=== PATIENT | male | born 1940 | race Caucasian/White ===

== ENCOUNTER 2019-07-17 13:53 | Day surgery (SDC) | payer MEDICARE, OTHER, SELFPAY ==
[2019-07-16 14:39] VITALS: BMI 27.3
[2019-07-17 14:16] VITALS: BP 147/83; O2SAT 95
[2019-07-17 14:21] VITALS: TEMP 36.8
[2019-07-17 14:23] VITALS: PULSE 63
--- NOTE | 2019-07-17 14:47 | ANES.PREANES ---
Pre-Anesthetic Assessment Pre-Anesthetic Assessment: Height/Weight: Height 1.73 m Weight 81.647 kg Temp Pulse BP Pulse Ox 98.2 F 63 147/83 95 07/17/19 14:21 07/17/19 14:23 07/17/19 14:16 07/17/19 14:16 Proposed Procedure: Operation Date: 07/17/19 15:30 Proposed Procedures p Inguinal Hernia Repair w/ Mesh(Left) - Russ Persaud MD Social: Social History: No alcohol and No tobacco Exam: Pre-Anes Outpt Exam: alert, oriented x 3, clear to auscultation bilaterally and regular rate & rhythm Airway: Submandibular: WNL Cervical ROM: Other (limited) MP: 2 Dentition: Other (teeth ok) History/ROS: No significant history except as noted Pulmonary: Pulmonary: None reported CV/HEM: CV/HEM: CAD and HTN Comments: PTCA 2010 : : None reported Hepatic: Hepatic: None reported GI: GI: None reported Metabolic: Metabolic: Hyperlipidemia Musc/skel: Musc/skel: Lower Back Pain and OA/DJD Neuropsych: Neuropsych: None reported Anesthetic Plan: ASA status: III Anesthesia: Anesthesia Evaluation and MAC Risk of > 500 ml blood loss (7ml/kg in children): No PFSH Anesthesia PFSH: Medical History CAD (coronary artery disease) (Acute) Depression (Acute) Gallstones (Acute) Heart attack (Acute) Hypertension (Acute) Prostate enlargement (Acute) Skin cancer (Acute) Sleep apnea (Acute) Surgical History Hx of appendectomy (Acute) Hx of cholecystectomy (Acute) Hx of heart artery stent (Acute) Hx of tonsillectomy (Acute) Family History Other Cholelithiasis Diabetes Hypertension Social History Smoking and tobacco status: never smoked Data Anesthesia Cardiac Studies: No Data to Display
--- NOTE | 2019-07-17 15:00 | PM.HPUD ---
H&P update H&P Update: DATE OF SURGERY/PROCEDURE: 07/17/19 DATE H&P PERFORMED: 06/24/19 H&P UPDATE INFORMATION: H&P completed within last 30 days and No changes to prior documentation PLANNED PROCEDURE: Operation Date: 07/17/19 15:30 Proposed Procedures p Inguinal Hernia Repair w/ Mesh(Left) - Russ Persaud MD Full H&P Perinent History: Medical/Surgical History: Medical History (Updated 07/17/19 @ 14:48 by Osmin Mortensen MD) CAD (coronary artery disease) (Acute) Depression (Acute) Gallstones (Acute) Heart attack (Acute) Hypertension (Acute) Prostate enlargement (Acute) Skin cancer (Acute) Sleep apnea (Acute) Family History: Family History (Updated 07/09/19 @ 13:56 by Marianna Granados) Other Cholelithiasis Diabetes Hypertension Social History: Social History Smoking and tobacco status: never smoked
[2019-07-17] MEDS: sodium chloride 0.9% 1,000 ML 30 ML IV (15:05)
--- NOTE | 2019-07-17 15:55 | P.OP_ITS ---
Operative Report Date of procedure: July 17, 2019 Pre-op Diagnosis: Incarcerated left inguinal hernia. Post-op Findings: Incarcerated left indirect inguinal hernia. Procedure Done: Reduction and repair of incarcerated left inguinal hernia with mesh. Specimens removed/disposition: None sent. Surgeon: Russ Persaud Anesthesia: MAC Estimated blood loss (mL): 5 Complications: None. Condition: stable Disposition: same day Procedure: The patient was brought to the operating room and was placed in a supine position on the operating room table. A monitored anesthetic was induced. The left inguinal region was prepped and draped in a sterile fashion. A combination of 1% lidocaine and 0.5% bupivacaine with 1-200,000 parts epinephrine was used for local anesthesia throughout the procedure. A transverse incision was carried out above the level of the pubic tubercle. Cautery was used to divide the subcutaneous tissue down to the external oblique aponeurosis which was incised in parallel with its fibers over the inguinal canal. The spermatic cord was looped with a [place] drain. An indirect hernia was found at the internal ring. The hernia sac was eventually opened to facilitate dissection and it was discovered that the patient's sigmoid colon was extending all the way down his inguinal canal and back up again. The hernia sac and contents were carefully freed from the cord structures down to the internal ring. The opening in the hernia sac was then closed using a running suture of 3-0 Vicryl and the hernia sac was reduced. The presence of the indirect hernia had obliterated the superior aspect of the inguinal canal floor. A large mesh plug was used to hold the hernia sac in a reduced position and was held in place with sutures of 0 Prolene that were used to connect the conjoined area medially to the reflecting edge of Poupart's ligament laterally. Prolene sutures were continued down the inguinal canal approximating the conjoined area medially to the reflecting edge of Poupart's ligament laterally, essentially re-creating the inguinal canal floor where it had been obliterated by the presence of the hernia. The onlay patch was anchored at the tubercle with a suture of 0 Prolene and was laid along the inguinal canal floor, allowing the cord structures to pass through the precut hole in the mesh. The two wings of mesh were sewn to each other above the level of the internal ring with a suture of 0 Prolene. The external oblique aponeurosis was closed over the top of the cord using a running suture of 3-0 Vicryl. The wound was irrigated with saline. The subcutaneous tissue was brought together with a simple suture of 3-0 Vicryl and the skin was approximated using a running subcuticular suture of 3-0 Vicryl. Benzoin and Steri-Strips were placed over the incision and a sterile bandage followed. The patient was taken to the recovery area in stable condition postoperatively.
[2019-07-17 16:00] VITALS: BP 117/73; PULSE 67; RESP 18; TEMP 36.3; O2SAT 92
[2019-07-17 16:25] VITALS: BP 137/68; PULSE 67; RESP 18; TEMP 36.3; O2SAT 94
== END 2019-07-17 16:45 | disposition home or self-care (01) ==
PROVIDERS: Family Provider Family Medicine; PCP Family Medicine; Visit Provider Surgery
PROC: (CPT 49507; principal; 2019-07-17 15:30)
DX: K40.30 Unilateral inguinal hernia, with obstruction, without gangrene, not specified as recurrent (principal); I25.10 Atherosclerotic heart disease of native coronary artery without angina pectoris; G47.30 Sleep apnea, unspecified; Z82.49 Family history of ischemic heart disease and other diseases of the circulatory system; Z83.3 Family history of diabetes mellitus; I11.0 Hypertensive heart disease with heart failure; I50.9 Heart failure, unspecified; I25.2 Old myocardial infarction; Z79.82 Long term (current) use of aspirin
CPT/HCPCS: 49507; 12345; J0690; J2001; J2704; J3010; J3490; J7030

== ENCOUNTER 2019-11-06 12:56 | Outpatient (CLI) | payer MEDICARE, OTHER, SELFPAY ==
--- NOTE | 2019-11-06 13:02 | MR_ITS ---
WS: [id number] MRI LUMBAR SPINE NONCONTRAST HISTORY: SPINAL stenosis, LUMBAR REGION WITH NEUROGENIC CLAUDICATION COMPARISON: None available. TECHNIQUE: Sagittal and axial multisequence imaging is submitted. Moderate RIGHT convex curvature of the lumbar vertebral bodies. Asymmetric disc space narrowing throu ghout the lumbar spine. Most significant degenerative disc disease is at L2-3 and L3-4. L4 anterolist hesis by 2 mm. Disc desiccation is mild at L4-5 and L5-S1. No marrow edema or acute fractures. Fatty replacement involving the endplates from L2 to L4. Conus terminates normally at L1. L1-L2: Asymmetric disc bulging with osteophytic ridging and disc bulge and facet arthritis. Small dariela unt of fluid in the facet joints. Mild central stenosis. L2-L3: Moderate asymmetric disc bulging and osteophytic ridging. Shallow central annular fissure in t he disc. Moderate central stenosis with mild subarticular recess and bilateral foraminal stenosis. L3-L4: Diffuse asymmetric disc bulging and osteophytic ridging. Large osteophytes extend from the LEF T lateral vertebral body. Marked facet arthritis. Deformity of the thecal sac with encroachment and n arrowing. Moderate to severe central with bilateral subarticular recess stenosis. Additional moderate bilateral foraminal stenosis. L4-L5: Diffuse annular disc bulging with facet and ligamentum flavum arthritis. Osteophytic ridging a round the vertebral bodies. Severe central with bilateral subarticular recess stenosis and mild bilat eral foraminal stenosis. Increase fluid in the facet joints with mild widening. L5-S1: Very mild asymmetric disc bulging. Moderate facet arthritis. No significant central or foramin al narrowing. Patient has a known large LEFT renal cyst measuring 10.4 cm. Additional RIGHT renal cyst extends late rally measuring 2.6 cm. MR/MR lumbar spine wo con* [id number] IMPRESSION: 1. Moderate RIGHT convex curvature the lumbar spine. 2. Severe degenerative disc disease most significant at L2-3 and L3-4. 3. Multilevel areas of central, foraminal subarticular stenosis is multifactor ial. 4. Severe central and bilateral subarticular recess stenosis at L4-5. 5. Increased fluid with mild widening of the facet joints at L4-5. 6. Moderate to severe central stenosis with bilateral subarticular recess sten osis and moderate foraminal stenosis at L3-4. 7. Mild central stenosis at L2-3. 8. Moderate central stenosis with mild subarticular recess and bilateral regina inal stenosis at L2-3.
--- NOTE | 2019-11-06 13:02 | MR_ITS ---
WS: [id number] MRI THORACIC SPINE noncontrast. HISTORY: SPINAL stenosis, LUMBAR REGION WITH NEUROGENIC CLAUDICATION COMPARISON: None available. TECHNIQUE: Multiplanar sequences are performed in sagittal and axial planes. Very slight increase in thoracic kyphosis. Mild disc space narrowing. No signal abnormality within th e cord. There is no atrophy or edema. Conus tapers normally ends at L1. Very slight anterolisthesis o f C7. T1-2: Mild LEFT foraminal narrowing. T2-3: Shallow central disc protrusion and mild bilateral foraminal narrowing. T3-4: Mild RIGHT facet joint arthritis without stenosis. T4-5: RIGHT facet joint arthritis. No significant stenosis. T5-6: Normal. T6-7: Shallow RIGHT paracentral disc protrusion without cord contact. Mild facet arthritis. T7-8: Shallow central disc protrusion and annular fissure. Mild facet joint arthritis. T8-9: Mild osteophytic ridging and bilateral facet arthritis. Mild bilateral foraminal narrowing. T9-10: Moderate bilateral facet joint arthritis with mild bilateral foraminal narrowing. T10-11: Bilateral moderate facet arthritis and mild foraminal narrowing. T11-12: Mild bilateral facet arthritis. There is a large cyst in the LEFT abdomen associated with the kidney which is been previously describ ed. MR/MR thoracic spin wo con* [id number] IMPRESSION: 1. Multilevel mild facet arthritis without significant central or foraminal st enosis. 2. Multilevel small disc protrusions and facet arthritis as above.
--- NOTE | 2019-11-06 13:02 | XR_ITS ---
WS: [id number] LATERAL LUMBAR SPINE: 3 view. Lateral radiographs are performed in upright neutral, flexion and extension to the patient's toleranc e. HISTORY: SPINAL stenosis, LUMBAR REGION WITH NEUROGENIC CLAUDICATION COMPARISON: 01/14/2019 L4 anterolisthesis by 3 mm. Does not significantly change with flexion and extension. There is severe disc space narrowing at L3-4 and L4-5. Diffuse osteopenia with facet joint arthritis. Disc spaces ar e asymmetric due to the scoliosis. Moderate atherosclerosis within the aorta. XR/XR lumbar spine f/e only [id number] IMPRESSION: 1. L4 anterolisthesis by 3 mm without instability. Similar to the prior study of 01/14/2019. 2. Advanced degenerative spondylosis throughout the lumbar spine. Most signifi cant at L3-4.
== END 2019-11-06 12:57 | disposition home or self-care (01) ==
LOC: RADWPI 12:59
PROVIDERS: Family Provider Family Medicine; PCP Family Medicine; Visit Provider Anesthesiology Pain Medicine
DX: M48.062 Spinal stenosis, lumbar region with neurogenic claudication (principal); M51.36 Other intervertebral disc degeneration, lumbar region; M47.896 Other spondylosis, lumbar region; M48.061 Spinal stenosis, lumbar region without neurogenic claudication; M48.04 Spinal stenosis, thoracic region; M47.894 Other spondylosis, thoracic region
CPT/HCPCS: 72120; 72146; 72148

== ENCOUNTER 2019-12-11 15:24 | Observation (INO) | payer MEDICARE, OTHER, SELFPAY ==
[2019-12-10 12:19] VITALS: BMI 27.3
[2019-12-11] VITALS (9 sets, daily range): BP systolic 130–143; BP diastolic 73–85; PULSE 60–78; RESP 16–20; TEMP 35.9–36.4; O2SAT 91–97
--- NOTE | 2019-12-11 | SCC_ITS ---
Procedure Done: Thoracic laminotomy with placement of intraspinal, epidural paddle electrode arrays. 29.1 seconds of fluoroscopic guidance, for a cumulative dose of 8.03 mGy, was provided to Dr. Barajas by the radiology department. C-arm images of the thoracic spine were saved for the patient's permanent record. [facility]
--- NOTE | 2019-12-11 | XR_ITS ---
WS: [id number] C-ARM RADIOGRAPHS CHEST; 2 IMAGES HISTORY: DCS stimulator COMPARISON: None available. Intraoperative imaging during dorsal column stimulator placement. Electrodes project over T7 and T8. XR/XR thoracic spine 1V [id number] IMPRESSION: Intraoperative imaging during dorsal column stimulator placement.
--- NOTE | 2019-12-11 10:26 | ANES.PREANE2 ---
Pre-Anesthetic Assessment Pre-Anesthetic Assessment: Height/Weight: Height 1.7 m Weight 79.379 kg Temp Pulse Resp BP Pulse Ox 97.1 F L 60 18 139/83 97 12/11/19 10:13 12/11/19 10:13 12/11/19 10:13 12/11/19 10:13 12/11/19 10:13 Preop Diagnosis: Lumbar spinal stenosis, with neurogenic claudication Proposed Procedure: Operation Date: 12/11/19 11:30 Proposed Procedures p Dorsal Column Stimulator Insertion [id number] M48.062(Not Applicable) - Liam Barajas MD Last intake: Intake Last Liquid Date 12/11/19 Last Liquid Time 00:00 Last Solid Date 12/11/19 Last Solid Time 00:00 Social: Social History: No alcohol and No tobacco Exam: Pre-Anes Outpt Exam: alert, oriented x 3, clear to auscultation bilaterally and regular rate & rhythm Airway: Submandibular: WNL Cervical ROM: WNL MP: 2 Dentition: Other (teeth ok) History/ROS: No significant history except as noted Pulmonary: Pulmonary: Sleep apnea CV/HEM: CV/HEM: CAD (stents 2009), HTN and IA : : None reported Hepatic: Hepatic: None reported GI: GI: None reported Metabolic: Metabolic: Hyperlipidemia Musc/skel: Musc/skel: Lower Back Pain and OA/DJD Anesthetic Plan: ASA status: 3 Anesthesia: Anesthesia Evaluation, General and MAC Risk of > 500 ml blood loss (7ml/kg in children): No PFSH Anesthesia PFSH: Medical History CAD (coronary artery disease) Depression Dyslipidemia Gallstones Heart attack Hypertension Intervertebral disc disorder with radiculopathy of lumbosacral region Lumbar stenosis with neurogenic claudication Prostate enlargement Skin cancer Sleep apnea Spondylolisthesis of lumbar region Surgical History Hx of appendectomy Hx of cholecystectomy Hx of heart artery stent Hx of tonsillectomy Family History Mother Diabetes Hypertension Father Hypertension Other Cholelithiasis Social History Smoking and tobacco status: never smoked Alcohol intake: never Household members: spouse Marital status: Current occupational status: retired History of recent travel: No Data Anesthesia Cardiac Studies: No Data to Display
[2019-12-11] MEDS: vancomycin 1,000 MG in sodium chloride 0.9% 250 ML 250 MG IV (10:46)
[2019-12-11] MEDS: sodium chloride 0.9% 1,000 ML 30 ML IV (10:46)
--- NOTE | 2019-12-11 11:22 | W.PM.OPSUD ---
Surgery/Procedure H&P Update DATE OF PROCEDURE: December 11, 2019 DATE H&P PERFORMED: 11/24/19 H&P UPDATE INFORMATION: I have reviewed H&P completed within last 30 days and H&P to be scanned into chart PREOP DIAGNOSIS: Lumbar spinal stenosis, with neurogenic claudication PRIMARY INDICATION FOR PROCEDURE: Pain PLANNED PROCEDURE: Operation Date: 12/11/19 11:30 Proposed Procedures Thoracic spinal cord Stimulator paddle lead placement via laminectomy, and sub Q pulse generator placement [id number] M48.062(Not Applicable) - Liam Barajas MD
--- NOTE | 2019-12-11 12:22 | PM.OP2 ---
Brief Operative Note: Date of procedure: 12/11/19 Pre-op diagnosis: Lumbar stenosis, with neurogenic claudication Post-op diagnosis: same Procedure Done: Placement of thoracic spinal cord stimulation electrode arrays via laminotomy; placement of subQ programmable pulse generator Surgeon: Liam Barajas Estimated blood loss (mL): 20 Complications: None Post-op Plan: PACU, then surgical theodore Condition: stable Disposition: PACU Coding Level of Care Code Acute Deputy Juvenile Officer for Ramona Maria
[2019-12-11] MEDS: thrombin 5,000 unit SDV 5000 UNIT XX (15:05)
--- NOTE | 2019-12-11 15:56 | P.OP_ITS ---
Operative Report Date of procedure: December 11, 2019 Pre-op Diagnosis: Lumbar spinal stenosis, with neurogenic claudication Post-op diagnosis: same Procedure Done: Thoracic laminotomy with placement of intraspinal, epidural paddle electrode arrays. Placement of subcutaneous programmable pulse generator. Implants: [place] [employer] CoverEdge 32 lead software test engineer. [employer] WaveWriter pulse generator. Clik lead anchors. Fixate suture devices. Pathology: none sent Surgeon: Liam Barajas Anesthesia: MAC Estimated blood loss (mL): 20 IV fluids (mL): 400 Urine output (mL): 100 Complications: None. Condition: stable Disposition: PACU Brief History: The patient is an 79-year-old male with chronic, intractable low back pain and bilateral hip pain. He also described mid back pain. Symptoms were made worse with prolonged standing/walking. He had undergone physical therapy and pain clinic interventional treatments, with limited/transient benefit obtained. He underwent a percutaneous trial of thoracic spinal cord stimulation in October 2019. Pain clinic notes suggest a midline percutaneous lead was placed spanning T6-T8. The patient reported a 50-70% improvement in pain related parameters during the trial. Imaging studies suggested multilevel degenerative disc/joint disease, with significant spinal stenosis at L4-L5. After review of the diagnostic and treatment options with the risks/potential benefits/rationale for each, he requested to proceed with surgical intervention for permanent spinal cord stimulator placement via laminotomy. Procedure: After routine preoperative evaluation and informed consent were obtained, the patient was taken to the Operating Room and positioned prone on the operating table. Chest and pelvic bolsters were positioned to ensure the abdomen was decompressed. All pressure points were padded. The patient reported the position to be comfortable. He was maintained under varying levels of intravenous sedation by Anesthesia personnel. The planned right flank pulse generator placement incision was marked with a skin marker. A planned midline posterior thoracic incision was likewise marked, after intraoperative localization with fluoroscopy. The patient's lead location during the successful percutaneous trial was utilized to guide placement for the permanent implant. The posterior thorax and flanks were scrubbed with Betadine and prepped with DuraPrep. Sterile towels and drapes were applied, and an [place] surgical barrier was placed. The proposed midline thoracic incision was infiltrated with 1% Xylocaine with epinephrine. A skin incision was made and carried down into the subcutaneous tis sues. The deep fascial plane was identified and divided in the midline. A right- sided subperiosteal dissection was carried down along the lamina at what appeared by intraoperative fluoroscopy to be T8/T9. Deep self-retaining retractors were placed to maximize the operative exposure. A laminotomy was fashioned with [place] rongeurs. Ligamentum flavum was resected at the base of the laminotomy site. The hockey-stick dural separator was advanced into the dorsal epidural space without resistance, and then removed. The [place] [employer] CoverEdge 32, 70 cm, 4 x 8 lead software test engineer was then advanced into the dorsal epidural space. Intraoperative fluoroscopy suggested a near midline position with the cephalad extent of the lead extending to the superior aspect of T7. Anesthesia personnel diminished the patient's sedation until he was awake and conversant. The lead tails were connected to extension cables, and intraoperative spinal cord stimulation was performed. The patient reported good paresthesia coverage of his chronic low back and hip pain sites. Lead impedances were good. The patient's sedation was deepened. The wound was copiously irrigated with sterile saline and antibiotic irrigation. The fascia was closed utilizing 2-0 Vicryl Plus in a simple interrupted fashion. CLIK lead anchors were placed over 2 of the 4 lead tails, and secured at the fascial entry point with Fixate suture devices. The lead - anchor - fascial interfaces were manipulated and found to be secure. Intraoperative fluoroscopy verified a stable lead position. Strain relief loops of the lead tails were fashioned within the subcutaneous space at the thoracic incision site. The right flank incision site was prepared by infiltration with 1% Xylocaine with epinephrine. An incision was then made, and a subcutaneous pocket was created of adequate size to accommodate the pulse generator. The subcutaneous tunneling tool was utilized to create a subcutaneous passage between the thoracic and right flank incisions. Lead tails were advanced through the subcutaneous tunnel utilizing the tunneling tool. The lead tails were advanced into the appropriate ports on the [employer] WaveWriter pulse generator. An impedance check demonstrated no lead faults. The connection sites were secured with set screws and the torque wrench. The connection sites were manipulated and found to be secure. The pulse generator was again interrogated, with acceptable impedance and no evidence of device malfunction. The right flank subcutaneous pocket and the thoracic incision site were copiously irrigated with antibiotic irrigation. Hemostasis was ensured. The pulse generator was placed within the right flank subcutaneous pocket with excess lead coiled deep/adjacent to the device. The pulse generator was anchored to the superficial fascia with a single Silk suture. The site was again irrigated with antibiotic irrigation. Wound closure was performed in multiple layers with 2-0 Vicryl Plus simple interrupted closure of the dermis. Intraoperative fluoroscopy verified a stable lead position. Final skin closure was performed at both incision sites with 3-0 Vicryl Plus in a running subcuticular pattern. Steri-Strips were applied, and sterile dressings were placed. The patient was then rotated onto the Recovery Room cart in the supine position. He tolerated the procedure well. All sponge, needle and instrument counts were correct at the completion of the procedure.
[2019-12-11 17:04] LABS: Glucose Point of Care 145 mg/dL (70-110)
[2019-12-11] MEDS: lactated ringers 1,000 ML 90 ML IV (17:08)
[2019-12-11] MEDS: docusate sodium 100 mg Capsule PO (17:54)
[2019-12-11] MEDS: metoprolol tartrate 50 mg Tablet 100 MG PO (17:54)
[2019-12-11] MEDS: atorvastatin 40 mg Tablet 80 MG PO (17:55)
--- NOTE | 2019-12-11 19:33 | PM.DCS ---
Discharge Providers Date of Admission: 12/11/19 15:24 Date of Discharge: December 11, 2019 Attending Provider at Admission: Liam Barajas MD Attending Provider at Discharge: Liam Barajas MD Primary Care Provider: Ryder Quach Jr, MD Diagnoses at Discharge Discharge Diagnosis (1) Lumbar stenosis with neurogenic claudication: Status: Chronic Reason for Visit Reason for Visit: Lumbar stenosis with neurogenic claudication M48.0 Brief History: The patient is an 79-year-old male with chronic, intractable low back pain and bilateral hip pain. He also described mid back pain. Symptoms were made worse with prolonged standing/walking. He had undergone physical therapy and pain clinic interventional treatments, with limited/transient benefit obtained. He underwent a percutaneous trial of thoracic spinal cord stimulation in October 2019. Pain clinic notes suggest a midline percutaneous lead was placed spanning T6-T8. The patient reported a 50-70% improvement in pain related parameters during the trial. Imaging studies suggested multilevel degenerative disc/joint disease, with significant spinal stenosis at L4-L5. After review of the diagnostic and treatment options with the risks/potential benefits/rationale for each, he requested to proceed with surgical intervention for permanent spinal cord stimulator placement via laminotomy. Hospital Course Hospital Course: The patient underwent thoracic laminotomy with placement of intraspinal, epidural paddle electrode arrays and placement of subcutaneous programmable pulse generator on 12/11/2019. He obtained good paresthesia coverage of his chronic low back and hip pain sites with intraoperative stimulation. He tolerated the procedure well. He completed perioperative intravenous antibiotic doses. He was ambulatory, voiding, and tolerating regular diet prior to discharge home in the evening of the date of surgery. Physical Exam Const: COMMON NORMALS: no acute distress and alert GENERAL APPEARANCE: cooperative and comfortable Neck/C-Spine: COMMON NORMALS: supple and no JVD GENERAL: Yes trachea midline Resp: COMMON NORMALS: normal respiratory effort EFFORT & INSPECTION: Yes able to speak in complete sentences and No stridor Cardio: COMMON NORMALS: no JVD Extremity: COMMON NORMALS: no clubbing, cyanosis or edema Neuro: COMMON NORMALS: moves all extremities SENSORIUM/ORIENTATION: Yes alert SPEECH: speech normal Psych: COMMON NORMALS: speech normal ATTITUDE: Yes calm and Yes engaged ACTIVITY/MOTOR BEHAVIOR: Yes appropriate eye contact SPEECH: Yes normal speech MOOD & AFFECT: Yes euthymic mood ATTENTION/CONCENTRATION: Yes attention grossly intact Skin: WOUNDS: Yes surgical site (Right flank and midline posterior thoracic surgical site dressings C/D/I.) Urinary Catheter Management^: Hassan: Cath Placed During This Visit: yes, but has since been removed by the nurse Urinary Catheter Date of Insertion: 12/11/19 Urinary Catheter Time of Insertion: 13:40 Date Urinary Catheter Removed: 12/11/19 Time Urinary Catheter Discontinued: 15:35 Discharge Data Data Completed and Pending: Completed Studies During Hospitalization Category Date Time Status XR thoracic spine 1V [id number] Routine Exams 12/11/19 Completed Imaging^: Other Xray: Radiologist's impression: Intraoperative imaging during dorsal column stimulator placement. Electrodes project over T7 and T8. Procedures Performed: Thoracic laminotomy with placement of intraspinal, epidural paddle electrode arrays. Placement of subcutaneous programmable pulse generator. Intravenous antibiotics. Vitals: Last Vital Signs Temp 96.7 F L 12/11/19 19:39 Pulse 69 12/11/19 19:39 Resp 20 H 12/11/19 19:39 BP 140/77 12/11/19 19:39 Pulse Ox 92 12/11/19 19:39 Discharge Plan Discharge Patient Disposition: Home, Self-Care Condition: Stable Prescriptions: [place] 7.5-325 mg tablet 1 tab PO Q4H PRN (Reason: pain) Qty: 30 RF: 0 Continued atorvastatin [Lipitor] 80 mg Tablet 80 mg PO QPM RF: 0 metoprolol tartrate 100 mg Tablet 100 mg PO BID RF: 0 amlodipine [Norvasc] 10 mg Tablet 10 mg PO DAILY RF: 0 niacin 500 mg Tablet 500 mg PO BID RF: 0 sertraline 25 mg Tablet 25 mg PO DAILY RF: 0 lisinopril 40 mg Tablet 40 mg PO DAILY RF: 0 alfuzosin 10 mg Tablet Extended Release 24 Hr 10 mg PO DAILY RF: 0 cholecalciferol (vitamin D3) [Vitamin D3] 5,000 unit Tablet 5,000 unit PO DAILY RF: 0 Held Excedrin Extra Strength 250-250-65 mg tablet 1 tab PO Q6H PRN (Reason: Pain) RF: 0 Hold Instructions: Resume on 12/13/19. aspirin 81 mg Tablet,Delayed Release (Dr/Ec) 81 mg PO DAILY RF: 0 Hold Instructions: Resume on 12/13/19. Discharge Orders: Discharge Order (Routine); Ordered 12/11/19 Ordered By: Liam Barajas Referrals: Liam Barajas MD [Physician] - 2 weeks (Faxed face sheet and information to Dr. Soler and they will call you at home with an appointment. Please call his office if you have not heard from them by Sunday.) Discharge Diet: Usual diet Discharge Activity: Limit activity as instructed Patient Instructions: Hydrocodone/Acetaminophen (By mouth), Spinal Cord Stimulator Placement (DC) Activity Restrictions/Additional Instructions: Activity - No driving until office followup visit - No lifting/pushing/pulling over 10 pounds - Avoid twisting or bending - Walking is encouraged - Home exercise per physical therapist - You may engage in sexual intercourse at any time as long as it is comfortable for you - Check with your doctor before returning to work. Notify your doctor if you develop: - temperature of 101.5 degrees F. or higher - redness or swelling of the incision - Foul drainage - increasing pain - increasing numbness or tingling in the arms or legs - New or increasing problems with vision, balance, memory, speaking, nausea or vomiting Hygiene: - Showering is okay - No tub baths or soaking Other: Remove outer bandage 3 days after surgery. If you have paper strips, leave in place until they fall off on their own. If you have stitches, keep your incision dry until the stitches are removed. Your doctor's office is available to answer any questions from 7 AM to 5:00 PM, Sunday through at [phone]. After hours, go to the emergency room at [facility] or call 911 for assistance. Discharge Date/Time: 12/11/19 19:40 Discharge Attestations Time Spent in Discharge Care*: other (postop global) Quality Metrics Clinical Quality Measures During this hospital stay, did patient experience: None Coding Level of Care Code Acute Frog Catcher for Chg Fwd Diagnoses Lumbar stenosis with neurogenic claudication M48.062
--- NOTE | 2019-12-11 19:41 | PC.NURSE ---
Discharge Pt. assisted to dress and taken to private vehicle with family member driving by this nurse at 1935. Pt. was given all discharge information and prescriptions, verbalizes understanding. Pt. and daughter also informed of discharge packet and prescriptions to be filled, verbalizes understanding. Pt. assisted into private vehicle with standby assist. IV was removed prior to leaving the floor by day shift nurse.
== END 2019-12-11 19:40 | disposition home or self-care (01) ==
LOC: MEDSURG 15:24
PROVIDERS: Admitting Provider Specialist; PCP Family Medicine; Visit Provider Specialist
PROC: (CPT 63655; principal; 2019-12-11 11:30)
DX: M48.062 Spinal stenosis, lumbar region with neurogenic claudication (principal); G47.30 Sleep apnea, unspecified; I25.10 Atherosclerotic heart disease of native coronary artery without angina pectoris; Z95.5 Presence of coronary angioplasty implant and graft; I25.2 Old myocardial infarction; E78.5 Hyperlipidemia, unspecified; Z82.49 Family history of ischemic heart disease and other diseases of the circulatory system; Z83.3 Family history of diabetes mellitus
CPT/HCPCS: 63655 ×2; 63685 ×2; 12345; 36416; 51702; 72020; 76000; 82962; 96365; C1778; C1820; C1883; G0378; J0690; J2001; J2704; J3010; J3370; J3490; J7030; J7050

== ENCOUNTER 2020-05-26 09:27 | Outpatient (CLI) | payer MEDICARE, OTHER, SELFPAY ==
--- NOTE | 2020-05-26 09:30 | USCV_ITS ---
[place] Age: 79 Gender: M : 1940 Exam Date: 05/26/2020 09:50 Ordering Phys: Tyler Bennett M.D ([email or web address]) Technologist: Jamey Ballard [place] [facility] [place]: HTN BP: 117 / 56 HR: 69 Rhythm: Sinus Technical Quality: Fair MEASUREMENTS (Male / Female) Normal Values 2D ECHO LV Diastolic Diameter PLAX 3.3 cm 4.2 - 5.9 / 3.9 - 5.3 cm LV Systolic Diameter PLAX 2.1 cm IVS Diastolic Thickness 0.9 cm 0.6 - 1.0 / 0.6 - 0.9 cm IVS Systolic Thickness 1.3 cm LVPW Diastolic Thickness 1.3 cm 0.6 - 1.0 / 0.6 - 0.9 cm LVPW Systolic Thickness 1.4 cm LVOT Diameter 2.1 cm LV Ejection Fraction 2D Teich 55.8 % LV Ejection Fraction MOD 2C 59.3 % LV Ejection Fraction 2C AL 60.8 % LA Diameter 3.5 cm LA Width 3.9 cm LA Height 3.8 cm RA Width 3.3 cm RA Height 4.1 cm Aorta at Sinotubular Diameter 2.7 cm M-MODE LV Diastolic Diameter MM 5.6 cm 4.2 - 5.9 / 3.9 - 5.3 cm LV Systolic Diameter MM 4.0 cm LV Ejection Fraction MM Teich 56.3 % IVS Diastolic Thickness MM 1.0 cm 0.6 - 1.0 / 0.6 - 0.9 cm IVS Systolic Thickness MM 2.0 cm LVPW Diastolic Thickness MM 1.5 cm 0.6 - 1.0 / 0.6 - 0.9 cm LVPW Systolic Thickness MM 1.9 cm RV Diastolic Diameter MM 2.1 cm Aortic Annulus Diameter 3.6 cm LA Ao Ratio MM 1.1 MV E Point Septal Separation 1.1 cm DOPPLER AV Peak Velocity 115.0 cm/s LVOT Peak Velocity 96.0 cm/s AV Area Cont Eq vti 2.9 cm squared AV Area Cont Eq pk 2.8 cm squared MV Area PHT 5.0 cm squared Mitral E to A Ratio 0.5 MV E' Velocity 39.5 cm/s Mitral E to MV E' Ratio 13.5 Mitral E to LV E' Lateral Ratio 12.6 Mitral E to LV E' Septal Ratio 14.6 TR Peak Velocity 124.7 cm/s TR Peak Gradient 6.2 mmHg Right Atrial Pressure 3.0 mmHg Pulmonary Artery Systolic Pressu 9.2 mmHg PV Peak Velocity 79.0 cm/s FINDINGS Left Ventricle Normal left ventricular size, systolic function and wall thickness, with no regional wall motion abnormalities. Left ventricular ejection fraction is estimated at 60 %. Grade I diastolic dysfunction (abnormal relaxation filling pattern), normal to mildly elevated filling pressures. Right Ventricle Normal right ventricular size and systolic function. Right ventricular systolic pressure 9.2 mmHg. Right Atrium Normal right atrial size. Left Atrium Normal left atrial size. Mitral Valve Structurally normal mitral valve. No mitral valve stenosis. Trace mitral valve regurgitation. Aortic Valve Aortic valve not well visualized. Possibly trileaflet thickened aortic valve. No aortic valve stenosis. No aortic valve regurgitation. Tricuspid Valve Structurally normal tricuspid valve. No tricuspid valve stenosis. Trace tricuspid valve regurgitation. Pulmonic Valve Pulmonic valve not well visualized. Pericardium No pericardial effusion. Aorta Normal size aortic root and proximal ascending aorta. CONCLUSIONS 1. Normal left ventricular size, systolic function and wall thickness, with no regional wall motion abnormalities. Left ventricular ejection fraction is estimated at 60 %. Grade I diastolic dysfunction (abnormal relaxation filling pattern), normal to mildly elevated filling pressures. 2. Normal pulmonary artery pressure. 3. No significant valvular abnormality. 4. No prior similar studies to compare. Jazmine Ledezma MD (Electronically Signed) Final Date: 30 May 2020 14:59 S
== END 2020-05-26 09:28 | disposition home or self-care (01) ==
LOC: US 09:27
PROVIDERS: PCP Family Medicine; Visit Provider Internal Medicine
DX: R06.02 Shortness of breath (principal)
CPT/HCPCS: 93306

== ENCOUNTER → 2020-09-01 09:11 | Outpatient (BNVA) | payer MEDICARE, OTHER, SELFPAY | PROVIDERS: PCP Family Medicine; Visit Provider Urology | DX: R39.9 Unspecified symptoms and signs involving the genitourinary system (principal); N40.1 Benign prostatic hyperplasia with lower urinary tract symptoms | CPT/HCPCS: 81003 ==

== ENCOUNTER 2020-10-07 08:43 | Outpatient (CLI) | payer MEDICARE, OTHER, SELFPAY ==
--- NOTE | 2020-10-07 08:57 | CT_ITS ---
WS: [id number] CT HEAD WITH AND WITHOUT CONTRAST HISTORY: ALTERED MENTAL STATUS TECHNIQUE: Noncontrast 2.5 mm axial images obtained from the vertex to the skull base. Additional isabel ging performed at 2.5 mm axial images status post IV contrast. Bone and soft tissue windows are revie wed. All CT scans at [facility] use at least one of these dose optimization techniques: a utomated exposure control; mA and/or kV adjustment per patient size (includes targeted exams where do se is matched to clinical indication); or iterative reconstruction. CONTRAST: Visipaque 320; 95 mL IV. DLP: 1851.82 mGycm COMPARISON: None available. No acute intracranial hemorrhage, edema or midline shift. Mild atrophy and mild chronic microvascular ischemic disease. 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 No large area infarcts. No enhancing mass or vascular malformations identified. Dural venous sinuses are normally enhancing. Mildly ectatic distal vertebral and intracranial carotid arteries. There is atherosclerotic plaque wi thin the cavernous and supraclinoid carotid arteries. There is a moderate stenosis secondary to calci fied plaque involving the RIGHT supraclinoid carotid artery. No occlusions. Paranasal sinuses as visualized: Clear. Mastoid air cells: Clear. Calvarium and scalp: Intact. CT/CT head wo/w con [id number] IMPRESSION: 1. No enhancing masses or vascular malformations. 2. 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 3. Mild atrophy and mild chronic ischemic disease.
[2020-10-07 09:21] LABS: Blood Urea Nitrogen 25 mg/dL (8-23)
[2020-10-07] MEDS: iodixanol 320 mg/mL 100mL Btl IV (09:35)
== END 2020-10-07 08:44 | disposition home or self-care (01) ==
PROVIDERS: PCP Family Medicine; Visit Provider Family Medicine
DX: R41.82 Altered mental status, unspecified (principal); I65.21 Occlusion and stenosis of right carotid artery; I67.82 Cerebral ischemia; G31.9 Degenerative disease of nervous system, unspecified
CPT/HCPCS: 70470; 82565; 84520; Q9967

== ENCOUNTER 2021-02-21 00:22 | Emergency (ER) | payer MEDICARE, OTHER, SELFPAY ==
[2021-02-21 00:24] VITALS: PULSE 57; RESP 16; TEMP 36.7; O2SAT 94; BMI 26.3
--- NOTE | 2021-02-21 00:37 | XRR_ITS ---
PROCEDURE INFORMATION: Exam: XR Chest Exam date and time: 02/21/2021 12:37 AM Age: 80 years old Clinical indication: Other: Weakness TECHNIQUE: Imaging protocol: XR of the chest. Views: 1 view. COMPARISON: OT XR thoracic spine 1V [id number] 12/11/2019 2:00 PM FINDINGS: Lungs: Unremarkable. No consolidation. Pleural spaces: Unremarkable. No pleural effusion. No pneumothorax. Heart/Mediastinum: Unremarkable. No cardiomegaly. Bones/joints: Unremarkable. XR/XR chest 1V portable [id number] IMPRESSION: No acute findings.
--- NOTE | 2021-02-21 00:39 | ED_ITS ---
Documented by User: LDUY Rodriguez 02/21/21 01:02 HPI - General Adult General: Chief complaint: General Medical Stated complaint: WEAKNESS Time Seen by Provider: 02/21/21 00:33 History of Present Illness: HPI narrative: Patient arrived via ambulance with complaint of sudden onset of weakness earlier tonight after having sore throat for the last couple days. Patient said it is hard to swallow and eat and drink anything the last 2 days and he was going to bed tonight and he just become weak. Said he had to crawl over to the bed. called the ambulance. Said he feels a bit better now. complaint: Sore throat weakness Onset (ago): day(s) Severity: mild Associated symptoms: Reports no associated symptoms; Deny chest pain, dyspnea, headache(s), nausea, rash or vomiting Review of Systems Const: Reports: other (Anderson weak tonight); Denies: fever(s), chills or body aches Eyes: Denies: change in vision or blurry vision ENMT: Reports: throat pain; Denies: nasal congestion Card: Denies: chest pain or dyspnea on exertion Resp: Denies: dyspnea, productive cough or non-productive cough GI: Denies: abdominal pain, nausea or vomiting : Denies: difficulty urinating Musc: Denies: extremity pain Skin/Breast: Denies: rash Neuro: Denies: headache(s) Psych: Denies: anxiety or depression James/Lymph: Denies: easy bruising PFSH ED PFSH: Medical History BPH loc w urin obs/LUTS CAD (coronary artery disease) Depression Dyslipidemia Gallstones Heart attack Hypertension Intervertebral disc disorder with radiculopathy of lumbosacral region Lower urinary tract symptoms (LUTS) Lumbar stenosis with neurogenic claudication Prostate enlargement Skin cancer Sleep apnea Spondylolisthesis of lumbar region Surgical History Hx of appendectomy Hx of cholecystectomy Hx of heart artery stent Hx of tonsillectomy Family History Mother Diabetes Hypertension CAD (coronary artery disease) Father Hypertension CAD (coronary artery disease) Other Cholelithiasis Denies family history of Clotting disorder Dementia Chronic kidney disease (CKD) Suicide Anesthesia complication Bleeding disorder Lung disease Cancer Stroke Social History Smoking and tobacco status: never smoked Alcohol intake: never Household members: spouse Marital status: Current occupational status: retired History of recent travel: No Physical Exam Const: COMMON NORMALS: no acute distress, average body habitus and patient oriented x3 HENMT: COMMON NORMALS: normocephalic HEAD & SCALP: normal to inspection and normocephalic FACE & SINUS: normal facial exam MOUTH: Normal oral and palatal mucosa present THROAT: posterior oropharynx normal Eye: COMMON NORMALS: conjunctivae normal GENERAL EYE: appearance normal, both eyes and all related structures CONJUNCTIVA: Yes conjunctivae normal Neck/C-Spine: COMMON NORMALS: no JVD Chest: COMMONS NORMALS: normal inspection of the chest Resp: COMMON NORMALS: normal respiratory effort and clear to auscultation bilaterally AUSCULTATION: clear to auscultation bilaterally Cardio: COMMON NORMALS: no JVD, regular rate and regular rhythm RATE: regular rate RHYTHM: regular rhythm GI: COMMON NORMALS: Normal to inspection, nondistended, normoactive bowel sounds present Extremity: COMMON NORMALS: normal to inspection and full ROM Neuro: COMMON NORMALS: patient oriented x3 Course Vital Signs: Vital signs: Vital Signs Temperature 98.1 F 02/21/21 00:24 Pulse Rate 78 02/21/21 05:59 Respiratory Rate 18 02/21/21 05:59 Blood Pressure 112/78 02/21/21 05:59 Pulse Oximetry 92 02/21/21 05:59 [facility] - General Adult Lab Data: Labs: Lab Results 02/21/21 02/21/21 02/21/21 Range/Units 00:37 00:37 00:37 WBC 6.4 (4.0-10.0) 10^3/ uL RBC 4.78 (4.1-5.3) 10^6/u L Hgb 15.1 (11.7-16.6) g/dL Hct 45.1 (42.0-52.0) % MCV 94.4 H (80-94) fl MCH 31.6 (28.0-34.0) pg MCHC 33.5 (30.0-36.0) g/dL RDW 12.9 (12.1-15.1) % Plt Count 132 (130-400) 10^3/c mm MPV 10.3 (7.4-10.4) fL Neut % (Auto) 71.3 % Lymph % (Auto) 17.0 % Bradley % (Auto) 10.9 % Eos % (Auto) 0.3 % Baso % (Auto) 0.3 % Neut # (Auto) 4.53 (1.8-7.7) 10^3/u L Lymph # (Auto) 1.1 (0.8-4.8) 10^3/u L Bradley # (Auto) 0.7 (0.2-0.9) 10^3/u L Eos # (Auto) 0.0 (0.0-0.8) 10^3/u L Baso # (Auto) 0.0 (0.0-0.1) 10^3/u L Nucleated RBC % (a uto) 0 % Nucleated RBCs # 0.0 /100WBC Sodium 141 (136-145) mmol/L Potassium 3.9 (3.5-5.1) mmol/L Chloride 104 (98-107) mmol/L Carbon Dioxide 24 (22-29) mmol/L Anion Gap 16.9 (5-19) BUN 27 H (8-23) mg/dL Creatinine 1.4 H (0.7-1.2) mg/dL GFR Calculation Not Reportable Glucose 97 (65-115) mg/dL Calculated Osmolal ity 297 H (285-295) mOsm/k g Calcium 9.1 (8.5-10.5) mg/dL Total Bilirubin 0.4 (0.15-1.2) mg/dL AST 27 (0-40) U/L ALT 21 (0-41) U/L Alkaline Phosphata se 67 (40-130) IU/L Troponin T Baselin e 40 H (0-15) ng/L Troponin T 120 Min [place] (0-15) ng/L Delta Troponin T (0-10) ABS# Total Protein 6.0 L (6.6-8.7) g/dL Albumin 4.1 (3.5-5.2) g/dL Globulin 1.9 (1.3-4.6) g/dL SARS-CoV-2 Ag (Rap id) Group A Strep Rapi d (Negative) 02/21/21 02/21/21 02/21/21 Range/Units 00:49 00:49 02:55 WBC (4.0-10.0) 10^3/ uL RBC (4.1-5.3) 10^6/u L Hgb (11.7-16.6) g/dL Hct (42.0-52.0) % MCV (80-94) fl MCH (28.0-34.0) pg MCHC (30.0-36.0) g/dL RDW (12.1-15.1) % Plt Count (130-400) 10^3/c mm MPV (7.4-10.4) fL Neut % (Auto) % Lymph % (Auto) % Bradley % (Auto) % Eos % (Auto) % Baso % (Auto) % Neut # (Auto) (1.8-7.7) 10^3/u L Lymph # (Auto) (0.8-4.8) 10^3/u L Bradley # (Auto) (0.2-0.9) 10^3/u L Eos # (Auto) (0.0-0.8) 10^3/u L Baso # (Auto) (0.0-0.1) 10^3/u L Nucleated RBC % (a uto) % Nucleated RBCs # /100WBC Sodium (136-145) mmol/L Potassium (3.5-5.1) mmol/L Chloride (98-107) mmol/L Carbon Dioxide (22-29) mmol/L Anion Gap (5-19) BUN (8-23) mg/dL Creatinine (0.7-1.2) mg/dL GFR Calculation Glucose (65-115) mg/dL Calculated Osmolal ity (285-295) mOsm/k g Calcium (8.5-10.5) mg/dL Total Bilirubin (0.15-1.2) mg/dL AST (0-40) U/L ALT (0-41) U/L Alkaline Phosphata se (40-130) IU/L Troponin T Baselin e (0-15) ng/L Troponin T 120 Min [place] 37.43 H (0-15) ng/L Delta Troponin T -2.57 L (0-10) ABS# Total Protein (6.6-8.7) g/dL Albumin (3.5-5.2) g/dL Globulin (1.3-4.6) g/dL SARS-CoV-2 Ag (Rap id) Cancelled Group A Strep Rapi d Negative (Negative) EKG Data^: EKG 1: EKG interpretation date: 02/21/21 EKG interpretation time: 00:49 Computer generated interpretation: Chest X-Ray 02/21/21 00:37 IMPRESSION: No acute findings. Ventricular rate 70 bpm DC interval 256 ms QRS duration is 76 ms QT is 398 ms sinus rhythm with first-degree AV block. Discharge Plan Discharge Patient Disposition: Home Clinical Impression: Near syncope Condition: Stable Prescriptions: No Action carbidopa-levodopa 25-100 mg tablet 0.5 tab PO BID RF: 0 lisinopril 10 mg tablet 10 mg PO DAILY RF: 0 Excedrin Extra Strength 250-250-65 mg tablet 1 tab PO Q6H PRN (Reason: Pain) RF: 0 Hold Instructions: Resume on 12/13/19. metoprolol tartrate 50 mg tablet 50 mg PO BID RF: 0 alfuzosin 10 mg tablet extended release 24 hr 10 mg PO DAILY Qty: 90 RF: 3 atorvastatin [Lipitor] 80 mg Tablet 80 mg PO QPM RF: 0 aspirin 81 mg Tablet,Delayed Release (Dr/Ec) 81 mg PO DAILY RF: 0 Hold Instructions: Resume on 12/13/19. niacin 500 mg Tablet 500 mg PO BID RF: 0 sertraline 25 mg Tablet 25 mg PO DAILY RF: 0 cholecalciferol (vitamin D3) [Vitamin D3] 125 mcg (5,000 unit) tablet 50,000 mcg PO DAILY RF: 0 Discharge Orders: Discharge ED (Routine); Ordered 02/21/21 Ordered By: Osmani Khan Discharge Diet: Usual diet Discharge Activity: Increase activity as tolerated Patient Instructions: Near Syncope (ED) Activity Restrictions/Additional Instructions: Patient orders have been placed for a Holter monitor for you. You should get a call on Sunday regarding setting this up. If you have not heard from our [facility] by Sunday, call [phone] and ask for the ER family independence case manager. In the meantime, return for chest discomfort, shortness of breath, continued episodes of near syncope or passing out, or any other concerns. Coding Level of Care Code ED Santa'S Helper for Chg Fwd Exam Comprehensive Documented by User: Osmani Khan DO 02/21/21 08:09 HPI - General Adult General: Chief complaint: General Medical Stated complaint: WEAKNESS Time Seen by Provider: 02/21/21 00:33 PFSH ED PFSH: Medical History BPH loc w urin obs/LUTS CAD (coronary artery disease) Depression Dyslipidemia Gallstones Heart attack Hypertension Intervertebral disc disorder with radiculopathy of lumbosacral region Lower urinary tract symptoms (LUTS) Lumbar stenosis with neurogenic claudication Prostate enlargement Skin cancer Sleep apnea Spondylolisthesis of lumbar region Surgical History Hx of appendectomy Hx of cholecystectomy Hx of heart artery stent Hx of tonsillectomy Family History Mother Diabetes Hypertension CAD (coronary artery disease) Father Hypertension CAD (coronary artery disease) Other Cholelithiasis Denies family history of Clotting disorder Dementia Chronic kidney disease (CKD) Suicide Anesthesia complication Bleeding disorder Lung disease Cancer Stroke Social History Smoking and tobacco status: never smoked Alcohol intake: never Household members: spouse Marital status: Current occupational status: retired History of recent travel: No Course Vital Signs: Vital signs: Vital Signs Temperature 98.1 F 02/21/21 00:24 Pulse Rate 78 02/21/21 05:59 Respiratory Rate 18 02/21/21 05:59 Blood Pressure 112/78 02/21/21 05:59 Pulse Oximetry 92 02/21/21 05:59 MDM - General Adult MDM Narrative: Medical decision making narrative: 80-year-old gentleman originally seen by LUDY Irizarry. I agree with his history, evaluation, and treatment. This gentleman had a near syncopal episode at home. On further interview of his son-in-law and him, he has had several of these episodes in the last few weeks. He denies any chest discomfort. His initial troponin was mildly elevated, likely due to renal insufficiency. His 2-hour did not change significantly. His other laboratory is benign. His chest x-ray is read as no acute findings. There is a concern of orthostatic hypotension given his history versus possibly an arrhythmia causing his symptoms. He will be set up for Holter monitor as an outpatient, and follow-up with cardiology. They know to return for any continued episodes or other concerning symptoms. He has an appointment with Dr. Macedo Sunday or Sunday of this week. Lab Data: Labs: Lab Results 02/21/21 02/21/21 02/21/21 Range/Units 00:37 00:37 00:37 WBC 6.4 (4.0-10.0) 10^3/ uL RBC 4.78 (4.1-5.3) 10^6/u L Hgb 15.1 (11.7-16.6) g/dL Hct 45.1 (42.0-52.0) % MCV 94.4 H (80-94) fl MCH 31.6 (28.0-34.0) pg MCHC 33.5 (30.0-36.0) g/dL RDW 12.9 (12.1-15.1) % Plt Count 132 (130-400) 10^3/c mm MPV 10.3 (7.4-10.4) fL Neut % (Auto) 71.3 % Lymph % (Auto) 17.0 % Bradley % (Auto) 10.9 % Eos % (Auto) 0.3 % Baso % (Auto) 0.3 % Neut # (Auto) 4.53 (1.8-7.7) 10^3/u L Lymph # (Auto) 1.1 (0.8-4.8) 10^3/u L Bradley # (Auto) 0.7 (0.2-0.9) 10^3/u L Eos # (Auto) 0.0 (0.0-0.8) 10^3/u L Baso # (Auto) 0.0 (0.0-0.1) 10^3/u L Nucleated RBC % (a uto) 0 % Nucleated RBCs # 0.0 /100WBC Sodium 141 (136-145) mmol/L Potassium 3.9 (3.5-5.1) mmol/L Chloride 104 (98-107) mmol/L Carbon Dioxide 24 (22-29) mmol/L Anion Gap 16.9 (5-19) BUN 27 H (8-23) mg/dL Creatinine 1.4 H (0.7-1.2) mg/dL GFR Calculation Not Reportable Glucose 97 (65-115) mg/dL Calculated Osmolal ity 297 H (285-295) mOsm/k g Calcium 9.1 (8.5-10.5) mg/dL Total Bilirubin 0.4 (0.15-1.2) mg/dL AST 27 (0-40) U/L ALT 21 (0-41) U/L Alkaline Phosphata se 67 (40-130) IU/L Troponin T Baselin e 40 H (0-15) ng/L Troponin T 120 Min [place] (0-15) ng/L Delta Troponin T (0-10) ABS# Total Protein 6.0 L (6.6-8.7) g/dL Albumin 4.1 (3.5-5.2) g/dL Globulin 1.9 (1.3-4.6) g/dL SARS-CoV-2 Ag (Rap id) Group A Strep Rapi d (Negative) 02/21/21 02/21/21 02/21/21 Range/Units 00:49 00:49 02:55 WBC (4.0-10.0) 10^3/ uL RBC (4.1-5.3) 10^6/u L Hgb (11.7-16.6) g/dL Hct (42.0-52.0) % MCV (80-94) fl MCH (28.0-34.0) pg MCHC (30.0-36.0) g/dL RDW (12.1-15.1) % Plt Count (130-400) 10^3/c mm MPV (7.4-10.4) fL Neut % (Auto) % Lymph % (Auto) % Bradley % (Auto) % Eos % (Auto) % Baso % (Auto) % Neut # (Auto) (1.8-7.7) 10^3/u L Lymph # (Auto) (0.8-4.8) 10^3/u L Bradley # (Auto) (0.2-0.9) 10^3/u L Eos # (Auto) (0.0-0.8) 10^3/u L Baso # (Auto) (0.0-0.1) 10^3/u L Nucleated RBC % (a uto) % Nucleated RBCs # /100WBC Sodium (136-145) mmol/L Potassium (3.5-5.1) mmol/L Chloride (98-107) mmol/L Carbon Dioxide (22-29) mmol/L Anion Gap (5-19) BUN (8-23) mg/dL Creatinine (0.7-1.2) mg/dL GFR Calculation Glucose (65-115) mg/dL Calculated Osmolal ity (285-295) mOsm/k g Calcium (8.5-10.5) mg/dL Total Bilirubin (0.15-1.2) mg/dL AST (0-40) U/L ALT (0-41) U/L Alkaline Phosphata se (40-130) IU/L Troponin T Baselin e (0-15) ng/L Troponin T 120 Min [place] 37.43 H (0-15) ng/L Delta Troponin T -2.57 L (0-10) ABS# Total Protein (6.6-8.7) g/dL Albumin (3.5-5.2) g/dL Globulin (1.3-4.6) g/dL SARS-CoV-2 Ag (Rap id) Cancelled Group A Strep Rapi d Negative (Negative) EKG Data^: EKG 1: Computer generated interpretation: Chest X-Ray 02/21/21 00:37 IMPRESSION: No acute findings. Discharge Plan Discharge Patient Disposition: Home Clinical Impression: Near syncope Condition: Stable Prescriptions: No Action carbidopa-levodopa 25-100 mg tablet 0.5 tab PO BID RF: 0 lisinopril 10 mg tablet 10 mg PO DAILY RF: 0 Excedrin Extra Strength 250-250-65 mg tablet 1 tab PO Q6H PRN (Reason: Pain) RF: 0 Hold Instructions: Resume on 12/13/19. metoprolol tartrate 50 mg tablet 50 mg PO BID RF: 0 alfuzosin 10 mg tablet extended release 24 hr 10 mg PO DAILY Qty: 90 RF: 3 atorvastatin [Lipitor] 80 mg Tablet 80 mg PO QPM RF: 0 aspirin 81 mg Tablet,Delayed Release (Dr/Ec) 81 mg PO DAILY RF: 0 Hold Instructions: Resume on 12/13/19. niacin 500 mg Tablet 500 mg PO BID RF: 0 sertraline 25 mg Tablet 25 mg PO DAILY RF: 0 cholecalciferol (vitamin D3) [Vitamin D3] 125 mcg (5,000 unit) tablet 50,000 mcg PO DAILY RF: 0 Discharge Orders: Discharge ED (Routine); Ordered 02/21/21 Ordered By: Osmani Khan Discharge Diet: Usual diet Discharge Activity: Increase activity as tolerated Patient Instructions: Near Syncope (ED) Activity Restrictions/Additional Instructions: Patient orders have been placed for a Holter monitor for you. You should get a call on Sunday regarding setting this up. If you have not heard from our [facility] by Sunday, call [phone] and ask for the ER family independence case manager. In the meantime, return for chest discomfort, shortness of breath, continued episodes of near syncope or passing out, or any other concerns. Coding Level of Care Code ED Santa'S Helper for Ramona Maria Exam Comprehensive
[2021-02-21 00:56] LABS: Basophils % 0.3 %; Eosinophils % 0.3 %; Hematocrit 45.1 % (42.0-52.0); Hemoglobin 15.1 g/dL (11.7-16.6); Lymphocytes # 1.1 10^3/uL (0.8-4.8); Mean Corpuscular HGB Conc 33.5 g/dL (30.0-36.0); Mean Corpuscular Hemoglobin 31.6 pg (28.0-34.0); Mean Corpuscular Volume 94.4 fl (80-94); Mean Platelet Volume 10.3 fL (7.4-10.4); Monocytes # 0.7 10^3/uL (0.2-0.9); Monocytes % 10.9 %; Neutrophils # 4.53 10^3/uL (1.8-7.7); Neutrophils % 71.3 %; Nucleated Red Blood Cells % 0 %; Platelet Count 132 10^3/cmm (130-400); Red Blood Count 4.78 10^6/uL (4.1-5.3); Red Cell Distribution Width 12.9 % (12.1-15.1); White Blood Count 6.4 10^3/uL (4.0-10.0)
[2021-02-21 00:57] VITALS: BP 127/58; PULSE 70; RESP 14; O2SAT 95
[2021-02-21] MEDS: sodium chloride 0.9% 500 ML IV (01:01)
[2021-02-21 01:12] LABS: Troponin(5th) Baseline 40 ng/L (0-15)
[2021-02-21 01:15] LABS: Alanine Aminotransferase 21 U/L (0-41); Albumin Level 4.1 g/dL (3.5-5.2); Alkaline Phosphatase 67 IU/L (40-130); Anion Gap 16.9 (5-19); Aspartate Amino Transferase 27 U/L (0-40); Blood Urea Nitrogen 27 mg/dL (8-23); Calcium 9.1 mg/dL (8.5-10.5); Carbon Dioxide 24 mmol/L (22-29); Chloride 104 mmol/L (98-107); Globulin 1.9 g/dL (1.3-4.6); Glucose 97 mg/dL (65-115); Osmolality Calculated 297 mOsm/kg (285-295); Potassium 3.9 mmol/L (3.5-5.1); Sodium 141 mmol/L (136-145); Total Bilirubin 0.4 mg/dL (0.15-1.2)
[2021-02-21 01:16] LABS: Rapid Strep A Test Negative (Negative)
[2021-02-21 02:34] VITALS: BP 160/79; PULSE 66; RESP 16; O2SAT 94
--- NOTE | 2021-02-21 02:38 | ECG_ITS ---
[facility] Test Date: 2021-02-21 Pat Name: Peter Reno Department: Room: Gender: Male Information Assurance Specialist: : 1940 Requested By: Toni Rentreia Order Number: [id number] Reading MD: EDWAR KABA Measurements Intervals [place] Rate: 66 P: 43 IN: 265 QRS: 12 QRSD: 81 T: 62 QT: 420 QTc: 441 Interpretive Statements SINUS RHYTHM WITH FIRST DEGREE AV BLOCK NONSPECIFIC T-WAVE ABNORMALITY No previous ECG available for comparison Electronically Signed On 02-21-2021 18:36:51 CDT by EDWAR KABA [email or web address]
[2021-02-21 04:31] VITALS: BP 158/69; PULSE 65; RESP 14
[2021-02-21 04:57] LABS: Troponin 5 2HR 37.43 ng/L (0-15)
[2021-02-21 04:58] LABS: Troponin 5 2HR Delta -2.57 ABS# (0-10)
[2021-02-21 05:59] VITALS: BP 112/78; PULSE 78; RESP 18; O2SAT 92
--- NOTE | 2021-02-24 09:20 | DCPLANNER ---
manager financial had message to schedule a follow up appointment with heart care for a 72 hour halter monitor. manager financial faxed signed order to centralized scheduling, who will call patient with appointment information.
== END 2021-02-21 06:04 | disposition home or self-care (01) ==
PROVIDERS: Emergency Provider Nurse Practitioner Family
DX: R55 Syncope and collapse (principal); Z79.82 Long term (current) use of aspirin; I25.10 Atherosclerotic heart disease of native coronary artery without angina pectoris; E78.5 Hyperlipidemia, unspecified; I10 Essential (primary) hypertension
CPT/HCPCS: 36415; 71045; 80053; 84484; 85025; 87081; 87880; 93005; 96360; 99284; J7040

== ENCOUNTER → 2021-02-22 10:39 | Outpatient (BNVA) | payer MEDICARE, OTHER, SELFPAY | PROVIDERS: PCP Family Medicine; Referring Provider Family Medicine; Visit Provider Specialist | DX: G91.2 (Idiopathic) normal pressure hydrocephalus (principal); G20 Parkinson's disease | CPT/HCPCS: 62270; 99205 ==

== ENCOUNTER 2021-02-27 13:34 | Inpatient (IN) | payer MEDICARE, OTHER, SELFPAY ==
[2021-02-27] VITALS (10 sets, daily range): BP systolic 111–165; BP diastolic 67–92; PULSE 60–88; RESP 18–32; TEMP 36.4–37.2; O2SAT 93–97; BMI 26.3
--- NOTE | 2021-02-27 13:44 | XRR_ITS ---
PROCEDURE INFORMATION: Exam: XR Chest Exam date and time: 02/27/2021 1:44 PM Age: 80 years old Clinical indication: Dyspnea TECHNIQUE: Imaging protocol: XR of the chest. Views: 1 view. Other technique: Frontal portable upright view of the chest. COMPARISON: CR (CHEST, ) 02/21/2021 1:20 AM FINDINGS: Tubes, catheters and devices: Lower thoracic intraspinal neural stimulator leads. EKG leads are present overlying the chest. Lungs: Mild left lateral basilar subsegmental atelectasis. The pulmonary vasculature is normal. Pleural spaces: Small left pleural effusion, slightly increased. Heart/Mediastinum: The heart is normal in size and contour. Mediastinum: Stable. Vasculature: Mild aortic arch atherosclerotic calcification without ectasia. Bones/joints: Stable. XR/XR chest 1V portable [id number] IMPRESSION: 1. Mild left lateral basilar subsegmental atelectasis. 2. Small left pleural effusion, slightly increased.
--- NOTE | 2021-02-27 13:46 | ECG_ITS ---
[facility] Test Date: 2021-02-27 Pat Name: Peter Reno Department: Room: 269 Gender: Male Mineral Technologist: : 1940 Requested By: Eliseo Parker Order Number: [id number] Reading MD: Jazmine Ledezma M.D. Measurements Intervals [place] Rate: 71 P: 9 NH: 224 QRS: -8 QRSD: 76 T: 36 QT: 440 QTc: 479 Interpretive Statements SINUS RHYTHM WITH FIRST DEGREE AV BLOCK INFERIOR MYOCARDIAL INFARCTION , OF INDETERMINATE AGE [40+ ms Q WAVE AND/OR ST/T ABNORMALITY IN II/aVF] Compared to ECG 02/27/2021 14:32:13 Myocardial infarct finding now present Electronically Signed On 02-28-2021 19:12:13 CDT by Jazmine Ledezma M.D. [id number]
[2021-02-27] MEDS: ipratropium-albuterol 3 mL Neb INHALATION (14:05)
--- NOTE | 2021-02-27 14:23 | W.ED.GENADLT ---
HPI - General Adult General: Chief complaint: Weakness Stated complaint: weakness, hypoxia Time Seen by Provider: 02/27/21 13:36 History of Present Illness: HPI narrative: 80-year-old male with history CAD, hyperlipidemia, advanced Parkinson's disease who is followed by Dr. Wood presenting to the emergency room for worsening diffuse weakness. Patient was found in bed today unable to get up by family and shortness of breath. EMS was alerted, patient was found to be satting 87% on room air. Patient was brought to the emergency room for evaluation. On arrival, patient is AOx3 GCS 15 answering my questions. Patient reports cough mild shortness of breath and reports diffuse weakness throughout the body. Per chart review, patient was seen evaluate out Dr. Wood yesterday who attempted to do a lumbar scan for evaluation generalized weakness which has been ongoing. However, given severe scoliosis, it was unable to be performed. Patient has a fluoroscopic lumbar puncture scheduled for tomorrow morning. Onset:chronic Duration:ongoing Location:home Severity:moderate/severe Review of Systems Narrative: Constitutional: No fever, no chills. +generalized weakness HEENT: No vision changes CV: No chest pain, no palpitations PULM: +cough, +dyspnea. GI: No abdominal pain, no N/V/D. : No dysuria MSKEL: No muscle pain SKIN: No new rashes, no lesions. NEURO: No headache, no focal weakness. HEME: No visible bruises PSYCH: Normal mood PFS ED PFSH: Medical History BPH loc w urin obs/LUTS CAD (coronary artery disease) Depression Dyslipidemia Gallstones Heart attack Hypertension Intervertebral disc disorder with radiculopathy of lumbosacral region Lower urinary tract symptoms (LUTS) Lumbar stenosis with neurogenic claudication Prostate enlargement Skin cancer Sleep apnea Spondylolisthesis of lumbar region Surgical History Hx of appendectomy Hx of cholecystectomy Hx of heart artery stent Hx of tonsillectomy Family History Mother Diabetes Hypertension CAD (coronary artery disease) Father Hypertension CAD (coronary artery disease) Other Cholelithiasis Denies family history of Clotting disorder Dementia Chronic kidney disease (CKD) Suicide Anesthesia complication Bleeding disorder Lung disease Cancer Stroke Social History Smoking and tobacco status: never smoked Alcohol intake: never Household members: spouse Marital status: Current occupational status: retired History of recent travel: No Physical Exam Narrative: EXAM NARRATIVE: Head: Atraumatic Eyes: PERRL, conjunctiva without injection ENT: Dry membrane moist NECK: Supple, ROM intact LUNGS: LCTAB CV: RRR ABDOMEN: Soft, nontender in all quadrants EXTREMITY: Normal ROM SKIN: No rash or erythema NEURO: Awake and alert, no focal motor deficits PSYCH: Normal mood and affect Course Vital Signs: Vital signs: Vital Signs Temperature 100.8 F H 03/01/21 10:40 Pulse Rate 101 H 03/01/21 10:26 Respiratory Rate 19 H 03/01/21 10:26 Blood Pressure 114/78 03/01/21 08:00 Pulse Oximetry 93 03/01/21 10:26 MDM - General Adult MDM Narrative: Medical decision making narrative: 80-year-old male presenting to the emergency room with complaints generalized weakness and cough. Per rescue, patient was satting 87% on room air earlier today. On arrival, patient was on 4 L without any signs of respiratory distress. Pulse ox was unable to obtain due to multiple jittery movement in the arms. We have attempted pulse ox on the ears and forehead without any success. EKG showing regular sinus rhythm at HT of [79]. Normal axis. No ST elevations/depressions to suggest coronary occlusion. Normal SD, QRS, QT intervals. Lab work-up showed new SHEILA on CKD with creatinine 1.7 baseline 1.3, mild troponin and proBNP elevation. Covid pending at this time. Chest x-ray clear. Disposition: Admission. Patient will be admitted to the hospital for further work-up generalized weakness. Patient has an LP that is scheduled for tomorrow. Lab Data: Labs: Lab Results 02/27/21 02/27/21 02/27/21 Range/Units 13:55 13:55 13:55 WBC 4.3 (4.0-10.0) 10^3/ uL RBC 5.05 (4.1-5.3) 10^6/u L Hgb 15.4 (11.7-16.6) g/dL Hct 45.7 (42.0-52.0) % MCV 90.5 (80-94) fl MCH 30.5 (28.0-34.0) pg MCHC 33.7 (30.0-36.0) g/dL RDW 12.4 (12.1-15.1) % Plt Count 110 L (130-400) 10^3/c mm MPV 11.4 H (7.4-10.4) fL Neut % (Auto) 82.8 % Lymph % (Auto) 12.0 % [place] % (Auto) 4.8 % Eos % (Auto) 0.0 % Baso % (Auto) 0.2 % Neut # (Auto) 3.58 (1.8-7.7) 10^3/u L Lymph # (Auto) 0.5 L (0.8-4.8) 10^3/u L [place] # (Auto) 0.2 (0.2-0.9) 10^3/u L Eos # (Auto) 0.0 (0.0-0.8) 10^3/u L Baso # (Auto) 0.0 (0.0-0.1) 10^3/u L Nucleated RBC % (a uto) 0 % Nucleated RBCs # 0.0 /100WBC ESR (0-10) mm/hr Specimen Type Sample Site ABG pH (7.35-7.45) ABG pCO2 (35-45) mmHg ABG pO2 (80.0-100.0) mmH g ABG HCO3 (22-26) mmol/L ABG Base Excess (-2.0-2.0) mmol/ L Sheldon Test Hematocrit (42-52) % O2 Delivery Device O2 Liters/Min % Blend Technician ID Sodium 138 (136-145) mmol/L Potassium 4.1 (3.5-5.1) mmol/L Chloride 101 (98-107) mmol/L Carbon Dioxide 24 (22-29) mmol/L Anion Gap 17.1 (5-19) BUN 43 H (8-23) mg/dL Creatinine 1.7 H (0.7-1.2) mg/dL GFR Calculation Not Reportable Glucose 99 (65-115) mg/dL Calculated Osmolal ity 297 H (285-295) mOsm/k g Calcium 8.3 L (8.5-10.5) mg/dL Total Bilirubin 0.6 (0.15-1.2) mg/dL AST 43 H (0-40) U/L ALT 29 (0-41) U/L Alkaline Phosphata se 58 (40-130) IU/L Troponin T Baselin e 58 H (0-15) ng/L C-Reactive Protein (0.0-4.9) mg/L NT-Pro-B Natriuret Pep 774 H (0-450) pg/mL Total Protein 5.8 L (6.6-8.7) g/dL Albumin 3.6 (3.5-5.2) g/dL Globulin 2.2 (1.3-4.6) g/dL Lipase 67 H (13-60) U/L Vitamin B12 (232-1245) pg/mL Procalcitonin (0-0.5) ng/mL TSH (0.27-4.20) uIU/ mL RPR (Nonreactive) Nasal/Oral COVID-1 9 PCR SARS-CoV-2 Ag (Rap id) (Negative) 02/27/21 02/27/21 02/27/21 Range/Units 13:55 13:55 14:16 WBC (4.0-10.0) 10^3/ uL RBC (4.1-5.3) 10^6/u L Hgb (11.7-16.6) g/dL Hct (42.0-52.0) % MCV (80-94) fl MCH (28.0-34.0) pg MCHC (30.0-36.0) g/dL RDW (12.1-15.1) % Plt Count (130-400) 10^3/c mm MPV (7.4-10.4) fL Neut % (Auto) % Lymph % (Auto) % [place] % (Auto) % Eos % (Auto) % Baso % (Auto) % Neut # (Auto) (1.8-7.7) 10^3/u L Lymph # (Auto) (0.8-4.8) 10^3/u L [place] # (Auto) (0.2-0.9) 10^3/u L Eos # (Auto) (0.0-0.8) 10^3/u L Baso # (Auto) (0.0-0.1) 10^3/u L Nucleated RBC % (a uto) % Nucleated RBCs # /100WBC ESR 34 H (0-10) mm/hr Specimen Type Arterial Sample Site Brachial, left ABG pH 7.49 H (7.35-7.45) ABG pCO2 29.7 L (35-45) mmHg ABG pO2 83.8 (80.0-100.0) mmH g ABG HCO3 22.4 (22-26) mmol/L ABG Base Excess 0.1 (-2.0-2.0) mmol/ L Sheldon Test N/a Hematocrit 48.4 (42-52) % O2 Delivery Device Nrb O2 Liters/Min 10.0 % Blend Technician ID Ed Sodium (136-145) mmol/L Potassium (3.5-5.1) mmol/L Chloride (98-107) mmol/L Carbon Dioxide (22-29) mmol/L Anion Gap (5-19) BUN (8-23) mg/dL Creatinine (0.7-1.2) mg/dL GFR Calculation Glucose (65-115) mg/dL Calculated Osmolal ity (285-295) mOsm/k g Calcium (8.5-10.5) mg/dL Total Bilirubin (0.15-1.2) mg/dL AST (0-40) U/L ALT (0-41) U/L Alkaline Phosphata se (40-130) IU/L Troponin T Baselin e (0-15) ng/L C-Reactive Protein 130.6 H (0.0-4.9) mg/L NT-Pro-B Natriuret Pep (0-450) pg/mL Total Protein (6.6-8.7) g/dL Albumin (3.5-5.2) g/dL Globulin (1.3-4.6) g/dL Lipase (13-60) U/L Vitamin B12 > 2000 H (232-1245) pg/mL Procalcitonin 0.19 (0-0.5) ng/mL TSH 4.92 H (0.27-4.20) uIU/ mL RPR Nonreactive (Nonreactive) Nasal/Oral COVID-1 9 PCR SARS-CoV-2 Ag (Rap id) (Negative) 02/27/21 02/27/21 Range/Units 14:32 14:32 WBC (4.0-10.0) 10^3/ uL RBC (4.1-5.3) 10^6/u L Hgb (11.7-16.6) g/dL Hct (42.0-52.0) % MCV (80-94) fl MCH (28.0-34.0) pg MCHC (30.0-36.0) g/dL RDW (12.1-15.1) % Plt Count (130-400) 10^3/c mm MPV (7.4-10.4) fL Neut % (Auto) % Lymph % (Auto) % [place] % (Auto) % Eos % (Auto) % Baso % (Auto) % Neut # (Auto) (1.8-7.7) 10^3/u L Lymph # (Auto) (0.8-4.8) 10^3/u L [place] # (Auto) (0.2-0.9) 10^3/u L Eos # (Auto) (0.0-0.8) 10^3/u L Baso # (Auto) (0.0-0.1) 10^3/u L Nucleated RBC % (a uto) % Nucleated RBCs # /100WBC ESR (0-10) mm/hr Specimen Type Sample Site ABG pH (7.35-7.45) ABG pCO2 (35-45) mmHg ABG pO2 (80.0-100.0) mmH g ABG HCO3 (22-26) mmol/L ABG Base Excess (-2.0-2.0) mmol/ L Sheldon Test Hematocrit (42-52) % O2 Delivery Device O2 Liters/Min % Blend Technician ID Sodium (136-145) mmol/L Potassium (3.5-5.1) mmol/L Chloride (98-107) mmol/L Carbon Dioxide (22-29) mmol/L Anion Gap (5-19) BUN (8-23) mg/dL Creatinine (0.7-1.2) mg/dL GFR Calculation Glucose (65-115) mg/dL Calculated Osmolal ity (285-295) mOsm/k g Calcium (8.5-10.5) mg/dL Total Bilirubin (0.15-1.2) mg/dL AST (0-40) U/L ALT (0-41) U/L Alkaline Phosphata se (40-130) IU/L Troponin T Baselin e (0-15) ng/L C-Reactive Protein (0.0-4.9) mg/L NT-Pro-B Natriuret Pep (0-450) pg/mL Total Protein (6.6-8.7) g/dL Albumin (3.5-5.2) g/dL Globulin (1.3-4.6) g/dL Lipase (13-60) U/L Vitamin B12 (232-1245) pg/mL Procalcitonin (0-0.5) ng/mL TSH (0.27-4.20) uIU/ mL RPR (Nonreactive) Nasal/Oral COVID-1 9 PCR Detected H SARS-CoV-2 Ag (Rap id) Negative (Negative) Imaging Data^: Other Imaging: Radiologist's impression: [address] [id number] ReportSigned Patient: Peter Reno #: [id number]: 1940cct#:[id number]/Sex: 80 / MADM Date: 02/27/21Loc: ERRoom/Bed:Attending Dr: Ordering Provider/Ordering MD: Eliseo Parker MD Date of Service: 02/27/21 Procedure(s): XR chest 1V portable [id number] Accession Number(s): [id number] Report Number: [id number] PROCEDURE INFORMATION: Exam: XR Chest Exam date and time: 02/27/2021 1:44 PM Age: 80 years old Clinical indication: Dyspnea TECHNIQUE: Imaging protocol: XR of the chest. Views: 1 view. Other technique: Frontal portable upright view of the chest. COMPARISON: CR (CHEST, ) 02/21/2021 1:20 AM FINDINGS: Tubes, catheters and devices: Lower thoracic intraspinal neural stimulator leads. EKG leads are present overlying the chest. Lungs: Mild left lateral basilar subsegmental atelectasis. The pulmonary vasculature is normal. Pleural spaces: Small left pleural effusion, slightly increased. Heart/Mediastinum: The heart is normal in size and contour. Mediastinum: Stable. Vasculature: Mild aortic arch atherosclerotic calcification without ectasia. Bones/joints: Stable. XR/XR chest 1V portable [id number] IMPRESSION: 1. Mild left lateral basilar subsegmental atelectasis. 2. Small left pleural effusion, slightly increased. 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
[2021-02-27 14:24] LABS: ABG PCO2 29.7 mmHg (35-45); ABG PH Result 7.49 (7.35-7.45); Arterial Blood Gas Hematocrit 48.4 % (42-52); Base Excess ABG 0.1 mmol/L (-2.0-2.0); Blood Gas Sample Type Arterial; HCO3 ABG 22.4 mmol/L (22-26); PO2 ABG 83.8 mmHg (80.0-100.0)
[2021-02-27 14:27] LABS: Blood Gas Operator Identificat ED; Blood Gas Sample Site Brachial, left; Oxygen Device NRB
[2021-02-27 14:29] LABS: Basophils % 0.2 %; Hematocrit 45.7 % (42.0-52.0); Hemoglobin 15.4 g/dL (11.7-16.6); Lymphocytes # 0.5 10^3/uL (0.8-4.8); Mean Corpuscular HGB Conc 33.7 g/dL (30.0-36.0); Mean Corpuscular Hemoglobin 30.5 pg (28.0-34.0); Mean Corpuscular Volume 90.5 fl (80-94); Mean Platelet Volume 11.4 fL (7.4-10.4); Monocytes # 0.2 10^3/uL (0.2-0.9); Monocytes % 4.8 %; Neutrophils # 3.58 10^3/uL (1.8-7.7); Neutrophils % 82.8 %; Nucleated Red Blood Cells % 0 %; Platelet Count 110 10^3/cmm (130-400); Red Blood Count 5.05 10^6/uL (4.1-5.3); Red Cell Distribution Width 12.4 % (12.1-15.1); White Blood Count 4.3 10^3/uL (4.0-10.0)
[2021-02-27 14:52] LABS: Troponin(5th) Baseline 58 ng/L (0-15)
[2021-02-27 14:58] LABS: Alanine Aminotransferase 29 U/L (0-41); Albumin Level 3.6 g/dL (3.5-5.2); Alkaline Phosphatase 58 IU/L (40-130); Aspartate Amino Transferase 43 U/L (0-40); Blood Urea Nitrogen 43 mg/dL (8-23); Calcium 8.3 mg/dL (8.5-10.5); Carbon Dioxide 24 mmol/L (22-29); Chloride 101 mmol/L (98-107); Globulin 2.2 g/dL (1.3-4.6); Glucose 99 mg/dL (65-115); Lipase 67 U/L (13-60); NT Pro B Type Natriuretic Pept 774 pg/mL (0-450); Osmolality Calculated 297 mOsm/kg (285-295); Sodium 138 mmol/L (136-145); Total Bilirubin 0.6 mg/dL (0.15-1.2); Total Protein 5.8 g/dL (6.6-8.7)
[2021-02-27 15:00] LABS: Anion Gap 17.1 (5-19); Potassium 4.1 mmol/L (3.5-5.1)
[2021-02-27 15:40] LABS: SARS Covid-2 Antigen Negative (Negative)
[2021-02-27] MEDS: LORazepam 2 mg/mL INJ 1 mL 1 MG IM (15:55)
--- NOTE | 2021-02-27 16:19 | P.HP_ITS ---
Providers/Chief Complaint Admitting Physician: Joe Crocker MD Primary Care Provider: Rajni Knapp MD Chief Complaint: WEAKNESS/ HYPOXIC History of Present Illness [place] Carlotta Reno is a 80 year old male with a past medical history of CAD status post RCA stenting, depression, dyslipidemia, hypertension, history of degenerative disc disease, status post final cord stimulator placement, lumbar stenosis, BPH, who presents to [facility] due to weakness, fatigue, confusion. Currently patient is alert, but I cannot get any history from him, he is confused, does not follow commands, is quite agitated, keeps telling me he has to get out of here. Most of the history was provided by patient's , who I contacted over the phone, Shelly, she tells me that [place] was doing fine a year ago, he did have this significant back pain, he did have injections to his back, he did have back surgery, he had a spinal cord stimulator place. Besides his stent placement, no other significant health concerns, but over the last year he has had a slow decline in terms of his cognitive level of functioning, he was becoming more forgetful, less able to carry out conversations, he is appetite was decreasing, has been eating less, he is a slow decline in terms of his functionality, he has increased falls, he walks with a shuffling gait according to , he has tremors of upper extremities, no changes in his personality, but he is less vocal, no hallucinations, no agitation no wandering. Patient and were told that he has some sort of Parkinson's disease, however they have waited over [address] Wood, and just saw Dr. Wood a few days ago, the Dr. Wood seems to think he might have Lewy body dementia versus normal pressure hydrocephalus, she try to perform a lumbar puncture in the office, but he had significant dextroscoliosis that it was difficult to perform, he was scheduled for outpatient lumbar puncture on Sunday. However over the weekend he continued to become more forgetful, his appetite dramatically declined, he only had a few bites to eat, he is urinating less, and he was becoming more short of breath, so thus family brought him in for further evaluation. Here in the emergency room, patient is quite agitated, ripped out his IVs, takes out his nasal cannula, when I examined him in the room, he was on room air, he will keep the oxygen probe on him, his blood gas showed a PO2 of 83.8 on 10 L, chest x-ray shows some pulmonary vascular congestion, UA has not been come back yet, troponin is as high as 58, creatinine is 1.7, he looks clinically dehydrated. Hospitalist team was called for admission for concerns for dehydration and generalized decline, Review of Systems General: Reports: ROS unobtainable due to medical condition Medications/Allergies Home Medications Medication Instructions Recorded Confirmed Last Taken Type aspirin 81 mg PO DAILY 07/09/19 02/27/21 02/27/21 History atorvastatin [Lipitor] 80 mg PO QPM 07/09/19 02/27/21 02/26/21 History niacin 500 mg PO BID 07/09/19 02/27/21 02/27/21 History sertraline 25 mg PO DAILY 07/09/19 02/27/21 02/27/21 History hcgbzcz-mczkaonvnmzyn-rzchrecx 250 1 tab PO Q6H PRN 11/17/19 02/27/21 12/10/19 History mg-250 mg-65 mg tablet alfuzosin 10 mg tablet,extended 10 mg PO DAILY #90 tab 09/01/20 02/27/21 02/26/21 Rx release 24 hr cholecalciferol (vitamin D3) 125 50,000 mcg PO DAILY tab 09/01/20 02/27/21 Unknown History mcg (5,000 unit) tablet metoprolol tartrate 50 mg tablet 50 mg PO BID 09/01/20 02/27/21 02/27/21 History lisinopril 5 mg PO BID 02/27/21 02/27/21 02/27/21 History Allergies Allergy/AdvReac Type Severity Reaction Status Date / Time Sulfa (Sulfonamide Allergy CHECOSabinaBrite Verified 02/22/21 10:41 Antibiotics) r PFSH Acute PFSH: Medical History BPH loc w urin obs/LUTS CAD (coronary artery disease) Depression Dyslipidemia Gallstones Heart attack Hypertension Intervertebral disc disorder with radiculopathy of lumbosacral region Lower urinary tract symptoms (LUTS) Lumbar stenosis with neurogenic claudication Prostate enlargement Skin cancer Sleep apnea Spondylolisthesis of lumbar region Surgical History Hx of appendectomy Hx of cholecystectomy Hx of heart artery stent Hx of tonsillectomy Family History Mother Diabetes Hypertension CAD (coronary artery disease) Father Hypertension CAD (coronary artery disease) Other Cholelithiasis Denies family history of Clotting disorder Dementia Chronic kidney disease (CKD) Suicide Anesthesia complication Bleeding disorder Lung disease Cancer Stroke Social History Smoking and tobacco status: never smoked Alcohol intake: never Household members: spouse Marital status: Current occupational status: retired History of recent travel: No Vitals/I&O/Wt Last Vital Signs Temp 99.0 F 02/27/21 13:41 Pulse 88 02/27/21 14:21 Resp 18 02/27/21 14:05 BP 111/67 02/27/21 13:41 Pulse Ox 94 02/27/21 14:05 Weight last 48 hrs Weight 76.204 kg Physical Exam Const: COMMON NORMALS: no acute distress GENERAL APPEARANCE: anxious NUTRITIONAL APPEARANCE: thin ORIENTATION/CONSCIOUSNESS: Yes awake and Yes confused; not oriented to person, not oriented to place and not oriented to time Chest: COMMONS NORMALS: normal inspection of the chest Resp: COMMON NORMALS: normal respiratory effort, No retractions, No use of accessory muscles and clear to auscultation bilaterally Cardio: COMMON NORMALS: regular rate, regular rhythm, S1 normal heart sound present and S2 normal heart sound present GI: COMMON NORMALS: Normal to inspection, nondistended, normoactive bowel sounds present, Soft to palpation and non-tender Extremity: COMMON NORMALS: no pedal edema Neuro: SENSORIUM/ORIENTATION: Yes alert, No oriented to person, No oriented to place and No oriented to time OTHER: Does not follow neurologic testing, has diffuse tremors of upper extremities, Data : 02/27/21 13:55 02/27/21 13:55 A&P Assessment and plan (1) AMS (altered mental status): -From history what I gather he has had a slow decline over the last year, does say that he was a bit forgetful before, but he was fairly functional -Seems like after the back surgery he has had a slow decline -We will order B12, folate, RPR, TSH -Certainly he has had a acute decline, with hypoxia currently, concerning for possible aspiration pneumonia, start on Zosyn -I am still waiting on a UA, possibility of UTI -CT of the head pending -Certainly an MRI of the brain would be warranted, however it will be difficult to perform given his spinal stimulator -Hold aspirin, Lovenox, will discuss with radiology Dr. Walter about performing lumbar puncture tomorrow to evaluate for possible chronic meningitis/fungal meningitis versus NPH versus Lewy body dementia -Will order EEG -DVT prophylaxis SCDs -DNR/DNI Aspiration pneumonia with hypoxia, antibiotics as above SHEILA, creatinine 1.7 likely secondary dehydration, poor oral intake start gentle IV hydration Poor oral intake, likely recurrent aspiration events, keep n.p.o., will consult speech therapy Generalized weakness, PT OT likely's muscular deconditioning, protein calorie malnutrition BPH, will have Hassan placed Elevated troponins, likely secondary to hypoxia, trend troponins, serial EKGs serial troponins, aspirin, statin Rapid Covid negative, Covid PCR pending, continue Covid isolation Status: Acute (2) SHEILA (acute kidney injury): Status: Acute (3) Generalized weakness: Status: Acute (4) Hypoxemia: Status: Acute (5) Elevated troponin I level: Status: Acute (6) BPH loc w urin obs/LUTS: Status: Acute (7) Dyslipidemia: Status: Acute (8) CAD (coronary artery disease): Status: Acute (9) Spondylolisthesis of lumbar region: Status: Chronic (10) Lumbar stenosis with neurogenic claudication: Status: Chronic (11) 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 (12) Aspiration pneumonia: Status: Acute Attestations Medical Necessity Statement*: Patient requires hospitalization for altered mental status secondary to aspiration ammonia numbers and or UTI, SHEILA, requiring a lumbar puncture, inpatient, greater than 2 midnights Coding Level of Care Code Acute Radiological Health Specialist for [facility] Fwd Diagnoses AMS (altered mental status) R41.82 SHEILA (acute kidney injury) N17.9 Generalized weakness R53.1 Hypoxemia R09.02 Elevated troponin I level R77.8 BPH loc w urin obs/LUTS N40.1 Dyslipidemia E78.5 CAD (coronary artery disease) I25.10 Spondylolisthesis of lumbar region M43.16 Lumbar stenosis with neurogenic claudication M48.062 Intervertebral disc disorder with radiculopathy of lumbosacral region M51.17 Aspiration pneumonia J69.0
[2021-02-27] MEDS: ampicillin-sulbactam 3 GM in sodium chloride 0.9% (plus) 50 ML IV (16:44)
[2021-02-27 17:23] LABS: Troponin 5 2HR 56.83 ng/L (0-15)
[2021-02-27 17:29] LABS: Troponin 5 2HR Delta -1.17 ABS# (0-10)
[2021-02-27] MEDS: dextrose 5%-sod chloride 0.45% 1,000 ML 75 ML IV (18:11)
[2021-02-27] MEDS: pantoprazole 40 mg SDV IVP (18:11)
--- NOTE | 2021-02-27 18:23 | PC.NURSE ---
attempted to give patient oral scheduled medication, patient unable to wake up, unable to swallow water through a straw, unsafe for oral administration.
[2021-02-27 18:42] LABS: Procalcitonin 0.19 ng/mL (0-0.5); Thyroid Stimulating Hormone 4.92 uIU/mL (0.27-4.20)
[2021-02-27 18:53] LABS: C Reactive Protein 130.6 mg/L (0.0-4.9)
[2021-02-27 19:17] LABS: Add Urine Microscopic? YES; Bilirubin Urine 1+ (Negative); Blood Urine 3+ (Negative); Glucose Urine UA Norm (Normal); Ketones Urine 1+ (Negative); Leukocyte Esterase Urine Negative (Negative); Nitrate Urine Negative (Negative); Protein Urine 2+ (Negative); Urine Appearance SL Hazy (CLEAR); Urine Color Yellow (Yellow); Urobilinogen Urine Norm (Negative); pH Urine 5 (5-7)
[2021-02-27 19:18] LABS: RBC Urine 15-25 /hpf (0-2); WBC Urine 0-4 /hpf (0-5)
[2021-02-27 19:19] LABS: Add Urine Culture? No; Bacteria Urine 2+ /hpf; Fine Granular Casts Urine 15-25 /lpf; Mucus Urine 1+ /hpf; Squamous Epithelial Cell Urine RARE /hpf (0-5)
[2021-02-27 19:32] LABS: Rapid Plasma Reagin Syphilis Nonreactive (Nonreactive)
[2021-02-27 19:35] LABS: Erythrocyte Sedimentation Rate 34 mm/hr (0-10)
--- NOTE | 2021-02-27 19:46 | ECG_ITS ---
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 Measurements Intervals [place] Rate: 79 P: 34 ND: 222 QRS: -1 QRSD: 76 T: 51 QT: 402 QTc: 462 Interpretive Statements SINUS RHYTHM WITH FIRST DEGREE AV BLOCK Compared to ECG 02/21/2021 02:58:33 T-wave abnormality no longer present Electronically Signed On 02-28-2021 19:22:44 CDT by Jazmine Ledezma M.D. [id number]
[2021-02-27 22:08] LABS: Folate Level 19.8 ng/mL (4.5-32.2)
--- NOTE | 2021-02-27 23:19 | PHA.FALL ---
A Pharmacy Consult Was Conducted For [place] Carlotta Reno Due To: Hoffman Fall Scale Risk Level: High Fall Risk On 02/27/21 20:00 And A Medication Fall Risk Score Greater Than 10. The Recommendations Are As Follows: Sertraline 25 mg daily FABIO: 1,3,4,7,8,10 Metoprolol FABIO: 1,2,3,4,5,9,10 Lisinopril FABIO 1,3,4,5,8,9 Medications which cause/contribute to: 1 = sedation/fatigue/lethargy 2 = decreased alertness 3 = postural/orthostatic hypotension 4 = dizziness 5 = decreased neuromuscular function/ataxia 6 = decreased memory/cognitive impairment 7 = blurred vision 8 = confusion 9 = arrhythmias 10 = syncope 11 = anemia
[2021-02-27 23:31] LABS: Vitamin B12 > 2000 pg/mL (232-1245)
[2021-02-27] MEDS: piperacillin-tazobactam 3.375 GM in sodium chloride 0.9% (plus) 50 ML IV (23:46)
[2021-02-28] VITALS (10 sets, daily range): BP systolic 138–191; BP diastolic 80–95; PULSE 49–64; RESP 14–24; TEMP 36.3–36.4; O2SAT 88–95
[2021-02-28] MEDS: piperacillin-tazobactam 3.375 GM in sodium chloride 0.9% (plus) 50 ML IV ×3 (06:43→22:38)
[2021-02-28 06:44] LABS: Hematocrit 44.8 % (42.0-52.0); Hemoglobin 15.4 g/dL (11.7-16.6); Lymphocytes # 0.5 10^3/uL (0.8-4.8); Lymphocytes % 13.7 %; Mean Corpuscular HGB Conc 34.4 g/dL (30.0-36.0); Mean Corpuscular Hemoglobin 30.8 pg (28.0-34.0); Mean Corpuscular Volume 89.6 fl (80-94); Mean Platelet Volume 11.1 fL (7.4-10.4); Monocytes # 0.2 10^3/uL (0.2-0.9); Monocytes % 4.6 %; Neutrophils # 3.03 10^3/uL (1.8-7.7); Neutrophils % 81.4 %; Nucleated Red Blood Cells % 0 %; Platelet Count 106 10^3/cmm (130-400); Red Cell Distribution Width 12.4 % (12.1-15.1); White Blood Count 3.7 10^3/uL (4.0-10.0)
[2021-02-28 07:00] LABS: INR 1.02 (0.8-1.2)
[2021-02-28 07:12] LABS: Alanine Aminotransferase 27 U/L (0-41); Albumin Level 3.3 g/dL (3.5-5.2); Alkaline Phosphatase 57 IU/L (40-130); Anion Gap 15.9 (5-19); Aspartate Amino Transferase 40 U/L (0-40); Blood Urea Nitrogen 40 mg/dL (8-23); Calcium 8.6 mg/dL (8.5-10.5); Carbon Dioxide 24 mmol/L (22-29); Chloride 102 mmol/L (98-107); Globulin 2.7 g/dL (1.3-4.6); Glucose 164 mg/dL (65-115); Osmolality Calculated 299 mOsm/kg (285-295); Phosphorus 3.6 mg/dL (2.5-4.5); Potassium 3.9 mmol/L (3.5-5.1); Sodium 138 mmol/L (136-145); Total Bilirubin 0.5 mg/dL (0.15-1.2)
[2021-02-28] MEDS: metoprolol tartrate 50 mg Tablet PO ×2 (08:51→17:35)
[2021-02-28] MEDS: cholecalciferol (vitamin D3) 5,000 unit Tablet 5000 UNIT PO (08:51)
[2021-02-28] MEDS: sertraline 50 mg Tablet 25 MG PO (08:52)
[2021-02-28] MEDS: acetaminophen 325 mg Tablet 650 MG PO (13:20)
[2021-02-28 13:53] LABS: Coronavirus Test Green County Detected
--- NOTE | 2021-02-28 15:13 | P.PN_ITS ---
Subjective Subjective: Interval history: Patient was seen and examined this morning.More awake and alert today,Still poor oral intake. Medications: Reviewed: Yes Vitals/I&O/Wt Last Vital Signs Temp 97.3 F L 02/28/21 12:00 Pulse 59 L 02/28/21 12:00 Resp 18 02/28/21 12:00 BP 164/91 02/28/21 12:00 Pulse Ox 88 L 02/28/21 12:00 02/28/21 02/28/21 02/28/21 06:59 14:59 22:59 Intake Total 525 / 575 50 / 50 Output Total 425 / 425 0 / 0 Balance 100 / 150 50 / 50 Weight last 48 hrs Weight 76.204 kg Physical Exam HENMT: COMMON NORMALS: normocephalic and atraumatic HEAD & SCALP: normocephalic and atraumatic Resp: COMMON NORMALS: clear to auscultation bilaterally EFFORT & INSPECTION: Yes symmetric chest movement AUSCULTATION: clear to auscultation bilaterally Cardio: COMMON NORMALS: regular rate, regular rhythm, S1 normal heart sound present, S2 normal heart sound present, No gallops present (Cardio), No murmurs present (Cardio), No rub (Cardio) and Peripheral pulses 2+ throughout RATE: regular rate RHYTHM: regular rhythm HEART SOUNDS: S1 normal heart sound present and S2 normal heart sound present PERIPHERAL PULSES: Peripheral pulses 2+ throughout GI: COMMON NORMALS: Normal to inspection, nondistended, normoactive bowel sounds present, Soft to palpation, non-tender, No hepatosplenomegaly present and no masses AUSCULTATION: Yes normoactive bowel sounds PALPATION: Yes Soft to palpation and Yes No hepatosplenomegaly present RECTAL EXAM: Yes deferred Extremity: COMMON NORMALS: no clubbing, cyanosis or edema and no pedal edema Urinary Catheter Management^: Hassan: Cath Placed During This Visit: yes Reason for Continuing Indwelling Catheter: Acute Urinary Retention or Obstruction Urinary Catheter Date of Insertion: 02/27/21 Urinary Catheter Time of Insertion: 17:46 Data : 02/28/21 06:00 02/28/21 06:00 Micro: Microbiology 02/27/21 19:47 Blood Culture - Preliminary Blood SPECIMEN COLLECTED 02/27/21 19:43 Blood Culture - Preliminary Blood SPECIMEN COLLECTED A&P Assessment and plan (1) AMS (altered mental status): -From history what I gather he has had a slow decline over the last year, does say that he was a bit forgetful before, but he was fairly functional -Seems like after the back surgery he has had a slow decline -We will order B12, folate, RPR, TSH -Certainly he has had a acute decline, with hypoxia currently, concerning for possible aspiration pneumonia, start on Zosyn -I am still waiting on a UA, possibility of UTI -CT of the head pending -Certainly an MRI of the brain would be warranted, however it will be difficult to perform given his spinal stimulator -Hold aspirin, Lovenox, will discuss with radiology Dr. Walter about performing lumbar puncture tomorrow to evaluate for possible chronic meningitis/fungal meningitis versus NPH versus Lewy body dementia -Will order EEG -DVT prophylaxis SCDs -DNR/DNI Aspiration pneumonia with hypoxia, antibiotics as above SHEILA, creatinine 1.7 likely secondary dehydration, poor oral intake start gentle IV hydration Poor oral intake, likely recurrent aspiration events, keep n.p.o., will consult speech therapy Generalized weakness, PT OT likely's muscular deconditioning, protein calorie malnutrition BPH, will have Hassan placed Elevated troponins, likely secondary to hypoxia, trend troponins, serial EKGs serial troponins, aspirin, statin Rapid Covid negative, Covid PCR pending, continue Covid isolation Status: Acute (2) SHEILA (acute kidney injury): Status: Acute (3) Generalized weakness: Status: Acute (4) Hypoxemia: Status: Acute (5) Elevated troponin I level: Status: Acute (6) BPH loc w urin obs/LUTS: Status: Acute (7) Dyslipidemia: Status: Acute (8) CAD (coronary artery disease): Status: Acute (9) Spondylolisthesis of lumbar region: Status: Chronic (10) Lumbar stenosis with neurogenic claudication: Status: Chronic (11) 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 Coding Level of Care Code Acute Credit Controller for [facility] Fwd Diagnoses AMS (altered mental status) R41.82 SHEILA (acute kidney injury) N17.9 Generalized weakness R53.1 Hypoxemia R09.02 Elevated troponin I level R77.8 BPH loc w urin obs/LUTS N40.1 Dyslipidemia E78.5 CAD (coronary artery disease) I25.10 Spondylolisthesis of lumbar region M43.16 Lumbar stenosis with neurogenic claudication M48.062 Intervertebral disc disorder with radiculopathy of lumbosacral region M51.17 Aspiration pneumonia J69.0
[2021-02-28] MEDS: morphine 4 mg/mL SDV 1 mL 2 MG IVP (16:53)
[2021-02-28] MEDS: dextrose 5%-sod chloride 0.45% 1,000 ML 75 ML IV (16:54)
[2021-02-28] MEDS: pantoprazole 40 mg SDV IVP (17:34)
[2021-02-28] MEDS: atorvastatin 40 mg Tablet 80 MG PO (17:35)
--- NOTE | 2021-02-28 17:44 | PC.RESP ---
RT Shift Note Frequent safety and respiratory rounds continue. Orders completed as indicated. Patient monitored pre and post treatments throughout shift. Patient did tolerate treatments appropriately. Condition did not change. Patient and/or bilingual call center representative educated on respiratory treatment and medications. Patient and/or bilingual call center representative verbalized understand. Will continue to monitor patient progress.
[2021-03-01] VITALS (14 sets, daily range): BP systolic 114–189; BP diastolic 65–94; PULSE 66–105; RESP 16–22; TEMP 36.3–38.9; O2SAT 89–96
[2021-03-01] MEDS: piperacillin-tazobactam 3.375 GM in sodium chloride 0.9% (plus) 50 ML IV ×3 (06:15→23:47)
[2021-03-01] MEDS: dextrose 5%-sod chloride 0.45% 1,000 ML 75 ML IV (06:16)
[2021-03-01] MEDS: cholecalciferol (vitamin D3) 5,000 unit Tablet 5000 UNIT PO (08:19)
[2021-03-01] MEDS: sertraline 50 mg Tablet 25 MG PO (08:20)
[2021-03-01] MEDS: metoprolol tartrate 50 mg Tablet PO ×2 (08:20→17:35)
[2021-03-01] MEDS: acetaminophen 325 mg Tablet 650 MG PO ×2 (09:26→19:50)
[2021-03-01] MEDS: remdesivir 200 MG in sodium chloride 0.9% (100 ml) 60 ML 100 MG IV (09:26)
[2021-03-01] MEDS: dexamethasone 10 mg/mL INJ 6 MG IVP (09:26)
[2021-03-01 11:20] LABS: Basophils % 0.1 %; Hematocrit 41.2 % (42.0-52.0); Hemoglobin 14.3 g/dL (11.7-16.6); Lymphocytes # 0.3 10^3/uL (0.8-4.8); Mean Corpuscular HGB Conc 34.7 g/dL (30.0-36.0); Mean Corpuscular Hemoglobin 31.6 pg (28.0-34.0); Mean Corpuscular Volume 90.9 fl (80-94); Mean Platelet Volume 10.7 fL (7.4-10.4); Monocytes # 0.4 10^3/uL (0.2-0.9); Monocytes % 3.8 %; Neutrophils # 10.04 10^3/uL (1.8-7.7); Neutrophils % 92.4 %; Nucleated Red Blood Cells % 0 %; Platelet Count 138 10^3/cmm (130-400); Red Blood Count 4.53 10^6/uL (4.1-5.3); Red Cell Distribution Width 12.5 % (12.1-15.1); White Blood Count 10.9 10^3/uL (4.0-10.0)
[2021-03-01 11:43] LABS: INR 1.07 (0.8-1.2)
[2021-03-01 11:49] LABS: Magnesium 1.9 mg/dL (1.7-2.3); Phosphorus 2.1 mg/dL (2.5-4.5)
[2021-03-01 11:52] LABS: Alanine Aminotransferase 29 U/L (0-41); Albumin Level 2.9 g/dL (3.5-5.2); Alkaline Phosphatase 49 IU/L (40-130); Anion Gap 15.7 (5-19); Aspartate Amino Transferase 42 U/L (0-40); Blood Urea Nitrogen 45 mg/dL (8-23); C Reactive Protein 60.1 mg/L (0.0-4.9); Calcium 8.1 mg/dL (8.5-10.5); Carbon Dioxide 23 mmol/L (22-29); Chloride 106 mmol/L (98-107); Globulin 2.7 g/dL (1.3-4.6); Glucose 144 mg/dL (65-115); Lactate Dehydrogenase 298 U/L (135-225); Osmolality Calculated 306 mOsm/kg (285-295); Potassium 3.7 mmol/L (3.5-5.1); Sodium 141 mmol/L (136-145); Total Bilirubin 0.4 mg/dL (0.15-1.2); Total Protein 5.6 g/dL (6.6-8.7)
[2021-03-01 12:04] LABS: Ferritin 1048 ng/mL (30-400)
[2021-03-01 12:20] LABS: Erythrocyte Sedimentation Rate 36 mm/hr (0-10)
[2021-03-01 12:22] LABS: D Dimer 2.27 ug/mIFEU (0-0.59)
--- NOTE | 2021-03-01 15:54 | P.PN_ITS ---
Subjective Subjective: Interval history: Patient was seen and examined this morning.More awake and alert today,was having lunch, supplemental oxygen requirement has gone up. Medications: Reviewed: Yes Vitals/I&O/Wt Last Vital Signs Temp 98.1 F 03/01/21 11:49 Pulse 105 H 03/01/21 14:45 Resp 18 03/01/21 14:45 BP 138/80 03/01/21 11:49 Pulse Ox 91 03/01/21 14:45 03/01/21 03/01/21 03/01/21 06:59 14:59 22:59 Intake Total 1050 / 1675 770 / 770 Output Total 400 / 850 Balance 650 / 825 770 / 770 Physical Exam HENMT: COMMON NORMALS: normocephalic and atraumatic HEAD & SCALP: normocephalic and atraumatic Resp: EFFORT & INSPECTION: Yes tachypneic OTHER: Diminished air entry B/L Cardio: COMMON NORMALS: regular rate, regular rhythm, S1 normal heart sound present, S2 normal heart sound present, No gallops present (Cardio), No murmurs present (Cardio), No rub (Cardio) and Peripheral pulses 2+ throughout RATE: regular rate RHYTHM: regular rhythm HEART SOUNDS: S1 normal heart sound present and S2 normal heart sound present PERIPHERAL PULSES: Peripheral pulses 2+ throughout GI: COMMON NORMALS: Normal to inspection, nondistended, normoactive bowel sounds present, Soft to palpation, non-tender, No hepatosplenomegaly present and no masses AUSCULTATION: Yes normoactive bowel sounds PALPATION: Yes Soft to palpation and Yes No hepatosplenomegaly present RECTAL EXAM: Yes deferred Extremity: COMMON NORMALS: no clubbing, cyanosis or edema and no pedal edema Urinary Catheter Management^: Hassan: Cath Placed During This Visit: yes Reason for Continuing Indwelling Catheter: Acute Urinary Retention or Obstr uction Urinary Catheter Date of Insertion: 02/27/21 Urinary Catheter Time of Insertion: 17:46 Data : 03/02/21 04:26 03/02/21 04:26 Micro: Microbiology 03/01/21 11:06 Blood Culture - Preliminary Blood SPECIMEN COLLECTED 03/01/21 11:00 Blood Culture - Preliminary Blood SPECIMEN COLLECTED 02/27/21 17:47 Urine Culture - Preliminary Urine Catheterized 02/27/21 19:47 Blood Culture - Preliminary Blood NEGATIVE TO DATE 02/27/21 19:43 Blood Culture - Preliminary Blood NEGATIVE TO DATE A&P Assessment and plan (1) Pneumonia due to COVID-19 virus: On COVID Protocol. Status: Acute (2) AMS (altered mental status): -From history what I gather he has had a slow decline over the last year, does say that he was a bit forgetful before, but he was fairly functional -Seems like after the back surgery he has had a slow decline -We will order B12, folate, RPR, TSH -Certainly he has had a acute decline, with hypoxia currently, concerning for possible aspiration pneumonia, start on Zosyn -I am still waiting on a UA, possibility of UTI -CT of the head pending -Certainly an MRI of the brain would be warranted, however it will be difficult to perform given his spinal stimulator -Hold aspirin, Lovenox, will discuss with radiology Dr. Walter about performing lumbar puncture tomorrow to evaluate for possible chronic meningitis/fungal meningitis versus NPH versus Lewy body dementia -Will order EEG -DVT prophylaxis SCDs -DNR/DNI Aspiration pneumonia with hypoxia, antibiotics as above SHEILA, creatinine 1.7 likely secondary dehydration, poor oral intake start gentle IV hydration Poor oral intake, likely recurrent aspiration events, keep n.p.o., will consult speech therapy Generalized weakness, PT OT likely's muscular deconditioning, protein calorie malnutrition BPH, will have Hassan placed Elevated troponins, likely secondary to hypoxia, trend troponins, serial EKGs serial troponins, aspirin, statin Rapid Covid negative, Covid PCR pending, continue Covid isolation Status: Acute (3) SHEILA (acute kidney injury): Status: Acute (4) Generalized weakness: Status: Acute (5) Hypoxemia: Status: Acute (6) Elevated troponin I level: Status: Acute (7) BPH loc w urin obs/LUTS: Status: Acute (8) Dyslipidemia: Status: Acute (9) CAD (coronary artery disease): Status: Acute (10) Spondylolisthesis of lumbar region: Status: Chronic (11) Lumbar stenosis with neurogenic claudication: Status: Chronic (12) 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 (13) Aspiration pneumonia: Status: Acute Attestations Medical Necessity Statement*: Patient needs to be in hospital for the management of COVID PNA Coding Level of Care Code Acute Director Operations Broadcast for [facility] Fwd Diagnoses Pneumonia due to COVID-19 virus U07.1; J12.82 AMS (altered mental status) R41.82 SHEILA (acute kidney injury) N17.9 Generalized weakness R53.1 Hypoxemia R09.02 Elevated troponin I level R77.8 BPH loc w urin obs/LUTS N40.1 Dyslipidemia E78.5 CAD (coronary artery disease) I25.10 Spondylolisthesis of lumbar region M43.16 Lumbar stenosis with neurogenic claudication M48.062 Intervertebral disc disorder with radiculopathy of lumbosacral region M51.17 Aspiration pneumonia J69.0
[2021-03-01] MEDS: pantoprazole 40 mg SDV IVP (17:35)
[2021-03-01] MEDS: atorvastatin 40 mg Tablet 80 MG PO (17:35)
--- NOTE | 2021-03-01 17:38 | PC.NUTR ---
Nutrition note: Ensure Plus with meals added per nurse request.
[2021-03-01] MEDS: cloNIDine 0.1 mg Tablet PO (23:48)
[2021-03-02] VITALS (17 sets, daily range): BP systolic 149–209; BP diastolic 79–99; PULSE 45–101; RESP 17–20; TEMP 36.3–36.9; O2SAT 86–92
[2021-03-02 04:54] LABS: Basophils % 0.1 %; Hematocrit 41.7 % (42.0-52.0); Hemoglobin 14.6 g/dL (11.7-16.6); Lymphocytes # 0.7 10^3/uL (0.8-4.8); Lymphocytes % 7.3 %; Mean Corpuscular Hemoglobin 31.4 pg (28.0-34.0); Mean Corpuscular Volume 89.7 fl (80-94); Mean Platelet Volume 10.8 fL (7.4-10.4); Monocytes # 0.5 10^3/uL (0.2-0.9); Monocytes % 5.3 %; Neutrophils % 86.4 %; Nucleated Red Blood Cells % 0 %; Platelet Count 141 10^3/cmm (130-400); Red Blood Count 4.65 10^6/uL (4.1-5.3); Red Cell Distribution Width 12.5 % (12.1-15.1); White Blood Count 9.1 10^3/uL (4.0-10.0)
[2021-03-02 05:08] LABS: INR 1.14 (0.8-1.2)
[2021-03-02] MEDS: remdesivir 100 MG in sodium chloride 0.9% (100 ml) 80 ML IV (05:09)
[2021-03-02 05:11] LABS: D Dimer 2.28 ug/mIFEU (0-0.59)
[2021-03-02 05:19] LABS: Alanine Aminotransferase 37 U/L (0-41); Albumin Level 2.8 g/dL (3.5-5.2); Alkaline Phosphatase 50 IU/L (40-130); Anion Gap 14.7 (5-19); Aspartate Amino Transferase 47 U/L (0-40); Blood Urea Nitrogen 41 mg/dL (8-23); Calcium 8.4 mg/dL (8.5-10.5); Carbon Dioxide 23 mmol/L (22-29); Chloride 108 mmol/L (98-107); Globulin 2.8 g/dL (1.3-4.6); Glucose 119 mg/dL (65-115); Magnesium 2.1 mg/dL (1.7-2.3); Osmolality Calculated 305 mOsm/kg (285-295); Phosphorus 2.6 mg/dL (2.5-4.5); Potassium 3.7 mmol/L (3.5-5.1); Sodium 142 mmol/L (136-145); Total Bilirubin 0.6 mg/dL (0.15-1.2); Total Protein 5.6 g/dL (6.6-8.7)
[2021-03-02 05:45] LABS: Erythrocyte Sedimentation Rate 45 mm/hr (0-10)
[2021-03-02 05:46] LABS: Ferritin 1039 ng/mL (30-400)
--- NOTE | 2021-03-02 08:17 | XR_ITS ---
WS: [id number] XR chest 1V portable [id number] REASON FOR EXAM: SOB FINDINGS: On the examination of 02/27/2021 there are subtle reticular interstitial infiltrative changes in the p eriphery of the right midlung left midlung and left lower lung. These infiltrates have progressed sin ce the previous examination, more extensive and denser. The pattern is consistent with a Covid pneumo nitis, however other pneumonitis could demonstrate the same findings. XR/XR chest 1V portable [id number] IMPRESSION: Progression of pulmonary infiltrates as above.
[2021-03-02] MEDS: heparin 5,000 unit/mL INJ 1 mL 5000 UNIT SUBCUT ×2 (08:28→19:30)
[2021-03-02] MEDS: cholecalciferol (vitamin D3) 5,000 unit Tablet 5000 UNIT PO (08:29)
[2021-03-02] MEDS: piperacillin-tazobactam 3.375 GM in sodium chloride 0.9% (plus) 50 ML IV ×3 (08:29→23:53)
[2021-03-02] MEDS: sertraline 50 mg Tablet 25 MG PO (08:30)
[2021-03-02] MEDS: metoprolol tartrate 50 mg Tablet PO ×2 (08:30→17:24)
[2021-03-02] MEDS: dexamethasone 10 mg/mL INJ 6 MG IVP (08:33)
--- NOTE | 2021-03-02 12:12 | PC.SOCIAL ---
IMM Update Patient remains on isolation and still slightly confused. pg 2 of [facility] updated w/ patients via telephone and copy placed in patients chart.
[2021-03-02] MEDS: cloNIDine 0.1 mg Tablet PO ×2 (12:33→19:27)
--- NOTE | 2021-03-02 13:16 | P.PN_ITS ---
Subjective Subjective: Interval history: Patient was seen and examined this morning.More awake and alert today,was having lunch, supplemental oxygen requirement has gone up. on heated high flow oxygen through nasal cannula 55 L/min, 90% FiO2. Kidney function has improved slightly, good urine output. Medications: Reviewed: Yes Vitals/I&O/Wt Last Vital Signs Temp 98.3 F 03/02/21 11:50 Pulse 58 L 03/02/21 11:50 Resp 18 03/02/21 11:50 BP 178/92 03/02/21 12:33 Pulse Ox 92 03/02/21 11:50 03/01/21 03/02/21 03/02/21 22:59 06:59 14:59 Intake Total 530 / 1660 130 / 1790 50 / 50 Output Total 500 / 500 700 / 1200 Balance 30 / 1160 -570 / 590 50 / 50 Physical Exam HENMT: COMMON NORMALS: normocephalic and atraumatic HEAD & SCALP: normocephalic and atraumatic Resp: EFFORT & INSPECTION: Yes tachypneic OTHER: Diminished air entry B/L Cardio: COMMON NORMALS: regular rate, regular rhythm, S1 normal heart sound present, S2 normal heart sound present, No gallops present (Cardio), No murmurs present (Cardio), No rub (Cardio) and Peripheral pulses 2+ throughout RATE: regular rate RHYTHM: regular rhythm HEART SOUNDS: S1 normal heart sound present and S2 normal heart sound present PERIPHERAL PULSES: Peripheral pulses 2+ throughout GI: COMMON NORMALS: Normal to inspection, nondistended, normoactive bowel sounds present, Soft to palpation, non-tender, No hepatosplenomegaly present and no masses AUSCULTATION: Yes normoactive bowel sounds PALPATION: Yes Soft to palpation and Yes No hepatosplenomegaly present RECTAL EXAM: Yes deferred Extremity: COMMON NORMALS: no clubbing, cyanosis or edema and no pedal edema Urinary Catheter Management^: Hassan: Cath Placed During This Visit: yes Reason for Continuing Indwelling Catheter: Acute Urinary Retention or Obstruction Urinary Catheter Date of Insertion: 02/27/21 Urinary Catheter Time of Insertion: 17:46 Data : 03/02/21 04:26 03/02/21 04:26 Micro: Microbiology 03/01/21 11:00 Blood Culture - Preliminary Blood NEGATIVE TO DATE 03/01/21 11:06 Blood Culture - Preliminary Blood NEGATIVE TO DATE 02/27/21 17:47 Urine Culture - Final Urine Catheterized A&P Assessment and plan (1) Pneumonia due to COVID-19 virus: On COVID Protocol. ESR: 36--->45 CRP: 130-->60-->89 Ferritin: 1048--> 1039 D-dimer: 2.27-->2.28 LDH :298 Rapid COVID :Negative, PCR Positive :Repeat PCR Sent : Supplemental oxygen Advair inhaler Albuterol Inhaler Incentive spirometry Flutter valve Remdesivir for 5 days Dexamethasone 6 mg IV daily for 10 Days Status: Acute (2) AMS (altered mental status): -From history what I gather he has had a slow decline over the last year, does say that he was a bit forgetful before, but he was fairly functional -Seems like after the back surgery he has had a slow decline -We will order B12, folate, RPR, TSH -Certainly he has had a acute decline, with hypoxia currently, concerning for possible aspiration pneumonia, start on Zosyn -I am still waiting on a UA, possibility of UTI -CT of the head pending -Certainly an MRI of the brain would be warranted, however it will be difficult to perform given his spinal stimulator -Hold aspirin, Lovenox, will discuss with radiology Dr. Walter about performing lumbar puncture tomorrow to evaluate for possible chronic meningitis/fungal meningitis versus NPH versus Lewy body dementia -Will order EEG -DVT prophylaxis SCDs -DNR/DNI Aspiration pneumonia with hypoxia, antibiotics as above SHEILA, creatinine 1.7 likely secondary dehydration, poor oral intake start gentle IV hydration Poor oral intake, likely recurrent aspiration events, keep n.p.o., will consult speech therapy Generalized weakness, PT OT likely's muscular deconditioning, protein calorie malnutrition BPH, will have Hassan placed Elevated troponins, likely secondary to hypoxia, trend troponins, serial EKGs serial troponins, aspirin, statin Status: Acute (3) SHEILA (acute kidney injury): Status: Acute (4) Generalized weakness: Status: Acute (5) Hypoxemia: Status: Acute (6) Elevated troponin I level: Status: Acute (7) BPH loc w urin obs/LUTS: Status: Acute (8) Dyslipidemia: Status: Acute (9) CAD (coronary artery disease): Status: Acute (10) Spondylolisthesis of lumbar region: Status: Chronic (11) Lumbar stenosis with neurogenic claudication: Status: Chronic (12) 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 (13) Aspiration pneumonia: Status: Acute Attestations Medical Necessity Statement*: Patient needs to be in hospital for the management of COVID PNA Coding Level of Care Code Acute Shipping Receiving Manager for g Fwd Exam Detailed Diagnoses Pneumonia due to COVID-19 virus U07.1; J12.82 AMS (altered mental status) R41.82 SHEILA (acute kidney injury) N17.9 Generalized weakness R53.1 Hypoxemia R09.02 Elevated troponin I level R77.8 BPH loc w urin obs/LUTS N40.1 Dyslipidemia E78.5 CAD (coronary artery disease) I25.10 Spondylolisthesis of lumbar region M43.16 Lumbar stenosis with neurogenic claudication M48.062 Intervertebral disc disorder with radiculopathy of lumbosacral region M51.17 Aspiration pneumonia J69.0
[2021-03-02] MEDS: albuterol 8 gm MDI 1 PUFF INHALATION ×2 (16:21→19:48)
--- NOTE | 2021-03-02 16:27 | PC.RESP ---
RT Shift Note Frequent safety and respiratory rounds continue. Orders completed as indicated. Patient monitored pre and post treatments throughout shift. Patient [Did.] tolerate treatments appropriately. Condition [.DidNotChange]. Patient and/or treasury representative educated on respiratory treatment and medications. Patient and/or treasury representative [reinforcement needed]. Will continue to monitor patient progress.
[2021-03-02] MEDS: atorvastatin 40 mg Tablet 80 MG PO (17:24)
[2021-03-02] MEDS: pantoprazole 40 mg SDV IVP (17:41)
[2021-03-02] MEDS: hyDRALAzine 50 mg Tablet PO (17:42)
--- NOTE | 2021-03-02 23:07 | PC.NURSE ---
i reported low pulse 46 to nurse
[2021-03-02] MEDS: haloperidol inj 5 mg/mL INJ 1 mL 1 MG IM (23:53)
[2021-03-03] VITALS (31 sets, daily range): BP systolic 110–171; BP diastolic 70–102; PULSE 50–84; RESP 16–31; TEMP 36.4–37.2; O2SAT 86–100
--- NOTE | 2021-03-03 03:06 | PC.NURSE ---
i reported low pulse 54 and low o2 86 to nurse
--- NOTE | 2021-03-03 03:07 | PC.NURSE ---
Attempted to give patient scheduled clonidine and patient kept saying Toño is coming and attempted to spit.
[2021-03-03] MEDS: remdesivir 100 MG in sodium chloride 0.9% (100 ml) 80 ML IV (05:17)
[2021-03-03 05:45] LABS: Basophils % 0.1 %; Hematocrit 43.8 % (42.0-52.0); Hemoglobin 15.4 g/dL (11.7-16.6); Lymphocytes # 0.7 10^3/uL (0.8-4.8); Mean Corpuscular HGB Conc 35.2 g/dL (30.0-36.0); Mean Corpuscular Volume 88.3 fl (80-94); Monocytes # 0.6 10^3/uL (0.2-0.9); Monocytes % 6.3 %; Neutrophils # 8.41 10^3/uL (1.8-7.7); Neutrophils % 86.1 %; Nucleated Red Blood Cells % 0 %; Platelet Count 161 10^3/cmm (130-400); Red Blood Count 4.96 10^6/uL (4.1-5.3); Red Cell Distribution Width 12.7 % (12.1-15.1); White Blood Count 9.8 10^3/uL (4.0-10.0)
[2021-03-03 06:00] LABS: D Dimer 2.07 ug/mIFEU (0-0.59)
--- NOTE | 2021-03-03 06:00 | USCV_ITS ---
Rowdy Cleveland Age: 80 Gender: M : 1940 Exam Date: 03/03/2021 06:05 Ordering Phys: Vitaliy Zhang MD Technologist: Lexy Sanabria Exam [facility] [facility] [place] Indication: EVAL FOR DVT HISTORY: Lower extremity swelling. PROCEDURES: Venous duplex imaging was performed in bilateral lower extremities. The following venous structures were evaluated: common femoral vein, profunda vein, proximal portion of the greater saphenous vein, superficial femoral vein, and the popliteal vein. In addition, the posterior tibial and peroneal trunk were evaluated. Serial compression, augmentation maneuvers, and spectral Doppler flow evaluation were performed. FINDINGS: Normal 2-D Doppler and augmentation and compressibility throughout the lower extremity venous structures. Additional imaging through the proximal calf veins also reveals no thrombus. Limited evaluation of the greater saphenous vein is patent with no thrombus. CONCLUSIONS No evidence of bilateral lower extremity DVT. Dr. Sadaf Walter DO (Electronically Signed) Final Date: 03 March 2021 09:03 S
[2021-03-03 06:05] LABS: Alanine Aminotransferase 35 U/L (0-41); Albumin Level 2.8 g/dL (3.5-5.2); Alkaline Phosphatase 50 IU/L (40-130); Anion Gap 16.4 (5-19); Aspartate Amino Transferase 42 U/L (0-40); Blood Urea Nitrogen 37 mg/dL (8-23); C Reactive Protein 48.4 mg/L (0.0-4.9); Calcium 8.5 mg/dL (8.5-10.5); Carbon Dioxide 22 mmol/L (22-29); Chloride 109 mmol/L (98-107); Globulin 2.8 g/dL (1.3-4.6); Glucose 115 mg/dL (65-115); Osmolality Calculated 308 mOsm/kg (285-295); Potassium 3.4 mmol/L (3.5-5.1); Sodium 144 mmol/L (136-145); Total Bilirubin 0.8 mg/dL (0.15-1.2); Total Protein 5.6 g/dL (6.6-8.7)
[2021-03-03 06:25] LABS: Ferritin 1209 ng/mL (30-400)
[2021-03-03 06:32] LABS: Erythrocyte Sedimentation Rate 36 mm/hr (0-10)
[2021-03-03] MEDS: albuterol 8 gm MDI 1 PUFF INHALATION ×3 (08:43→16:02)
[2021-03-03] MEDS: dexamethasone 10 mg/mL INJ 6 MG IVP (09:02)
[2021-03-03] MEDS: heparin 5,000 unit/mL INJ 1 mL 5000 UNIT SUBCUT ×2 (09:02→20:10)
[2021-03-03] MEDS: piperacillin-tazobactam 3.375 GM in sodium chloride 0.9% (plus) 50 ML IV ×2 (09:03→19:26)
--- NOTE | 2021-03-03 09:35 | PC.NURSE ---
report called to Monisha MITTAL in ICU.
--- NOTE | 2021-03-03 09:54 | PC.NURSE ---
Patient's spouse requested to [employer], so I called her on [employer] for patient. For future use, please use the cell phone number .
[2021-03-03] MEDS: sertraline 50 mg Tablet 25 MG PO (11:28)
[2021-03-03] MEDS: amlodipine 10 mg Tablet PO (11:29)
[2021-03-03] MEDS: cloNIDine 0.1 mg Tablet PO ×2 (11:29→19:27)
[2021-03-03 13:34] LABS: Coronavirus Test Green County Not Detected
--- NOTE | 2021-03-03 14:38 | CTR_ITS ---
PROCEDURE INFORMATION: Exam: CT Head Without Contrast Exam date and time: 03/03/2021 2:38 PM Age: 80 years old Clinical indication: Altered mental status/memory loss; Additional info: Encephalopathy TECHNIQUE: Imaging protocol: Computed tomography of the head without contrast. Total images: 467 Radiation optimization: All CT scans at this facility use at least one of these dose optimization techniques: automated exposure control; mA and/or kV adjustment per patient size (includes targeted exams where dose is matched to clinical indication); or iterative reconstruction. COMPARISON: CT head wo/w con [id number] 10/07/2020 9:27 AM RADIATION DOSE METRICS: Total DLP (mGy-cm): 970.36 FINDINGS: Brain: No evidence of active or acute intracranial pathologic process, hemorrhage, or trauma. Mild small vessel ischemic disease with senile periventricular leukomalacia. No hyperdense MCA or insular ribbon sign. No mass effect. No midline shift. Atrophic changes not inconsistent with the patient's chronological age. Cerebral arteriosclerosis. Cerebral ventricles: No ventriculomegaly. Paranasal sinuses: Visualized sinuses are unremarkable. No fluid levels. 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 Bones/joints: Unremarkable. No acute fracture. Soft tissues: Unremarkable. CT/CT head wo con* [id number] IMPRESSION: No evidence of active or acute intracranial pathologic process, hemorrhage, or trauma. Radiation Dose CTDIVOL = (mGy): DLP = 970.36 (mGy-cm)
--- NOTE | 2021-03-03 14:59 | CTR_ITS ---
PROCEDURE INFORMATION: Exam: CTA Chest With Contrast Exam date and time: 03/03/2021 2:59 PM Age: 80 years old Clinical indication: Shortness of breath; Prior surgery; Surgery type: Gb, stents, spinal stimulator; Additional info: R/O p/e TECHNIQUE: Imaging protocol: Computed tomographic angiography of the chest with contrast. 3D rendering (Not supervised by radiologist): MIP and/or 3D reconstructed images were created by the technologist. Radiation optimization: All CT scans at this facility use at least one of these dose optimization techniques: automated exposure control; mA and/or kV adjustment per patient size (includes targeted exams where dose is matched to clinical indication); or iterative reconstruction. Contrast material: VISI 320; Contrast volume: 95 ml; Contrast route: INTRAVENOUS (IV); COMPARISON: CR XR chest 1V portable [id number] 03/02/2021 8:23 AM RADIATION DOSE METRICS: Total DLP (mGy-cm): 591.71 FINDINGS: Tubes, catheters and devices: Partial visualization of a thoracic posterior epidural stimulator device. Pulmonary arteries: Normal. No pulmonary emboli. Aorta: Unremarkable. No aortic aneurysm. No aortic dissection. Lungs: Scattered ground-glass lesions throughout both lungs. Negative for endobronchial obstruction. No bronchiectasis. Smoothly marginated ovoid right middle lobe 10 mm pulmonary nodule on axial series 2, image 267. Pleural spaces: Unremarkable. No pneumothorax. No pleural effusion. Heart: Unremarkable. No cardiomegaly. No pericardial effusion. Lymph nodes: Unremarkable. No enlarged lymph nodes. Gallbladder and bile ducts: Cholecystectomy. Kidneys and ureters: Simple bilateral renal cysts. Bones/joints: No thoracic fractures. Unremarkable thoracic spine alignment.The thoracic spine demonstrates mild degenerative changes at multiple levels. Soft tissues: Unremarkable. CT/CT angio chest PE protcl [id number] IMPRESSION: 1. Negative for pulmonary embolism. 2. Widespread nonspecific ground-glass changes throughout the airspaces. 3. Incidental finding of a right middle lobe pulmonary nodule. 4. Imaging features can be seen with COVID-19 pneumonia, though are nonspecific and can occur with a variety of infectious and noninfectious processes. (Reference: Mauricio) 5. Regarding the incidental pulmonary nodule, for both low risk and high risk patients, consider CT Chest at 3 months, PET/CT, or biopsy. (Reference: Lakeshia) COMMENTS: Consistent with the [employer]'s Incidental Findings Committee white paper (J Am Heather Radiol 2018): Any incidental renal lesion less than 1 cm or classified as too small to characterize, or any incidental cystic renal lesion characterized as simple-appearing, is likely benign. No follow-up imaging is recommended for these lesions per consensus recommendations based on imaging criteria. REFERENCES: 1. Lakeshia H, et al. Guidelines for Management of Incidental Pulmonary Nodules Detected on CT Images: From the Fleischner Society 2017. Radiology. 2017;284(1):228-243. 2. Mauricio Stevens, et al., Radiological Society of [place] Expert Consensus Statement on Reporting Chest CT Findings Related to COVID-19. Endorsed by the Society of Thoracic Radiology, the [employer], and RSNA. Published September 10, 2019. Radiation Dose CTDIVOL = (mGy): DLP = 591.71 (mGy-cm)
--- NOTE | 2021-03-03 15:26 | P.PN_ITS ---
Subjective Subjective: Interval history: Patient was seen and examined this morning. Supplemental oxygen requirement continues to remain high currently requiring 85% FiO2 on heated high flow at 60 L/min. Medications: Reviewed: Yes Vitals/I&O/Wt Last Vital Signs Temp 98.8 F 03/03/21 11:47 Pulse 68 03/03/21 14:30 Resp 26 H 03/03/21 14:30 BP 110/71 03/03/21 14:30 Pulse Ox 96 03/03/21 14:30 03/03/21 03/03/21 03/03/21 06:59 14:59 22:59 Intake Total 410 / 1250 50 / 50 Output Total 860 / 1940 Balance -450 / -690 50 / 50 Physical Exam HENMT: COMMON NORMALS: normocephalic and atraumatic HEAD & SCALP: normocephalic and atraumatic Resp: COMMON NORMALS: clear to auscultation bilaterally EFFORT & INSPECTION: Yes tachypneic AUSCULTATION: clear to auscultation bilaterally OTHER: Diminished air entry B/L Cardio: COMMON NORMALS: regular rate, regular rhythm, S1 normal heart sound present, S2 normal heart sound present, No gallops present (Cardio), No murmurs present (Cardio), No rub (Cardio) and Peripheral pulses 2+ throughout RATE: regular rate RHYTHM: regular rhythm HEART SOUNDS: S1 normal heart sound present and S2 normal heart sound present PERIPHERAL PULSES: Peripheral pulses 2+ throughout GI: COMMON NORMALS: Normal to inspection, nondistended, normoactive bowel sounds present, Soft to palpation, non-tender, No hepatosplenomegaly present and no masses AUSCULTATION: Yes normoactive bowel sounds PALPATION: Yes Soft to palpation and Yes No hepatosplenomegaly present RECTAL EXAM: Yes deferred Extremity: COMMON NORMALS: no clubbing, cyanosis or edema and no pedal edema Urinary Catheter Management^: Hassan: Cath Placed During This Visit: yes Reason for Continuing Indwelling Catheter: Acute Urinary Retention or Obstruction Urinary Catheter Date of Insertion: 02/27/21 Urinary Catheter Time of Insertion: 17:46 Data : 03/03/21 05:06 03/03/21 05:06 Micro: Microbiology 03/01/21 11:00 Blood Culture - Preliminary Blood NEGATIVE TO DATE 03/01/21 11:06 Blood Culture - Preliminary Blood NEGATIVE TO DATE A&P Assessment and plan (1) Pneumonia due to COVID-19 virus: On COVID Protocol. ESR: 36--->45 CRP: 130-->60-->89 Ferritin: 1048--> 1039 D-dimer: 2.27-->2.28 LDH :298 Rapid COVID :Negative, PCR Positive :Repeat PCR Sent :Negatve CTA Chest : Negative for PE, Widespread nonspecific ground-glass changes through out the airspaces. Supplemental oxygen Advair inhaler Albuterol Inhaler Incentive spirometry Flutter valve Remdesivir for 5 days Dexamethasone 6 mg IV daily for 10 Days Empirically on vancomycin and Zosyn Status: Acute (2) AMS (altered mental status): -From history what I gather he has had a slow decline over the last year, does say that he was a bit forgetful before, but he was fairly functional. Seems like after the back surgery he has had a slow decline. -CT head without contrast: Negative for any acute intracranial pathology - B12 -folate -RPR -TSH Status: Acute (3) SHEILA (acute kidney injury): SHEILA, creatinine 1.7 likely secondary dehydration, poor oral intake start gentle IV hydration Status: Acute (4) Generalized weakness: Status: Acute (5) Hypoxemia: Status: Acute (6) Elevated troponin I level: Status: Acute (7) BPH loc w urin obs/LUTS: Status: Acute (8) Dyslipidemia: Status: Acute (9) CAD (coronary artery disease): Status: Acute (10) Spondylolisthesis of lumbar region: Status: Chronic (11) Lumbar stenosis with neurogenic claudication: Status: Chronic (12) 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
--- NOTE | 2021-03-03 16:05 | PC.OT ---
OT TREATMENT HELD TODAY THE PATIENT HAS BEEN TRANSFERRED TO ICU. WILL ATTEMPT AGAIN TOMORROW.
[2021-03-03] MEDS: vancomycin 1,000 MG in sodium chloride 0.9% 250 ML 250 MG IV (16:37)
[2021-03-03] MEDS: iodixanol 320 mg/mL 100mL Btl IV (18:13)
[2021-03-03] MEDS: atorvastatin 40 mg Tablet 80 MG PO (19:27)
[2021-03-03] MEDS: pantoprazole 40 mg SDV IVP (19:27)
[2021-03-03] MEDS: lidocaine 1% 5 ML in potassium chloride premix 100 ML 50 ML IV (20:08)
[2021-03-04] VITALS (28 sets, daily range): BP systolic 105–175; BP diastolic 67–102; PULSE 52–100; RESP 16–33; TEMP 36.1–37.2; O2SAT 87–97
[2021-03-04] MEDS: piperacillin-tazobactam 3.375 GM in sodium chloride 0.9% (plus) 50 ML IV ×3 (00:06→17:31)
[2021-03-04] MEDS: haloperidol inj 5 mg/mL INJ 1 mL 1 MG IM ×2 (00:38→09:05)
[2021-03-04] MEDS: remdesivir 100 MG in sodium chloride 0.9% (100 ml) 80 ML IV (05:44)
[2021-03-04 05:46] LABS: Basophils % 0.1 %; Eosinophils % 0.1 %; Hemoglobin 15.5 g/dL (11.7-16.6); Lymphocytes # 0.9 10^3/uL (0.8-4.8); Lymphocytes % 8.6 %; Mean Corpuscular HGB Conc 34.4 g/dL (30.0-36.0); Mean Corpuscular Hemoglobin 31.3 pg (28.0-34.0); Mean Corpuscular Volume 90.9 fl (80-94); Mean Platelet Volume 11.2 fL (7.4-10.4); Monocytes # 0.7 10^3/uL (0.2-0.9); Monocytes % 6.6 %; Neutrophils # 8.53 10^3/uL (1.8-7.7); Neutrophils % 83.8 %; Nucleated Red Blood Cells % 0 %; Platelet Count 169 10^3/cmm (130-400); Red Blood Count 4.95 10^6/uL (4.1-5.3); Red Cell Distribution Width 12.9 % (12.1-15.1); White Blood Count 10.2 10^3/uL (4.0-10.0)
[2021-03-04 06:03] LABS: D Dimer 1.69 ug/mIFEU (0-0.59)
[2021-03-04 06:13] LABS: Alanine Aminotransferase 44 U/L (0-41); Albumin Level 2.8 g/dL (3.5-5.2); Alkaline Phosphatase 58 IU/L (40-130); Anion Gap 16.4 (5-19); Aspartate Amino Transferase 49 U/L (0-40); Blood Urea Nitrogen 34 mg/dL (8-23); C Reactive Protein 34.4 mg/L (0.0-4.9); Calcium 8.5 mg/dL (8.5-10.5); Carbon Dioxide 22 mmol/L (22-29); Chloride 109 mmol/L (98-107); Globulin 2.8 g/dL (1.3-4.6); Glucose 100 mg/dL (65-115); Osmolality Calculated 306 mOsm/kg (285-295); Potassium 3.4 mmol/L (3.5-5.1); Sodium 144 mmol/L (136-145); Total Bilirubin 0.7 mg/dL (0.15-1.2); Total Protein 5.6 g/dL (6.6-8.7)
[2021-03-04 06:32] LABS: Ferritin 994 ng/mL (30-400)
[2021-03-04 06:36] LABS: Erythrocyte Sedimentation Rate 29 mm/hr (0-10)
[2021-03-04] MEDS: heparin 5,000 unit/mL INJ 1 mL 5000 UNIT SUBCUT ×2 (08:01→20:02)
[2021-03-04] MEDS: sertraline 50 mg Tablet 25 MG PO (08:46)
[2021-03-04] MEDS: amlodipine 10 mg Tablet 5 MG PO (08:46)
[2021-03-04] MEDS: dexamethasone 10 mg/mL INJ 6 MG IVP (08:46)
--- NOTE | 2021-03-04 11:24 | PC.OT ---
PER NURSING; PATIENT IS AGITATED AND RECEIVED HALDOL. HOLD THERAPY AT THIS TIME.
--- NOTE | 2021-03-04 13:23 | P.PN_ITS ---
Subjective Subjective: Interval history: Patient was seen and examined this morning. Supplemental oxygen requirement continues to remain high currently requiring 70% FiO2 on heated high flow at 60 L/min.Serum creatinine is improving.patient has been agitated and hence has required intermittent haldol.his other vitals and labs have been reviewed. Medications: Reviewed: Yes Vitals/I&O/Wt Last Vital Signs Temp 98.7 F 03/04/21 04:00 Pulse 67 03/04/21 11:25 Resp 22 H 03/04/21 11:25 BP 157/102 03/04/21 04:00 Pulse Ox 92 03/04/21 11:25 03/03/21 03/04/21 03/04/21 22:59 06:59 14:59 Intake Total 256 / 306 180 / 486 240 / 240 Output Total 500 / 500 Balance 256 / 306 -320 / -14 240 / 240 Physical Exam HENMT: COMMON NORMALS: normocephalic and atraumatic HEAD & SCALP: normocephalic and atraumatic Resp: COMMON NORMALS: clear to auscultation bilaterally EFFORT & INSPECTION: Yes tachypneic AUSCULTATION: clear to auscultation bilaterally OTHER: Diminished air entry B/L Cardio: COMMON NORMALS: regular rate, regular rhythm, S1 normal heart sound present, S2 normal heart sound present, No gallops present (Cardio), No murmurs present (Cardio), No rub (Cardio) and Peripheral pulses 2+ throughout RATE: regular rate RHYTHM: regular rhythm HEART SOUNDS: S1 normal heart sound present and S2 normal heart sound present PERIPHERAL PULSES: Peripheral pulses 2+ throughout GI: COMMON NORMALS: Normal to inspection, nondistended, normoactive bowel sounds present, Soft to palpation, non-tender, No hepatosplenomegaly present and no masses AUSCULTATION: Yes normoactive bowel sounds PALPATION: Yes Soft to palpation and Yes No hepatosplenomegaly present RECTAL EXAM: Yes deferred Extremity: COMMON NORMALS: no clubbing, cyanosis or edema and no pedal edema Urinary Catheter Management^: Hassan: Cath Placed During This Visit: yes Reason for Continuing Indwelling Catheter: Acute Urinary Retention or Obstruction Urinary Catheter Date of Insertion: 02/27/21 Urinary Catheter Time of Insertion: 17:46 Data : 03/04/21 05:30 03/04/21 05:30 Micro: Microbiology 03/03/21 16:40 MRSA Culture - Final Nose A&P Assessment and plan (1) Pneumonia due to COVID-19 virus: On COVID Protocol. ESR: 36--->45 CRP: 130-->60-->89 Ferritin: 1048--> 1039 D-dimer: 2.27-->2.28 LDH :298 Rapid COVID :Negative, PCR Positive :Repeat PCR Sent :Negatve CTA Chest : Negative for PE, Widespread nonspecific ground-glass changes throughout the airspaces. Supplemental oxygen Advair inhaler Albuterol Inhaler Incentive spirometry Flutter valve Remdesivir for 5 days Dexamethasone 6 mg IV daily for 10 Days Empirically on vancomycin and Zosyn Status: Acute (2) AMS (altered mental status): -From history what I gather he has had a slow decline over the last year, does say that he was a bit forgetful before, but he was fairly functional. Seems like after the back surgery he has had a slow decline. 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 (13) Aspiration pneumonia: Status: Acute Additional A&P Information Generalized weakness, PT OT likely's muscular deconditioning, protein calorie malnutrition BPH : Hassan placed Elevated troponins, likely secondary to hypoxia, trend troponins, serial EKGs serial troponins, aspirin, statin Attestations Medical Necessity Statement*: Patient needs to be in hospital for the management of PNA Coding Level of Care Code 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
--- NOTE | 2021-03-04 13:24 | PC.NUTR ---
Nutrition assessment completed for 5D LOS. Po intakes poor, averaging 13%. Ensure Plus was added on 03/01/21. Recommend to encourage po intakes of meals/supplements to optimize nutrition and provide preferences as appropriate. Also recommend clarification of diet order as current order differs from YARD CALLER recommendation per chart. See full RD assessment for further details.
--- NOTE | 2021-03-04 15:50 | PC.NURSE ---
0830- 1:1 on work list stopped d/t sitter having paper documentation.
[2021-03-04] MEDS: cloNIDine 0.1 mg Tablet PO ×2 (17:30→20:03)
[2021-03-04] MEDS: vancomycin 1,000 MG in sodium chloride 0.9% 250 ML 150 MG IV (17:30)
[2021-03-04] MEDS: atorvastatin 40 mg Tablet 80 MG PO (17:30)
[2021-03-04] MEDS: cholecalciferol (vitamin D3) 5,000 unit Tablet 5000 UNIT PO (17:33)
--- NOTE | 2021-03-04 18:48 | PC.NURSE ---
1800- iv infiltrated. arm elevated. jelco removed intact.
--- NOTE | 2021-03-04 18:49 | PC.NURSE ---
1830- x1 attempt to start 20 ga. jelco in right forearm with vein rupture. pt. becoming somewhat beligerant. will allow to rest for awhile.
[2021-03-04] MEDS: ipratropium-albuterol 3 mL Neb INHALATION (20:02)
[2021-03-05] VITALS (26 sets, daily range): BP systolic 100–180; BP diastolic 49–102; PULSE 60–84; RESP 6–26; TEMP 35.8–37.1; O2SAT 90–96
[2021-03-05] MEDS: piperacillin-tazobactam 3.375 GM in sodium chloride 0.9% (plus) 50 ML IV ×4 (01:15→23:58)
[2021-03-05] MEDS: ipratropium-albuterol 3 mL Neb INHALATION ×4 (03:22→20:44)
[2021-03-05] MEDS: remdesivir 100 MG in sodium chloride 0.9% (100 ml) 80 ML IV (05:28)
[2021-03-05] MEDS: haloperidol inj 5 mg/mL INJ 1 mL 1 MG IM ×3 (06:41→22:18)
[2021-03-05] MEDS: dexamethasone 10 mg/mL INJ 6 MG IVP (08:36)
[2021-03-05] MEDS: amlodipine 10 mg Tablet 5 MG PO (08:37)
[2021-03-05] MEDS: heparin 5,000 unit/mL INJ 1 mL 5000 UNIT SUBCUT ×2 (08:37→20:27)
[2021-03-05] MEDS: sertraline 50 mg Tablet 25 MG PO (08:37)
[2021-03-05] MEDS: cholecalciferol (vitamin D3) 5,000 unit Tablet 5000 UNIT PO (08:48)
[2021-03-05 10:46] LABS: Basophils % 0.1 %; Eosinophils % 0.1 %; Hematocrit 41.7 % (42.0-52.0); Hemoglobin 14.6 g/dL (11.7-16.6); Lymphocytes # 0.7 10^3/uL (0.8-4.8); Lymphocytes % 6.7 %; Mean Corpuscular Volume 91.4 fl (80-94); Mean Platelet Volume 11.8 fL (7.4-10.4); Monocytes # 0.5 10^3/uL (0.2-0.9); Monocytes % 4.7 %; Neutrophils % 87.2 %; Nucleated Red Blood Cells % 0 %; Platelet Count 186 10^3/cmm (130-400); Red Blood Count 4.56 10^6/uL (4.1-5.3); White Blood Count 10.4 10^3/uL (4.0-10.0)
[2021-03-05 10:58] LABS: Alanine Aminotransferase 50 U/L (0-41); Albumin Level 2.8 g/dL (3.5-5.2); Alkaline Phosphatase 61 IU/L (40-130); Anion Gap 14.6 (5-19); Aspartate Amino Transferase 57 U/L (0-40); Blood Urea Nitrogen 37 mg/dL (8-23); Calcium 8.7 mg/dL (8.5-10.5); Carbon Dioxide 24 mmol/L (22-29); Chloride 110 mmol/L (98-107); Globulin 2.6 g/dL (1.3-4.6); Glucose 167 mg/dL (65-115); Osmolality Calculated 312 mOsm/kg (285-295); Potassium 3.6 mmol/L (3.5-5.1); Sodium 145 mmol/L (136-145); Total Bilirubin 0.6 mg/dL (0.15-1.2); Total Protein 5.4 g/dL (6.6-8.7)
[2021-03-05] MEDS: cloNIDine 0.1 mg Tablet PO ×2 (11:15→18:08)
--- NOTE | 2021-03-05 11:42 | PM.PN ---
Subjective Subjective: Interval history: Patient was seen and examined this morning. Supplemental oxygen requirement is slowly going doing.Patient still require intermittent haldol for agitation. Medications: Reviewed: Yes Vitals/I&O/Wt Last Vital Signs Temp 98.2 F 03/05/21 09:00 Pulse 82 03/05/21 10:09 Resp 26 H 03/05/21 10:09 BP 170/89 03/05/21 11:15 Pulse Ox 95 03/05/21 10:09 03/04/21 03/05/21 03/05/21 22:59 06:59 14:59 Intake Total 780 / 1310 330 / 1640 360 / 360 Output Total 1900 / 1900 700 / 2600 Balance -1120 / -590 -370 / -960 360 / 360 Physical Exam HENMT: COMMON NORMALS: normocephalic and atraumatic HEAD & SCALP: normocephalic and atraumatic Resp: COMMON NORMALS: clear to auscultation bilaterally EFFORT & INSPECTION: Yes tachypneic AUSCULTATION: clear to auscultation bilaterally OTHER: Diminished air entry B/L Cardio: COMMON NORMALS: regular rate, regular rhythm, S1 normal heart sound present, S2 normal heart sound present, No gallops present (Cardio), No murmurs present (Cardio), No rub (Cardio) and Peripheral pulses 2+ throughout RATE: regular rate RHYTHM: regular rhythm HEART SOUNDS: S1 normal heart sound present and S2 normal heart sound present PERIPHERAL PULSES: Peripheral pulses 2+ throughout GI: COMMON NORMALS: Normal to inspection, nondistended, normoactive bowel sounds present, Soft to palpation, non-tender, No hepatosplenomegaly present and no masses AUSCULTATION: Yes normoactive bowel sounds PALPATION: Yes Soft to palpation and Yes No hepatosplenomegaly present RECTAL EXAM: Yes deferred Extremity: COMMON NORMALS: no clubbing, cyanosis or edema and no pedal edema Urinary Catheter Management^: Hassan: Cath Placed During This Visit: yes Reason for Continuing Indwelling Catheter: Accurate Measurement of Urinary Output in Critically Ill Patients Urinary Catheter Date of Insertion: 02/27/21 Urinary Catheter Time of Insertion: 17:46 Data : 03/06/21 03:35 03/06/21 06:56 Micro: Microbiology 02/27/21 19:47 Blood Culture - Final Blood NO GROWTH AFTER 5 DAYS 02/27/21 19:43 Blood Culture - Final Blood NO GROWTH AFTER 5 DAYS 03/03/21 16:40 MRSA Culture - Final Nose A&P Assessment and plan (1) Pneumonia due to COVID-19 virus: On COVID Protocol. ESR: 36--->45 CRP: 130-->60-->89 Ferritin: 1048--> 1039 D-dimer: 2.27-->2.28 LDH :298 MRSA PCR :Negative Rapid COVID :Negative, PCR Positive :Repeat PCR Sent :Negatve CTA Chest : Negative for PE, Widespread nonspecific ground-glass changes throughout the airspaces. Supplemental oxygen Advair inhaler Albuterol Inhaler Incentive spirometry Flutter valve HHFONC Completed Remdesivir for 5 days Dexamethasone 6 mg IV daily for 10 Days Not a candidate for Actemra Vancomycin Discontinued Continue Zosyn Status: Acute (2) AMS (altered mental status): -From history what I gather he has had a slow decline over the last year, does say that he was a bit forgetful before, but he was fairly functional. Seems like after the back surgery he has had a slow decline. 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 (13) Aspiration pneumonia: Status: Acute Additional A&P Information Generalized weakness, PT OT likely's muscular deconditioning, protein calorie malnutrition BPH : Hassan placed Elevated troponins, likely secondary to hypoxia, trend troponins, serial EKGs serial troponins, aspirin, statin Attestations Medical Necessity Statement*: Patient needs to be in hospital for the management of COVID PNA Coding Level of Care Code Acute 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
[2021-03-05] MEDS: pantoprazole 40 mg SDV IVP (18:07)
[2021-03-05] MEDS: atorvastatin 40 mg Tablet 80 MG PO (18:07)
[2021-03-05] MEDS: morphine 4 mg/mL SDV 1 mL 2 MG IVP (20:10)
[2021-03-06] VITALS (53 sets, daily range): BP systolic 131–184; BP diastolic 74–121; PULSE 52–75; RESP 0–26; TEMP 36.1–37.3; O2SAT 86–97
[2021-03-06] MEDS: haloperidol inj 5 mg/mL INJ 1 mL 1 MG IM (02:40)
[2021-03-06] MEDS: ipratropium-albuterol 3 mL Neb INHALATION ×4 (02:42→19:59)
[2021-03-06 04:09] LABS: Basophils % 0.2 %; Hematocrit 44.5 % (42.0-52.0); Hemoglobin 14.5 g/dL (11.7-16.6); Lymphocytes # 0.7 10^3/uL (0.8-4.8); Lymphocytes % 7.3 %; Mean Corpuscular HGB Conc 32.6 g/dL (30.0-36.0); Mean Corpuscular Hemoglobin 31.1 pg (28.0-34.0); Mean Corpuscular Volume 95.5 fl (80-94); Mean Platelet Volume 11.8 fL (7.4-10.4); Monocytes # 0.6 10^3/uL (0.2-0.9); Monocytes % 5.8 %; Neutrophils # 8.42 10^3/uL (1.8-7.7); Neutrophils % 85.1 %; Nucleated Red Blood Cells % 0 %; Platelet Count 151 10^3/cmm (130-400); Red Blood Count 4.66 10^6/uL (4.1-5.3); Red Cell Distribution Width 13.1 % (12.1-15.1); White Blood Count 9.9 10^3/uL (4.0-10.0)
--- NOTE | 2021-03-06 06:52 | PC.NURSE ---
Patient was intermittently agitated throughout shift PRN medications given per orders; Patient was disoriented x4. Repositioning and food/drink offered, however patient declined. Patient refused to take any oral medications. Attempts to pull out HFNC and IV. Sitter at bedside, vital signs remain stable, with the exception of HTN. Will continue to monitor.
[2021-03-06 07:41] LABS: Anion Gap 12.9 (5-19); Blood Urea Nitrogen 31 mg/dL (8-23); Carbon Dioxide 25 mmol/L (22-29); Chloride 110 mmol/L (98-107); Glucose 118 mg/dL (65-115); Osmolality Calculated 306 mOsm/kg (285-295); Potassium 3.9 mmol/L (3.5-5.1); Sodium 144 mmol/L (136-145)
[2021-03-06 07:53] LABS: Glucose Point of Care 103 mg/dL (70-110)
[2021-03-06] MEDS: heparin 5,000 unit/mL INJ 1 mL 5000 UNIT SUBCUT ×2 (07:55→20:00)
[2021-03-06] MEDS: piperacillin-tazobactam 3.375 GM in sodium chloride 0.9% (plus) 50 ML IV ×2 (07:55→16:54)
[2021-03-06] MEDS: sertraline 50 mg Tablet 25 MG PO (09:04)
[2021-03-06] MEDS: amlodipine 10 mg Tablet 5 MG PO (09:04)
[2021-03-06] MEDS: cholecalciferol (vitamin D3) 5,000 unit Tablet 5000 UNIT PO (09:04)
[2021-03-06] MEDS: dexamethasone 10 mg/mL INJ 6 MG IVP (09:05)
--- NOTE | 2021-03-06 09:56 | P.PN_ITS ---
Subjective Subjective: Interval history: Patient was seen and examined this morning,no acute events overnight,got upto chair,appetite is improving as he ate well yesterday,supplemental oxygen requirement is slowly trending down.Intermittent episodes of agitation requiring haldol. Kidney function stable.No fever. Medications: Reviewed: Yes Vitals/I&O/Wt Last Vital Signs Temp 98.9 F 03/07/21 02:00 Pulse 90 03/07/21 09:00 Resp 16 03/07/21 08:58 BP 174/105 03/07/21 08:00 Pulse Ox 92 03/07/21 08:58 03/06/21 03/07/21 03/07/21 22:59 06:59 14:59 Intake Total 320 / 710 151 / 861 480 / 480 Output Total 400 / 401 Balance 320 / 709 -249 / 460 480 / 480 Physical Exam HENMT: COMMON NORMALS: normocephalic and atraumatic HEAD & SCALP: normocephalic and atraumatic Resp: COMMON NORMALS: clear to auscultation bilaterally EFFORT & INSPECTION: Yes tachypneic AUSCULTATION: clear to auscultation bilaterally OTHER: Diminished air entry B/L Cardio: COMMON NORMALS: regular rate, regular rhythm, S1 normal heart sound present, S2 normal heart sound present, No gallops present (Cardio), No murmurs present (Cardio), No rub (Cardio) and Peripheral pulses 2+ throughout RATE: regular rate RHYTHM: regular rhythm HEART SOUNDS: S1 normal heart sound present and S2 normal heart sound present PERIPHERAL PULSES: Peripheral pulses 2+ throughout GI: COMMON NORMALS: Normal to inspection, nondistended, normoactive bowel sounds present, Soft to palpation, non-tender, No hepatosplenomegaly present and no masses AUSCULTATION: Yes normoactive bowel sounds PALPATION: Yes Soft to palpation and Yes No hepatosplenomegaly present RECTAL EXAM: Yes deferred Extremity: COMMON NORMALS: no clubbing, cyanosis or edema and no pedal edema Urinary Catheter Management^: Hassan: Cath Placed During This Visit: yes Reason for Continuing Indwelling Catheter: Accurate Measurement of Urinary Output in Critically Ill Patients Urinary Catheter Date of Insertion: 02/27/21 Urinary Catheter Time of Insertion: 17:46 Data : 03/07/21 04:40 03/07/21 04:40 Micro: Microbiology 03/01/21 11:06 Blood Culture - Final Blood NO GROWTH AFTER 5 DAYS 03/01/21 11:00 Blood Culture - Final Blood NO GROWTH AFTER 5 DAYS A&P Assessment and plan (1) Pneumonia due to COVID-19 virus: Acute hypoxic respiratory failure secondary COVID-19, with evidence of acute respiratory distress syndrome MRSA PCR :Negative Rapid COVID :Negative, PCR Positive :Repeat PCR Sent :Negatve CTA Chest : Negative for PE, Widespread nonspecific ground-glass changes throughout the airspaces. Continue heated high flow, 55 L and 60% FiO2 Advair inhaler Albuterol Inhaler Incentive spirometry Flutter valve Completed Remdesivir for 5 days Dexamethasone 6 mg IV daily for 10 Days Not a candidate for Actemra Vancomycin Discontinued Continue Zosyn Cultures so far negative, remains afebrile Status: Acute (2) AMS (altered mental status): -From history what I gather he has had a slow decline over the last year, does say that he was a bit forgetful before, but he was fairly functional. Seems like after the back surgery he has had a slow decline. 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
--- NOTE | 2021-03-06 10:39 | PC.SOCIAL ---
IMM not Updated IMM was not updated. Pt is not expected to discharge within the next 24-48hrs.
[2021-03-06] MEDS: ondansetron 2 mg/ML SDV 2 mL 4 MG IVP (11:38)
[2021-03-06] MEDS: cloNIDine 0.1 mg Tablet PO ×2 (11:39→18:13)
--- NOTE | 2021-03-06 13:16 | PC.NURSE ---
Pt was up to chair for approx 2 hours. requesting to get back in bed. Max assist x1/2. 02 is 68%, pulse ox 92%. Message to Dr. Zhang to see if pt could be transfered to floor. waiting to hear back.
--- NOTE | 2021-03-06 13:52 | PC.NURSE ---
Spoke with daughter, Rocío, regarding his condition and answered all questions.
[2021-03-06 15:36] LABS: Vancomycin Trough 5.8 ug/mL (10-15)
[2021-03-06] MEDS: pantoprazole 40 mg SDV IVP (18:13)
[2021-03-06] MEDS: atorvastatin 40 mg Tablet 80 MG PO (18:13)
[2021-03-07] VITALS (62 sets, daily range): BP systolic 88–178; BP diastolic 60–105; PULSE 56–90; RESP 0–28; TEMP 36.8–37.2; O2SAT 87–98
[2021-03-07] MEDS: piperacillin-tazobactam 3.375 GM in sodium chloride 0.9% (plus) 50 ML IV ×3 (00:03→15:39)
[2021-03-07] MEDS: ipratropium-albuterol 3 mL Neb INHALATION ×4 (03:16→20:41)
[2021-03-07 04:59] LABS: Basophils % 0.1 %; Hematocrit 44.1 % (42.0-52.0); Hemoglobin 15.3 g/dL (11.7-16.6); Lymphocytes # 0.9 10^3/uL (0.8-4.8); Lymphocytes % 7.2 %; Mean Corpuscular HGB Conc 34.7 g/dL (30.0-36.0); Mean Corpuscular Hemoglobin 30.8 pg (28.0-34.0); Mean Corpuscular Volume 88.7 fl (80-94); Mean Platelet Volume 11.5 fL (7.4-10.4); Monocytes # 0.6 10^3/uL (0.2-0.9); Monocytes % 4.5 %; Neutrophils # 10.85 10^3/uL (1.8-7.7); Neutrophils % 86.7 %; Nucleated Red Blood Cells % 0 %; Platelet Count 219 10^3/cmm (130-400); Red Blood Count 4.97 10^6/uL (4.1-5.3); Red Cell Distribution Width 12.5 % (12.1-15.1); White Blood Count 12.5 10^3/uL (4.0-10.0)
[2021-03-07 05:36] LABS: NT Pro B Type Natriuretic Pept 1489 pg/mL (0-450); Procalcitonin 0.06 ng/mL (0-0.5)
--- NOTE | 2021-03-07 06:29 | PC.NURSE ---
Patient rested well throughout shift, no PRNs needed. Patient had large BM this AM. Patient disoriented throughout most of shift, however on last neuro check patient oriented to person, place, and situation, able to hold conversation in a calm manner. Vitals remain stable. Will continue to monitor.
[2021-03-07 07:00] LABS: Alanine Aminotransferase 42 U/L (0-41); Albumin Level 2.6 g/dL (3.5-5.2); Alkaline Phosphatase 67 IU/L (40-130); Anion Gap 13.7 (5-19); Aspartate Amino Transferase 32 U/L (0-40); Blood Urea Nitrogen 30 mg/dL (8-23); C Reactive Protein 36.8 mg/L (0.0-4.9); Carbon Dioxide 22 mmol/L (22-29); Chloride 106 mmol/L (98-107); Globulin 2.9 g/dL (1.3-4.6); Glucose 118 mg/dL (65-115); Osmolality Calculated 293 mOsm/kg (285-295); Phosphorus 3.7 mg/dL (2.5-4.5); Potassium 3.7 mmol/L (3.5-5.1); Sodium 138 mmol/L (136-145); Total Bilirubin 0.8 mg/dL (0.15-1.2); Total Protein 5.5 g/dL (6.6-8.7)
--- NOTE | 2021-03-07 07:00 | XRR_ITS ---
PROCEDURE INFORMATION: Exam: XR Chest Exam date and time: 03/07/2021 7:00 AM Age: 80 years old Clinical indication: Shortness of breath; Patient HX: Follow up covid pneumonia, on high flow 02; Additional info: SOB TECHNIQUE: Imaging protocol: XR of the chest. Views: 1 view. Total images: 1 COMPARISON: CR XR chest 1V portable [id number] 03/02/2021 8:23 AM FINDINGS: Tubes, catheters and devices: Intraspinal nerve stimulator electrodes noted. Lungs: Bilateral pulmonary opacities are again noted and appear unchanged. Pleural spaces: Unremarkable. No pleural effusion. No pneumothorax. Heart/Mediastinum: Heart size is stable when compared to the prior exam. Bones/joints: Osseous structures are unchanged from the prior exam. XR/XR chest 1V portable [id number] IMPRESSION: Bilateral pulmonary opacities are again noted and appear unchanged.
[2021-03-07] MEDS: morphine 4 mg/mL SDV 1 mL 2 MG IVP (07:37)
[2021-03-07] MEDS: heparin 5,000 unit/mL INJ 1 mL 5000 UNIT SUBCUT ×2 (07:39→20:33)
[2021-03-07] MEDS: aspirin 81 mg EC Tablet PO (08:15)
[2021-03-07] MEDS: cholecalciferol (vitamin D3) 5,000 unit Tablet 5000 UNIT PO (08:15)
[2021-03-07] MEDS: amlodipine 10 mg Tablet 5 MG PO (08:15)
[2021-03-07] MEDS: dexamethasone 10 mg/mL INJ 6 MG IVP (08:15)
[2021-03-07] MEDS: metoprolol tartrate 25 mg Tablet PO ×2 (08:16→20:33)
[2021-03-07] MEDS: sertraline 50 mg Tablet 25 MG PO (08:16)
--- NOTE | 2021-03-07 08:33 | P.PN_ITS ---
Subjective Subjective: Interval history: Patient was seen this morning, he is alert to person, to place, not to time, he does follow commands, his only complaint is some groin pain, remains on heated high flow, Medications: Reviewed: Yes Vitals/I&O/Wt Last Vital Signs Temp 98.9 F 03/07/21 02:00 Pulse 76 03/07/21 08:00 Resp 21 H 03/07/21 08:00 BP 174/105 03/07/21 08:00 Pulse Ox 89 L 03/07/21 08:00 03/06/21 03/07/21 03/07/21 22:59 06:59 14:59 Intake Total 320 / 710 151 / 861 480 / 480 Output Total 400 / 401 Balance 320 / 709 -249 / 460 480 / 480 Physical Exam Const: COMMON NORMALS: no acute distress and patient oriented x3 Resp: COMMON NORMALS: normal respiratory effort, No retractions, No use of accessory muscles and clear to auscultation bilaterally AUSCULTATION: clear to auscultation bilaterally Cardio: COMMON NORMALS: regular rate, regular rhythm, S1 normal heart sound present and S2 normal heart sound present RATE: regular rate RHYTHM: regular rhythm HEART SOUNDS: S1 normal heart sound present and S2 normal heart sound present GI: COMMON NORMALS: Normal to inspection, nondistended, normoactive bowel sounds present, Soft to palpation and non-tender PALPATION: Yes Soft to palpation Extremity: NARRATIVE EXTREMITY EXAM: 1+ pitting edema bilaterally Neuro: COMMON NORMALS: patient oriented x3 Psych: COMMON NORMALS: mental status grossly normal Urinary Catheter Management^: Hassan: Cath Placed During This Visit: yes Reason for Continuing Indwelling Catheter: Accurate Measurement of Urinary Output in Critically Ill Patients Urinary Catheter Date of Insertion: 02/27/21 Urinary Catheter Time of Insertion: 17:46 Data : 03/07/21 04:40 03/07/21 04:40 Micro: Microbiology 03/01/21 11:06 Blood Culture - Final Blood NO GROWTH AFTER 5 DAYS 03/01/21 11:00 Blood Culture - Final Blood NO GROWTH AFTER 5 DAYS A&P Assessment and plan (1) Pneumonia due to COVID-19 virus: Acute hypoxic respiratory failure secondary COVID-19, with evidence of acute respiratory distress syndrome MRSA PCR :Negative Rapid COVID :Negative, PCR Positive :Repeat PCR Sent :Negatve CTA Chest : Negative for PE, Widespread nonspecific ground-glass changes throughout the airspaces. Continue heated high flow, 55 L and 60% FiO2 Advair inhaler Albuterol Inhaler Incentive spirometry Flutter valve Completed Remdesivir for 5 days Dexamethasone 6 mg IV daily for 10 Days Not a candidate for Actemra Vancomycin Discontinued Continue Zosyn Cultures so far negative, remains afebrile Has 1+ pitting edema, will give 1 dose of Lasix Status: Acute (2) AMS (altered mental status): -From history what I gather he has had a slow decline over the last year, does say that he was a bit forgetful before, but he was fairly functional. Seems like after the back surgery he has had a slow decline. 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 (13) Aspiration pneumonia: Status: Acute Additional A&P Information Generalized weakness, PT OT likely's muscular deconditioning, protein calorie malnutrition BPH : Hassan placed Hypertension, had been trouble 25 twice daily, increase Norvasc to 10 Attestations Medical Necessity Statement*: Patient requires hospitalization for acute respiratory failure secondary COVID-19 Coding Level of Care Code Acute [employer] for [facility] Fwd Diagnoses Pneumonia due to COVID-19 virus U07.1; J12.82 AMS (altered mental status) R41.82 SHEILA (acute kidney injury) N17.9 Generalized weakness R53.1 Hypoxemia R09.02 Elevated troponin I level R77.8 BPH loc w urin obs/LUTS N40.1 Dyslipidemia E78.5 CAD (coronary artery disease) I25.10 Spondylolisthesis of lumbar region M43.16 Lumbar stenosis with neurogenic claudication M48.062 Intervertebral disc disorder with radiculopathy of lumbosacral region M51.17 Aspiration pneumonia J69.0
--- NOTE | 2021-03-07 09:25 | PC.CHAP ---
Pastoral Care Encounter/Spiritual Assessment Type of Contact [] Declined bulker visit [] Patient/Family/Request visit [] Outpatient visit [] Follow-up visit [] Physician referral [] Code/Alert [x] Routine visit [] Staff referral [] Actively dying [] Patient sleeping [] Family support [] [] Out of room [] Palliative care [] [] Receiving care in room [] Pre-surgical visit [] Trauma [] Long length of stay [x] ICU visit [] Other: Relational/Emotional Strength [] Patient feels connected with others/family/visitors/staff [] Distress [] Loneliness/isolation [] Abandonment Spirituality of Patient [] Person of Janet [] Attends Rastafarian of their Janet [] Believes in Prayer [] Reads Bible or Shinto materials [] There are Spiritual issues to be addressed Music Instructor Interventions [x] Prayer [] Active listening [] Non-anxious presence [] Spiritual/emotional support [] Crisis/trauma care [] Spiritual counseling [] Bereavement support [] Provided bereavement packet [] Provided Bible/devotional materials [] Provided toy/stuffed animal, coloring book to patient or family member [] Provided Communion [] Anointing/[place] [] Salvation [x] Completed spiritual assessment [] Other: Impact on Illness or Injury [] Angry [] Fearful [] Anxious [] Often cries [] Exhaustion [] Unable to work [] Unable to attend jew [] Unable to walk/stand [] Unable to read [] Unable to drive [] Unable to eat/drink [] Unable to sleep [] Unable to be with family [] Patient intubated [] Other: Summary Time spent with patient
[2021-03-07] MEDS: FUROsemide 10 mg/mL SDV 4mL 40 MG IVP (09:28)
[2021-03-07] MEDS: amlodipine 5 mg Tablet PO (09:29)
[2021-03-07] MEDS: cloNIDine 0.1 mg Tablet PO ×2 (10:14→18:24)
[2021-03-07] MEDS: acetaminophen 325 mg Tablet 650 MG PO (10:15)
--- NOTE | 2021-03-07 12:13 | PC.NURSE ---
Patient's called in and was wanting to know if she and her daughter could be visitor's today. THey have face timed before, but they want in person visits. Charge nurse advised that they are not able to visit due to their exposure to the patient as he is covid positive and they live together. says that she has been allowed to visit in person before and she saw the patient through the glass. Charge Nurse told her that it shouldn't have been allowed with her being exposed and likely requirement to be on quarantine and i cannot allow her to now because of the exposure risks . Patient's said that she received a call from the health department advising her to quarantine, but then started accusing us of misdiagnosing him because we are greedy and want to make make money off of covid.
[2021-03-07] MEDS: pantoprazole 40 mg SDV IVP (18:21)
[2021-03-07] MEDS: atorvastatin 40 mg Tablet 80 MG PO (18:24)
[2021-03-08] VITALS (58 sets, daily range): BP systolic 97–190; BP diastolic 57–107; PULSE 54–87; RESP 14–32; TEMP 36.4–37.2; O2SAT 87–94
[2021-03-08] MEDS: piperacillin-tazobactam 3.375 GM in sodium chloride 0.9% (plus) 50 ML IV ×3 (00:23→16:58)
[2021-03-08] MEDS: cloNIDine 0.1 mg Tablet PO (02:34)
[2021-03-08] MEDS: ipratropium-albuterol 3 mL Neb INHALATION ×4 (03:03→20:30)
[2021-03-08] MEDS: morphine 4 mg/mL SDV 1 mL 2 MG IVP (03:24)
[2021-03-08 04:49] LABS: Basophils % 0.1 %; Lymphocytes # 1.1 10^3/uL (0.8-4.8); Lymphocytes % 6.8 %; Mean Corpuscular HGB Conc 33.3 g/dL (30.0-36.0); Mean Corpuscular Hemoglobin 31.1 pg (28.0-34.0); Mean Corpuscular Volume 93.2 fl (80-94); Mean Platelet Volume 11.7 fL (7.4-10.4); Monocytes # 0.9 10^3/uL (0.2-0.9); Monocytes % 5.6 %; Neutrophils % 85.5 %; Nucleated Red Blood Cells % 0 %; Platelet Count 207 10^3/cmm (130-400); Red Blood Count 4.83 10^6/uL (4.1-5.3); Red Cell Distribution Width 12.9 % (12.1-15.1); White Blood Count 15.9 10^3/uL (4.0-10.0)
[2021-03-08 05:15] LABS: NT Pro B Type Natriuretic Pept 2311 pg/mL (0-450); Procalcitonin 0.07 ng/mL (0-0.5)
[2021-03-08 05:27] LABS: Alanine Aminotransferase 39 U/L (0-41); Albumin Level 2.7 g/dL (3.5-5.2); Alkaline Phosphatase 64 IU/L (40-130); Aspartate Amino Transferase 33 U/L (0-40); Blood Urea Nitrogen 43 mg/dL (8-23); C Reactive Protein 26.2 mg/L (0.0-4.9); Calcium 9.3 mg/dL (8.5-10.5); Carbon Dioxide 24 mmol/L (22-29); Chloride 106 mmol/L (98-107); Globulin 2.9 g/dL (1.3-4.6); Glucose 120 mg/dL (65-115); Magnesium 2.4 mg/dL (1.7-2.3); Osmolality Calculated 306 mOsm/kg (285-295); Sodium 142 mmol/L (136-145); Total Bilirubin 0.5 mg/dL (0.15-1.2); Total Protein 5.6 g/dL (6.6-8.7)
[2021-03-08 05:32] LABS: Anion Gap 16.3 (5-19); Potassium 4.3 mmol/L (3.5-5.1)
[2021-03-08] MEDS: heparin 5,000 unit/mL INJ 1 mL 5000 UNIT SUBCUT ×2 (09:58→20:50)
[2021-03-08] MEDS: dexamethasone 10 mg/mL INJ 6 MG IVP (10:00)
[2021-03-08] MEDS: metoprolol tartrate 25 mg Tablet PO ×2 (10:00→20:49)
[2021-03-08] MEDS: sertraline 50 mg Tablet 25 MG PO (10:00)
[2021-03-08] MEDS: amlodipine 10 mg Tablet PO (10:00)
[2021-03-08] MEDS: aspirin 81 mg EC Tablet PO (10:00)
[2021-03-08] MEDS: cholecalciferol (vitamin D3) 5,000 unit Tablet 5000 UNIT PO (10:01)
--- NOTE | 2021-03-08 15:11 | PC.OT ---
OT TREATMENT ATTEMPTED THIS P.M. PATIENT IS SLEEPING SOUNDLY. WILL ATTEMPT AGAIN AT A LATER TIME.
--- NOTE | 2021-03-08 15:40 | PC.SOCIAL ---
IMM Update Pg. 2 of IMM updated and reviewed with patient's over the phone who verbalized understanding. Initialed, dated, and timed copy in chart.
--- NOTE | 2021-03-08 17:00 | PM.PN ---
Subjective Subjective: Interval history: Patient was seen this morning, is alert to person, to place, to time, he follows commands, is much more alert, he tells me that he continues to feel fatigued, tired, shortness of breath, afebrile overnight, he is down to 40 L, 45%, according to nursing staff, whenever he ambulates, his blood pressures do drop, yesterday with the nursing staff, both side of bed, blood pressure dropped to 70s over 40s, he was pale, but blood pressures quickly rebounded, Vitals/I&O/Wt Last Vital Signs Temp 99.0 F 03/08/21 12:00 Pulse 65 03/08/21 15:37 Resp 16 03/08/21 15:37 BP 141/82 03/08/21 13:00 Pulse Ox 92 03/08/21 15:37 03/08/21 03/08/21 03/08/21 06:59 14:59 22:59 Intake Total 550 / 1370 50 / 50 Balance 550 / 870 50 / 50 Physical Exam Const: COMMON NORMALS: no acute distress GENERAL APPEARANCE: frail appearing NUTRITIONAL APPEARANCE: thin ORIENTATION/CONSCIOUSNESS: Yes awake, Yes oriented to person, Yes oriented to place and Yes oriented to time Resp: COMMON NORMALS: normal respiratory effort, No retractions, No use of accessory muscles and clear to auscultation bilaterally AUSCULTATION: clear to auscultation bilaterally Extremity: COMMON NORMALS: no pedal edema Neuro: SENSORIUM/ORIENTATION: Yes oriented to person, Yes oriented to place and Yes oriented to time Urinary Catheter Management^: Hassan: Cath Placed During This Visit: yes Reason for Continuing Indwelling Catheter: Accurate Measurement of Urinary Output in Critically Ill Patients Urinary Catheter Date of Insertion: 02/27/21 Urinary Catheter Time of Insertion: 17:46 Data : 03/08/21 04:19 03/08/21 04:19 A&P Assessment and plan (1) Pneumonia due to COVID-19 virus: Acute hypoxic respiratory failure secondary COVID-19, with evidence of acute respiratory distress syndrome MRSA PCR :Negative Rapid COVID :Negative, PCR Positive :Repeat PCR Sent :Negatve CTA Chest : Negative for PE, Widespread nonspecific ground-glass changes throughout the airspaces. Continue heated high flow, down to 40 L, 45% Advair inhaler Albuterol Inhaler Incentive spirometry Flutter valve Completed Remdesivir for 5 days Dexamethasone 6 mg IV daily for 10 Days Not a candidate for Actemra Vancomycin Discontinued Continue Zosyn Cultures so far negative, remains afebrile Creatinine up to 1.7, did get Lasix yesterday, hold diuresis for today Plan for today discontinue clonidine, discontinue hydralazine, continue metoprolol, PT OT, will return medical floors Status: Acute (2) AMS (altered mental status): -From history what I gather he has had a slow decline over the last year, does say that he was a bit forgetful before, but he was fairly functional. Seems like after the back surgery he has had a slow decline. 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82 SHEILA (acute kidney injury) N17.9 Generalized weakness R53.1 Hypoxemia R09.02 Elevated troponin I level R77.8 BPH loc w urin obs/LUTS N40.1 Dyslipidemia E78.5 CAD (coronary artery disease) I25.10 Spondylolisthesis of lumbar region M43.16 Lumbar stenosis with neurogenic claudication M48.062 Intervertebral disc disorder with radiculopathy of lumbosacral region M51.17 Aspiration pneumonia J69.0
[2021-03-08] MEDS: pantoprazole 40 mg SDV IVP (17:01)
[2021-03-08] MEDS: atorvastatin 40 mg Tablet 80 MG PO (17:01)
--- NOTE | 2021-03-08 22:17 | PC.NURSE ---
IV catheter out Patient's IV catheter found underneath patient's hand, completely out of IV site. IV site observed to have small bead of blood at insertion site. Site cleaned and no longer bleeding. IV catheter tip in tact. IV insertion needed.
--- NOTE | 2021-03-08 22:21 | PHA.FALL ---
A Pharmacy Consult Was Conducted For Clovis Carlotta Reno Due To: Hoffman Fall Scale Risk Level: High Fall Risk On 03/08/21 20:00 And A Medication Fall Risk Score Greater Than 10. The Recommendations Are As Follows: Amlodipine 10mg : FABIO: 1,3,4,5,7,9,10 Metoprolol 25g : FABIO: 1,2,3,4,5,9,10 Sertraline 50 mg: FABIO: 1,3,4,7,8,10 Lisinopril 5 mg bid: FABIO: 1,3,4,5,8,9 Medications which cause/contribute to: 1 = sedation/fatigue/lethargy 2 = decreased alertness 3 = postural/orthostatic hypotension 4 = dizziness 5 = decreased neuromuscular function/ataxia 6 = decreased memory/cognitive impairment 7 = blurred vision 8 = confusion 9 = arrhythmias 10 = syncope 11 = anemia
--- NOTE | 2021-03-08 22:35 | PC.NURSE ---
Agitation Patient is constantly repeating statements and pulling at telemetry wires in an agitated manner. Attempts made to conceal wires and redirect patient made with no success. Medication for agitation administered per MAR. Close nursing observation continues.
[2021-03-08] MEDS: haloperidol inj 5 mg/mL INJ 1 mL 1 MG IM (22:43)
--- NOTE | 2021-03-08 22:58 | PC.NURSE ---
IV insertion 2 attempts to insert IV unsuccessful per KYRIE Bernal and SN Ranjana. IV successfully inserted in 1 attempt by KYRIE Morse. Patient repeating words in an agitated manner but tolerated insertion well.
[2021-03-09] VITALS (54 sets, daily range): BP systolic 114–183; BP diastolic 66–126; PULSE 58–86; RESP 16–32; TEMP 36.5–36.8; O2SAT 85–96; BMI 25.7
[2021-03-09] MEDS: piperacillin-tazobactam 3.375 GM in sodium chloride 0.9% (plus) 50 ML IV ×3 (00:18→16:45)
[2021-03-09] MEDS: ipratropium-albuterol 3 mL Neb INHALATION ×4 (03:01→20:47)
[2021-03-09 04:16] LABS: Basophils % 0.1 %; Hematocrit 43.9 % (42.0-52.0); Hemoglobin 15.1 g/dL (11.7-16.6); Lymphocytes % 6.7 %; Mean Corpuscular HGB Conc 34.4 g/dL (30.0-36.0); Mean Corpuscular Hemoglobin 31.1 pg (28.0-34.0); Mean Corpuscular Volume 90.5 fl (80-94); Mean Platelet Volume 11.7 fL (7.4-10.4); Monocytes # 0.6 10^3/uL (0.2-0.9); Monocytes % 4.4 %; Neutrophils # 12.38 10^3/uL (1.8-7.7); Neutrophils % 86.9 %; Nucleated Red Blood Cells % 0 %; Platelet Count 199 10^3/cmm (130-400); Red Blood Count 4.85 10^6/uL (4.1-5.3); Red Cell Distribution Width 12.9 % (12.1-15.1); White Blood Count 14.3 10^3/uL (4.0-10.0)
[2021-03-09 04:40] LABS: Alanine Aminotransferase 33 U/L (0-41); Albumin Level 2.7 g/dL (3.5-5.2); Alkaline Phosphatase 68 IU/L (40-130); Anion Gap 13.6 (5-19); Aspartate Amino Transferase 24 U/L (0-40); Blood Urea Nitrogen 52 mg/dL (8-23); C Reactive Protein 22.2 mg/L (0.0-4.9); Carbon Dioxide 25 mmol/L (22-29); Chloride 106 mmol/L (98-107); Globulin 2.8 g/dL (1.3-4.6); Glucose 124 mg/dL (65-115); Magnesium 2.6 mg/dL (1.7-2.3); Osmolality Calculated 307 mOsm/kg (285-295); Phosphorus 3.7 mg/dL (2.5-4.5); Potassium 3.6 mmol/L (3.5-5.1); Sodium 141 mmol/L (136-145); Total Bilirubin 0.7 mg/dL (0.15-1.2); Total Protein 5.5 g/dL (6.6-8.7)
[2021-03-09 04:52] LABS: Creatinine Clr Calc Pharmacy 31.3905
[2021-03-09 05:07] LABS: NT Pro B Type Natriuretic Pept 2594 pg/mL (0-450); Procalcitonin 0.08 ng/mL (0-0.5)
[2021-03-09] MEDS: acetaminophen 325 mg Tablet 650 MG PO (06:46)
--- NOTE | 2021-03-09 06:49 | PC.NURSE ---
Pain Patient starting repeating the statement, it hurts, it hurts, it hurts.. . After asking patient to rate his pain on a scale of 1-10, patient started repeating the statement 5, 5, 5,... . Interventions done include providing pain medication, repositioning him, and providing education regarding not pulling on any wires/tubes attached to his body. Pain will be reassessed.
--- NOTE | 2021-03-09 07:01 | PC.NURSE ---
Shift Note Frequent safety and comfort rounds continue. Orders and/or nursing care completed as indicated. Throughout shift, patient was oriented to self/place/situation only one time early this morning; otherwise patient remained confused with repetitive speech and some agitation. Patient monitored for response to intervention and treatment(s). Education provided includes what telemetry is used for/how important it is to leave the wires on, high fall risk precautions, and the importance of not pulling on an IV catheter. Patient needs reinforcement on all education. Patient will remain on close nursing observation.
[2021-03-09] MEDS: dexamethasone 10 mg/mL INJ 6 MG IVP (07:49)
[2021-03-09] MEDS: sertraline 50 mg Tablet 25 MG PO (07:49)
[2021-03-09] MEDS: metoprolol tartrate 25 mg Tablet PO ×2 (07:49→19:34)
[2021-03-09] MEDS: amlodipine 10 mg Tablet PO (07:50)
[2021-03-09] MEDS: aspirin 81 mg EC Tablet PO (07:50)
[2021-03-09] MEDS: heparin 5,000 unit/mL INJ 1 mL 5000 UNIT SUBCUT ×2 (07:50→19:35)
[2021-03-09] MEDS: sodium chloride 0.9% 500 ML 75 ML IV (07:58)
[2021-03-09] MEDS: cholecalciferol (vitamin D3) 5,000 unit Tablet 5000 UNIT PO (09:04)
--- NOTE | 2021-03-09 10:03 | PC.CHAP ---
Pastoral Care Encounter/Spiritual Assessment Type of Contact [] Declined rod machine operator visit [] Patient/Family/Request visit [] Outpatient visit [] Follow-up visit [] Physician referral [] Code/Alert [x] Routine visit [] Staff referral [] Actively dying [] Patient sleeping [] Family support [] [] Out of room [] Palliative care [] [] Receiving care in room [] Pre-surgical visit [] Trauma [] Long length of stay [x] ICU visit [] Other: Relational/Emotional Strength [] Patient feels connected with others/family/visitors/staff [] Distress [] Loneliness/isolation [] Abandonment Spirituality of Patient [] Person of Janet [] Attends Tenriism of their Janet [] Believes in Prayer [] Reads Bible or Druze materials [] There are Spiritual issues to be addressed Forest Patrolman Interventions [x] Prayer [x] Active listening [x] Non-anxious presence [x] Spiritual/emotional support [] Crisis/trauma care [] Spiritual counseling [] Bereavement support [] Provided bereavement packet [] Provided Bible/devotional materials [] Provided toy/stuffed animal, coloring book to patient or family member [] Provided Communion [] Anointing/[place] [] Salvation [x] Completed spiritual assessment [] Other: Impact on Illness or Injury [] Angry [] Fearful [] Anxious [] Often cries [] Exhaustion [] Unable to work [] Unable to attend restorationist [] Unable to walk/stand [] Unable to read [] Unable to drive [] Unable to eat/drink [] Unable to sleep [] Unable to be with family [] Patient intubated [] Other: Summary patient setting up in bed... feeling stronger... Time spent with patient 5 min
--- NOTE | 2021-03-09 16:38 | PM.PN ---
Subjective Subjective: Interval history: Patient was seen this morning, he sitting up in bed, enjoying breakfast, afebrile overnight, he does have some degree of lightheadedness when changing positions in bed, alert to person, to place, not to time, has good urine output, afebrile overnight, on 40 L 40% Vitals/I&O/Wt Last Vital Signs Temp 97.9 F 03/09/21 12:30 Pulse 78 03/09/21 15:25 Resp 16 03/09/21 15:25 BP 149/80 03/09/21 12:30 Pulse Ox 92 03/09/21 15:25 03/09/21 03/09/21 03/09/21 06:59 14:59 22:59 Intake Total 287 / 387 50 / 50 500 / 550 Output Total 835 / 1335 Balance -548 / -948 50 / 50 500 / 550 Weight last 48 hrs Weight 74.389 kg Physical Exam Const: COMMON NORMALS: no acute distress GENERAL APPEARANCE: frail appearing NUTRITIONAL APPEARANCE: thin ORIENTATION/CONSCIOUSNESS: Yes awake, Yes oriented to person and Yes oriented to place; not oriented to time HENMT: COMMON NORMALS: normocephalic HEAD & SCALP: normocephalic Resp: COMMON NORMALS: normal respiratory effort, No retractions, No use of accessory muscles and clear to auscultation bilaterally AUSCULTATION: clear to auscultation bilaterally Cardio: COMMON NORMALS: regular rate, regular rhythm, S1 normal heart sound present and S2 normal heart sound present RATE: regular rate RHYTHM: regular rhythm HEART SOUNDS: S1 normal heart sound present and S2 normal heart sound present GI: COMMON NORMALS: Normal to inspection, nondistended, normoactive bowel sounds present, Soft to palpation, non-tender, No hepatosplenomegaly present, no masses and no bruits PALPATION: Yes Soft to palpation and Yes No hepatosplenomegaly present Extremity: COMMON NORMALS: no pedal edema Neuro: SENSORIUM/ORIENTATION: Yes oriented to person, Yes oriented to place and No oriented to time Psych: COMMON NORMALS: mental status grossly normal Urinary Catheter Management^: Hassan: Cath Placed During This Visit: yes Reason for Continuing Indwelling Catheter: Accurate Measurement of Urinary Output in Critically Ill Patients Urinary Catheter Date of Insertion: 02/27/21 Urinary Catheter Time of Insertion: 17:46 Data : 03/09/21 03:30 03/09/21 03:30 A&P Assessment and plan (1) Pneumonia due to COVID-19 virus: Acute hypoxic respiratory failure secondary COVID-19, with evidence of acute respiratory distress syndrome MRSA PCR :Negative Rapid COVID :Negative, PCR Positive :Repeat PCR Sent :Negatve CTA Chest : Negative for PE, Widespread nonspecific ground-glass changes throughout the airspaces. Continue heated high flow, down to 40 L, 45% Advair inhaler Albuterol Inhaler Incentive spirometry Flutter valve Completed Remdesivir for 5 days Dexamethasone 6 mg IV daily for 10 Days Not a candidate for Actemra Vancomycin Discontinued Continue Zosyn Cultures so far negative, remains afebrile Creatinine up to 1.8, will start gentle IV hydration Plan for today PT OT, gentle hydration, continue to clinically monitor Status: Acute (2) AMS (altered mental status): -From history what I gather he has had a slow decline over the last year, does say that he was a bit forgetful before, but he was fairly functional. Seems like after the back surgery he has had a slow decline. 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 (13) Aspiration pneumonia: Status: Acute Additional A&P Information Orthostatic hypotension, component of related to clonidine hydralazine, Lasix, hold off on further diuresis, hold off on blood pressure medications, monitor blood pressures carefully Dvt ppx:Heparin 5000 sc q12 h daily Code status :AND Attestations Medical Necessity Statement*: Patient requires hospitalization due to pneumonia secondary COVID-19 Coding Level of Care Code Acute Supervisor Continuous [employer] for [facility] Fwd Diagnoses Pneumonia due to COVID-19 virus U07.1; J12.82 AMS (altered mental status) R41.82 SHEILA (acute kidney injury) N17.9 Generalized weakness R53.1 Hypoxemia R09.02 Elevated troponin I level R77.8 BPH loc w urin obs/LUTS N40.1 Dyslipidemia E78.5 CAD (coronary artery disease) I25.10 Spondylolisthesis of lumbar region M43.16 Lumbar stenosis with neurogenic claudication M48.062 Intervertebral disc disorder with radiculopathy of lumbosacral region M51.17 Aspiration pneumonia J69.0
[2021-03-09] MEDS: atorvastatin 40 mg Tablet 80 MG PO (18:16)
[2021-03-09] MEDS: haloperidol inj 5 mg/mL INJ 1 mL 1 MG IM (19:34)
[2021-03-09] MEDS: morphine 4 mg/mL SDV 1 mL 2 MG IVP (22:40)
[2021-03-10] VITALS (26 sets, daily range): BP systolic 104–163; BP diastolic 54–109; PULSE 59–83; RESP 14–26; TEMP 36.8–37.1; O2SAT 87–96
[2021-03-10] MEDS: piperacillin-tazobactam 3.375 GM in sodium chloride 0.9% (plus) 50 ML IV ×3 (00:19→16:43)
[2021-03-10] MEDS: haloperidol inj 5 mg/mL INJ 1 mL 1 MG IM (01:46)
--- NOTE | 2021-03-10 02:03 | PC.NURSE ---
NURSING NOTE BEHAVORIAL EPISODE AT 1900 TODAY, DURING SHIFT CHANGE, THIS NURSE, ALONG WITH 2 OTHER RN'S, WALKED INTO PATIENT'S ROOM TO FIND PATIENT WITH HEATED HIGH FLOW TUBING IN MOUTH/BITING IT IN HALF, AND IV ACCESS AND TUBING IN FLOOR. PT AGITATED AND REPEATING GOD KILL ME, GOD KILL ME, TAKE MY PAIN, TAKE MY PAIN. DR MARTE NOTIFIED AND ORDERS RECEIVED. MEDICATIONS GIVEN ORDERED. SEE CHART FOR DETAILS.
[2021-03-10] MEDS: ipratropium-albuterol 3 mL Neb INHALATION ×4 (03:20→20:53)
[2021-03-10 05:03] LABS: Basophils % 0.2 %; Hematocrit 44.4 % (42.0-52.0); Hemoglobin 15.1 g/dL (11.7-16.6); Lymphocytes # 1.1 10^3/uL (0.8-4.8); Mean Corpuscular Hemoglobin 31.1 pg (28.0-34.0); Mean Corpuscular Volume 91.5 fl (80-94); Mean Platelet Volume 12.1 fL (7.4-10.4); Monocytes # 1.2 10^3/uL (0.2-0.9); Monocytes % 5.1 %; Neutrophils # 19.93 10^3/uL (1.8-7.7); Neutrophils % 88.7 %; Nucleated Red Blood Cells % 0 %; Platelet Count 207 10^3/cmm (130-400); Red Blood Count 4.85 10^6/uL (4.1-5.3); Red Cell Distribution Width 13.1 % (12.1-15.1); White Blood Count 22.5 10^3/uL (4.0-10.0)
[2021-03-10 05:21] LABS: Alanine Aminotransferase 31 U/L (0-41); Albumin Level 2.9 g/dL (3.5-5.2); Alkaline Phosphatase 70 IU/L (40-130); Anion Gap 14.6 (5-19); Aspartate Amino Transferase 29 U/L (0-40); Blood Urea Nitrogen 58 mg/dL (8-23); Calcium 9.2 mg/dL (8.5-10.5); Carbon Dioxide 26 mmol/L (22-29); Chloride 109 mmol/L (98-107); Glucose 113 mg/dL (65-115); Magnesium 2.6 mg/dL (1.7-2.3); Osmolality Calculated 319 mOsm/kg (285-295); Phosphorus 4.2 mg/dL (2.5-4.5); Potassium 3.6 mmol/L (3.5-5.1); Sodium 146 mmol/L (136-145); Total Bilirubin 0.7 mg/dL (0.15-1.2); Total Protein 5.9 g/dL (6.6-8.7)
[2021-03-10] MEDS: morphine 4 mg/mL SDV 1 mL 2 MG IVP (05:29)
--- NOTE | 2021-03-10 08:06 | XR_ITS ---
WS: [id number] Portable AP upright chest, 03/10/2021 Clinical Data: sob Comparison: Portable chest, 03/07/2021. Findings: The patchy bilateral pulmonary opacities have cleared slightly. The heart size remains same . The aortic arch is tortuous. The epidural stimulator leads in monitor leads remain in position. XR/XR chest 1V portable [id number] Impression: Slight improvement in patchy bilateral pulmonary opacities.
[2021-03-10] MEDS: heparin 5,000 unit/mL INJ 1 mL 5000 UNIT SUBCUT ×2 (08:38→21:00)
[2021-03-10] MEDS: aspirin 81 mg EC Tablet PO (08:38)
[2021-03-10] MEDS: lactulose oral liq 20 gm/30 mL UDC PO (08:38)
[2021-03-10] MEDS: dexamethasone 10 mg/mL INJ 6 MG IVP (08:38)
[2021-03-10] MEDS: pantoprazole DR 40 mg Tablet PO (08:38)
[2021-03-10] MEDS: amlodipine 10 mg Tablet PO (08:40)
[2021-03-10] MEDS: sertraline 50 mg Tablet 25 MG PO (08:40)
[2021-03-10 08:43] LABS: Procalcitonin 0.09 ng/mL (0-0.5)
[2021-03-10] MEDS: cholecalciferol (vitamin D3) 5,000 unit Tablet 5000 UNIT PO (08:50)
[2021-03-10] MEDS: vancomycin 1,000 MG in sodium chloride 0.9% 250 ML 250 MG IV (08:50)
[2021-03-10 08:54] LABS: C Reactive Protein 14.2 mg/L (0.0-4.9)
[2021-03-10] MEDS: sodium chloride 0.9% 1,000 ML 50 ML IV (09:49)
[2021-03-10 10:47] LABS: Glucose Point of Care 96 mg/dL (70-110)
--- NOTE | 2021-03-10 11:44 | PC.NURSE ---
Urine specimen delivered to lab and given to
[2021-03-10 12:07] LABS: Add Urine Microscopic? YES; Bilirubin Urine Neg (Negative); Blood Urine 3+ (Negative); Glucose Urine UA Norm (Normal); Ketones Urine Negative (Negative); Leukocyte Esterase Urine 2+ (Negative); Nitrate Urine Negative (Negative); Protein Urine 1+ (Negative); Specific Gravity, Urine 1.015 (1.005-1.030); Urine Appearance SL Hazy (CLEAR); Urine Color Yellow (Yellow); Urobilinogen Urine Norm (Negative); pH Urine 5 (5-7)
[2021-03-10 12:14] LABS: Add Urine Culture? Yes; Bacteria Urine TRACE /hpf; Mucus Urine 1+ /hpf; RBC Urine 80-100 /hpf (0-2); Squamous Epithelial Cell Urine 0-4 /hpf (0-5)
[2021-03-10 12:56] LABS: Glucose Point of Care 197 mg/dL (70-110)
--- NOTE | 2021-03-10 13:03 | PC.NURSE ---
Sputum taken to lab and delivered to Morelia Harris.
--- NOTE | 2021-03-10 13:53 | PC.SOCIAL ---
IMM Update Pg. 2of IMM updated and reviewed with patient over the phone, verbalized understanding.
--- NOTE | 2021-03-10 17:50 | PM.PN ---
Subjective Subjective: Interval history: Patient was seen this morning, he is alert to person, to place, not to time, he keeps telling me that he wants to go home, he wants to go home, he is quite frustrated about being here in the hospital, overnight he was afebrile, normotensive, currently on 15 L, I spoke to patient's , she adamantly declined select placement, as he has been in the hospital for over 2 weeks, and she has not been able to see him, and if he goes up to [place] she will be able to see him, as she has a bad hip, she can go up to [place], she wants to bring him home, I advised that he has high risk of morbidity mortality if he goes home, given his increased ox requirements, his increased needs for nursing care, monitoring of his respiratory status by respiratory therapy, and that if they want to continue full medical interventions select would yield the best outcome for him however again she declines. She is going to talk to the family about bringing him home possibly on hospice, but she wants to talk to her family first. She recognizes that he has had a slow decline for the last year, he seen neurology, and there has been concerns of normal pressure hydrocephalus versus Lewy body dementia, and now with his Covid, he is declined even further, she just wants him home with her Vitals/I&O/Wt Last Vital Signs Temp 98.7 F 03/10/21 09:00 Pulse 66 03/10/21 16:00 Resp 18 03/10/21 16:00 BP 104/54 03/10/21 16:00 Pulse Ox 92 03/10/21 16:00 03/10/21 03/10/21 03/10/21 06:59 14:59 22:59 Intake Total 50 / 650 330 / 330 Output Total 350 / 1100 Balance -300 / -450 330 / 330 Weight last 48 hrs Weight 72.348 kg Weight 74.389 kg Physical Exam Const: COMMON NORMALS: no acute distress and alert GENERAL APPEARANCE: frail appearing NUTRITIONAL APPEARANCE: thin ORIENTATION/CONSCIOUSNESS: Yes awake, Yes oriented to person and Yes oriented to place; not oriented to time Resp: COMMON NORMALS: normal respiratory effort, No retractions and No use of accessory muscles AUSCULTATION: diminished lung sounds Cardio: COMMON NORMALS: regular rate, regular rhythm, S1 normal heart sound present and S2 normal heart sound present RATE: regular rate RHYTHM: regular rhythm HEART SOUNDS: S1 normal heart sound present and S2 normal heart sound present GI: COMMON NORMALS: Normal to inspection, nondistended, normoactive bowel sounds present, Soft to palpation and non-tender PALPATION: Yes Soft to palpation Neuro: SENSORIUM/ORIENTATION: Yes alert, Yes oriented to person, Yes oriented to place and No oriented to time Urinary Catheter Management^: Hassan: Cath Placed During This Visit: yes Reason for Continuing Indwelling Catheter: Accurate Measurement of Urinary Output in Critically Ill Patients Urinary Catheter Date of Insertion: 02/27/21 Urinary Catheter Time of Insertion: 17:46 Data : 03/10/21 04:30 03/10/21 04:30 Micro: Microbiology 03/10/21 13:00 Gram Stain - Final Sputum - Expectorated Sputum 03/10/21 14:16 Blood Culture - Preliminary Blood SPECIMEN COLLECTED 03/10/21 14:10 Blood Culture - Preliminary Blood SPECIMEN COLLECTED A&P Assessment and plan (1) Pneumonia due to COVID-19 virus: Acute hypoxic respiratory failure secondary COVID-19, with evidence of acute respiratory distress syndrome MRSA PCR :Negative Rapid COVID :Negative, PCR Positive :Repeat PCR Sent :Negatve CTA Chest : Negative for PE, Widespread nonspecific ground-glass changes throughout the airspaces. Continue heated high flow, down to 40 L, 45% Advair inhaler Albuterol Inhaler Incentive spirometry Flutter valve Completed Remdesivir for 5 days Dexamethasone 6 mg IV daily for 10 Days Not a candidate for Actemra White blood cell count increase to 22.5, repeat blood cultures, sputum cultures urine cultures, pro-Jt 0.09, CRP 40.2, resume vancomycin, Zosyn Creatinine 2.0, likely secondary to hypotensive episodes when getting him up and ambulating, hold off on IV hydration due to concerns for fluid overload Plan for today will moved to general medical floors is discussing with patient's family about possible hospice as she absolutely declines select placement Status: Acute (2) AMS (altered mental status): -From history what I gather he has had a slow decline over the last year, does say that he was a bit forgetful before, but he was fairly functional. Seems like after the back surgery he has had a slow decline. 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 (13) Aspiration pneumonia: Status: Acute Additional A&P Information Orthostatic hypotension, component of related to clonidine hydralazine, Lasix, hold off on further diuresis, hold off on blood pressure medications, monitor blood pressures carefully Dvt ppx:Heparin 5000 sc q12 h daily Code status :AND Attestations Medical Necessity Statement*: Requires hospitalization due to pneumonia secondary COVID-19 Coding Level of Care Code Acute Clinical Operations Leader for [facility] Fwd Diagnoses Pneumonia due to COVID-19 virus U07.1; J12.82 AMS (altered mental status) R41.82 SHEILA (acute kidney injury) N17.9 Generalized weakness R53.1 Hypoxemia R09.02 Elevated troponin I level R77.8 BPH loc w urin obs/LUTS N40.1 Dyslipidemia E78.5 CAD (coronary artery disease) I25.10 Spondylolisthesis of lumbar region M43.16 Lumbar stenosis with neurogenic claudication M48.062 Intervertebral disc disorder with radiculopathy of lumbosacral region M51.17 Aspiration pneumonia J69.0
[2021-03-10] MEDS: atorvastatin 40 mg Tablet 80 MG PO (18:18)
--- NOTE | 2021-03-10 19:59 | PC.NURSE ---
Transfer Note Patient transferred to [ROOM 260] from [ICU] via [[facility]]. Handoff received from [KYRIE VASQUEZ]. Patient oriented to environment and equipment. Covering service notified. Orders reviewed and will continue to monitor. Family and/or product representative notified.
[2021-03-10] MEDS: quetiapine 25 mg Tablet PO (21:00)
[2021-03-11] VITALS (14 sets, daily range): BP systolic 143–164; BP diastolic 70–91; PULSE 67–90; RESP 16–18; TEMP 36.4–37.2; O2SAT 90–96
[2021-03-11] MEDS: haloperidol inj 5 mg/mL INJ 1 mL 1 MG IM (00:14)
[2021-03-11] MEDS: piperacillin-tazobactam 3.375 GM in sodium chloride 0.9% (plus) 50 ML IV ×4 (01:51→23:42)
[2021-03-11] MEDS: ipratropium-albuterol 3 mL Neb INHALATION ×4 (03:36→21:31)
[2021-03-11 05:30] LABS: Basophils % 0.1 %; Hematocrit 39.8 % (42.0-52.0); Hemoglobin 13.3 g/dL (11.7-16.6); Lymphocytes # 0.8 10^3/uL (0.8-4.8); Lymphocytes % 4.5 %; Mean Corpuscular HGB Conc 33.4 g/dL (30.0-36.0); Mean Corpuscular Hemoglobin 30.5 pg (28.0-34.0); Mean Corpuscular Volume 91.3 fl (80-94); Mean Platelet Volume 11.5 fL (7.4-10.4); Monocytes % 5.6 %; Neutrophils # 15.44 10^3/uL (1.8-7.7); Nucleated Red Blood Cells % 0 %; Platelet Count 161 10^3/cmm (130-400); Red Blood Count 4.36 10^6/uL (4.1-5.3); White Blood Count 17.3 10^3/uL (4.0-10.0)
[2021-03-11 05:54] LABS: Procalcitonin 0.11 ng/mL (0-0.5)
[2021-03-11 06:07] LABS: Alanine Aminotransferase 29 U/L (0-41); Albumin Level 2.7 g/dL (3.5-5.2); Alkaline Phosphatase 63 IU/L (40-130); Anion Gap 18.1 (5-19); Aspartate Amino Transferase 30 U/L (0-40); Blood Urea Nitrogen 69 mg/dL (8-23); C Reactive Protein 9.7 mg/L (0.0-4.9); Calcium 9.1 mg/dL (8.5-10.5); Carbon Dioxide 23 mmol/L (22-29); Chloride 109 mmol/L (98-107); Globulin 2.8 g/dL (1.3-4.6); Glucose 118 mg/dL (65-115); Magnesium 2.6 mg/dL (1.7-2.3); Osmolality Calculated 323 mOsm/kg (285-295); Phosphorus 5.5 mg/dL (2.5-4.5); Potassium 4.1 mmol/L (3.5-5.1); Sodium 146 mmol/L (136-145); Total Bilirubin 0.6 mg/dL (0.15-1.2); Total Protein 5.5 g/dL (6.6-8.7)
[2021-03-11 06:40] LABS: Ferritin 1085 ng/mL (30-400)
[2021-03-11] MEDS: sertraline 50 mg Tablet 25 MG PO (09:05)
[2021-03-11] MEDS: cholecalciferol (vitamin D3) 5,000 unit Tablet 5000 UNIT PO (09:05)
[2021-03-11] MEDS: quetiapine 25 mg Tablet PO (09:05)
[2021-03-11] MEDS: heparin 5,000 unit/mL INJ 1 mL 5000 UNIT SUBCUT ×2 (09:06→22:09)
[2021-03-11] MEDS: amlodipine 10 mg Tablet PO (09:06)
[2021-03-11] MEDS: aspirin 81 mg EC Tablet PO (09:06)
[2021-03-11] MEDS: pantoprazole DR 40 mg Tablet PO (09:06)
[2021-03-11] MEDS: dexamethasone 4 mg Tablet PO (09:09)
--- NOTE | 2021-03-11 10:25 | P.PN_ITS ---
Subjective Subjective: Interval history: Patient was seen this morning he is alert to person, to place, not to time, he tells me he wants to go home, to his , currently on 8 L, afebrile overnight, urine output has decreased Vitals/I&O/Wt Last Vital Signs Temp 97.5 F L 03/11/21 08:00 Pulse 67 03/11/21 08:59 Resp 17 03/11/21 08:59 BP 152/91 03/11/21 08:00 Pulse Ox 92 03/11/21 08:59 03/10/21 03/11/21 03/11/21 22:59 06:59 14:59 Intake Total 290 / 620 120 / 740 50 / 50 Output Total 400 / 400 Balance -110 / 220 120 / 340 50 / 50 Weight last 48 hrs Weight 71.94 kg Weight 72.348 kg Physical Exam Const: COMMON NORMALS: no acute distress GENERAL APPEARANCE: frail appearing NUTRITIONAL APPEARANCE: thin ORIENTATION/CONSCIOUSNESS: Yes awake, Yes oriented to person and Yes oriented to place; not oriented to time Resp: COMMON NORMALS: normal respiratory effort, No retractions and No use of accessory muscles AUSCULTATION: wheezes Cardio: COMMON NORMALS: regular rate, regular rhythm, S1 normal heart sound present and S2 normal heart sound present RATE: regular rate RHYTHM: regular rhythm HEART SOUNDS: S1 normal heart sound present and S2 normal heart sound present GI: COMMON NORMALS: Normal to inspection, nondistended, normoactive bowel sounds present, Soft to palpation and non-tender PALPATION: Yes Soft to palpation Extremity: COMMON NORMALS: no pedal edema Neuro: SENSORIUM/ORIENTATION: Yes oriented to person, Yes oriented to place and No oriented to time Urinary Catheter Management^: Hassan: Cath Placed During This Visit: yes Reason for Continuing Indwelling Catheter: Assist Healing of Perineal & Sacral Wounds- Incontinent Patients Urinary Catheter Date of Insertion: 02/27/21 Urinary Catheter Time of Insertion: 17:46 Data : 03/11/21 05:20 03/11/21 05:20 Micro: Microbiology 03/10/21 13:00 Gram Stain - Final Sputum - Expectorated Sputum Sputum Culture - Preliminary Gram Negative Rods 03/10/21 11:30 Urine Culture - Preliminary Urine Catheterized 03/11/21 00:40 C.difficile Toxin B Gene (PCR) - Final Stool - Stool Aspirate 03/10/21 14:16 Blood Culture - Preliminary Blood SPECIMEN COLLECTED 03/10/21 14:10 Blood Culture - Preliminary Blood SPECIMEN COLLECTED A&P Assessment and plan (1) Pneumonia due to COVID-19 virus: Acute hypoxic respiratory failure secondary COVID-19, with evidence of acute respiratory distress syndrome MRSA PCR :Negative Rapid COVID :Negative, PCR Positive :Repeat PCR Sent :Negatve CTA Chest : Negative for PE, Widespread nonspecific ground-glass changes throughout the airspaces. Continue heated high flow, down to 40 L, 45% Advair inhaler Albuterol Inhaler Incentive spirometry Flutter valve Completed Remdesivir for 5 days Dexamethasone 6 mg IV daily for 10 Days, now decreased to 4 mg p.o. daily Not a candidate for Actemra White blood cell count increase to 17.3, repeat blood cultures, sputum cultures urine cultures, currently on vancomycin, Zosyn Creatinine 2.4, likely secondary to hypotensive episodes when getting him up and ambulating, start gentle IV hydration, consult nephrology service is discussing with patient's family about possible hospice as she a bsolutely declines select placement Plan for today, will discuss with family about future directives, monitor kidney function, monitor urine output, nephrology service consulted Status: Acute (2) AMS (altered mental status): -From history what I gather he has had a slow decline over the last year, does say that he was a bit forgetful before, but he was fairly functional. Seems like after the back surgery he has had a slow decline. 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 (13) Aspiration pneumonia: Status: Acute Additional A&P Information Orthostatic hypotension, component of related to clonidine hydralazine, Lasix, hold off on further diuresis, hold off on blood pressure medications, monitor blood pressures carefully Dvt ppx:Heparin 5000 sc q12 h daily Code status :AND Attestations Medical Necessity Statement*: Patient requires hospitalization due to pneumonia secondary COVID-19, now with SHEILA, with elevated white count Coding Level of Care Code Acute Sales Management Trainee for [facility] Fwd Diagnoses Pneumonia due to COVID-19 virus U07.1; J12.82 AMS (altered mental status) R41.82 SHEILA (acute kidney injury) N17.9 Generalized weakness R53.1 Hypoxemia R09.02 Elevated troponin I level R77.8 BPH loc w urin obs/LUTS N40.1 Dyslipidemia E78.5 CAD (coronary artery disease) I25.10 Spondylolisthesis of lumbar region M43.16 Lumbar stenosis with neurogenic claudication M48.062 Intervertebral disc disorder with radiculopathy of lumbosacral region M51.17 Aspiration pneumonia J69.0
--- NOTE | 2021-03-11 13:42 | PC.CHAP ---
Pastoral Care Encounter/Spiritual Assessment Type of Contact [] Declined pot fisher visit [] Patient/Family/Request visit [] Outpatient visit [xx] Follow-up visit [] Physician referral [] Code/Alert [] Routine visit [] Staff referral [] Actively dying [] Patient sleeping [] Family support [] [] Out of room [] Palliative care [] [] Receiving care in room [] Pre-surgical visit [] Trauma [xx] Long length of stay [] ICU visit [xx] Other: ISOLATION Relational/Emotional Strength [] Patient feels connected with others/family/visitors/staff [] Distress [] Loneliness/isolation [] Abandonment Spirituality of Patient [] Person of Janet [] Attends Lutheran of their Janet [] Believes in Prayer [] Reads Bible or Worship materials [] There are Spiritual issues to be addressed [facility] Interventions [] Prayer [] Active listening [] Non-anxious presence [] Spiritual/emotional support [] Crisis/trauma care [] Spiritual counseling [] Bereavement support [] Provided bereavement packet [] Provided Bible/devotional materials [] Provided toy/stuffed animal, coloring book to patient or family member [] Provided Communion [] Anointing/[place] [] Salvation [] Completed spiritual assessment [] Other: Impact on Illness or Injury [] Angry [] Fearful [] Anxious [] Often cries [] Exhaustion [] Unable to work [] Unable to attend adventist [] Unable to walk/stand [] Unable to read [] Unable to drive [] Unable to eat/drink [] Unable to sleep [] Unable to be with family [] Patient intubated [] Other: Summary Patient remains in isolation. Could not visit. Time spent with patient
[2021-03-11] MEDS: atorvastatin 40 mg Tablet 80 MG PO (18:08)
[2021-03-11] MEDS: quetiapine 25 mg Tablet 50 MG PO (18:08)
[2021-03-11] MEDS: vancomycin 1,000 MG in sodium chloride 0.9% 250 ML 250 MG IV (22:08)
[2021-03-11] MEDS: sodium chloride 0.9% 1,000 ML 75 ML IV (22:09)
[2021-03-12] VITALS (14 sets, daily range): BP systolic 100–180; BP diastolic 60–90; PULSE 61–79; RESP 16–20; TEMP 36.3–36.8; O2SAT 91–97
[2021-03-12] MEDS: ipratropium-albuterol 3 mL Neb INHALATION ×4 (03:38→20:18)
[2021-03-12 06:11] LABS: Basophils % 0.1 %; Eosinophils % 0.1 %; Hemoglobin 12.4 g/dL (11.7-16.6); Lymphocytes # 0.6 10^3/uL (0.8-4.8); Lymphocytes % 4.2 %; Mean Corpuscular HGB Conc 33.5 g/dL (30.0-36.0); Mean Corpuscular Hemoglobin 30.8 pg (28.0-34.0); Mean Platelet Volume 12.1 fL (7.4-10.4); Monocytes # 0.8 10^3/uL (0.2-0.9); Monocytes % 5.3 %; Neutrophils % 89.9 %; Nucleated Red Blood Cells % 0 %; Platelet Count 139 10^3/cmm (130-400); Red Blood Count 4.02 10^6/uL (4.1-5.3); Red Cell Distribution Width 13.4 % (12.1-15.1); White Blood Count 14.5 10^3/uL (4.0-10.0)
[2021-03-12 06:39] LABS: Alanine Aminotransferase 26 U/L (0-41); Albumin Level 2.3 g/dL (3.5-5.2); Alkaline Phosphatase 53 IU/L (40-130); Aspartate Amino Transferase 27 U/L (0-40); Blood Urea Nitrogen 71 mg/dL (8-23); C Reactive Protein 16.7 mg/L (0.0-4.9); Calcium 8.7 mg/dL (8.5-10.5); Carbon Dioxide 21 mmol/L (22-29); Chloride 111 mmol/L (98-107); Globulin 2.7 g/dL (1.3-4.6); Glucose 126 mg/dL (65-115); Magnesium 2.5 mg/dL (1.7-2.3); Osmolality Calculated 318 mOsm/kg (285-295); Phosphorus 5.1 mg/dL (2.5-4.5); Sodium 143 mmol/L (136-145); Total Bilirubin 0.6 mg/dL (0.15-1.2)
[2021-03-12 06:43] LABS: Procalcitonin 0.11 ng/mL (0-0.5)
[2021-03-12 07:50] LABS: Ferritin 1110 ng/mL (30-400)
[2021-03-12] MEDS: piperacillin-tazobactam 3.375 GM in sodium chloride 0.9% (plus) 50 ML IV ×3 (09:40→23:33)
[2021-03-12] MEDS: quetiapine 25 mg Tablet 50 MG PO ×2 (09:41→17:20)
[2021-03-12] MEDS: amlodipine 10 mg Tablet PO (09:41)
[2021-03-12] MEDS: pantoprazole DR 40 mg Tablet PO (09:41)
[2021-03-12] MEDS: cholecalciferol (vitamin D3) 5,000 unit Tablet 5000 UNIT PO (09:41)
[2021-03-12] MEDS: sertraline 50 mg Tablet 25 MG PO (09:41)
[2021-03-12] MEDS: heparin 5,000 unit/mL INJ 1 mL 5000 UNIT SUBCUT ×2 (09:41→21:04)
[2021-03-12] MEDS: dexamethasone 4 mg Tablet PO (09:41)
[2021-03-12] MEDS: aspirin 81 mg EC Tablet PO (09:41)
--- NOTE | 2021-03-12 12:12 | PC.SOCIAL ---
IMM Update pg 2 of IMM updated and reviewed w/ patient.
--- NOTE | 2021-03-12 13:29 | P.PN_ITS ---
Subjective Subjective: Interval history: I spoke to patient's yesterday evening, she tells me that she cannot take care of home her, she has a history of hip osteoarthritis, patient not able to take care of him at home, she would like him to go to the best possible [place] [facility] [place] [facility], with the best physical therapy staff, one of her friends is a physical therapist, and she is helping family decide which [place] to pick, she tells me that the family still wants us to the Lewy body dementia is a cause of his weakness, she tells me that he chronically has outpatient for the last 6 months has had fluctuations of his blood pressure has been difficult to manage, This morning patient was examined, is afebrile, he is on 8 L, he is alert to person, to place, not to time, he follows commands, he is a bit withdrawn, tells me he wants to go home, Vitals/I&O/Wt Last Vital Signs Temp 97.5 F L 03/12/21 07:45 Pulse 64 03/12/21 12:00 Resp 17 03/12/21 12:00 BP 100/60 03/12/21 12:00 Pulse Ox 95 03/12/21 12:00 03/11/21 03/12/21 03/12/21 22:59 06:59 14:59 Intake Total 410 / 1060 900 / 1960 1840.00 / 1840.00 Output Total 450 / 450 1400 / 1850 1850 / 1850 Balance -40 / 610 -500 / 110 -10.00 / -10.00 Weight last 48 hrs Weight 71.94 kg Physical Exam Const: COMMON NORMALS: no acute distress GENERAL APPEARANCE: frail appearing NUTRITIONAL APPEARANCE: thin ORIENTATION/CONSCIOUSNESS: Yes awake, Yes oriented to person and Yes oriented to place; not oriented to time Resp: COMMON NORMALS: normal respiratory effort, No retractions, No use of accessory muscles and clear to auscultation bilaterally AUSCULTATION: clear to auscultation bilaterally Cardio: COMMON NORMALS: regular rate, regular rhythm, S1 normal heart sound present and S2 normal heart sound present RATE: regular rate RHYTHM: regular rhythm HEART SOUNDS: S1 normal heart sound present and S2 normal heart sound present GI: COMMON NORMALS: Normal to inspection, nondistended, normoactive bowel sounds present, Soft to palpation and non-tender PALPATION: Yes Soft to palpation Extremity: COMMON NORMALS: no pedal edema Neuro: SENSORIUM/ORIENTATION: Yes oriented to person, Yes oriented to place and No oriented to time Psych: COMMON NORMALS: mental status grossly normal Urinary Catheter Management^: Hassan: Cath Placed During This Visit: yes Reason for Continuing Indwelling Catheter: Assist Healing of Perineal & Sacral Wounds- Incontinent Patients Urinary Catheter Date of Insertion: 02/27/21 Urinary Catheter Time of Insertion: 17:46 Data : 03/12/21 05:48 03/12/21 05:48 Micro: Microbiology 03/10/21 11:30 Urine Culture - Final Urine Catheterized 03/10/21 13:00 Gram Stain - Final Sputum - Expectorated Sputum Sputum Culture - Final Serratia marcescens 03/10/21 14:16 Blood Culture - Preliminary Blood NEGATIVE TO DATE 03/10/21 14:10 Blood Culture - Preliminary Blood NEGATIVE TO DATE A&P Assessment and plan (1) Pneumonia due to COVID-19 virus: Acute hypoxic respiratory failure secondary COVID-19, with evidence of acute respiratory distress syndrome MRSA PCR :Negative Rapid COVID :Negative, PCR Positive :Repeat PCR Sent :Negatve CTA Chest : Negative for PE, Widespread nonspecific ground-glass changes throughout the airspaces. Continue heated high flow, down to 40 L, 45% Advair inhaler Albuterol Inhaler Incentive spirometry Flutter valve Completed Remdesivir for 5 days Dexamethasone 6 mg IV daily for 10 Days, now decreased to 4 mg p.o. daily Not a candidate for Actemra White blood cell count now 14.5, repeat blood cultures, sputum cultures urine cultures, currently on vancomycin, Zosyn Creatinine 2.5, likely secondary to hypotensive episodes when getting him up and ambulating, has good urine output, continue to monitor Orthostatic hypotension, patient is 10 L positive, all his blood pressure medications have been held, patient does have rapidly fluctuating blood pressures, will do an echocardiogram, possibly secondarily by dementia Generalized decline, over the last year, family wants us to consider lumbar puncture for normal pressure hydrocephalus as an etiology behind his generalized decline, patient has seen Dr. Wood as outpatient, she attempted a lumbar puncture in her office however it was difficult to perform, and he was scheduled to have an outpatient lumbar puncture however he developed COVID-19 infection and it has been delayed. For now I have recommended to the family that we should avoid a lumbar puncture, given his generalized deconditioning, his hypoxemia, his high risk of orthostasis, I would hold off for now due to concerns for complications. Can discuss with Dr. Wood in the near future. However a significant portion of his current deconditioning, sarcopenia, and confusion is currently secondary to his COVID-19 infection, hypoxia and prolonged hospitalization. and [place] Plan for today, will discuss with family about future directives, monitor kidney function, monitor urine output, nephrology service consulted Status: Acute (2) AMS (altered mental status): -From history what I gather he has had a slow decline over the last year, does say that he was a bit forgetful before, but he was fairly functional. Seems like after the back surgery he has had a slow decline. 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 (13) Aspiration pneumonia: Status: Acute Additional A&P Information Orthostatic hypotension, component of related to clonidine hydralazine, Lasix, hold off on further diuresis, hold off on blood pressure medications, monitor blood pressures carefully Dvt ppx:Heparin 5000 sc q12 h daily Code status :AND Attestations Medical Necessity Statement*: Patient requires hospitalization due to pne umonia secondary COVID-19 Coding Level of Care Code Acute Dietitian Teacher for [facility] Fwd Diagnoses Pneumonia due to COVID-19 virus U07.1; J12.82 AMS (altered mental status) R41.82 SHEILA (acute kidney injury) N17.9 Generalized weakness R53.1 Hypoxemia R09.02 Elevated troponin I level R77.8 BPH loc w urin obs/LUTS N40.1 Dyslipidemia E78.5 CAD (coronary artery disease) I25.10 Spondylolisthesis of lumbar region M43.16 Lumbar stenosis with neurogenic claudication M48.062 Intervertebral disc disorder with radiculopathy of lumbosacral region M51.17 Aspiration pneumonia J69.0
[2021-03-12] MEDS: atorvastatin 40 mg Tablet 80 MG PO (17:19)
[2021-03-13] VITALS (14 sets, daily range): BP systolic 120–167; BP diastolic 67–80; PULSE 63–93; RESP 16–22; TEMP 36.4–37; O2SAT 90–94
[2021-03-13] MEDS: ipratropium-albuterol 3 mL Neb INHALATION ×4 (02:24→20:21)
[2021-03-13 06:35] LABS: Basophils % 0.1 %; Hematocrit 39.4 % (42.0-52.0); Hemoglobin 13.6 g/dL (11.7-16.6); Lymphocytes # 0.6 10^3/uL (0.8-4.8); Mean Corpuscular HGB Conc 34.5 g/dL (30.0-36.0); Mean Corpuscular Hemoglobin 31.4 pg (28.0-34.0); Mean Platelet Volume 12.4 fL (7.4-10.4); Monocytes # 0.8 10^3/uL (0.2-0.9); Monocytes % 7.2 %; Neutrophils # 9.26 10^3/uL (1.8-7.7); Neutrophils % 86.1 %; Nucleated Red Blood Cells % 0 %; Platelet Count 123 10^3/cmm (130-400); Red Blood Count 4.33 10^6/uL (4.1-5.3); Red Cell Distribution Width 13.2 % (12.1-15.1); White Blood Count 10.7 10^3/uL (4.0-10.0)
[2021-03-13 06:53] LABS: C Reactive Protein 12.2 mg/L (0.0-4.9)
[2021-03-13 07:03] LABS: NT Pro B Type Natriuretic Pept 1971 pg/mL (0-450); Procalcitonin 0.07 ng/mL (0-0.5)
[2021-03-13 07:14] LABS: Alanine Aminotransferase 27 U/L (0-41); Albumin Level 2.4 g/dL (3.5-5.2); Alkaline Phosphatase 60 IU/L (40-130); Aspartate Amino Transferase 34 U/L (0-40); Blood Urea Nitrogen 53 mg/dL (8-23); Calcium 8.8 mg/dL (8.5-10.5); Carbon Dioxide 23 mmol/L (22-29); Chloride 109 mmol/L (98-107); Globulin 2.7 g/dL (1.3-4.6); Glucose 175 mg/dL (65-115); Osmolality Calculated 315 mOsm/kg (285-295); Sodium 143 mmol/L (136-145); Total Bilirubin 0.5 mg/dL (0.15-1.2); Total Protein 5.1 g/dL (6.6-8.7)
[2021-03-13 07:26] LABS: Ferritin 1117 ng/mL (30-400)
[2021-03-13] MEDS: quetiapine 25 mg Tablet 50 MG PO ×2 (08:21→17:15)
[2021-03-13] MEDS: cholecalciferol (vitamin D3) 5,000 unit Tablet 5000 UNIT PO (08:22)
[2021-03-13] MEDS: sertraline 50 mg Tablet 25 MG PO (08:22)
[2021-03-13] MEDS: pantoprazole DR 40 mg Tablet PO (08:22)
[2021-03-13] MEDS: amlodipine 10 mg Tablet PO (08:23)
[2021-03-13] MEDS: aspirin 81 mg EC Tablet PO (08:23)
[2021-03-13] MEDS: dexamethasone 4 mg Tablet PO (08:23)
[2021-03-13] MEDS: piperacillin-tazobactam 3.375 GM in sodium chloride 0.9% (plus) 50 ML IV ×2 (08:28→16:32)
[2021-03-13] MEDS: heparin 5,000 unit/mL INJ 1 mL 5000 UNIT SUBCUT ×2 (08:28→20:34)
[2021-03-13 08:55] LABS: Vancomycin Trough 11.7 ug/mL (10-15)
[2021-03-13] MEDS: vancomycin 1,000 MG in sodium chloride 0.9% 250 ML 250 MG IV (09:31)
--- NOTE | 2021-03-13 11:57 | PM.PN ---
Subjective Subjective: Interval history: Patient was seen this morning, he is down to 4 L, afebrile overnight, normotensive, he is much more alert, awake, he sitting up in bed, he tells me is doing all right, tells me he wants to go home, no fevers, no chest pain, no shortness of breath, tells me that he had a bowel movement yesterday, none today, Vitals/I&O/Wt Last Vital Signs Temp 97.9 F 03/13/21 04:00 Pulse 67 03/13/21 09:05 Resp 17 03/13/21 09:05 BP 167/80 03/13/21 07:53 Pulse Ox 93 03/13/21 09:05 03/12/21 03/13/21 03/13/21 22:59 06:59 14:59 Intake Total 100 / 1940.00 170 / 2110.00 362.083 / 362.083 Output Total 1200 / 3050 1450 / 4500 Balance -1100 / -1110.00 -1280 / -2390.00 362.083 / 362.083 Weight last 48 hrs Weight 71.923 kg Physical Exam Const: COMMON NORMALS: no acute distress GENERAL APPEARANCE: frail appearing NUTRITIONAL APPEARANCE: thin ORIENTATION/CONSCIOUSNESS: Yes awake, Yes oriented to person and Yes oriented to place; not oriented to time Resp: COMMON NORMALS: normal respiratory effort, No retractions, No use of accessory muscles and clear to auscultation bilaterally AUSCULTATION: clear to auscultation bilaterally Cardio: COMMON NORMALS: regular rate, regular rhythm, S1 normal heart sound present and S2 normal heart sound present RATE: regular rate RHYTHM: regular rhythm HEART SOUNDS: S1 normal heart sound present and S2 normal heart sound present GI: COMMON NORMALS: Normal to inspection, nondistended, normoactive bowel sounds present, Soft to palpation and non-tender PALPATION: Yes Soft to palpation Extremity: COMMON NORMALS: no pedal edema Neuro: SENSORIUM/ORIENTATION: Yes oriented to person, Yes oriented to place and No oriented to time Psych: COMMON NORMALS: mental status grossly normal Urinary Catheter Management^: Hassan: Cath Placed During This Visit: yes Reason for Continuing Indwelling Catheter: Other Urinary Catheter Date of Insertion: 02/27/21 Urinary Catheter Time of Insertion: 17:46 Data : 03/13/21 05:48 03/13/21 05:48 Micro: Microbiology 03/10/21 11:30 Urine Culture - Final Urine Catheterized 03/10/21 13:00 Gram Stain - Final Sputum - Expectorated Sputum Sputum Culture - Final Serratia marcescens A&P Assessment and plan (1) Pneumonia due to COVID-19 virus: Acute hypoxic respiratory failure secondary COVID-19, with evidence of acute respiratory distress syndrome MRSA PCR :Negative Rapid COVID :Negative, PCR Positive :Repeat PCR Sent :Negatve CTA Chest : Negative for PE, Widespread nonspecific ground-glass changes throughout the airspaces. Down to 4 L Advair inhaler Albuterol Inhaler Incentive spirometry Flutter valve Completed Remdesivir for 5 days Dexamethasone 6 mg IV daily for 10 Days, now decreased to 4 mg p.o. daily Not a candidate for Actemra White blood cell count now 10.7, repeat blood cultures and urine culture so far negative, sputum cultures positive for Serratia, currently on vancomycin, Zosyn Clinically looking significantly better today, respiratory status is better, much more alert and awake, however continues to have deconditioning, recommend care home placement Creatinine 1.9, likely secondary to hypotensive episodes when getting him up and ambulating, has good urine output, continue to monitor Orthostatic hypotension, patient is 10 L positive, all his blood pressure medications have been held, patient does have rapidly fluctuating blood pressures, will do an echocardiogram, possibly secondarily by dementia Generalized decline, over the last year, family wants us to consider lumbar puncture for normal pressure hydrocephalus as an etiology behind his generalized decline, patient has seen Dr. Wood as outpatient, she attempted a lumbar puncture in her office however it was difficult to perform, and he was scheduled to have an outpatient lumbar puncture however he developed COVID-19 infection and it has been delayed. For now I have recommended to the family that we should avoid a lumbar puncture, given his generalized deconditioning, his hypoxemia, his high risk of orthostasis, I would hold off for now due to concerns for complications. Can discuss with Dr. Wood in the near future. However a significant portion of his current deconditioning, sarcopenia, and confusion is currently secondary to his COVID-19 infection, hypoxia and prolonged hospitalization. and family pursuing care home placement Plan for today, continue PT OT, continue antibiotics, de-escalate oxygen therapy, working on care home placement, will consider de-escalating antibiotic therapy in the next 24 4 8 hours Status: Acute (2) AMS (altered mental status): -From history what I gather he has had a slow decline over the last year, does say that he was a bit forgetful before, but he was fairly functional. Seems like after the back surgery he has had a slow decline. 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 (13) Aspiration pneumonia: Status: Acute Additional A&P Information Dvt ppx:Heparin 5000 sc q12 h daily Code status :AND Attestations Medical Necessity Statement*: Patient requires hospitalization due to pneumonia secondary COVID-19 Coding Level of Care Code Acute Science Teacher for [facility] Fwd Diagnoses Pneumonia due to COVID-19 virus U07.1; J12.82 AMS (altered mental status) R41.82 SHEILA (acute kidney injury) N17.9 Generalized weakness R53.1 Hypoxemia R09.02 Elevated troponin I level R77.8 BPH loc w urin obs/LUTS N40.1 Dyslipidemia E78.5 CAD (coronary artery disease) I25.10 Spondylolisthesis of lumbar region M43.16 Lumbar stenosis with neurogenic claudication M48.062 Intervertebral disc disorder with radiculopathy of lumbosacral region M51.17 Aspiration pneumonia J69.0
[2021-03-13] MEDS: atorvastatin 40 mg Tablet 80 MG PO (17:15)
--- NOTE | 2021-03-13 17:17 | PC.NURSE ---
Shift Note Frequent safety and comfort rounds continue. Orders and/or nursing care completed as indicated. Patient monitored for response to intervention and treatment(s). Patient's son and daughter both came to hospital to get clarification on when their father would be allowed to have visitors, as they state they were told father would come off precautions today. This nurse and charge nurse were unable to find documentation that states that. Hospitalist was notified to call patient's with some clarifications. Patient has sat up to bedside chair today and did well. Patient has denied any complaints of pain. Patient is currently sitting up in bed and is resting comfortably. Will continue to monitor.
[2021-03-14] VITALS (13 sets, daily range): BP systolic 90–167; BP diastolic 52–96; PULSE 64–93; RESP 16–20; TEMP 36.8–37; O2SAT 87–95
[2021-03-14] MEDS: piperacillin-tazobactam 3.375 GM in sodium chloride 0.9% (plus) 50 ML IV ×3 (00:34→17:36)
--- NOTE | 2021-03-14 03:43 | PC.NURSE ---
i reported low o2 87 to nurse
[2021-03-14] MEDS: ipratropium-albuterol 3 mL Neb INHALATION ×4 (03:55→20:18)
[2021-03-14 06:06] LABS: Basophils % 0.1 %; Eosinophils % 0.1 %; Hematocrit 36.3 % (42.0-52.0); Hemoglobin 12.4 g/dL (11.7-16.6); Lymphocytes # 0.8 10^3/uL (0.8-4.8); Lymphocytes % 7.1 %; Mean Corpuscular HGB Conc 34.2 g/dL (30.0-36.0); Mean Corpuscular Volume 90.8 fl (80-94); Mean Platelet Volume 12.5 fL (7.4-10.4); Monocytes # 0.8 10^3/uL (0.2-0.9); Monocytes % 7.4 %; Neutrophils % 84.7 %; Nucleated Red Blood Cells % 0 %; Platelet Count 115 10^3/cmm (130-400); Red Cell Distribution Width 13.4 % (12.1-15.1); White Blood Count 10.6 10^3/uL (4.0-10.0)
[2021-03-14 06:33] LABS: Alanine Aminotransferase 31 U/L (0-41); Albumin Level 2.5 g/dL (3.5-5.2); Alkaline Phosphatase 54 IU/L (40-130); Anion Gap 14.6 (5-19); Aspartate Amino Transferase 28 U/L (0-40); Blood Urea Nitrogen 46 mg/dL (8-23); Calcium 8.7 mg/dL (8.5-10.5); Carbon Dioxide 24 mmol/L (22-29); Chloride 107 mmol/L (98-107); Globulin 2.5 g/dL (1.3-4.6); Glucose 100 mg/dL (65-115); Magnesium 1.9 mg/dL (1.7-2.3); Osmolality Calculated 306 mOsm/kg (285-295); Phosphorus 3.1 mg/dL (2.5-4.5); Potassium 3.6 mmol/L (3.5-5.1); Sodium 142 mmol/L (136-145); Total Bilirubin 0.7 mg/dL (0.15-1.2)
[2021-03-14] MEDS: heparin 5,000 unit/mL INJ 1 mL 5000 UNIT SUBCUT ×2 (10:13→20:41)
[2021-03-14] MEDS: quetiapine 25 mg Tablet 50 MG PO ×2 (10:13→17:36)
[2021-03-14] MEDS: sertraline 50 mg Tablet 25 MG PO (10:13)
[2021-03-14] MEDS: cholecalciferol (vitamin D3) 5,000 unit Tablet 5000 UNIT PO (10:13)
[2021-03-14] MEDS: amlodipine 10 mg Tablet PO (10:14)
[2021-03-14] MEDS: aspirin 81 mg EC Tablet PO (10:14)
[2021-03-14] MEDS: pantoprazole DR 40 mg Tablet PO (10:14)
[2021-03-14] MEDS: dexamethasone 4 mg Tablet PO (10:14)
--- NOTE | 2021-03-14 12:16 | PM.PN ---
Subjective Subjective: Interval history: Patient was seen and examined this morning,no acute events overnight. Medications: Reviewed: Yes Vitals/I&O/Wt Last Vital Signs Temp 98.5 F 03/14/21 08:00 Pulse 93 03/14/21 11:41 Resp 20 H 03/14/21 11:41 BP 90/52 03/14/21 11:41 Pulse Ox 91 03/14/21 11:41 03/13/21 03/14/21 03/14/21 22:59 06:59 14:59 Intake Total 390 / 902.712 2596 / 1840.000 Output Total 875 / 875 800 / 1675 Balance -485 / -85.000 250 / 165.000 Weight last 48 hrs Weight 71.923 kg Physical Exam HENMT: COMMON NORMALS: normocephalic and atraumatic HEAD & SCALP: normocephalic and atraumatic Resp: COMMON NORMALS: clear to auscultation bilaterally EFFORT & INSPECTION: Yes tachypneic AUSCULTATION: clear to auscultation bilaterally OTHER: Diminished air entry B/L Cardio: COMMON NORMALS: regular rate, regular rhythm, S1 normal heart sound present, S2 normal heart sound present, No gallops present (Cardio), No murmurs present (Cardio), No rub (Cardio) and Peripheral pulses 2+ throughout RATE: regular rate RHYTHM: regular rhythm HEART SOUNDS: S1 normal heart sound present and S2 normal heart sound present PERIPHERAL PULSES: Peripheral pulses 2+ throughout GI: COMMON NORMALS: Normal to inspection, nondistended, normoactive bowel sounds present, Soft to palpation, non-tender, No hepatosplenomegaly present and no masses AUSCULTATION: Yes normoactive bowel sounds PALPATION: Yes Soft to palpation and Yes No hepatosplenomegaly present RECTAL EXAM: Yes deferred Extremity: COMMON NORMALS: no clubbing, cyanosis or edema and no pedal edema Urinary Catheter Management^: Hassan: Cath Placed During This Visit: yes Reason for Continuing Indwelling Catheter: Other Urinary Catheter Date of Insertion: 02/27/21 Urinary Catheter Time of Insertion: 17:46 Data : 03/14/21 04:54 03/14/21 04:54 A&P Assessment and plan (1) Pneumonia due to COVID-19 virus: Acute hypoxic respiratory failure secondary COVID-19, with evidence of acute respiratory distress syndrome MRSA PCR :Negative Rapid COVID :Negative, PCR Positive :Repeat PCR Sent :Negatve CTA Chest : Negative for PE, Widespread nonspecific ground-glass changes throughout the airspaces. Down to 4 L Advair inhaler Albuterol Inhaler Incentive spirometry Flutter valve Completed Remdesivir for 5 days Dexamethasone 6 mg IV daily for 10 Days, now decreased to 4 mg p.o. daily Not a candidate for Actemra White blood cell count now 10.7, repeat blood cultures and urine culture so far negative, sputum cultures positive for Serratia, currently on vancomycin, Zosyn Clinically looking significantly better today, respiratory status is better, much more alert and awake, however continues to have deconditioning, recommend shelter placement Creatinine 1.9, likely secondary to hypotensive episodes when getting him up and ambulating, has good urine output, continue to monitor Orthostatic hypotension, patient is 10 L positive, all his blood pressure medications have been held, patient does have rapidly fluctuating blood pressures, will do an echocardiogram, possibly secondarily by dementia Generalized decline, over the last year, family wants us to consider lumbar puncture for normal pressure hydrocephalus as an etiology behind his generalized decline, patient has seen Dr. Wood as outpatient, she attempted a lumbar puncture in her office however it was difficult to perform, and he was scheduled to have an outpatient lumbar puncture however he developed COVID-19 infection and it has been delayed. For now I have recommended to the family that we should avoid a lumbar puncture, given his generalized deconditioning, his hypoxemia, his high risk of orthostasis, I would hold off for now due to concerns for complications. Can discuss with Dr. Wood in the near future. However a significant portion of his current deconditioning, sarcopenia, and confusion is currently secondary to his COVID-19 infection, hypoxia and prolonged hospitalization. and family pursuing shelter placement Plan for today, continue PT OT, continue antibiotics, de-escalate oxygen therapy, working on shelter placement, will consider de-escalating antibiotic therapy in the next 24 4 8 hours Status: Acute (2) AMS (altered mental status): -From history what I gather he has had a slow decline over the last year, does say that he was a bit forgetful before, but he was fairly functional. Seems like after the back surgery he has had a slow decline. 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 (13) Aspiration pneumonia: Status: Acute Additional A&P Information Dvt ppx:Heparin 5000 sc q12 h daily Code status :AND Attestations Medical Necessity Statement*: Patient needs to be in hospital for the management of pna Coding Level of Care Code Acute [employer] Machine for [facility] Fwd Diagnoses Pneumonia due to COVID-19 virus U07.1; J12.82 AMS (altered mental status) R41.82 SHEILA (acute kidney injury) N17.9 Generalized weakness R53.1 Hypoxemia R09.02 Elevated troponin I level R77.8 BPH loc w urin obs/LUTS N40.1 Dyslipidemia E78.5 CAD (coronary artery disease) I25.10 Spondylolisthesis of lumbar region M43.16 Lumbar stenosis with neurogenic claudication M48.062 Intervertebral disc disorder with radiculopathy of lumbosacral region M51.17 Aspiration pneumonia J69.0
--- NOTE | 2021-03-14 16:51 | PC.SOCIAL ---
IMM Update pg 2 of IMM updated and reviewed w/ patients via phone. Copy provided to patient.
[2021-03-14] MEDS: atorvastatin 40 mg Tablet 80 MG PO (17:35)
[2021-03-14] MEDS: vancomycin 1,000 MG in sodium chloride 0.9% 250 ML 250 MG IV (20:29)
[2021-03-15] VITALS (11 sets, daily range): BP systolic 115–162; BP diastolic 72–78; PULSE 73–90; RESP 16–20; TEMP 36.4–36.8; O2SAT 88–95
[2021-03-15] MEDS: piperacillin-tazobactam 3.375 GM in sodium chloride 0.9% (plus) 50 ML IV (02:33)
[2021-03-15] MEDS: ipratropium-albuterol 3 mL Neb INHALATION ×3 (03:07→15:09)
[2021-03-15 05:51] LABS: Basophils % 0.1 %; Eosinophils % 0.1 %; Hematocrit 35.5 % (42.0-52.0); Hemoglobin 11.8 g/dL (11.7-16.6); Lymphocytes # 0.5 10^3/uL (0.8-4.8); Lymphocytes % 6.3 %; Mean Corpuscular HGB Conc 33.2 g/dL (30.0-36.0); Mean Corpuscular Hemoglobin 30.3 pg (28.0-34.0); Mean Corpuscular Volume 91.3 fl (80-94); Mean Platelet Volume 12.3 fL (7.4-10.4); Monocytes # 0.6 10^3/uL (0.2-0.9); Monocytes % 6.7 %; Neutrophils # 7.16 10^3/uL (1.8-7.7); Neutrophils % 86.3 %; Nucleated Red Blood Cells % 0 %; Platelet Count 93 10^3/cmm (130-400); Red Blood Count 3.89 10^6/uL (4.1-5.3); Red Cell Distribution Width 13.3 % (12.1-15.1); White Blood Count 8.3 10^3/uL (4.0-10.0)
[2021-03-15 06:14] LABS: Alanine Aminotransferase 36 U/L (0-41); Albumin Level 2.5 g/dL (3.5-5.2); Alkaline Phosphatase 56 IU/L (40-130); Anion Gap 11.8 (5-19); Aspartate Amino Transferase 31 U/L (0-40); Blood Urea Nitrogen 39 mg/dL (8-23); Calcium 8.4 mg/dL (8.5-10.5); Carbon Dioxide 25 mmol/L (22-29); Chloride 110 mmol/L (98-107); Globulin 2.5 g/dL (1.3-4.6); Glucose 124 mg/dL (65-115); Magnesium 1.8 mg/dL (1.7-2.3); Osmolality Calculated 307 mOsm/kg (285-295); Phosphorus 3.3 mg/dL (2.5-4.5); Potassium 3.8 mmol/L (3.5-5.1); Sodium 143 mmol/L (136-145); Total Bilirubin 0.5 mg/dL (0.15-1.2)
[2021-03-15] MEDS: amlodipine 10 mg Tablet PO (09:06)
[2021-03-15] MEDS: pantoprazole DR 40 mg Tablet PO (09:06)
[2021-03-15] MEDS: cholecalciferol (vitamin D3) 5,000 unit Tablet 5000 UNIT PO (09:07)
[2021-03-15] MEDS: quetiapine 25 mg Tablet 50 MG PO (09:07)
[2021-03-15] MEDS: dexamethasone 4 mg Tablet PO (09:07)
[2021-03-15] MEDS: aspirin 81 mg EC Tablet PO (09:07)
[2021-03-15] MEDS: sertraline 50 mg Tablet 25 MG PO (09:08)
[2021-03-15] MEDS: heparin 5,000 unit/mL INJ 1 mL 5000 UNIT SUBCUT (09:16)
--- NOTE | 2021-03-15 12:31 | PM.DCS ---
Discharge Providers Date of Admission: 02/27/21 15:30 Date of Discharge: March 15, 2021 Attending Provider at Admission: Joe Crocker MD Attending Provider at Discharge: Vitaliy Zhang MD Primary Care Provider: Rajni Knapp MD Diagnoses at Discharge Discharge Diagnosis (1) Pneumonia due to COVID-19 virus: Status: Resolved (2) AMS (altered mental status): Status: Resolved (3) SHEILA (acute kidney injury): Status: Acute (4) Generalized weakness: Status: Acute (5) Hypoxemia: Status: Acute (6) Elevated troponin I level: Status: Acute (7) BPH loc w urin obs/LUTS: Status: Acute (8) Dyslipidemia: Status: Acute (9) CAD (coronary artery disease): Status: Acute (10) Spondylolisthesis of lumbar region: Status: Chronic (11) Lumbar stenosis with neurogenic claudication: Status: Chronic (12) 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 During the hospital stay he was managed for acute hypoxic respiratory failure secondary to Covid pneumonia, he was kept on Covid protocol(completed remdesivir course, dexamethasone course, was on broad-spectrum antibiotic, and other conservative respiratory support) CTA Chest showed: Negative for PE, Widespread nonspecific ground-glass changes throughout the airspaces. blood cultures and urine culture negative, sputum cultures positive for Serratia, he was appropriately covered with Zosyn, is being discharged on p.o. levofloxacin for additional 7 days. Patient was also managed for acute metabolic encephalopathy: Likely secondary to Covid pneumonia: CT head without contrast: Negative for any acute intracranial pathology, B12: >2000, Folate: 19 TSH: 4.9. Prerenal SHEILA: Responded to gentle IV hydration. Generalized decline, over the last year, family wants us to consider lumbar puncture for normal pressure hydrocephalus as an etiology behind his generalized decline, patient has seen Dr. Wood as outpatient, she attempted a lumbar puncture in her office however it was difficult to perform, and he was scheduled to have an outpatient lumbar puncture however he developed COVID-19 infection and it has been delayed. Patient can continue to follow Dr. Wood as an outpatient for NPH work-up. At the time of discharge was still requiring 4 Ls oxygen through nasal cannula. Due to generalized weakness and deconditioning Patient is being discharged to care home for further recovery. Physical Exam Narrative: EXAM NARRATIVE: Alert awake and oriented HENMT: COMMON NORMALS: normocephalic and atraumatic HEAD & SCALP: normocephalic and atraumatic Resp: EFFORT & INSPECTION: Yes symmetric chest movement OTHER: Bilateral coarse breath sounds Cardio: COMMON NORMALS: regular rate, regular rhythm, S1 normal heart sound present, S2 normal heart sound present, No gallops present (Cardio), No murmurs present (Cardio), No rub (Cardio) and Peripheral pulses 2+ throughout RATE: regular rate RHYTHM: regular rhythm HEART SOUNDS: S1 normal heart sound present and S2 normal heart sound present PERIPHERAL PULSES: Peripheral pulses 2+ throughout GI: COMMON NORMALS: Normal to inspection, nondistended, normoactive bowel sounds present, Soft to palpation, non-tender, No hepatosplenomegaly present and no masses AUSCULTATION: Yes normoactive bowel sounds PALPATION: Yes Soft to palpation and Yes No hepatosplenomegaly present RECTAL EXAM: Yes deferred Extremity: COMMON NORMALS: no clubbing, cyanosis or edema and no pedal edema Urinary Catheter Management^: Hassan: Cath Placed During This Visit: yes Reason for Continuing Indwelling Catheter: Other Urinary Catheter Date of Insertion: 02/27/21 Urinary Catheter Time of Insertion: 17:46 Discharge Data Data Completed and Pending: Completed Studies During Hospitalization Category Date Time Status CT angio chest PE protcl [id number] Rout ine Cat Scan 03/03/21 14:[address] head wo con* [id number] Routine Cat Scan 03/03/21 14:38 Completed XR chest 1V rosette ble [id number] Routine Exams 03/02/21 08:17 Completed XR chest 1V rosette ble [id number] Routine Exams 03/07/21 07:00 Completed XR chest 1V rosette ble [id number] Routine Exams 03/10/21 08:06 Completed XR chest 1V rosette ble [id number] Urgent Exams 02/27/21 13:44 [place] [id number] Routin e Ultrasound 03/03/21 06:00 Completed Pending at discharge Category Date Time Status Blood Culture Sta t Lab 03/10/21 14:16 Results Complete Blood Co unt w/Auto AM LABS Lab 03/16/21 04:00 Ordered Comprehensive Met abolic Panel AM LA BS Lab 03/16/21 04:00 Ordered Magnesium AM LABS Lab 03/16/21 04:00 Ordered Phosphorus AM LAB S Lab 03/16/21 04:00 Ordered Labs from last 24 hours 03/15/21 03/15/21 05:18 05:18 WBC 8.3 RBC 3.89 L Hgb 11.8 Hct 35.5 L MCV 91.3 MCH 30.3 MCHC 33.2 RDW 13.3 Plt Count 93 L MPV 12.3 H Neut % (Auto) 86.3 Lymph % (Auto) 6.3 [place] % (Auto) 6.7 Eos % (Auto) 0.1 Baso % (Auto) 0.1 Neut # (Auto) 7.16 Lymph # (Auto) 0.5 L [place] # (Auto) 0.6 Eos # (Auto) 0.0 Baso # (Auto) 0.0 Nucleated RBC % (a uto) 0 Nucleated RBCs # 0.0 Sodium 143 Potassium 3.8 Chloride 110 H Carbon Dioxide 25 Anion Gap 11.8 BUN 39 H Creatinine 1.4 H GFR Calculation Not Reportable Glucose 124 H Calculated Osmolal ity 307 H Calcium 8.4 L Phosphorus 3.3 Magnesium 1.8 Total Bilirubin 0.5 AST 31 ALT 36 Alkaline Phosphata se 56 Total Protein 5.0 L Albumin 2.5 L Globulin 2.5 Vitals: Last Vital Signs Temp 97.5 F L 03/15/21 11:32 Pulse 90 03/15/21 11:32 Resp 20 H 03/15/21 11:32 BP 115/72 03/15/21 11:32 Pulse Ox 95 03/15/21 11:32 Discharge Plan Discharge Patient Disposition: Home Condition: Stable Prescriptions: New albuterol sulfate [Proventil HFA] 90 mcg/actuation HFA aerosol inhaler 1 inh inhalation Q6H PRN (Reason: shortness of breath or wheezing) Qty: 6.7 RF: 0 fluticasone propion-salmeterol [Advair Diskus] 250-50 mcg/dose blister with device 1 inh inhalation BID Qty: 60 RF: 1 levofloxacin 500 mg tablet 500 mg PO Q48H 7 Days Qty: 4 RF: 0 Continued Excedrin Extra Strength 250-250-65 mg tablet 1 tab PO Q6H PRN (Reason: Pain) RF: 0 Hold Instructions: Resume on 12/13/19. alfuzosin 10 mg tablet extended release 24 hr 10 mg PO DAILY Qty: 90 RF: 3 atorvastatin [Lipitor] 80 mg Tablet 80 mg PO QPM RF: 0 aspirin 81 mg Tablet,Delayed Release (Dr/Ec) 81 mg PO DAILY RF: 0 Hold Instructions: Resume on 12/13/19. niacin 500 mg Tablet 500 mg PO BID RF: 0 sertraline 25 mg Tablet 25 mg PO DAILY RF: 0 cholecalciferol (vitamin D3) [Vitamin D3] 125 mcg (5,000 unit) tablet 50,000 mcg PO DAILY RF: 0 lisinopril 5 mg tablet 5 mg PO BID RF: 0 Changed metoprolol tartrate 50 mg tablet 25 mg PO BID Qty: 0 RF: 0 Discharge Orders: Discharge Order (Routine); Ordered 03/15/21 Ordered By: Vitaliy Zhang Referrals: [facility] [Outside] Rajni Knapp MD [Primary Care Provider] - 03/22/21 9:15 am Datar,Isrrael Acosta MD [Physician] - 2 weeks Discharge Diet: Soft Mechanical Discharge Activity: Increase activity as tolerated Patient Instructions: Opioid Safety Discharge Attestations Time Spent in Discharge Care*: less than 30 min Specific Discharge Activities: educating patient, educating and/or supporting family/caregiver, discussing with pcp/other providers, discussing with telephonic nurse case manager/social workers/dc planners, documenting/other paperwork and evaluating patient/reviewing data Status at Discharge: Cognitive status at discharge: cognitively intact, Behavioral status at discharge: cooperative, Functional status at discharge: other assisted ambulation Overall status at discharge: patient is progressing back to baseline Quality Metrics Clinical Quality Measures During this hospital stay, did patient experience: None Coding Level of Care Code Acute Chg FW DC note Diagnoses Pneumonia due to COVID-19 virus U07.1; J12.82 AMS (altered mental status) R41.82 SHEILA (acute kidney injury) N17.9 Generalized weakness R53.1 Hypoxemia R09.02 Elevated troponin I level R77.8 BPH loc w urin obs/LUTS N40.1 Dyslipidemia E78.5 CAD (coronary artery disease) I25.10 Spondylolisthesis of lumbar region M43.16 Lumbar stenosis with neurogenic claudication M48.062 Intervertebral disc disorder with radiculopathy of lumbosacral region M51.17 Aspiration pneumonia J69.0
--- NOTE | 2021-03-15 15:15 | PC.OT ---
OT TREATMENT HELD TODAY DUE TO SCHEDULED DISCHARGE
--- NOTE | 2021-03-15 16:56 | PC.NURSE ---
Discharge Note Patient discharged to [facility] via transport service. Discharge instructions reviewed with nurse Jacqueline at [facility]. Mobile pharmacy medications and/or prescriptions provided. Belongings/home medications returned. Patient's family was at bedside [facility].
--- NOTE | 2021-03-16 14:20 | PC.SOCIAL ---
discharge follow up call made, spoke with Lacey at [facility]. She reports pt is weak but doing better. all medications at discharge available and pt is taking as directed. Message left with case management about follow up appointment with Dr. Munoz on 03-31.
== END 2021-03-15 16:55 | disposition skilled nursing facility (03) | DRG 177 ==
LOC: ER 15:35 → MEDSURG 16:06 → ICU 03-03 10:23 → MEDSURG 03-10 20:09
PROVIDERS: Admitting Provider Family Medicine; Emergency Provider Emergency Medicine; PCP Family Medicine; Visit Provider Internal Medicine
DX: U07.1 COVID-19 (principal); J12.82 Pneumonia due to coronavirus disease 2019; J80 Acute respiratory distress syndrome; G93.41 Metabolic encephalopathy; N17.9 Acute kidney failure, unspecified; I25.10 Atherosclerotic heart disease of native coronary artery without angina pectoris; Z95.5 Presence of coronary angioplasty implant and graft; E78.5 Hyperlipidemia, unspecified; G20 Parkinson's disease; M41.9 Scoliosis, unspecified; N40.1 Benign prostatic hyperplasia with lower urinary tract symptoms; F32.9 Major depressive disorder, single episode, unspecified; I25.2 Old myocardial infarction; I11.0 Hypertensive heart disease with heart failure; N18.9 Chronic kidney disease, unspecified; M54.17 Radiculopathy, lumbosacral region; M48.062 Spinal stenosis, lumbar region with neurogenic claudication; Z85.828 Personal history of other malignant neoplasm of skin; Z96.82 Presence of neurostimulator; Z91.81 History of falling; E86.0 Dehydration; I95.1 Orthostatic hypotension; B96.89 Other specified bacterial agents as the cause of diseases classified elsewhere; Z79.82 Long term (current) use of aspirin
CPT/HCPCS: 36415; 36416; 36600; 51702; 51798; 70450; 71045; 71275; 80048; 80053; 80202; 81001; 82607; 82728; 82746; 82803; 82962; 83615; 83690; 83735; 83880; 84100; 84145; 84443; 84484; 85025; 85378; 85610; 85651; 86140; 86592; 87040; 87070; 87077; 87086; 87186; 87205; 87426; 87493; 87635; 87641; 92610; 93005; 93306; 93970; 94640; 94664; 94762; 96365; 96366; 96372; 96375; 97110; 97116; 97162; 97167; 97530; 97535; 99285; C9113; J0295; J1100; J1630; J1644; J1940; J2060; J2270; J2405; J2543; J2930; J3370; J3480; J3535; J7030; J7040; J7050; J7799; J8540; Q9967

== ENCOUNTER 2021-03-18 03:35 | Emergency (ER) | payer MEDICARE, OTHER, SELFPAY ==
[2021-03-18 03:36] VITALS: BP 127/73; PULSE 75; RESP 18; TEMP 37; O2SAT 96; BMI 25.8
--- NOTE | 2021-03-18 03:39 | CTR_ITS ---
PROCEDURE INFORMATION: Exam: CT Head Without Contrast Exam date and time: 03/18/2021 3:39 AM Age: 80 years old Clinical indication: Injury or trauma; Fall; Blunt trauma (contusions or hematomas); Injury date: Today TECHNIQUE: Imaging protocol: Computed tomography of the head without contrast. Radiation optimization: All CT scans at this facility use at least one of these dose optimization techniques: automated exposure control; mA and/or kV adjustment per patient size (includes targeted exams where dose is matched to clinical indication); or iterative reconstruction. COMPARISON: CT head wo con* [id number] 03/03/2021 6:04 PM RADIATION DOSE METRICS: Total DLP (mGy-cm): 1046.17 FINDINGS: Brain: Dubose-white matter differentiation is preserved. No edema, mass effect or midline shift. No acute intracranial hemorrhage.Periventricular and deep white matter hypodensities compatible with chronic microvascular ischemic changes. Cerebral ventricles: No ventriculomegaly. Paranasal sinuses: Visualized sinuses are unremarkable. No fluid levels. Mastoid air cells: Right mastoid effusion. Bones/joints: No acute fracture. Soft tissues: Unremarkable. CT/CT head wo con* [id number] IMPRESSION: 1. No acute intracranial abnormality. 2. Right mastoid effusion. Radiation Dose CTDIVOL = (mGy): DLP = 1046.17 (mGy-cm)
--- NOTE | 2021-03-18 03:39 | CTR_ITS ---
PROCEDURE INFORMATION: Exam: CT Cervical Spine Without Contrast Exam date and time: 03/18/2021 3:39 AM Age: 80 years old Clinical indication: Injury or trauma; Fall; Blunt trauma; Injury date: Today TECHNIQUE: Imaging protocol: Computed tomography images of the cervical spine without contrast. Radiation optimization: All CT scans at this facility use at least one of these dose optimization techniques: automated exposure control; mA and/or kV adjustment per patient size (includes targeted exams where dose is matched to clinical indication); or iterative reconstruction. COMPARISON: CT head wo con* [id number] 03/18/2021 3:53 AM RADIATION DOSE METRICS: Total DLP (mGy-cm): 549.95 FINDINGS: Bones/joints: No acute fracture. No malalignment. Discs/Spinal canal/Neural foramina: Multilevel degenerative changes including disc space narrowing, endplate spurring and facet hypertrophy. No critical central canal stenosis. Lungs: Biapical pulmonary opacities which may be seen with pneumonia in the appropriate clinical context. Soft tissues: Unremarkable. CT/CT cervical spin wo con* [id number] IMPRESSION: 1. No acute cervical fracture. 2. Biapical pulmonary opacities which may be seen with pneumonia in the appropriate clinical context. Radiation Dose CTDIVOL = (mGy): DLP = 549.95 (mGy-cm)
--- NOTE | 2021-03-18 04:00 | W.ED.GENADLT ---
HPI - General Adult General: Chief complaint: Wound/Laceration Stated complaint: HEAD LAC Time Seen by Provider: 03/18/21 03:39 History of Present Illness: HPI narrative: Patient is a 80-year-old male history of CAD, hypertension, hyperlipidemia who presents the emergency room after a slip and fell while getting placed in bed at a residential. Patient reports hitting his head has small amount of bleeding and scalp hematoma on the back. Patient denies LOC. Denies any other focal areas of pain. On arrival, patient GCS 15, AAOx3 without any focal complaints. Onset: 30 minutes ago Duration:30 minutes Location:residential Severity:moderate Review of Systems Narrative: Constitutional: No fever, no chills. HEENT: No vision changes, +occiptal head pain CV: No chest pain, no palpitations PULM: no cough, no dyspnea. GI: No abdominal pain, no N/V/D. : No dysuria MSKEL: +R knee pain, +L hip pain SKIN: +scalp laceration NEURO: No headache, no focal weakness. HEME: No visible bruises PSYCH: Normal mood BACK: +cevical/thoracic/lumbar back pain PFSH ED PFSH: Medical History BPH loc w urin obs/LUTS CAD (coronary artery disease) Depression Dyslipidemia Gallstones Heart attack Hypertension Intervertebral disc disorder with radiculopathy of lumbosacral region Lower urinary tract symptoms (LUTS) Lumbar stenosis with neurogenic claudication Prostate enlargement Skin cancer Sleep apnea Spondylolisthesis of lumbar region Surgical History Hx of appendectomy Hx of cholecystectomy Hx of heart artery stent Hx of tonsillectomy Family History Mother Diabetes Hypertension CAD (coronary artery disease) Father Hypertension CAD (coronary artery disease) Other Cholelithiasis Denies family history of Clotting disorder Dementia Chronic kidney disease (CKD) Suicide Anesthesia complication Bleeding disorder Lung disease Cancer Stroke Social History Smoking and tobacco status: never smoked Alcohol intake: never Household members: spouse Marital status: Current occupational status: retired History of recent travel: No Physical Exam Narrative: EXAM NARRATIVE: Head: +scalp laceration Eyes: PERRL, conjunctiva without injection ENT: Mucous membrane moist NECK: Supple, ROM intact LUNGS: LCTAB, no crackles/rhonchi CV: RRR ABDOMEN: Soft, nontender in all quadrants EXTREMITY: Normal ROM SKIN: +4cm occiptal scalp laceration NEURO: Awake and alert, no focal motor deficits PSYCH: Normal mood and affect Procedures Laceration Laceration 1: Site: scalp Side (If applicable): left Size (cm): 5 Description: linear Depth: simple, single layer Local Anesthetic: lidocaine 1% Amount of anesthesia used (mL): 5 Pre-repair: wound explored and irrigated extensively Skin layer closed with: other (staple gun, 7 gisela placed) Course Vital Signs: Vital signs: Vital Signs Temperature 98.6 F 03/18/21 03:36 Pulse Rate 78 03/18/21 05:20 Respiratory Rate 15 03/18/21 07:37 Blood Pressure 135/83 03/18/21 07:37 Pulse Oximetry 96 03/18/21 05:20 MDM - General Adult MDM Narrative: Medical decision making narrative: 80-year-old male presents the emergency room with scalp laceration after residential staff attempted to move patient to the bed. On exam, patient has occipital scalp laceration. Patient is unclear of Tdap status. Work-up: CT brain Intervention: staple gun, TDAP On reassessment, patient does not have any signs of brain bleed or acute trauma.. Laceration was closed with staple gun. Please refer to the procedure note for any question. Patient received Tylenol in the emergency room reports improvement in headache. Disposition: Discharge. Patient counseled regarding diagnostic impression, treatment plan. Patient given ED strict return precautions to return for continuation, worsening, or development of new symptoms. Instructed to f/u w/ PCP regarding symptoms today. Patient verbalized understanding. [place] need removal in 10 days. I have given patient follow up with our case management coordinator to be seen by our PCP for staple removal in 10 days. Patient aware of a call from our case management coordinator to schedule for appointment(s) and verbalizes understanding of the importance of following up. Imaging Data^: Other Imaging: Radiologist's impression: [facility] [id number] Scan ReportSigned Patient: Walker,Sheldon CUnit #: [id number]: [id number]#:[id number]/Sex: 80 / MADM Date: 03/18/21Loc: ERRoom/Bed:Attending Dr: Ordering Provider/Ordering MD: Eliseo Parker MD Date of Service: 03/18/21 Procedure(s): CT head wo con* [id number] Accession Number(s): [id number] Report Number: [id number] PROCEDURE INFORMATION: Exam: CT Head Without Contrast Exam date and time: 03/18/2021 3:39 AM Age: 80 years old Clinical indication: Injury or trauma; Fall; Blunt trauma (contusions or hematomas); Injury date: Today TECHNIQUE: Imaging protocol: Computed tomography of the head without contrast. Radiation optimization: All CT scans at this facility use at least one of these dose optimization techniques: automated exposure control; mA and/or kV adjustment per patient size (includes targeted exams where dose is matched to clinical indication); or iterative reconstruction. COMPARISON: CT head wo con* [id number] 03/03/2021 6:04 PM RADIATION DOSE METRICS: Total DLP (mGy-cm): 1046.17 FINDINGS: Brain: Dubose-white matter differentiation is preserved. No edema, mass effect or midline shift. No acute intracranial hemorrhage.Periventricular and deep white matter hypodensities compatible with chronic microvascular ischemic changes. Cerebral ventricles: No ventriculomegaly. Paranasal sinuses: Visualized sinuses are unremarkable. No fluid levels. Mastoid air cells: Right mastoid effusion. Bones/joints: No acute fracture. Soft tissues: Unremarkable. CT/CT head wo con* [id number] IMPRESSION: 1. No acute intracranial abnormality. 2. Right mastoid effusion. Radiation Dose CTDIVOL = (mGy): DLP = 1046.17 (mGy-cm) Dictated By:Betsey Vega MDSigned By:Betsey Vega MDSigned Date/Time:03/18/21618DD/ [address] [address]FR Scan ReportSigned Patient: Peter Reno #: [id number]: [id number]#:[id number]/Sex: 80 / MADM Date: 03/18/21Loc: ERRoom/Bed:Attending Dr: Ordering Provider/Ordering MD: Eliseo Parker MD Date of Service: 03/18/21 Procedure(s): CT cervical spin wo con* [id number] Accession Number(s): [id number] Report Number: [id number] PROCEDURE INFORMATION: Exam: CT Cervical Spine Without Contrast Exam date and time: 03/18/2021 3:39 AM Age: 80 years old Clinical indication: Injury or trauma; Fall; Blunt trauma; Injury date: Today TECHNIQUE: Imaging protocol: Computed tomography images of the cervical spine without contrast. Radiation optimization: All CT scans at this facility use at least one of these dose optimization techniques: automated exposure control; mA and/or kV adjustment per patient size (includes targeted exams where dose is matched to clinical indication); or iterative reconstruction. COMPARISON: CT head wo con* [id number] 03/18/2021 3:53 AM RADIATION DOSE METRICS: Total DLP (mGy-cm): 549.95 FINDINGS: Bones/joints: No acute fracture. No malalignment. Discs/Spinal canal/Neural foramina: Multilevel degenerative changes including disc space narrowing, endplate spurring and facet hypertrophy. No critical central canal stenosis. Lungs: Biapical pulmonary opacities which may be seen with pneumonia in the appropriate clinical context. Soft tissues: Unremarkable. CT/CT cervical spin wo con* [id number] IMPRESSION: 1. No acute cervical fracture. 2. Biapical pulmonary opacities which may be seen with pneumonia in the appropriate clinical context. Radiation Dose CTDIVOL = (mGy): DLP = 549.95 (mGy-cm) Dictated By:Betsey Vega MDSigned By:Betsey Vega MDSigned Date/Time:03/18/21621DD/ 0 Discharge Plan Discharge Patient Disposition: Home Clinical Impression: Concussion, Fall, Laceration of scalp Condition: Stable Prescriptions: No Action Excedrin Extra Strength 250-250-65 mg tablet 1 tab PO Q6H PRN (Reason: Pain) RF: 0 Hold Instructions: Resume on 12/13/19. alfuzosin 10 mg tablet extended release 24 hr 10 mg PO DAILY Qty: 90 RF: 3 atorvastatin [Lipitor] 80 mg Tablet 80 mg PO QPM RF: 0 aspirin 81 mg Tablet,Delayed Release (Dr/Ec) 81 mg PO DAILY RF: 0 Hold Instructions: Resume on 12/13/19. niacin 500 mg Tablet 500 mg PO BID RF: 0 sertraline 25 mg Tablet 25 mg PO DAILY RF: 0 cholecalciferol (vitamin D3) [Vitamin D3] 125 mcg (5,000 unit) tablet 50,000 mcg PO DAILY RF: 0 lisinopril 5 mg tablet 5 mg PO BID RF: 0 Advair Diskus 250-50 mcg/dose blister with device 1 inh inhalation BID Qty: 60 RF: 1 Proventil HFA 90 mcg/actuation HFA aerosol inhaler 1 inh inhalation Q6H PRN (Reason: shortness of breath or wheezing) Qty: 6.7 RF: 0 metoprolol tartrate 50 mg tablet 25 mg PO BID Qty: 0 RF: 0 Discharge Orders: Discharge ED (Routine); Ordered 03/18/21 Ordered By: Eliseo Parker Referrals: Rajni Knapp MD [Primary Care Provider] - Discharge Diet: Advance as tolerated Discharge Activity: Resume usual activity Patient Instructions: Laceration (ED), Fall Prevention (ED), Opioid Safety Activity Restrictions/Additional Instructions: Need to follow-up with your primary care provider in the next 11 days to get your gisela removed. Come back to the emergency room for any new or concerning complaints. Coding Level of Care Code ED Distribution System Operator for Ramona Maria
[2021-03-18] MEDS: tetanus-dipt-pertussis 0.5 mL SDV IM (04:24)
[2021-03-18] MEDS: acetaminophen 500 mg Tablet PO (04:24)
[2021-03-18 05:20] VITALS: BP 119/78; PULSE 78; RESP 18; O2SAT 96
[2021-03-18 07:37] VITALS: BP 135/83; RESP 15
== END 2021-03-18 07:30 | disposition home or self-care (01) ==
PROVIDERS: Emergency Provider Emergency Medicine; PCP Family Medicine
DX: S06.0X9A Concussion with loss of consciousness of unspecified duration, initial encounter (principal); S01.01XA Laceration without foreign body of scalp, initial encounter; Z79.82 Long term (current) use of aspirin; I25.10 Atherosclerotic heart disease of native coronary artery without angina pectoris; E78.5 Hyperlipidemia, unspecified; I10 Essential (primary) hypertension; W01.0XXA Fall on same level from slipping, tripping and stumbling without subsequent striking against object, initial encounter; Y92.122 Bedroom in nursing home as the place of occurrence of the external cause; Z23 Encounter for immunization
CPT/HCPCS: 12002; 70450; 72125; 90471; 90715; 99283

== ENCOUNTER 2021-03-23 08:26 | Inpatient (IN) | payer MEDICARE, OTHER, SELFPAY ==
[2021-03-23] VITALS (10 sets, daily range): BP systolic 119–158; BP diastolic 66–96; PULSE 75–86; RESP 15–19; TEMP 36.3–37.5; O2SAT 87–96; BMI 25.0
--- NOTE | 2021-03-23 08:33 | ED_ITS ---
HPI - General Adult General: Chief complaint: General Medical Stated complaint: ABNORMAL LABS Time Seen by Provider: 03/23/21 08:27 History of Present Illness: HPI narrative: This patient is a 80-year-old male who presents to the emergency department with complaint of abnormal lab values. Patient had labs drawn yesterday while at the half-way lab results showed patient has a creatinine elevated to 6.83 it appears to be in acute renal failure. Patient's last laboratory values were taken on 15 March 1 week ago and at that time his creatinine was 1.4. Patient does not have any specific complaints other than the rawness of the skin in the area of the groin. Patient has no other complaints. Will do medical evaluation treat as needed. Patient does wear chronic oxygen at home due to hypoxemia. Patient also has a history of mental status changes that are chronic. Patient appears to be awake and alert x3 at this time. Associated symptoms: Deny chest pain, dyspnea, headache(s), nausea, rash, palpitations or vomiting Review of Systems General: Reports: 10 or more systems reviewed and unremarkable except in HPI and below Const: Denies: fever(s), chills, body aches or fatigue Eyes: Denies: change in vision or blurry vision ENMT: Denies: throat pain, hoarseness or mouth pain Card: Denies: chest pain, palpitations, irregular heart rhythm, edema, swelling of feet/ankles or lightheadedness Resp: Denies: dyspnea, productive cough, non-productive cough, wheezing or pain on inspiration GI: Denies: abdominal pain, nausea or vomiting : Denies: flank pain, dysuria, urinary frequency, urinary urgency or urinary hesitancy Musc: Denies: neck pain, back pain, extremity pain, extremity swelling, joint pain, joint swelling, joint redness, joint warmth or limited range of motion Skin/Breast: Denies: rash, pruritus, erythema or skin tenderness Neuro: Denies: headache(s), numbness in extremities or weakness in extremities Psych: Denies: anxiety or depression PFSH ED PFSH: Medical History BPH loc w urin obs/LUTS CAD (coronary artery disease) Depression Dyslipidemia Gallstones Heart attack Hypertension Intervertebral disc disorder with radiculopathy of lumbosacral region Lower urinary tract symptoms (LUTS) Lumbar stenosis with neurogenic claudication Prostate enlargement Skin cancer Sleep apnea Spondylolisthesis of lumbar region Surgical History Hx of appendectomy Hx of cholecystectomy Hx of heart artery stent Hx of tonsillectomy Family History Mother Diabetes Hypertension CAD (coronary artery disease) Father Hypertension CAD (coronary artery disease) Other Cholelithiasis Denies family history of Clotting disorder Dementia Chronic kidney disease (CKD) Suicide Anesthesia complication Bleeding disorder Lung disease Cancer Stroke Social History Smoking and tobacco status: never smoked Alcohol intake: never Household members: spouse Marital status: Current occupational status: retired History of recent travel: No Physical Exam Const: COMMON NORMALS: no acute distress, average body habitus, patient jaden ented x3, no limitations, healthy appearing, alert and well nourished HENMT: COMMON NORMALS: normocephalic, atraumatic, hearing grossly normal karma aterally, external ears normal, EAC's normal, TM's normal bilaterally, Normal external nose present, Normal nasal mucous membranes and turbinates present, moist oral mucous membranes, oropharynx normal, dentition normal and gingiva normal HEAD & SCALP: normocephalic and atraumatic NOSE: Normal external nose present and Normal nasal mucous membranes and turbinates present EXTERNAL EAR: Yes external ears normal EXTERNAL AUDITORY CANAL: EAC's normal TYMPANIC MEMBRANE: TM's normal bilaterally Neck/C-Spine: COMMON NORMALS: full ROM, no lymphadenopathy, supple, no meningeal signs, no JVD, Thyroid normal and No carotid bruits THYROID: Thyroid normal Chest: COMMONS NORMALS: normal inspection of the chest, normal palpation of entire chest wall, normal inspection of the breasts and normal palpation of the breasts Breast/axilla inspection: Yes normal inspection of the breasts BREAST/AXILLA PALPATION: Yes normal palpation of the breasts Resp: COMMON NORMALS: normal respiratory effort, No retractions, No use of accessory muscles, clear to auscultation bilaterally and percussion normal AUSCULTATION: clear to auscultation bilaterally PERCUSSION: percussion normal Cardio: COMMON NORMALS: no JVD, regular rate, regular rhythm, S1 normal heart sound present, S2 normal heart sound present, No gallops present (Cardio), No clicks present (Cardio), No murmurs present (Cardio), No rub (Cardio) and Peripheral pulses 2+ throughout RATE: regular rate RHYTHM: regular rhythm HEART SOUNDS: S1 normal heart sound present and S2 normal heart sound present PERIPHERAL PULSES: Peripheral pulses 2+ throughout GI: COMMON NORMALS: Soft to palpation, non-tender, No hepatosplenomegaly present, no masses and no bruits INSPECTION: Yes abdominal wall ecchymosis PALPATION: Yes Soft to palpation and Yes No hepatosplenomegaly present : COMMON NORMALS: Yes no CVA tenderness BLADDER/KIDNEY EXAM: Yes no CVA tenderness Back/Pelvis: COMMON NORMALS: no CVA tenderness, thoracic and lumbar spine normal to inspection, no thoracic nor lumbar tenderness, thoraco-lumbar ROM normal and straight leg raise negative bilaterally Extremity: COMMON NORMALS: normal to inspection, full ROM, capillary refill normal, no joint enlargement, no clubbing, cyanosis or edema, no calf tenderness and no pedal edema Neuro: COMMON NORMALS: patient oriented x3 SENSORIUM/ORIENTATION: Yes alert MENINGEAL SIGNS: Yes no meningeal signs Skin: RASHES: rashes noted (Consistent with tinea/jock itch.) Course Reevaluation(s): Reevaluation #1: Straight cath performed and got 1200 cc of urine out of the straight cath. Will place Hassan catheter. Concerning for possible obstructive uropathy related to urinary retention. Time: 09:33 Reevaluation #2: I did discuss at length with patient and family they state understanding patient be admitted to hospital Time: 10:30 Consultations: Consultation #1: I did discuss at length with Dr. Kanpp. He will admit the patient he will see patient write additional Time: 10:30 Vital Signs: Vital signs: Vital Signs Temperature 98.1 F 03/23/21 08:34 Pulse Rate 80 03/23/21 09:28 Respiratory Rate 18 03/23/21 09:28 Blood Pressure 119/96 03/23/21 09:28 Pulse Oximetry 96 03/23/21 09:28 MDM - General Adult MDM Narrative: Medical decision making narrative: This patient is a 80-year-old male who presents to the emergency department with complaint of abnormal lab values. Patient had labs drawn yesterday while at the half-way lab results showed patient has a creatinine elevated to 6.83 it appears to be in acute renal failure. Patient's last laboratory values were taken on 15 March 1 week ago and at that time his creatinine was 1.4. Patient does not have any specific complaints other than the rawness of the skin in the area of the groin. Patient has no other complaints. Will do medical evaluation treat as needed. Patient does wear chronic oxygen at home due to hypoxemia. Patient also has a history of mental status changes that are chronic. Patient appears to be awake and alert x3 at this time. Straight cath performed and got 1200 cc of urine out of the straight cath. Will place Hassan catheter. Concerning for possible obstructive uropathy related to urinary retention. I did discuss at length with patient and family they state understanding patient be admitted to hospital I did discuss at length with Dr. Knapp. He will admit the patient he will see patient write additional Lab Data: Labs: Lab Results 03/23/21 03/23/21 03/23/21 09:11 09:11 09:11 WBC 5.9 10^3/uL 10^3/ uL (4.0-10.0) RBC 3.39 10^6/uL L 10 ^6/uL (4.1-5.3) Hgb 10.6 g/dL L g/dL (11.7-16.6) Hct 31.6 % L % (42.0-52.0) MCV 93.2 fl fl (80-94) MCH 31.3 pg pg (28.0-34.0) MCHC 33.5 g/dL g/dL (30.0-36.0) RDW 14.2 % % (12.1-15.1) Plt Count 114 10^3/cmm L 10 ^3/cmm (130-400) MPV 10.3 fL fL (7.4-10.4) Neut % (Auto) 77.5 % % Lymph % (Auto) 8.8 % % [place] % (Auto) 9.1 % % Eos % (Auto) 3.9 % % Baso % (Auto) 0.5 % % Neut # (Auto) 4.58 10^3/uL 10^3 /uL (1.8-7.7) Lymph # (Auto) 0.5 10^3/uL L 10^ 3/uL (0.8-4.8) [place] # (Auto) 0.5 10^3/uL 10^3/ uL (0.2-0.9) Eos # (Auto) 0.2 10^3/uL 10^3/ uL (0.0-0.8) Baso # (Auto) 0.0 10^3/uL 10^3/ uL (0.0-0.1) Nucleated RBC % (a uto) 0 % % Nucleated RBCs # 0.0 /100WBC /100W BC Sodium 138 mmol/L mmol/L (136-145) Potassium 4.8 mmol/L mmol/L (3.5-5.1) Chloride 106 mmol/L mmol/L (98-107) Carbon Dioxide 19 mmol/L L mmol/ L (22-29) Anion Gap 17.8 (5-19) BUN 74 mg/dL H mg/dL (8-23) Creatinine 7.3 mg/dL H* mg/d L (0.7-1.2) GFR Calculation Not Reportable Glucose 79 mg/dL mg/dL (65-115) Calculated Osmolal ity 307 mOsm/kg H mOs m/kg (285-295) Calcium 8.2 mg/dL L mg/dL (8.5-10.5) Total Bilirubin 0.3 mg/dL mg/dL (0.15-1.2) AST 18 U/L U/L (0-40) ALT 18 U/L U/L (0-41) Alkaline Phosphata se 55 IU/L IU/L (40-130) Total Protein 5.6 g/dL L g/dL (6.6-8.7) Albumin 2.6 g/dL L g/dL (3.5-5.2) Globulin 3.0 g/dL g/dL (1.3-4.6) Urine Color Straw (Yellow) Urine Appearance Hazy A (CLEAR) Urine pH 8 H (5-7) Ur Specific Gravit y 1.005 (1.005-1.030) Urine Protein Neg (Negative) Urine Glucose (UA) Norm (Normal) Urine Ketones Negative (Negative) Urine Blood 3+ H (Negative) Urine Nitrate Negative (Negative) Urine Bilirubin Neg (Negative) Urine Urobilinogen Norm mg/dL mg/dL (Negative) Ur Leukocyte Wendi ase 2+ H (Negative) Amorphous Sediment Not Reportable Imaging Data^: CT Abd/Pel: Attestation: I personally reviewed and interpreted this imaging study as follows: Radiologist's impression: IMPRESSION: 1. Prior cholecystectomy. 2. Bilateral lower lobe consolidations with atelectasis and small effusions. Pneumonia likely. 3. Bilateral renal cysts. Renal pelves are very mildly prominent but no hydronephrosis at this time. The ureters insert into the urinary bladder very closely associated with the enlarged prostate gland which may eventually cause ureteral obstruction. 4. Marked enlargement of prostate. 5. Degenerative rotoscoliosis lumbar spine. 6. Mild soft tissue anasarca. EKG Data^: EKG 1: Attestation: I personally reviewed and interpreted this EKG as follows: EKG interpretation date: 03/23/21 EKG interpretation time: 09:00 Prior EKG tracings: available for review Interpretation: Sinus rhythm with a first-degree AV block heart rate 80 Computer generated interpretation: Abdomen/Pelvis CT 03/23/21 09:18 IMPRESSION: 1. Prior cholecystectomy. 2. Bilateral lower lobe consolidations with atelectasis and small effusions. Pneumonia likely. 3. Bilateral renal cysts. Renal pelves are very mildly prominent but no hydronephrosis at this time. The ureters insert into the urinary bladder very closely associated with the enlarged prostate gland which may eventually cause ureteral obstruction. 4. Marked enlargement of prostate. 5. Degenerative rotoscoliosis lumbar spine. 6. Mild soft tissue anasarca. Discharge Plan Discharge Patient Disposition: Admitted As Inpatient Clinical Impression: Lower obstructive uropathy, Generalized weakness, Acute renal failure, Acute UTI, Enlarged prostate Condition: Stable Prescriptions: No Action Excedrin Extra Strength 250-250-65 mg tablet 1 tab PO Q6H PRN (Reason: Pain) RF: 0 Hold Instructions: Resume on 12/13/19. alfuzosin 10 mg tablet extended release 24 hr 10 mg PO DAILY Qty: 90 RF: 3 atorvastatin [Lipitor] 80 mg Tablet 80 mg PO QPM RF: 0 aspirin 81 mg Tablet,Delayed Release (Dr/Ec) 81 mg PO DAILY RF: 0 Hold Instructions: Resume on 12/13/19. niacin 500 mg Tablet 500 mg PO BID RF: 0 sertraline 25 mg Tablet 25 mg PO DAILY RF: 0 cholecalciferol (vitamin D3) [Vitamin D3] 125 mcg (5,000 unit) tablet 50,000 mcg PO DAILY RF: 0 lisinopril 5 mg tablet 5 mg PO BID RF: 0 Advair Diskus 250-50 mcg/dose blister with device 1 inh inhalation BID Qty: 60 RF: 1 Proventil HFA 90 mcg/actuation HFA aerosol inhaler 1 inh inhalation Q6H PRN (Reason: shortness of breath or wheezing) Qty: 6.7 RF: 0 metoprolol tartrate 50 mg tablet 25 mg PO BID Qty: 0 RF: 0 Referrals: Rajni Knapp MD [Primary Care Provider] - Coding Level of Care Code ED Line Assembler Aircraft for Chg Fwd Exam Comprehensive
[2021-03-23 09:16] LABS: Basophils % 0.5 %; Eosinophils # 0.2 10^3/uL (0.0-0.8); Eosinophils % 3.9 %; Hematocrit 31.6 % (42.0-52.0); Hemoglobin 10.6 g/dL (11.7-16.6); Lymphocytes # 0.5 10^3/uL (0.8-4.8); Lymphocytes % 8.8 %; Mean Corpuscular HGB Conc 33.5 g/dL (30.0-36.0); Mean Corpuscular Hemoglobin 31.3 pg (28.0-34.0); Mean Corpuscular Volume 93.2 fl (80-94); Mean Platelet Volume 10.3 fL (7.4-10.4); Monocytes # 0.5 10^3/uL (0.2-0.9); Monocytes % 9.1 %; Neutrophils # 4.58 10^3/uL (1.8-7.7); Neutrophils % 77.5 %; Nucleated Red Blood Cells % 0 %; Platelet Count 114 10^3/cmm (130-400); Red Blood Count 3.39 10^6/uL (4.1-5.3); Red Cell Distribution Width 14.2 % (12.1-15.1); White Blood Count 5.9 10^3/uL (4.0-10.0)
--- NOTE | 2021-03-23 09:18 | CT_ITS ---
WS: [id number] CT ABDOMEN AND PELVIS NONCONTRAST HISTORY: Flank Pain TECHNIQUE: Imaging performed through the abdomen and pelvis. Coronal and sagittal reformats are submi tted. All CT scans at [facility] use at least one of these dose optimization techniques: auto mated exposure control; mA and/or kV adjustment per patient size (includes targeted exams where dose is matched to clinical indication); or iterative reconstruction. DLP: 1001.82 mGy.cm COMPARISON: None available. Lower thorax: Bilateral lower lobe opacifications and bronchial wall thickening with traction bronchi ectasis. Small bilateral pleural effusions. Mild enlargement of the heart. No pericardial effusion. Liver: Motion artifact through the liver. No mass identified. Gallbladder: Prior cholecystectomy. Pancreas: Normal size and attenuation. Normal pancreatic duct. No pancreatitis or mass. Spleen: Normal size spleen with granulomata. Adrenal glands: Normal. No mass. Right kidney: Mild atrophy of the RIGHT kidney. Mildly prominent renal pelvis. No obstruction. Simple cyst measuring 3.2 cm in the mid kidney. Left kidney: Large simple cyst from the upper pole the LEFT kidney measures 9.5 x 10.1 cm. Very mild dilatation of the renal pelvis. LEFT ureter is very minimally prominent but not dilated. Aorta: Moderate to severe atherosclerosis abdominal aorta. No aneurysm. Atherosclerosis continues int o the common iliac arteries. No free fluid, intraperitoneal air or significant lymphadenopathy. GI tract: The appendix is not definitely identified but there is no evidence for appendicitis. Mild d iffuse constipation. No obstruction. Abdominal wall: No hernia. There is mild diffuse anasarca, greatest within the pelvis. Pelvis: Mildly dilated urinary bladder with diffuse wall thickening. Prostate gland is significantly enlarged and contains scattered calcifications. Prostate extends over length of 6.1 cm x 6.3 x 6.3 cm and encroaches into the urinary bladder. The ureteral orifices are very closely associated with the enlarged prostate gland are in danger of being obstructed. There is a small amount of fluid or soft t issue along the LEFT inguinal canal. Osseous structures: Moderate thoracolumbar scoliosis. Advanced degenerative changes within the lumbar spine. CT/CT kidney stone [id number] IMPRESSION: 1. Prior cholecystectomy. 2. Bilateral lower lobe consolidations with atelectasis and small effusions. P neumonia likely. 3. Bilateral renal cysts. Renal pelves are very mildly prominent but no hydron ephrosis at this time. The ureters insert into the urinary bladder very closely associated with the enlarged prostate gland which may eventually cause uretera l obstruction. 4. Marked enlargement of prostate. 5. Degenerative rotoscoliosis lumbar spine. 6. Mild soft tissue anasarca.
[2021-03-23] MEDS: sodium chloride 0.9% 500 ML IV (09:31)
--- NOTE | 2021-03-23 09:37 | PC.NURSE ---
Straight cath , output 1200, clear, no odor
[2021-03-23 09:44] LABS: Alanine Aminotransferase 18 U/L (0-41); Albumin Level 2.6 g/dL (3.5-5.2); Alkaline Phosphatase 55 IU/L (40-130); Anion Gap 17.8 (5-19); Aspartate Amino Transferase 18 U/L (0-40); Blood Urea Nitrogen 74 mg/dL (8-23); Calcium 8.2 mg/dL (8.5-10.5); Carbon Dioxide 19 mmol/L (22-29); Chloride 106 mmol/L (98-107); Glucose 79 mg/dL (65-115); Osmolality Calculated 307 mOsm/kg (285-295); Potassium 4.8 mmol/L (3.5-5.1); Sodium 138 mmol/L (136-145); Total Bilirubin 0.3 mg/dL (0.15-1.2); Total Protein 5.6 g/dL (6.6-8.7)
[2021-03-23] MEDS: ketoconazole Cream 15 gm 1 APPLIC TOPICAL (09:50)
[2021-03-23 10:03] LABS: Urine Appearance Hazy (CLEAR); Urine Color Straw (Yellow); pH Urine 8 (5-7)
[2021-03-23 10:04] LABS: Add Urine Microscopic? YES; Bilirubin Urine Neg (Negative); Blood Urine 3+ (Negative); Glucose Urine UA Norm (Normal); Ketones Urine Negative (Negative); Leukocyte Esterase Urine 2+ (Negative); Nitrate Urine Negative (Negative); Protein Urine Neg (Negative); Specific Gravity, Urine 1.005 (1.005-1.030); Urobilinogen Urine Norm (Negative)
[2021-03-23 10:47] LABS: Bacteria Urine TRACE /hpf; RBC Urine 80-100 /hpf (0-2); Squamous Epithelial Cell Urine 0-4 /hpf (0-5); Sulfosalicylic Acid Urine Negative (Negative); WBC Urine 40-55 /hpf (0-5)
[2021-03-23 10:48] LABS: Add Urine Culture? Yes
--- NOTE | 2021-03-23 10:57 | P.HP_ITS ---
Providers/Chief Complaint Primary Care Provider: Rajni Knapp MD Chief Complaint: ABNORMAL LABS History of Present Illness [place] Carlotta Reno is a 80 year old male referred to the emergency department secondary to elevated creatinine. Family reports he was doing okay until yesterday when he seemed a little bit more lethargic. No fever has been noted. He has been eating poorly lately. He was recently hospitalized for Covid, and eventually discharged from the hospital March 15. At that time creatinine was 1.4. At nursing facility lethargy noted last several days. At nursing facility did have cath yesterday and 1200cc removed. Catheter was not left in. Patient was somewhat resistant to coming to the hospital. Has been having bowel movements, but small. Rash in groin has been treated with cream as well as 2 courses of fluconazole. It has not improved. Review of Systems General: Reports: ROS unobtainable due to mental status (Patient lethargic) Medications/Allergies Home Medications Medication Instructions Recorded Confirmed Last Taken Type aspirin 81 mg PO DAILY 07/09/19 02/27/21 02/27/21 History atorvastatin [Lipitor] 80 mg PO QPM 07/09/19 02/27/21 02/26/21 History niacin 500 mg PO BID 07/09/19 02/27/21 02/27/21 History sertraline 25 mg PO DAILY 07/09/19 02/27/21 02/27/21 History fariqcj-crsulxbqoyukj-yulrzrya 250 1 tab PO Q6H PRN 11/17/19 02/27/21 12/10/19 History mg-250 mg-65 mg tablet alfuzosin 10 mg tablet,extended 10 mg PO DAILY #90 tab 09/01/20 02/27/21 02/26/21 Rx release 24 hr cholecalciferol (vitamin D3) 125 50,000 mcg PO DAILY tab 09/01/20 02/27/21 Unknown History mcg (5,000 unit) tablet lisinopril 5 mg PO BID 02/27/21 02/27/21 02/27/21 History albuterol sulfate [Proventil HFA] 1 inh INHALATION Q6H PRN #6.7 g 03/15/21 Unknown Rx fluticasone propion-salmeterol 1 inh INHALATION BID #60 ea 03/15/21 Unknown Rx [Advair Diskus] metoprolol tartrate 25 mg PO BID #0 tab 03/15/21 02/27/21 02/27/21 Rx Allergies Allergy/AdvReac Type Severity Reaction Status Date / Time Sulfa (Sulfonamide Allergy Aris Verified 03/23/21 08:40 Antibiotics) r PFSH Acute PFSH: Medical History (Updated 03/23/21 @ 11:13 by Raciel Knapp MD) BPH loc w urin obs/LUTS CAD (coronary artery disease) Depression Dyslipidemia Fall History of frequent falls, NPH suspect Gallstones Heart attack Hypertension Intervertebral disc disorder with radiculopathy of lumbosacral region Lower urinary tract symptoms (LUTS) Lumbar stenosis with neurogenic claudication Prostate enlargement Skin cancer Sleep apnea Spondylolisthesis of lumbar region Surgical History Hx of appendectomy Hx of cholecystectomy Hx of heart artery stent Hx of tonsillectomy Family History Mother Diabetes Hypertension CAD (coronary artery disease) Father Hypertension CAD (coronary artery disease) Other Cholelithiasis Denies family history of Clotting disorder Dementia Chronic kidney disease (CKD) Suicide Anesthesia complication Bleeding disorder Lung disease Cancer Stroke Social History Smoking and tobacco status: never smoked Alcohol intake: never Household members: spouse Marital status: Current occupational status: retired History of recent travel: No Vitals/I&O/Wt Last Vital Signs Temp 98.1 F 03/23/21 08:34 Pulse 80 03/23/21 09:28 Resp 18 03/23/21 09:28 BP 119/96 03/23/21 09:28 Pulse Ox 96 03/23/21 09:28 Weight last 48 hrs Weight 72.575 kg Physical Exam Narrative: EXAM NARRATIVE: General exam is a sleepy white male, no distress. Vital signs currently are stable. HEENT: Atraumatic normocephalic. Pupils equally round. Oropharynx clear. Neck is supple no lymphadenopathy or thyromegaly Cardiovascular regular rate and rhythm, 2/6 systolic murmur Lungs clear Abdomen is soft, positive bowel sounds. No obvious organomegaly. demonstrates rash, erythematous with some areas of contact bleeding Extremities no cyanosis clubbing or edema Skin some erythematous faint macular rash noted on the abdomen as well Neurologic: No obvious focal deficits. Data : 03/23/21 09:11 03/23/21 09:11 Other data: LFTs are normal. Calcium is 8.2. Albumin 2.6. Urinalysis with positive leukocytes, 80-100 red blood cells, 40-55 white blood cells, negative nitrates Abdomen pelvis CT demonstrates some lower lobes consolidation, bilateral renal cysts, prostate enlargement EKG demonstrates sinus rhythm, normal axis, no acute changes. First-degree AV block. A&P Assessment and plan (1) Acute renal failure: Etiology likely postobstructive When catheter put in, 1100 cc returned Avoid renal toxic medication Check CK Consider nephrology consultation if renal function does not improve Discontinue lisinopril and Lipitor currently Flomax twice daily Hydration Status: Acute (2) Urinary retention: Urology consult as an outpatient, and to leave Hassan in at discharge if patient improves as expected. Also appears to have some element of constipation. Initiate Colace. Status: Acute (3) Lower obstructive uropathy: Likely secondary to prostate. With Hassan placement 1100 cc was drained. Status: Acute (4) Acute UTI: Rocephin IV Urine culture Blood culture Status: Acute (5) Fall: Fall precautions NPH suspect. Neurology was considering lumbar puncture prior to patient diagnos is of Covid. Status: Acute Additional A&P Information Hypertension. Hold lisinopril. Continue metoprolol. Coronary artery disease History of Covid. Currently still on 2 to 4 L of oxygen. Wean as tolerated. Inguinal rash. Nystatin cream, keep moisture off area. DNR Heparin for DVT prophylaxis Pepcid for GI prophylaxis Attestations Medical Necessity Statement*: Will need greater than 2 midnights secondary to severe acute renal failure. Time Spent in Patient Care: Greater than 35 minutes Coding Level of Care Code Acute Pewter Fabricator for [facility] Fwd Diagnoses Acute renal failure N17.9 Urinary retention R33.9 Lower obstructive uropathy N13.9 Acute UTI N39.0 Fall W19.XXXA
--- NOTE | 2021-03-23 10:59 | ECG_ITS ---
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 Measurements Intervals Rose Rate: 80 P: 46 SD: 248 QRS: 5 QRSD: 70 T: 12 QT: 389 QTc: 449 Interpretive Statements SINUS RHYTHM WITH FIRST DEGREE AV BLOCK Compared to ECG 02/27/2021 17:04:26 Myocardial infarct finding no longer present Electronically Signed On 03-23-2021 23:06:46 CDT by Marialuisa Lopez M.D. [email or web address] bil[facility]iSeratislima [email or web address] [id number]
[2021-03-23] MEDS: cefTRIAXone 1,000 MG in sodium chloride 0.9% (plus) 50 ML 100 MG IV (11:00)
[2021-03-23 12:28] LABS: Creatine Phosphokinase 53 U/L (39-308)
--- NOTE | 2021-03-23 12:34 | PC.PHAR ---
pt is from [facility]-norm from [facility] states the pt didnt have any am meds today-states the pt finished the levaquin and diflucan
[2021-03-23] MEDS: lactated ringers 1,000 ML 125 ML IV ×2 (13:30→21:03)
[2021-03-23] MEDS: heparin 5,000 unit/mL INJ 1 mL 5000 UNIT SUBCUT (13:37)
[2021-03-23] MEDS: acetaminophen 325 mg Tablet 650 MG PO (13:38)
[2021-03-23] MEDS: docusate sodium 100 mg Capsule PO (17:06)
[2021-03-23] MEDS: famotidine 20 mg Tablet PO (17:06)
[2021-03-23] MEDS: tamsulosin 0.4 mg Capsule PO (17:06)
[2021-03-23] MEDS: nystatin cream 30 gm 1 APPLIC TOPICAL (17:07)
[2021-03-23] MEDS: metoprolol tartrate 25 mg Tablet PO (21:00)
[2021-03-24] VITALS (10 sets, daily range): BP systolic 129–160; BP diastolic 70–84; PULSE 68–90; RESP 14–19; TEMP 36.4–37.1; O2SAT 89–94
[2021-03-24] MEDS: heparin 5,000 unit/mL INJ 1 mL 5000 UNIT SUBCUT ×2 (00:24→13:01)
[2021-03-24] MEDS: lactated ringers 1,000 ML 125 ML IV ×3 (05:58→20:30)
[2021-03-24 06:09] LABS: Basophils % 0.7 %; Eosinophils # 0.2 10^3/uL (0.0-0.8); Eosinophils % 4.1 %; Hemoglobin 10.9 g/dL (11.7-16.6); Lymphocytes # 0.5 10^3/uL (0.8-4.8); Lymphocytes % 9.4 %; Mean Corpuscular HGB Conc 31.1 g/dL (30.0-36.0); Mean Corpuscular Hemoglobin 30.4 pg (28.0-34.0); Mean Corpuscular Volume 97.8 fl (80-94); Mean Platelet Volume 10.6 fL (7.4-10.4); Monocytes # 0.6 10^3/uL (0.2-0.9); Monocytes % 9.9 %; Neutrophils # 4.19 10^3/uL (1.8-7.7); Neutrophils % 75.5 %; Nucleated Red Blood Cells % 0 %; Platelet Count 113 10^3/cmm (130-400); Red Blood Count 3.58 10^6/uL (4.1-5.3); Red Cell Distribution Width 14.4 % (12.1-15.1); White Blood Count 5.6 10^3/uL (4.0-10.0)
[2021-03-24 06:56] LABS: Alanine Aminotransferase 18 U/L (0-41); Albumin Level 2.4 g/dL (3.5-5.2); Alkaline Phosphatase 59 IU/L (40-130); Anion Gap 16.5 (5-19); Aspartate Amino Transferase 20 U/L (0-40); Blood Urea Nitrogen 52 mg/dL (8-23); Calcium 8.2 mg/dL (8.5-10.5); Carbon Dioxide 19 mmol/L (22-29); Chloride 111 mmol/L (98-107); Glucose 76 mg/dL (65-115); Magnesium 1.7 mg/dL (1.7-2.3); Osmolality Calculated 307 mOsm/kg (285-295); Potassium 4.5 mmol/L (3.5-5.1); Sodium 142 mmol/L (136-145); Total Bilirubin 0.4 mg/dL (0.15-1.2); Total Protein 5.4 g/dL (6.6-8.7)
[2021-03-24] MEDS: tamsulosin 0.4 mg Capsule PO ×2 (08:16→17:52)
[2021-03-24] MEDS: docusate sodium 100 mg Capsule PO ×2 (08:16→17:52)
[2021-03-24] MEDS: famotidine 20 mg Tablet PO ×2 (08:16→17:52)
[2021-03-24] MEDS: sertraline 50 mg Tablet 25 MG PO (08:16)
[2021-03-24] MEDS: aspirin 81 mg EC Tablet PO (08:17)
[2021-03-24] MEDS: metoprolol tartrate 25 mg Tablet PO ×2 (08:19→21:07)
[2021-03-24] MEDS: nystatin cream 30 gm 1 APPLIC TOPICAL ×2 (08:19→17:52)
[2021-03-24] MEDS: cefTRIAXone 1,000 MG in sodium chloride 0.9% (plus) 50 ML 100 MG IV (10:31)
--- NOTE | 2021-03-24 10:33 | PC.CHAP ---
Pastoral Care Encounter/Spiritual Assessment Type of Contact [] Declined privacy officer visit [] Patient/Family/Request visit [] Outpatient visit [] Follow-up visit [] Physician referral [] Code/Alert [] Routine visit [] Staff referral [] Actively dying [] Patient sleeping [] Family support [] [] Out of room [] Palliative care [] [] Receiving care in room [] Pre-surgical visit [] Trauma [x] Long length of stay [] ICU visit [x] Other: under doctors staff care Relational/Emotional Strength [] Patient feels connected with others/family/visitors/staff [] Distress [] Loneliness/isolation [] Abandonment Spirituality of Patient [] Person of Janet [] Attends Scientology of their Janet [] Believes in Prayer [] Reads Bible or Presybeterian materials [] There are Spiritual issues to be addressed Door Captain Interventions [] Prayer [] Active listening [] Non-anxious presence [] Spiritual/emotional support [] Crisis/trauma care [] Spiritual counseling [] Bereavement support [] Provided bereavement packet [] Provided Bible/devotional materials [] Provided toy/stuffed animal, coloring book to patient or family member [] Provided Communion [] Anointing/[place] [] Salvation [] Completed spiritual assessment [] Other: Impact on Illness or Injury [] Angry [] Fearful [] Anxious [] Often cries [] Exhaustion [] Unable to work [] Unable to attend mandaeism [] Unable to walk/stand [] Unable to read [] Unable to drive [] Unable to eat/drink [] Unable to sleep [] Unable to be with family [] Patient intubated [] Other: Summary doctors staff care Time spent with patient 5 mins
--- NOTE | 2021-03-24 13:23 | PM.PN ---
Subjective Subjective: Interval history: Mr. Reno seems sleepy when I visited him this morning. However, he would awaken and answer a few questions. Medications: Reviewed: Yes Vitals/I&O/Wt Last Vital Signs Temp 98.1 F 03/24/21 08:00 Pulse 71 03/24/21 09:03 Resp 18 03/24/21 08:00 BP 139/75 03/24/21 08:00 Pulse Ox 89 L 03/24/21 09:03 03/23/21 03/24/21 03/24/21 22:59 06:59 14:59 Intake Total 1423.75 / 2093.75 1000 / 3093.75 647.917 / 647.917 Output Total 4100 / 4100 3600 / 7700 Balance -2676.25 / - -2600 / -4606.25 647.917 / 647.917 Weight last 48 hrs Weight 72.575 kg Weight 72.575 kg Physical Exam Narrative: EXAM NARRATIVE: General exam is a sleepy white male, no distress. Neck is supple no lymphadenopathy or thyromegaly Cardiovascular regular rate and rhythm, 2/6 systolic murmur Lungs clear Abdomen is soft, positive bowel sounds. No obvious organomegaly. Extremities no cyanosis clubbing or edema Urine slightly bloody in the bag. However tubing appears more clear. Rash in groin appears to be improving. Urinary Catheter Management^: Hassan: Cath Placed During This Visit: no Reason for Continuing Indwelling Catheter: Acute Urinary Retention or Obstruction Data : 03/24/21 05:49 03/24/21 05:49 Micro: Microbiology 03/23/21 09:11 Blood Culture - Preliminary Blood NEGATIVE TO DATE 03/23/21 13:29 Blood Culture - Preliminary Blood SPECIMEN COLLECTED A&P Assessment and plan (1) Acute renal failure: Etiology postobstructive When catheter put in, 1100 cc returned Avoid renal toxic medication CK checked and not elevated Discontinue lisinopril and Lipitor currently Flomax twice daily Continue hydration, reduce rate Overall improving Status: Acute (2) Urinary retention: Urology consult as an outpatient, and to leave Hassan in at discharge if patient improves as expected. Also appears to have some element of constipation. Colace initiated. No bowel movement noted yet. Status: Acute (3) Lower obstructive uropathy: Likely secondary to prostate. With Hassan placement 1100 cc was drained. Status: Acute (4) Acute UTI: Rocephin IV Await urine and blood cultures Status: Acute (5) Fall: Fall precautions NPH suspect. Neurology was considering lumbar puncture prior to patient diagnosis of Covid. Status: Acute Additional A&P Information Hypertension. Hold lisinopril. Continue metoprolol. Coronary artery disease History of Covid. Currently still on 2 to 4 L of oxygen. Wean as tolerated. Inguinal rash. Nystatin cream, keep moisture off area. DNR Heparin for DVT prophylaxis Pepcid for GI prophylaxis Overall plan is back to the nursing facility for rehabilitation. Involve physical therapy today. Attestations Medical Necessity Statement*: Needs continued hospital stay for IV antibiotics secondary to UTI and close monitoring of severe acute renal failure secondary to obstruction. Coding Level of Care Code Acute Special Education Para Professional for [facility] Fw Diagnoses Acute renal failure N17.9 Urinary retention R33.9 Lower obstructive uropathy N13.9 Acute UTI N39.0 Fall W19.XXXA
[2021-03-25] VITALS (8 sets, daily range): BP systolic 133–175; BP diastolic 75–81; PULSE 67–75; RESP 12–20; TEMP 36.7–37; O2SAT 91–97
[2021-03-25] MEDS: lactated ringers 1,000 ML 125 ML IV (05:02)
[2021-03-25 05:44] LABS: Basophils % 0.2 %; Eosinophils # 0.3 10^3/uL (0.0-0.8); Eosinophils % 6.4 %; Hematocrit 30.8 % (42.0-52.0); Hemoglobin 10.3 g/dL (11.7-16.6); Lymphocytes # 0.6 10^3/uL (0.8-4.8); Lymphocytes % 12.4 %; Mean Corpuscular HGB Conc 33.4 g/dL (30.0-36.0); Mean Corpuscular Hemoglobin 30.8 pg (28.0-34.0); Mean Corpuscular Volume 92.2 fl (80-94); Mean Platelet Volume 10.6 fL (7.4-10.4); Monocytes # 0.5 10^3/uL (0.2-0.9); Neutrophils % 68.8 %; Nucleated Red Blood Cells % 0 %; Platelet Count 128 10^3/cmm (130-400); Red Blood Count 3.34 10^6/uL (4.1-5.3); Red Cell Distribution Width 13.9 % (12.1-15.1); White Blood Count 4.5 10^3/uL (4.0-10.0)
[2021-03-25 06:09] LABS: Anion Gap 12.9 (5-19); Blood Urea Nitrogen 36 mg/dL (8-23); Calcium 7.9 mg/dL (8.5-10.5); Carbon Dioxide 22 mmol/L (22-29); Chloride 111 mmol/L (98-107); Glucose 79 mg/dL (65-115); Osmolality Calculated 301 mOsm/kg (285-295); Potassium 3.9 mmol/L (3.5-5.1); Sodium 142 mmol/L (136-145)
[2021-03-25] MEDS: aspirin 81 mg EC Tablet PO (08:52)
[2021-03-25] MEDS: sertraline 50 mg Tablet 25 MG PO (08:52)
[2021-03-25] MEDS: docusate sodium 100 mg Capsule PO ×2 (08:52→17:36)
[2021-03-25] MEDS: tamsulosin 0.4 mg Capsule PO ×2 (08:52→17:36)
[2021-03-25] MEDS: famotidine 20 mg Tablet PO ×2 (08:52→17:36)
[2021-03-25] MEDS: nystatin cream 30 gm 1 APPLIC TOPICAL ×2 (08:54→17:46)
[2021-03-25] MEDS: metoprolol tartrate 25 mg Tablet PO ×2 (08:55→20:53)
--- NOTE | 2021-03-25 09:57 | P.PN_ITS ---
Subjective Subjective: Interval history: Mr. Reno awakens easily. Seems reserved but more alert than yesterday. Discussed with him the need to work with physical therapy today. Medications: Reviewed: Yes Vitals/I&O/Wt Last Vital Signs Temp 98.3 F 03/25/21 07:51 Pulse 67 03/25/21 07:51 Resp 18 03/25/21 07:51 BP 167/81 03/25/21 07:51 Pulse Ox 94 03/25/21 07:51 03/24/21 03/25/21 03/25/21 22:59 06:59 14:59 Intake Total 727.083 / 4391.199 4447 / 2878.333 740 / 740 Output Total 1150 / 2450 850 / 3300 1225 / 1225 Balance -422.917 / -571.667 150 / -421.667 -485 / -485 Weight last 48 hrs Weight 72.575 kg Physical Exam Narrative: EXAM NARRATIVE: General exam is a sleepy white male, no distress. Neck is supple no lymphadenopathy or thyromegaly Cardiovascular regular rate and rhythm, 2/6 systolic murmur Lungs clear Abdomen is soft, positive bowel sounds. No obvious organomegaly. Extremities no cyanosis clubbing or edema Urine has cleared. Rash in groin appears to be improving. Urinary Catheter Management^: Hassan: Cath Placed During This Visit: no Reason for Continuing Indwelling Catheter: Acute Urinary Retention or Obstruction Data : 03/25/21 05:27 03/25/21 05:27 Micro: Microbiology 03/23/21 09:11 Urine Culture - Final Urine,Clean Catch 03/23/21 13:29 Blood Culture - Preliminary Blood NEGATIVE TO DATE 03/23/21 09:11 Blood Culture - Preliminary Blood NEGATIVE TO DATE A&P Assessment and plan (1) Acute renal failure: Etiology postobstructive When catheter put in, 1100 cc returned Avoid renal toxic medication CK checked and not elevated Discontinued lisinopril and Lipitor Flomax twice daily Continue hydration, reduce rate further Overall improving Status: Acute (2) Urinary retention: Urology consult as an outpatient, and to leave Hassan in at discharge if patient improves as expected. Also appears to have some element of constipation. Colace initiated. Has now had a bowel movement. Status: Acute (3) Lower obstructive uropathy: Likely secondary to prostate. With Hassan placement 1100 cc was drained. Flomax 0.4 mg twice daily Will need outpatient urology follow-up Status: Acute (4) Acute UTI: Continue Rocephin IV Await urine and blood cultures which are negative to date. Status: Acute (5) Fall: Fall precautions NPH suspect. Neurology was considering lumbar puncture prior to patient diagnosis of Covid. Status: Acute Additional A&P Information Hypertension. Hold lisinopril. Continue metoprolol. Coronary artery disease History of Covid. Currently still on 3L of oxygen. Wean as tolerated. Inguinal rash. Nystatin cream, keep moisture off area. DNR Heparin for DVT prophylaxis Pepcid for GI prophylaxis Overall plan is back to the nursing facility for rehabilitation. Involve physical therapy today. Attestations Medical Necessity Statement*: Needs continued hospitalization secondary to severe acute renal failure from postobstructive cause. Coding Level of Care Code Acute Utility Spray Operator for [facility] Fwd Diagnoses Acute renal failure N17.9 Urinary retention R33.9 Lower obstructive uropathy N13.9 Acute UTI N39.0 Fall W19.XXXA
[2021-03-25] MEDS: cefTRIAXone 1,000 MG in sodium chloride 0.9% (plus) 50 ML 100 MG IV (10:36)
[2021-03-25] MEDS: heparin 5,000 unit/mL INJ 1 mL 5000 UNIT SUBCUT (13:16)
[2021-03-25] MEDS: lactated ringers 1,000 ML 75 ML IV (16:03)
[2021-03-26] VITALS: BP 149/79; PULSE 84; RESP 20; TEMP 36.7; O2SAT 92
[2021-03-26] MEDS: heparin 5,000 unit/mL INJ 1 mL 5000 UNIT SUBCUT (01:41)
--- NOTE | 2021-03-26 01:57 | PC.NURSE ---
IV ACCESS: AT APPROXIMATELY THE PATIENT WAS FOUND TO HAVE PULLED HIS IV OUT. IV CATHETER WAS INTACT. THIS NURSE HAS APPROACHED THE PATIENT 3 TIMES TO ATTEMPT REGAIN ACCESS AND PATIENT IS NOT WILLING TO COOPERATE. WILL ATTEMPT AGAIN LATER.
--- NOTE | 2021-03-26 02:00 | PC.NURSE ---
CARDIAC MONITORING: THE PATIENT WILL NOT LEAVE THE CARDIAC LEADS ATTACHED TO HIS BODY EVEN AFTER MANY ATTEMPTS TO DISTRACT AND EXPLAIN TO PATIENT THEY NEED TO BE THERE.
[2021-03-26 04:00] VITALS: BP 146/79; PULSE 82; RESP 22; TEMP 36.9; O2SAT 90
[2021-03-26 05:45] LABS: Anion Gap 15.9 (5-19); Blood Urea Nitrogen 32 mg/dL (8-23); Carbon Dioxide 21 mmol/L (22-29); Chloride 107 mmol/L (98-107); Glucose 99 mg/dL (65-115); Osmolality Calculated 297 mOsm/kg (285-295); Potassium 3.9 mmol/L (3.5-5.1); Sodium 140 mmol/L (136-145)
[2021-03-26 06:00] LABS: Calcium 8.2 mg/dL (8.5-10.5)
[2021-03-26 07:45] VITALS: BP 140/82; PULSE 80; RESP 20; TEMP 36.9; O2SAT 92
--- NOTE | 2021-03-26 09:21 | PC.SOCIAL ---
IMM UPdate Page 2 of [facility] updated and reviewed w the patients family. Initialed, timed and dated and copy placed in chart.
[2021-03-26] MEDS: tamsulosin 0.4 mg Capsule PO (09:59)
[2021-03-26] MEDS: metoprolol tartrate 25 mg Tablet PO (09:59)
[2021-03-26] MEDS: aspirin 81 mg EC Tablet PO (09:59)
[2021-03-26] MEDS: docusate sodium 100 mg Capsule PO (09:59)
[2021-03-26] MEDS: famotidine 20 mg Tablet PO (10:00)
[2021-03-26] MEDS: sertraline 50 mg Tablet 25 MG PO (10:00)
[2021-03-26] MEDS: nystatin cream 30 gm 1 APPLIC TOPICAL (10:00)
--- NOTE | 2021-03-26 10:32 | PC.NURSE ---
IV access: Spoke with while he was on the floor rounding about patient having no IV access with abx due at 11:15. He states he would change medication to PO.
--- NOTE | 2021-03-26 11:14 | P.DS_ITS ---
Discharge Providers Date of Admission: 03/23/21 10:32 Date of Discharge: March 26, 2021 Attending Provider at Admission: Raciel Knapp MD Attending Provider at Discharge: Amber Tesfaye MD Primary Care Provider: Rajni Knapp MD Diagnoses at Discharge Discharge Diagnosis (1) Acute renal failure: Status: Acute (2) Urinary retention: Status: Acute (3) Lower obstructive uropathy: Status: Acute (4) Acute UTI: Status: Acute (5) Fall: Status: Inactive Permanent problem details: History of frequent falls, NPH suspect Reason for Visit Reason for Visit: ABNORMAL LABS Hospital Course Hospital Course History of Present Illness by Dr Knapp Peter Reno is a 80 year old male referred to the emergency department secondary to elevated creatinine. Family reports he was doing okay until yesterday when he seemed a little bit more lethargic. No fever has been noted. He has been eating poorly lately. He was recently hospitalized for Covid, and eventually discharged from the hospital March 15. At that time creatinine was 1.4. At nursing facility lethargy noted last several days. At nursing facility did have cath yesterday and 1200cc removed. Catheter was not left in. Patient was somewhat resistant to coming to the hospital. Has been having bowel movements, but small. Rash in groin has been treated with cream as well as 2 courses of fluconazole. It has not improved. Hospital course Patient was admitted for management of obstructive uropathy 2/2 to bph which resolved after placement of Hassan catheter, his creatinine is trending down nicely, patient will follow up with Dr. Shaw next week, creatinine at the time of discharge 2.7 at the time of admission it was around 4, he was started empirically on ceftriaxone. His urine culture has been sterile. He will be discharged today with indwelling catheter. Family at the bedside who is in agreement with the plan to follow-up outpatient with Dr. Shaw. Of note, on Sunday night patient experienced owning and became aggressive, pulled his IV line and Hassan catheter that was replaced this morning blood tinged urine was noticed however urine color has become light pink, there is no significant drop in his hemoglobin, he remained hemodynamically stable. Plan to discharge him back to the [facility] where he might stay comfortable with familiar environment. CT/CT kidney stone 55464 IMPRESSION: 1. Prior cholecystectomy. 2. Bilateral lower lobe consolidations with atelectasis and small effusions. Pneumonia likely. 3. Bilateral renal cysts. Renal pelves are very mildly prominent but no hydronephrosis at this time. The ureters insert into the urinary bladder very closely associated with the enlarged prostate gland which may eventually cause ureteral obstruction. 4. Marked enlargement of prostate. 5. Degenerative rotoscoliosis lumbar spine. 6. Mild soft tissue anasarca. Physical Exam Narrative: EXAM NARRATIVE: Patient this morning was resting comfortably when entered the room He has hearing aids in his hears Hassan catheter draining pink urine blood-tinged urine noticed in the back Patient is able to follow commands No focal deficit however noticed left-sided facial droop which as per the nursing staff has been since admission independence the way he is sleeping today he was sleeping on his left side He is able to lift his legs against gravity Able to follow commands EOMI I did not notice any dysarthria He is slow to respond to my commands Saturating well on 3 L nasal cannula, at baseline uses 3 to 4 L at the [facility] Soft abdomen bowel sounds present S1, S2 no murmur appreciated Urinary Catheter Management^: Hassan: Cath Placed During This Visit: no Reason for Continuing Indwelling Catheter: Acute Urinary Retention or Obstruction Discharge Data Data Completed and Pending: Completed Studies During Hospitalization Category Date Time Status CT kidney stone 7 [id number] Stat Cat Scan 03/23/21 09:18 Completed Pending at discharge Category Date Time Status Blood Culture Sta t Lab 03/23/21 13:29 Results Labs from last 24 hours 03/26/21 04:31 Sodium 140 Potassium 3.9 Chloride 107 Carbon Dioxide 21 L Anion Gap 15.9 BUN 32 H Creatinine 2.7 H GFR Calculation Not Reportable Glucose 99 Calculated Osmolal ity 297 H Calcium 8.2 L Vitals: Last Vital Signs Temp 98.5 F 03/26/21 07:45 Pulse 80 03/26/21 07:45 Resp 20 H 03/26/21 07:45 BP 140/82 03/26/21 07:45 Pulse Ox 92 03/26/21 07:45 Discharge Plan Discharge Patient Disposition: Xfer SNF Condition: Stable Prescriptions: New levofloxacin 750 mg tablet 750 mg PO DAILY 7 Days Qty: 7 RF: 0 Continued Excedrin Extra Strength 250-250-65 mg tablet 1 tab PO Q6H PRN (Reason: Pain) RF: 0 Hold Instructions: Resume on 12/13/19. Senna-S 8.6-50 mg Tablet 1 - 2 tab PO BID PRN (Reason: Constipation) RF: 0 cholecalciferol (vitamin D3) 1,250 mcg (50,000 unit) Capsule 50,000 unit PO Q14D RF: 0 Advair Diskus 250-50 mcg/dose blister with device 1 inh inhalation BID@08,20 RF: 0 alfuzosin 10 mg tablet extended release 24 hr 10 mg PO DAILY@18 RF: 0 atorvastatin [Lipitor] 80 mg Tablet 80 mg PO DAILY@20 RF: 0 aspirin 81 mg Tablet,Delayed Release (Dr/Ec) 81 mg PO DAILY@08 RF: 0 Hold Instructions: Resume on 12/13/19. niacin 500 mg Tablet 500 mg PO BID@, RF: 0 sertraline 25 mg Tablet 25 mg PO DAILY@08 RF: 0 albuterol sulfate [Proventil HFA] 90 mcg/actuation HFA aerosol inhaler 1 inh inhalation Q6H PRN (Reason: shortness of breath or wheezing) Qty: 6.7 RF: 0 metoprolol tartrate 50 mg tablet 25 mg PO BID Qty: 0 RF: 0 Held lisinopril 5 mg tablet 5 mg PO BID@,20 RF: 0 Hold Instructions: Resume on 04/04/21. Discharge Orders: Discharge Order (Routine); Ordered 03/26/21 Ordered By: Amber Tesfaye Referrals: Rajni Knapp MD [Primary Care Provider] - Nicolas Shaw MD [Physician] - 4-7 days Discharge Diet: Cardiac Discharge Activity: As per PT/OT instructions Discharge Attestations Time Spent in Discharge Care*: less than 30 min Status at Discharge: Cognitive status at discharge: cognitively intact , Behavioral status at discharge: cooperative , Quality Metrics Clinical Quality Measures During this hospital stay, did patient experience: None Coding Level of Care Code Acute Chg FW DC note Diagnoses Acute renal failure N17.9 Urinary retention R33.9 Lower obstructive uropathy N13.9 Acute UTI N39.0 Fall W19.XXXA
[2021-03-26 11:48] VITALS: BP 146/74; PULSE 90; RESP 16; O2SAT 91
--- NOTE | 2021-03-26 12:03 | PC.NURSE ---
Attempted to contact family members, Brina () and Anila (daughter) to notify them of transfer to [facility] with no answer.
--- NOTE | 2021-03-30 11:04 | PC.SOCIAL ---
discharge follow up call made, spoke with patients nurse, Allan at [facility]. patient is having severe drop in b/p and heart rate with standing. nurse reports he had seizure like activity yesterday. patient has appointment with pulmonology tomorrow and will also have a heart monitor placed at this time. allan wasn't aware that lisinopril 5mg needed to be held until 10-18, she will get this held on his medication list. allan will also get with social contact worker for follow up appointment with dr. pink. allan reports patient hasn't had a lot of output with johnson so they have been flushing bid. no other questions or concerns voiced.
== END 2021-03-26 12:00 | disposition skilled nursing facility (03) | DRG 683 ==
LOC: ER 10:31 → MEDSURG 10:59
PROVIDERS: Admitting Provider Internal Medicine; Emergency Provider Emergency Medicine; PCP Family Medicine; Visit Provider Internal Medicine
DX: N17.9 Acute kidney failure, unspecified (principal); N39.0 Urinary tract infection, site not specified; N13.8 Other obstructive and reflux uropathy; Z86.16 Personal history of COVID-19; N13.9 Obstructive and reflux uropathy, unspecified; N40.1 Benign prostatic hyperplasia with lower urinary tract symptoms; R33.8 Other retention of urine; I25.10 Atherosclerotic heart disease of native coronary artery without angina pectoris; I10 Essential (primary) hypertension; R21 Rash and other nonspecific skin eruption; Z99.81 Dependence on supplemental oxygen; Z66 Do not resuscitate; Z91.81 History of falling; E78.5 Hyperlipidemia, unspecified
CPT/HCPCS: 36415; 51702; 74176; 80048; 80053; 81001; 82550; 83735; 85025; 87040; 87086; 93005; 96365; 96372; 97110; 97162; 97167; 97530; 99285; J0696; J1644; J7040

== ENCOUNTER → 2021-11-21 14:50 | Outpatient (BNVA) | payer MEDICARE, OTHER, SELFPAY | PROVIDERS: PCP Family Medicine; Visit Provider Urology | DX: R33.9 Retention of urine, unspecified (principal) | CPT/HCPCS: 99214 ==

== ENCOUNTER 2021-11-30 05:41 | Day surgery (SDC) | payer MEDICARE, OTHER, SELFPAY ==
[2021-11-29 12:41] VITALS: BMI 23.3
[2021-11-30] VITALS (10 sets, daily range): BP systolic 140–203; BP diastolic 79–107; PULSE 55–70; RESP 14–18; TEMP 36.2; O2SAT 95–97
--- NOTE | 2021-11-30 06:31 | ECG_ITS ---
[facility] Test Date: 2021-11-30 Pat Name: Peter Reno Department: Room: Gender: Male Access Service Representative: : 1940 Requested By: Dolores Coreas Order Number: [id number] Vaishali MD: Jazmine Ledezma M.D. Measurements Intervals [place] Rate: 60 P: 23 GA: 302 QRS: -7 QRSD: 83 T: 67 QT: 458 QTc: 459 Interpretive Statements SINUS RHYTHM WITH FIRST DEGREE AV BLOCK INFERIOR MYOCARDIAL INFARCTION , OF INDETERMINATE AGE [40+ ms Q WAVE AND/OR ST/T ABNORMALITY IN II/aVF] Compared to ECG 03/23/2021 09:00:15 Myocardial infarct finding now present Electronically Signed On 11-30-2021 22:25:28 CDT by Jazmine Ledezma M.D. [id number]
--- NOTE | 2021-11-30 06:33 | P.HPUD_ITS ---
Surgery/Procedure H&P Update DATE OF PROCEDURE: November 30, 2021 DATE H&P PERFORMED: 11/21/21 H&P UPDATE INFORMATION: I have reviewed H&P completed within last 30 days, I have examined patient prior to procedure, No changes to prior documentation and [place] [facility] [place] date indicated PREOP DIAGNOSIS: Chronic urinary retention with urethral erosion PLANNED PROCEDURE: Operation Date: 11/30/21 07:00 Proposed Procedures p CYSTOSCOPY SUPRAPUBIC TUBE PLACEMENT POSSIBLE OPEN 73184 58087,R33.9(Not Applicable) - Nicolas Shaw MD s CYSTOSCOPY SUPRAPUBIC TUBE PLACEMENT POSSIBLE OPEN [id number] 12667(Not Applicable) - Nicolas Shaw MD
[2021-11-30] MEDS: sodium chloride 0.9% 1,000 ML 30 ML IV (06:46)
--- NOTE | 2021-11-30 06:52 | P.OP_ITS ---
Operative Report Date of procedure: November 30, 2021 Pre-op diagnosis: Chronic urinary retention with urethral erosion Post-op diagnosis: Chronic urinary retention with urethral erosion Procedure done: Cystoscopy Percutaneous suprapubic tube placement Specimens removed/disposition: None Pathology: None Surgeon: Colin Anesthesia: General Estimated blood loss: Minimal Urine output: Not measured Complications: None Findings: Placement low well. Tube confirmed to be in good position with good functioning Brief History: Mr. Reno is a very pleasant 81-year-old white male discovered to have urinary retention. He is quite debilitated and has tolerated the Hassan catheter poorly with urethral erosion. Requested suprapubic tube placement to reduce discomfort related to the urethral catheter. No contraindications. No prior lower abdominal surgery and a prior CT scan reviewed no evidence of malpositioning of the bowel over the bladder. Admitted for percutaneous suprapubic tube placement. Procedure: After routine preoperative evaluation examination and obtaining of informed consent he was taken to the operating suite on 11/30/2021 where general anesthesia was administered without difficulty after appropriate timeout was p erformed, SCDs confirmed to be functioning, preoperative antibiotics administered, beta-maya protocol confirmed. Prepped and draped in usual sterile fashion in dorsolithotomy position paying careful attention to avoiding pressure points. Prep and was carried well above the umbilicus. 21 [place] cystoscope with 30 degree lens was introduced into urethra meatus and advanced into the bladder without difficulty. Bladder was distended and easily palpable suprapubically. There were no lesions in the bladder of concern. A long spinal needle was utilized to locate the appropriate puncture site ap proximately 2-1/2 to 3 fingerbreadths above the symphysis pubis. Needle entry into the bladder was in the correct position anterior near the dome. A puncture incision was made down through the skin subcutaneous fat through the fascia. A 20 [place] suprapubic set was utilized to puncture into the bladder through the established incision. Cystoscopy was utilized for localization of the puncture site and the trocar and sheath were guided into the bladder without difficulty. The inner trocar was removed after the sheath was advanced into the bladder. An 18 [place] Hassan catheter was easily advanced through the sheath into the bladder and the balloon was inflated and confirmed to be functioning well. The sheath was then and withdrawn. The balloon was loosely coapted to the bladder wall and the catheter was then secured with 2 heavy nylon sutures. Catheter was confirmed to be functioning well, no significant bleeding, and the procedure was completed. Final cystoscopy revealed no significant bleeding and confirmed appropriate position. He tolerated the procedure well without complications and was awakened in the operating room and returned to the recovery room in stable condition. PLANS: 1. Maintain current suprapubic tube for 5 weeks then first tube change in my office with plans for increasing to 20 [place]ayan possibly 22 Uruguayan. 2. Once the tract is well-established and the desired catheter size has been achieved, we will turn over to the nursing staff at his location to change the tube on a monthly basis.
--- NOTE | 2021-11-30 07:00 | ANES.PREANE2 ---
Pre-Anesthetic Assessment Height/Weight: Height 1.68 m Weight 65.771 kg Pulse Resp BP Pulse Ox 66 18 194/96 97 11/30/21 06:07 11/30/21 06:07 11/30/21 06:07 11/30/21 06:07 Preop Diagnosis: Chronic urinary retention with urethral erosion Operation Date: 11/30/21 07:00 Proposed Procedures p CYSTOSCOPY SUPRAPUBIC TUBE PLACEMENT POSSIBLE OPEN [id number] 07341,R33.9(Not Applicable) - Nicolas Shaw MD s CYSTOSCOPY SUPRAPUBIC TUBE PLACEMENT POSSIBLE OPEN [id number] 25570(Not Applicable) - Nicolas Shaw MD Familial anesthetic complications: None Was Beta Radha taken within 24 hours: Yes Was Clonidine taken within 24 hours: N/A Last intake: Intake Last Liquid Date 11/29/21 Last Liquid Time 17:30 Last Solid Date 11/29/21 Last Solid Time 17:30 Social No alcohol and No tobacco Exam alert, oriented x 3, clear to auscultation bilaterally and regular rate & rhythm Airway Submandibular: within normal limits Cervical ROM: within normal limits Mallampati: Class III Dentition: full Pulmonary Chronic Obstructive Pulmonary Disease and Sleep Apnea CV/HEM Arrythmia (First deg blk), Coronary Artery Disease (stent), Hypertension and Myocardial Infarction Metabolic Hyperlipidemia Neuropsych Dementia very sedate this morning Anesthetic Plan ASA status: 3 Anesthesia: General Medications/Allergies Home Medications Medication Instructions Recorded Confirmed Last Taken Type aspirin 81 mg tablet,delayed 81 mg PO DAILY@08 07/09/19 11/29/21 03/22/21 History release atorvastatin 80 mg tablet (Lipitor) 80 mg PO DAILY@07/09/19 11/29/21 03/22/21 History albuterol sulfate 90 mcg/actuation 1 inh INHALATION Q6H PRN #6.7 g 03/15/21 11/29/21 Unknown Rx aerosol inhaler (Proventil HFA) metoprolol tartrate 50 mg tablet 25 mg PO BID #0 tab 03/15/21 11/29/21 03/22/21 Rx sennosides 8.6 mg-docusate sodium 1 - 2 tab PO BID PRN 03/23/21 11/29/21 Unknown History 50 mg tablet (Senna-S) fluticasone 250 mcg-salmeterol 50 1 inh INHALATION BID 04/28/21 11/29/21 Unknown History mcg/dose blistr powdr for inhalation (Advair Diskus) hydrocodone 5 mg-acetaminophen 325 1 tab PO Q4H PRN 04/28/21 11/30/21 11/30/21 History mg tablet acetaminophen 325 mg capsule 650 mg PO QID PRN cap 11/21/21 11/29/21 Unknown History bisacodyl 10 mg rectal suppository 10 mg MD DAILY PRN 11/21/21 11/29/21 Unknown History bisacodyl 10 mg/30 mL enema (Fleet 10 mg MD DAILY PRN 11/21/21 11/29/21 Unknown History Bisacodyl) buspirone 5 mg tablet 5 mg PO TID 11/21/21 11/29/21 Unknown History carboxymethylcellulose sodium 0.5 1 drp OPHTHALMIC (EYE) BID 11/21/21 11/29/21 Unknown History % eye drops (Refresh Tears) ketoconazole 2 % topical cream 1 applic TOPICAL DAILY 11/21/21 11/29/21 Unknown History mirtazapine 30 mg tablet 30 mg PO DAILY 11/21/21 11/29/21 Unknown History polyethylene glycol 3350 17 gram 17 g PO DAILY PRN 11/21/21 11/29/21 Unknown History oral powder packet quetiapine 50 mg tablet 50 mg PO DAILY 11/21/21 11/29/21 Unknown History Allergies Allergy/AdvReac Type Severity Reaction Status Date / Time Sulfa (Sulfonamide Allergy ALGY-Bliste Verified 11/29/21 13:03 Antibiotics) r Current Medications Generic Name Dose Route Start Last Admin Trade Name Freq PRN Reason Stop Dose Admin Sodium Chloride 1,000 mls @ 30 mls/hr 11/30/21 06:00 11/30/21 06:46 Sodium Chloride 0.9% IV 12/01/21 05:59 30 mls/hr .Q24H JESÚS Administration PFSH Anesthesia Medical History BPH loc w urin obs/LUTS CAD (coronary artery disease) Depression Dyslipidemia Enlarged prostate Fall History of frequent falls, NPH suspect Gallstones Generalized weakness Heart attack Hypertension Intervertebral disc disorder with radiculopathy of lumbosacral region Jock itch Lower urinary tract symptoms (LUTS) Lumbar stenosis with neurogenic claudication Prostate enlargement Skin cancer Sleep apnea Spondylolisthesis of lumbar region Surgical History Hx of appendectomy Hx of cholecystectomy Hx of heart artery stent Hx of tonsillectomy Family History Mother , AT AGE 99 Diabetes Hypertension CAD (coronary artery disease) Father , AT AGE 86 Hypertension CAD (coronary artery disease) Other Cholelithiasis Social History Smoking and tobacco status: never smoked Second hand smoke exposure: No Alcohol intake: never Household members: spouse Marital status: Current occupational status: retired History of recent travel: No Data Anesthesia Cardiac Studies: Echocardiogram Ultrasound 05/26/20 Holter Monitor 04/01/21
[2021-11-30] MEDS: neomycin-poly-bacitracin oint 28 gm 1 APPLIC TOPICAL (07:25)
--- NOTE | 2021-11-30 08:24 | SUR.PHASEII ---
patient bp reported to Dr. Cornejo, order for iv med received
--- NOTE | 2021-11-30 08:29 | SUR.PHASEII ---
urology executive legal secretary unable to give time for requested follow up appointment of 01/04/22. She says she will send a note and patient will be called by clinic with time for appointment. this has been relayed to pt.
[2021-11-30] MEDS: hyDRALAzine 20 mg/mL INJ 1 mL 10 MG IVP (08:30)
--- NOTE | 2021-11-30 08:57 | SUR.PHASEII ---
patient complains of pain in right upper arm above where bp cuff has been. no redness, no swelling noted. patient family states they think it is slightly swollen but compared to left arm i see no difference. patient requests dose of pain med he takes at long-term. ice pack applied to right shoulder/ upper arm.
[2021-11-30] MEDS: HYDROcodone-acetaminophen 5-325 mg Tablet 1 TAB PO (09:09)
[2021-11-30] MEDS: meperidine 50 mg/mL INJ 12.5 MG IVP (09:27)
--- NOTE | 2021-11-30 09:38 | SUR.PHASEII ---
PATIENT STATES RIGHT ARM FEELS BETTER AND WANTS TO GET DRESSED TO GO HOME. REPORT CALLED TO PAYAL AT [facility].
--- NOTE | 2021-11-30 14:18 | ANE.PACU2 ---
Inpatient post-anesthesia follow up: Airway intact: Yes Vital signs: Temperature 97.2 F Pulse Rate 70 Respiratory Rate 18 Blood Pressure 149/79 Pulse Oximetry 95 Oxygen Delivery Me thod Room Air Oxygen Flow Rate 6 Fraction of Inspir ed Oxygen Hydration adequate: Yes Nausea and vomiting: No Pain level: 3 Mental status: Baseline Additional Comments: muscle spasms
== END 2021-11-30 10:24 | disposition home or self-care (01) ==
PROVIDERS: PCP Family Medicine; Visit Provider Urology
PROC: (CPT 51102; principal; 2021-11-30 07:00)
DX: R33.9 Retention of urine, unspecified (principal); N36.8 Other specified disorders of urethra; J44.9 Chronic obstructive pulmonary disease, unspecified; G47.30 Sleep apnea, unspecified; I10 Essential (primary) hypertension; I25.10 Atherosclerotic heart disease of native coronary artery without angina pectoris; Z95.5 Presence of coronary angioplasty implant and graft; I25.2 Old myocardial infarction; E78.5 Hyperlipidemia, unspecified; Z79.82 Long term (current) use of aspirin
CPT/HCPCS: 51102; 93005; J0360; J1100; J2175; J2405; J2704; J3010; J7030

== ENCOUNTER → 2021-12-27 10:54 | Outpatient (BNVA) | payer MEDICARE, OTHER, SELFPAY | PROVIDERS: PCP Family Medicine; Visit Provider Urology | DX: R33.9 Retention of urine, unspecified (principal); T83.091A Other mechanical complication of indwelling urethral catheter, initial encounter; X58.XXXA Exposure to other specified factors, initial encounter | CPT/HCPCS: 52000 ==

== ENCOUNTER 2022-01-05 13:54 | Observation (INO) | payer MEDICARE, OTHER, SELFPAY ==
[2022-01-05 14:00] VITALS: TEMP 36.6; BMI 27.4
--- NOTE | 2022-01-05 14:10 | W.ED.GENADLT ---
HPI - General Adult General: Chief complaint: Back Pain/Injury Stated complaint: SWELLING TO TRUNK Time Seen by Provider: 01/05/22 13:57 History of Present Illness: Patient is an 81-year-old male with a history of baseline dementia, BPH, CAD, hyperlipidemia and back implant presenting to the emergency room with concerns of swelling around the back implanted nerve stimulator. This was first noticed by patient's nurse practitioner and decision was made to have patient seen and evaluated in the emergency room for swelling around the back implanted device. Patient arrival is AAO x2 occasionally answering questions. Patient denies any pain in the back mobility pain, nausea/vomiting, diarrhea/melena/hematochezia. Onset:unknown Duration:ongoing Location:home Severity:moderate Associated symptoms: Deny chest pain, dyspnea, nausea, palpitations or vomiting Review of Systems Const: Denies: fever(s) or chills Eyes: Denies: change in vision ENMT: Denies: mouth pain Card: Denies: chest pain or palpitations Resp: Denies: dyspnea or non-productive cough GI: Denies: abdominal pain, nausea, vomiting or diarrhea : Denies: dysuria Musc: Denies: extremity pain Skin/Breast: Reports: new lesions (+back swelling) Neuro: Denies: weakness in extremities Psych: Reports: other (Normal mood) James/Lymph: Denies: easy bruising PFSH ED PFSH: Medical History BPH loc w urin obs/LUTS CAD (coronary artery disease) Depression Dyslipidemia Enlarged prostate Fall History of frequent falls, NPH suspect Gallstones Generalized weakness Heart attack Hypertension Intervertebral disc disorder with radiculopathy of lumbosacral region Jock itch Lewy body dementia Lower urinary tract symptoms (LUTS) Lumbar stenosis with neurogenic claudication Prostate enlargement Skin cancer Sleep apnea Spondylolisthesis of lumbar region Urinary retention Surgical History History of hernia repair History of suprapubic catheter Hx of appendectomy Hx of cholecystectomy Hx of heart artery stent Hx of tonsillectomy S/P insertion of spinal cord stimulator Family History Mother , AT AGE 99 Diabetes Hypertension CAD (coronary artery disease) Father , AT AGE 86 Hypertension CAD (coronary artery disease) Other Cholelithiasis Social History Smoking and tobacco status: never smoked Second hand smoke exposure: No Alcohol intake: never Household members: spouse Marital status: Current occupational status: retired History of recent travel: No Physical Exam Const: COMMON NORMALS: alert HENMT: COMMON NORMALS: atraumatic HEAD & SCALP: atraumatic MOUTH: moist mucous membranes not abnormal Eye: COMMON NORMALS: EOMs intact bilaterally and conjunctivae normal CONJUNCTIVA: Yes conjunctivae normal Neck/C-Spine: COMMON NORMALS: full ROM and supple Resp: COMMON NORMALS: normal respiratory effort and clear to auscultation bilaterally AUSCULTATION: clear to auscultation bilaterally Cardio: COMMON NORMALS: regular rate RATE: regular rate GI: COMMON NORMALS: Soft to palpation and non-tender PALPATION: Yes Soft to palpation OTHER: No focal TTP. NO guarding rebound, guarding, rigidity. No CVA tenderness to percussion. Neg Sheridan/Neg McBurney's point tenderness, no suprabupic tenderness to palpation. Extremity: COMMON NORMALS: full ROM Neuro: SENSORIUM/ORIENTATION: Yes alert MOTOR EXAM: No Abnormal motor strength present and Other motor observations present (no focal motor deficits) OTHER: AAO x2 (self and location), moving all extremities, occasionally following commands, cranial nerves grossly intact Psych: COMMON NORMALS: speech normal SPEECH: Yes normal speech MOOD & AFFECT: Yes euthymic mood Course Vital Signs: Vital signs: Vital Signs Temperature 97.6 F 01/06/22 14:00 Pulse Rate 75 01/06/22 14:00 Respiratory Rate 13 01/06/22 12:00 Blood Pressure 150/80 01/06/22 14:00 Pulse Oximetry 94 01/06/22 14:00 [facility] - General Adult Medical Decision Making 81-year-old male with history of baseline dementia, CAD, hyperlipidemia, BPH presenting to the emergency room with concerns of swelling around the back implantable device. On physical exam, patient is noted to have mild swelling around the implanted device. There is no surrounding erythema or warmth or tenderness to palpation or palpable fluctuance. Lab work-up showed patient had a platelet of 16K down from a baseline of 128K from 03/25/2021. We will transfuse platelets today. Incidental findings of R kidney lesion discussed extensively with patient's daughter Rocío who tells me she will talk to her family to decide whether to pursue further workup for cancer. Patient's daughter received a copy of the CT report with the documented findings. Patient's is instructed to follow up urgently with specialists as this can be cancer. Patient's daughter verbalizes understanding. Questionable UTI based on UA. However in the setting of altered mental status and baseline confusion, will treat empirically with ceftriaxone. Disposition: admission Lab Data : 01/06/22 06:01 01/06/22 06:01 Radiology Impressions Abdomen/Pelvis CT 01/05/22 14:09 IMPRESSION: 1. Worrisome for mass lesion lower pole of right kidney. Further evaluation such as with non urgent MRI without with contrast suggested 2. Markedly enlarged prostate 3. Degenerative changes throughout the lumbar spine stable compared with 03/23/2021. 4. Neurostimulator device noted grossly unchanged. COMMENTS: Consistent with the [employer]'s Incidental Findings Committee white paper (J Am Heather Radiol 2018): Any incidental renal lesion less than 1 cm or classified as too small to characterize, or any incidental cystic renal lesion characterized as simple-appearing, is likely benign. No follow-up imaging is recommended for these lesions per consensus recommendations based on imaging criteria. ADDENDUM: 01/05/22 1824 Addendum: THIS REPORT CONTAINS FINDINGS THAT MAY BE CRITICAL TO PATIENT CARE. The findings were verbally communicated via telephone conference with ELISEO PARKER at 6:22 PM FRANCISCAT on 01/05/2022. The findings were acknowledged and understood. Head CT 01/05/22 16:53 IMPRESSION: No acute intracranial abnormality. Laboratory Results WBC 5.1 10^3/uL (4.0-10.0) 01/05/22 14:47 RBC 4.41 10^6/uL (4.1-5.3) 01/05/22 14:47 Hgb 13.1 g/dL (11.7-16.6) 01/05/22 14:47 Hct 44.0 % (42.0-52.0) 01/05/22 14:47 MCV 99.8 fl (80-94) H 01/05/22 14:47 MCH 29.7 pg (28.0-34.0) 01/05/22 14:47 MCHC 29.8 g/dL (30.0-36.0) L 01/05/22 14:47 RDW 14.1 % (12.1-15.1) 01/05/22 14:47 Plt Count 16 10^3/cmm (130-400) L* 01/05/22 14:47 MPV fL (7.4-10.4) 01/05/22 14:47 Neut % (Auto) 55.6 % 01/05/22 14:47 Lymph % (Auto) 31.5 % 01/05/22 14:47 Hood % (Auto) 7.0 % 01/05/22 14:47 Eos % (Auto) 5.1 % 01/05/22 14:47 Baso % (Auto) 0.6 % 01/05/22 14:47 Neut # (Auto) 2.86 10^3/uL (1.8-7.7) 01/05/22 14:47 Lymph # (Auto) 1.6 10^3/uL (0.8-4.8) 01/05/22 14:47 Hood # (Auto) 0.4 10^3/uL (0.2-0.9) 01/05/22 14:47 Eos # (Auto) 0.3 10^3/uL (0.0-0.8) 01/05/22 14:47 Baso # (Auto) 0.0 10^3/uL (0.0-0.1) 01/05/22 14:47 Nucleated RBC % (auto) 0 % 01/05/22 14:47 Nucleated RBCs # 0.0 /100WBC 01/05/22 14:47 Haptoglobin 113.0 mg/L (30-200) 01/05/22 14:47 Sodium 142 mmol/L (136-145) 01/05/22 14:47 Potassium 3.6 mmol/L (3.5-5.1) 01/05/22 14:47 Chloride 111 mmol/L (98-107) H 01/05/22 14:47 Carbon Dioxide 19 mmol/L (22-29) L 01/05/22 14:47 Anion Gap 15.6 (5-19) 01/05/22 14:47 BUN 32 mg/dL (8-23) H 01/05/22 14:47 Creatinine 1.3 mg/dL (0.7-1.2) H 01/05/22 14:47 GFR Calculation Not Reportable 01/05/22 14:47 Glucose 108 mg/dL (65-115) 01/05/22 14:47 Calculated Osmolality 301 mOsm/kg (285-295) H 01/05/22 14:47 Calcium 7.9 mg/dL (8.5-10.5) L 01/05/22 14:47 Total Bilirubin 0.2 mg/dL (0.15-1.2) 01/05/22 14:47 AST 13 U/L (0-40) 01/05/22 14:47 ALT 9 U/L (0-41) 01/05/22 14:47 Alkaline Phosphatase 96 IU/L (40-130) 01/05/22 14:47 Lactate Dehydrogenase 212 U/L (135-225) 01/05/22 14:47 Total Protein 5.3 g/dL (6.6-8.7) L 01/05/22 14:47 Albumin 3.2 g/dL (3.5-5.2) L 01/05/22 14:47 Globulin 2.1 g/dL (1.3-4.6) 01/05/22 14:47 Lipase 35 U/L (13-60) 01/05/22 14:47 Vitamin B12 457 pg/mL (232-1245) 01/05/22 14:47 Urine Color Colorless (Yellow) 01/05/22 17:54 Urine Appearance Hazy (CLEAR) A 01/05/22 17:54 Urine pH 7 (5-7) 01/05/22 17:54 Ur Specific [place] 1.010 (1.005-1.030) 01/05/22 17:54 Urine Protein 1+ (Negative) H 01/05/22 17:54 Urine Glucose (UA) Norm (Normal) 01/05/22 17:54 Urine Ketones Negative (Negative) 01/05/22 17:54 Urine Blood 2+ (Negative) H 01/05/22 17:54 Urine Nitrate Negative (Negative) 01/05/22 17:54 Urine Bilirubin Neg (Negative) 01/05/22 17:54 Urine Urobilinogen Norm mg/dL (Negative) 01/05/22 17:54 Ur Leukocyte Esterase 2+ (Negative) H 01/05/22 17:54 Urine RBC 5-10 /hpf (0-2) H 01/05/22 17:54 Urine WBC 40-55 /hpf (0-5) H 01/05/22 17:54 Ur Squamous Epith Cells 0-4 /hpf (0-5) H 01/05/22 17:54 Amorphous Sediment 1+ /hpf 01/05/22 17:54 Urine Bacteria 4+ /hpf (NONE) H 01/05/22 17:54 Blood Type A Positive 01/05/22 17:52 Rho(D) Type Positive 01/05/22 17:52 Antibody Screen Negative 01/05/22 17:52 Imaging Data Other Imaging: Radiologist's impression: [facility] [address] [address] Scan Report Signed Patient: Peter Reno Unit #: [id number] : 1940 Age/Sex: 81 / M ADM Date: 01/05/22 Loc: ER Room/Bed: Attending Dr: Ordering Provider/Ordering MD: Eliseo Parker MD Date of Service: 01/05/22 Procedure(s): CT head wo con* [id number] Accession Number(s): [id number] Report Number: [id number] PROCEDURE INFORMATION: Exam: CT Head Without Contrast Exam date and time: 01/05/2022 5:01 PM Age: 81 years old Clinical indication: Other: Low platelet, possible spontaneous bleed; Patient HX: PT very confused TECHNIQUE: Imaging protocol: Computed tomography of the head without contrast. Radiation optimization: All CT scans at this facility use at least one of these dose optimization techniques: automated exposure control; mA and/or kV adjustment per patient size (includes targeted exams where dose is matched to clinical indication); or iterative reconstruction. 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 Mild atrophy and mild white matter chronic microvascular changes are noted. No hemorrhage or evidence of acute infarction. Cerebral ventricles: No ventriculomegaly. Paranasal sinuses: Visualized sinuses are unremarkable. No fluid levels. Mastoid air cells: Visualized mastoid air cells are well aerated. Bones/joints: Unremarkable. No acute fracture. Soft tissues: Unremarkable. CT/CT head wo con* [id number] IMPRESSION:? No acute intracranial abnormality. ? Dictated By: Liam Murphy MD Signed By: Liam Murphy MD Signed Date/Time: 01/05/22 180 DD/ 170 Peter Reno??81??M??1940 ? Allergy/Adv: Sulfa (Sulfonamide Antibiotics) (More??) Close Head CT (Signed) Liam Murphy - 01/05/22 Abdomen/Pelvis CT (Signed) Tonio Gunter - 01/05/22 Abdomen/Pelvis CT (Signed) Sadaf Walter - 03/23/[address] (Signed) Betsey Vega - 03/18/[address] (Signed) Betsey Vega - 03/18/21 Chest X-Ray (Signed) Morelia Pires - 03/10/21 Chest X-Ray (Signed) Nadir Malnoey - 03/07/21 Chest CTA (Signed) Ethan Villalobos - 03/03/[address] (Signed) Festus Hunt - 03/03/21 Venous Duplex (Signed) Sadaf Walter - 03/03/21 Chest X-Ray (Signed) Julio Cesar Dominguez Jr - 03/02/21 Chest X-Ray (Signed) Kenneth Paz - 02/27/21 Chest X-Ray (Signed) Mickey Cook - 02/21/[address] (Signed) Sadaf Walter - 10/07/20 Echocardiogram Ultrasound (Signed) Jazmine Ledezma - 05/26/20 Thoracic Spine X-Ray (Signed) Sadaf Walter - 12/11/19 C-Arm Fluoroscopy (Signed) Liam Barajas - 12/11/19 Thoracic Spine MRI (Signed) Sadaf Walter - 11/06/19 Lumbar Spine X-Ray (Signed) Sadaf Walter - 11/06/19 Lumbar Spine MRI (Signed) Sadaf Walter - 11/06/19 Launch?Image [facility] [place] [id number] CT Scan Report Signed with Javier Patient: Peter Reno Unit #: [id number] : 1940 Age/Sex: 81 / M ADM Date: 01/05/22 Loc: ER Room/Bed: Attending Dr: Ordering Provider/Ordering MD: Eliseo Parker MD Date of Service: 01/05/22 Procedure(s): CT abdomen pelvis w con* [id number] Accession Number(s): [id number] Report Number: [id number]/CT abdomen pelvis w con* [id number] Addendum: THIS REPORT CONTAINS FINDINGS THAT MAY BE CRITICAL TO PATIENT CARE. The findings were verbally communicated via telephone conference with ELISEO PARKER at 6:22 PM CDT on 01/05/2022. The findings were acknowledged and understood. ? Addendum Dictated By: ?Tonio Gunter Addendum Signed By: ?Tonio Gunter Signed Date/Time: 01/05/221823 Addendum Cosigned By: ? PROCEDURE INFORMATION: Exam: CT Abdomen And Pelvis With Contrast Exam date and time: 01/05/2022 5:07 PM Age: 81 years old Clinical indication: Pain; Other: Lumbar; Prior surgery; Surgery date: 6+ months; Additional info: Back implant device swelling TECHNIQUE: Imaging protocol: Computed tomography of the abdomen and pelvis with contrast. Radiation optimization: All CT scans at this facility use at least one of these dose optimization techniques: automated exposure control; mA and/or kV adjustment per patient size (includes targeted exams where dose is matched to clinical indication); or iterative reconstruction. Contrast material: OMNIPAQUE 350; Contrast volume: 85 ml; Contrast route: INTRAVENOUS (IV);? COMPARISON: CT kidney stone [id number] 03/23/2021 9:31 AM RADIATION DOSE METRICS: Total DLP (mGy-cm): 1228.93 FINDINGS: Limitations: Study somewhat limited due to streak artifact created by the patient being scanned with the arms at the sides. Tubes, catheters and devices: Neurostimulator device is seen in the posterior subcutaneous region with electrodes entering the spinal canal at the T8-T9 level. There is a suprapubic catheter with its tip in the urinary bladder Lungs: There is some dependent atelectasis at the lung bases. Heart: The heart is mildly enlarged. Coronary stents are noted. Liver: There is no focal abnormality within the liver. Gallbladder and bile ducts: There has been a cholecystectomy. Pancreas: The pancreas is normal. Spleen: The spleen demonstrates punctate calcifications, consistent with remote granulomatous organism exposure. Adrenal glands: The adrenal glands are normal. Kidneys and ureters: 10 cm simple cyst arising from the upper pole of the left kidney.There are multiple left renal collecting system calcifications. There is no evidence of left hydronephrosis. There is no stone in the left ureter. 3.6 cm sized benign simple cyst mid right kidney not significantly changed. 2.7 cm sized solid enhancing mass lesion lower pole right kidney worrisome for renal malignancy. Further evaluation recommended. Stomach and bowel: There is no evidence of colitis/diverticulitis. There is no evidence of intestinal obstruction. Appendix: Not identified Intraperitoneal space: There is no evidence of free intraperitoneal fluid. Vasculature: The aorta demonstrates moderate atherosclerotic calcification. Lymph nodes: There is no evidence of lymphadenopathy. Urinary bladder: Unremarkable as visualized. Reproductive: The prostate demonstrates marked nonspecific enlargement. The seminal vesicles are normal.? The prostate gland demonstrates nonspecific parenchymal calcifications.? The appearance of the prostate not significantly changed compared with 03/23/2021. Bones/joints: There is moderate lumbar scoliosis concave towards the left. Soft tissues: Unremarkable. CT/CT abdomen pelvis w con* [id number] IMPRESSION: 1. Worrisome for mass lesion lower pole of right kidney. Further evaluation such as with non urgent MRI without with contrast suggested 2. Markedly enlarged prostate 3. Degenerative changes throughout the lumbar spine stable compared with 03/23/2021. 4. Neurostimulator device noted grossly unchanged. ? COMMENTS: Consistent with the [employer] [employer]'s Incidental Findings Committee white paper (J Am Heather Radiol 2018): Any incidental renal lesion less than 1 cm or classified as too small to characterize, or any incidental cystic renal lesion characterized as simple-appearing, is likely benign. No follow-up imaging is recommended for these lesions per consensus recommendations based on imaging criteria. ? 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
[2022-01-05 14:19] VITALS: BP 203/97; PULSE 64; RESP 16; TEMP 36.6; O2SAT 94; BMI 27.4
[2022-01-05 14:31] VITALS: BP 199/89; PULSE 60; RESP 16; O2SAT 94
[2022-01-05 15:16] LABS: Alanine Aminotransferase 9 U/L (0-41); Albumin Level 3.2 g/dL (3.5-5.2); Alkaline Phosphatase 96 IU/L (40-130); Aspartate Amino Transferase 13 U/L (0-40); Blood Urea Nitrogen 32 mg/dL (8-23); Calcium 7.9 mg/dL (8.5-10.5); Carbon Dioxide 19 mmol/L (22-29); Chloride 111 mmol/L (98-107); Globulin 2.1 g/dL (1.3-4.6); Glucose 108 mg/dL (65-115); Lipase 35 U/L (13-60); Osmolality Calculated 301 mOsm/kg (285-295); Sodium 142 mmol/L (136-145); Total Bilirubin 0.2 mg/dL (0.15-1.2); Total Protein 5.3 g/dL (6.6-8.7)
[2022-01-05 15:19] LABS: Anion Gap 15.6 (5-19); Potassium 3.6 mmol/L (3.5-5.1)
[2022-01-05 15:38] LABS: Basophils % 0.6 %; Eosinophils # 0.3 10^3/uL (0.0-0.8); Eosinophils % 5.1 %; Hemoglobin 13.1 g/dL (11.7-16.6); Lymphocytes # 1.6 10^3/uL (0.8-4.8); Lymphocytes % 31.5 %; Mean Corpuscular HGB Conc 29.8 g/dL (30.0-36.0); Mean Corpuscular Hemoglobin 29.7 pg (28.0-34.0); Mean Corpuscular Volume 99.8 fl (80-94); Monocytes # 0.4 10^3/uL (0.2-0.9); Neutrophils # 2.86 10^3/uL (1.8-7.7); Neutrophils % 55.6 %; Nucleated Red Blood Cells % 0 %; Red Blood Count 4.41 10^6/uL (4.1-5.3); Red Cell Distribution Width 14.1 % (12.1-15.1); White Blood Count 5.1 10^3/uL (4.0-10.0)
[2022-01-05 16:38] LABS: Platelet Count 16 10^3/cmm (130-400)
[2022-01-05 16:39] LABS: Slide Review Slide Review Perform
--- NOTE | 2022-01-05 16:53 | CTR_ITS ---
PROCEDURE INFORMATION: Exam: CT Head Without Contrast Exam date and time: 01/05/2022 5:01 PM Age: 81 years old Clinical indication: Other: Low platelet, possible spontaneous bleed; Patient HX: PT very confused TECHNIQUE: Imaging protocol: Computed tomography of the head without contrast. Radiation optimization: All CT scans at this facility use at least one of these dose optimization techniques: automated exposure control; mA and/or kV adjustment per patient size (includes targeted exams where dose is matched to clinical indication); or iterative reconstruction. 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 Mild atrophy and mild white matter chronic microvascular changes are noted. No hemorrhage or evidence of acute infarction. Cerebral ventricles: No ventriculomegaly. Paranasal sinuses: Visualized sinuses are unremarkable. No fluid levels. Mastoid air cells: Visualized mastoid air cells are well aerated. Bones/joints: Unremarkable. No acute fracture. Soft tissues: Unremarkable. CT/CT head wo con* [id number] IMPRESSION: No acute intracranial abnormality.
[2022-01-05] MEDS: iohexol 350 mg/mL 100 mL Btl IV (17:27)
--- NOTE | 2022-01-05 18:05 | PC.NURSE ---
Arrived from facility with johnson catheter. 1500 ml yellow urine emptied at this time.
[2022-01-05 18:07] VITALS: BP 231/127; PULSE 72; RESP 16; O2SAT 97
--- NOTE | 2022-01-05 18:18 | PC.NURSE ---
Pts daughter requesting pain meds, BP is elevated. ERP notified.
[2022-01-05] MEDS: acetaminophen 500 mg Tablet PO (18:45)
[2022-01-05] MEDS: amlodipine 5 mg Tablet PO (18:45)
[2022-01-05 18:52] LABS: Add Urine Microscopic? YES; Bilirubin Urine Neg (Negative); Blood Urine 2+ (Negative); Glucose Urine UA Norm (Normal); Ketones Urine Negative (Negative); Leukocyte Esterase Urine 2+ (Negative); Nitrate Urine Negative (Negative); Protein Urine 1+ (Negative); Urine Appearance Hazy (CLEAR); Urine Color Colorless (Yellow); Urobilinogen Urine Norm (Negative); pH Urine 7 (5-7)
[2022-01-05 18:53] LABS: Add Urine Culture? Yes; Amorphous Sediment Urine 1+ /hpf; Bacteria Urine 4+ /hpf; Squamous Epithelial Cell Urine 0-4 /hpf (0-5); WBC Urine 40-55 /hpf (0-5)
--- NOTE | 2022-01-05 19:07 | PC.NURSE ---
Report to KYRIE Gomez
[2022-01-05 21:00] VITALS: BP 172/94; PULSE 70; RESP 18; O2SAT 92
[2022-01-05 21:11] LABS: Hematocrit 43.7 % (42.0-52.0); Retic Production Index 1.53; Reticulocyte % 1.4 % (0.5-2.0)
--- NOTE | 2022-01-05 21:19 | P.HP_ITS ---
Providers/Chief Complaint Primary Care Provider: Rajni Knapp MD Chief Complaint: SWELLING TO TRUNK History of Present Illness Pleasant 81-year-old woman with dementia, penitentiary resident, with CAD, HTN, HLD, BPH, recently status postplacement of suprapubic catheter was brought in for evaluation initially due to swelling around spinal stimulator device which was assessed in ER, and additionally imaged with CT abdomen pelvis which showed device grossly unchanged, incidentally noted for some mass lesion in the lower pole of the right kidney which was discussed with his daughter, and due to limited goals of care additional evaluation would not be pursued, however, incidentally he was also noted to have thrombocytopenia 16 thousand, previously platelets 128,000 in Mar 2021. He has not had any bleeding. He otherwise has been otherwise in baseline health health, performed building some edema of his flanks, milder in his legs. He is nonambulatory, spends most of the time in the recliner. Elevates his legs. He recently had a suprapubic catheter placed. Review of Systems Const: Reports: other (Hard of hearing); Denies: fever(s), chills, body aches or malaise Eyes: Denies: change in vision, eye discomfort or eye redness ENMT: Denies: throat pain, oral sores or ear or mastoid pain Card: Reports: edema (2+ LE, BL flank); Denies: chest pain, pre-syncope or dyspnea on exertion Resp: Denies: dyspnea, productive cough, change in phlegm color or hemoptysis GI: Denies: abdominal pain, nausea, vomiting, diarrhea, constipation, hematochezia or melena : Denies: flank pain, difficulty urinating, urinary frequency or hematuria Musc: Denies: back pain, joint swelling or joint redness Skin/Breast: Denies: rash or new lesions Neuro: Denies: headache(s), numbness in extremities, weakness in extremities, dizziness, confusion or seizure-like activity Endo: Denies: polyuria or polydipsia James/Lymph: Denies: easy bleeding or tender lymph nodes All/Imm: Denies: urticaria or tongue swelling Medications/Allergies Home Medications Medication Instructions Recorded Confirmed Last Taken Type aspirin 81 mg tablet,delayed 81 mg PO DAILY@08 07/09/19 01/05/22 01/05/22 History release albuterol sulfate 90 mcg/actuation 1 inh INHALATION Q6H PRN #6.7 g 03/15/21 01/05/22 Unknown Rx aerosol inhaler (Proventil HFA) sennosides 8.6 mg-docusate sodium 1 - 2 tab PO BID PRN 03/23/21 01/05/22 01/05/22 History 50 mg tablet (Senna-S) fluticasone 250 mcg-salmeterol 50 1 inh INHALATION BID 04/28/21 01/05/22 Unknown History mcg/dose blistr powdr for inhalation (Advair Diskus) hydrocodone 5 mg-acetaminophen 325 1 tab PO Q4H PRN 04/28/21 01/05/22 01/04/22 History mg tablet acetaminophen 325 mg capsule 650 mg PO QID PRN cap 11/21/21 01/05/22 Unknown History bisacodyl 10 mg rectal suppository [address] DAILY PRN 11/21/21 01/05/22 Unknown History bisacodyl 10 mg/30 mL enema (Fleet [address] DAILY PRN 11/21/21 01/05/22 Unknown History Bisacodyl) buspirone 5 mg tablet 5 mg PO TID 11/21/21 01/05/22 01/05/22 History carboxymethylcellulose sodium 0.5 1 drp OPHTHALMIC (EYE) BID 11/21/21 01/05/22 01/05/22 History % eye drops (Refresh Tears) mirtazapine 30 mg tablet 30 mg PO DAILY 11/21/21 01/05/22 01/04/22 History polyethylene glycol 3350 17 gram 17 g PO DAILY PRN 11/21/21 01/05/22 01/05/22 History oral powder packet quetiapine 50 mg tablet 50 mg PO BEDTIME 11/21/21 01/05/22 01/04/22 History atorvastatin 10 mg tablet 10 mg PO BEDTIME 01/05/22 01/05/22 01/04/22 History calcium carbonate 600 mg calcium 600 mg PO DAILY 01/05/22 01/05/22 01/05/22 History (1,500 mg) tablet metoprolol tartrate 75 mg tablet 75 mg PO BID 01/05/22 01/05/22 01/05/22 History quetiapine 25 mg tablet 25 mg PO DAILY 01/05/22 01/05/22 01/05/22 History Allergies Allergy/AdvReac Type Severity Reaction Status Date / Time Sulfa (Sulfonamide Allergy [place] Verified 01/05/22 14:33 Antibiotics) r PFSH Acute PFSH: Medical History BPH loc w urin obs/LUTS CAD (coronary artery disease) Depression Dyslipidemia Enlarged prostate Fall History of frequent falls, NPH suspect Gallstones Generalized weakness Heart attack Hypertension Intervertebral disc disorder with radiculopathy of lumbosacral region Jock itch Lewy body dementia Lower urinary tract symptoms (LUTS) Lumbar stenosis with neurogenic claudication Prostate enlargement Skin cancer Sleep apnea Spondylolisthesis of lumbar region Urinary retention Surgical History History of hernia repair History of suprapubic catheter Hx of appendectomy Hx of cholecystectomy Hx of heart artery stent Hx of tonsillectomy S/P insertion of spinal cord stimulator Family History Mother , AT AGE 99 Diabetes Hypertension CAD (coronary artery disease) Father , AT AGE 86 Hypertension CAD (coronary artery disease) Other Cholelithiasis Social History Smoking and tobacco status: never smoked Second hand smoke exposure: No Alcohol intake: never Household members: spouse Marital status: Current occupational status: retired History of recent travel: No Vitals/I&O/Wt Last Vital Signs Temp 97.8 F 01/05/22 14:19 Pulse 72 01/05/22 18:07 Resp 16 01/05/22 18:07 BP 231/127 01/05/22 18:07 Pulse Ox 97 01/05/22 18:07 Weight last 48 hrs Weight 77.111 kg Weight 77.111 kg Physical Exam Narrative: Accompanied by his daughter. Const: COMMON NORMALS: alert GENERAL APPEARANCE: cooperative ORIENTATION/CONSCIOUSNESS: Yes awake, Yes oriented to person and Yes oriented to place OTHER: [place] HENMT: COMMON NORMALS: normocephalic, EAC's normal, Normal external nose present and moist oral mucous membranes HEAD & SCALP: normocephalic NOSE: Normal external nose present EXTERNAL AUDITORY CANAL: EAC's normal Neck/C-Spine: COMMON NORMALS: no meningeal signs Chest: CHEST: Yes Symmetrical chest wall rise Resp: COMMON NORMALS: clear to auscultation bilaterally AUSCULTATION: clear to auscultation bilaterally Cardio: COMMON NORMALS: regular rate, regular rhythm and No murmurs present (Cardio) RATE: regular rate RHYTHM: regular rhythm GI: COMMON NORMALS: Normal to inspection, nondistended, normoactive bowel sounds present, Soft to palpation and non-tender PALPATION: Yes Soft to palpation Extremity: GENERAL: Yes edema (2+) Neuro: COMMON NORMALS: moves all extremities SENSORIUM/ORIENTATION: Yes alert MENINGEAL SIGNS: Yes no meningeal signs Psych: COMMON NORMALS: mental status grossly normal Skin: COMMON NORMALS: no wounds RASHES: no rashes Data : 01/05/22 21:04 01/05/22 14:47 A&P Assessment and plan (1) Thrombocytopenia: Unclear timing of the client, but this appears to be a new issue. Previously platelet 128,000 back in March 2021. His daughter denies any recent m edication changes. He had cephalexin back in November. Suspicion at this time is for ITP, however, additionally assess hemolysis studies, LDH, haptoglobin, reticulocyte count. Testing also peripheral smear to be reviewed by hematology. Given suspicion for ITP, start steroid Decadron pulse 40 mg x 4 days. In case lack of response, consider further measures as per discussion with hematology. Consider also assessment for CMV, EBV. No active bleeding, so for now platelets were ordered, will keep but not yet transfused unless become needed. Hold aspirin. Checkfolic acid, B12. TSH. Does have macrocytosis. Address any obvious medications that should cause thrombocytopenia. He is afebrile, without leukocytosis, tachycardia, or other signs of sepsis. Status: Acute (2) Kidney mass: Incidentally noted on CT abdomen pelvis, no further evaluation is undertaken given elevated levels of care as per family. Status: Acute (3) Abnormal finding on urinalysis: 40-55 WBC, 2+ LE, 4+ bacteria, received a dose of Rocephin due to initial consideration of possible UTI, however, he had a suprapubic catheter placed recently as well, and leukocytosis could be secondary to catheter. For now we will hold off on additional antibiotics. Please follow-up urine culture. Status: Acute Plan Swelling back up around spinal stimulator: Unremarkable appearance on CT abdomen pelvis. Monitor for any signs of bleeding/development of hematoma. Bilateral flank and bilateral lower extremity edema. Patient dependent due to him spending most of the time in recliner. No history of CHF. We will give 1 dose of Lasix. CKD Lewy body dementia CAD HTN HLD LISA DDD, status post spinal stimulator. Does not use it often. Spends most time in the recliner. Attestations Medical Necessity Statement*: Place in observation for additional assessment and management of severe thrombocytopenia. Coding Level of Care Code Acute Iron Carrier for Chg Fwd Diagnoses Thrombocytopenia D69.6 Kidney mass N28.89 Abnormal finding on urinalysis R82.90
[2022-01-05 21:23] LABS: INR 1.05 (0.8-1.2)
[2022-01-05 22:10] LABS: Folate Level 7.6 ng/mL (4.5-32.2)
[2022-01-05 22:15] LABS: LAB Peripheral Smear Sent for Review
[2022-01-05 22:30] LABS: Lactate Dehydrogenase 212 U/L (135-225)
[2022-01-05 22:39] VITALS: BP 166/93; PULSE 74; RESP 17; TEMP 36.9; O2SAT 92
[2022-01-05 22:44] LABS: Vitamin B12 457 pg/mL (232-1245)
[2022-01-05 23:23] LABS: Thyroid Stimulating Hormone 7.25 uIU/mL (0.27-4.20)
[2022-01-06] MEDS: pantoprazole 40 mg SDV IVP (02:01)
[2022-01-06] MEDS: dexamethasone 4 mg Tablet 40 MG PO (02:02)
[2022-01-06] MEDS: acetaminophen 325 mg Tablet 650 MG PO (02:13)
[2022-01-06 02:26] VITALS: BP 166/93; PULSE 74; RESP 17; TEMP 36.9; O2SAT 92
[2022-01-06 03:51] VITALS: BP 184/94; PULSE 69; RESP 16; TEMP 36.8; O2SAT 92
[2022-01-06 06:12] LABS: Basophils % 0.3 %; Eosinophils # 0.1 10^3/uL (0.0-0.8); Eosinophils % 0.7 %; Hematocrit 48.8 % (42.0-52.0); Hemoglobin 16.2 g/dL (11.7-16.6); Lymphocytes # 1.3 10^3/uL (0.8-4.8); Mean Corpuscular HGB Conc 33.2 g/dL (30.0-36.0); Mean Corpuscular Volume 87.3 fl (80-94); Mean Platelet Volume 10.2 fL (7.4-10.4); Monocytes # 0.2 10^3/uL (0.2-0.9); Monocytes % 1.6 %; Neutrophils # 9.85 10^3/uL (1.8-7.7); Nucleated Red Blood Cells % 0 %; Platelet Count 213 10^3/cmm (130-400); Red Blood Count 5.59 10^6/uL (4.1-5.3); White Blood Count 11.5 10^3/uL (4.0-10.0)
[2022-01-06 06:45] LABS: Anion Gap 15.8 (5-19); Blood Urea Nitrogen 29 mg/dL (8-23); Calcium 9.5 mg/dL (8.5-10.5); Carbon Dioxide 27 mmol/L (22-29); Chloride 103 mmol/L (98-107); Glucose 130 mg/dL (65-115); Osmolality Calculated 302 mOsm/kg (285-295); Potassium 3.8 mmol/L (3.5-5.1); Sodium 142 mmol/L (136-145)
--- NOTE | 2022-01-06 07:04 | PC.NURSE ---
Blood sugar 50. pt is provided w/ OJ. pt is alert, oriented.
[2022-01-06 08:00] VITALS: BP 186/99; PULSE 84; RESP 16; TEMP 36.5; O2SAT 91
--- NOTE | 2022-01-06 10:01 | PC.NURSE ---
supra pubic catheter tip came off change the catheter tip. fidelina care provided and linen changed.
--- NOTE | 2022-01-06 11:28 | PM.DCS ---
Discharge Providers Date of Admission: 01/05/22 20:48 Date of Discharge: January 06, 2022 Attending Provider at Admission: Sukhdev Castro Attending Provider at Discharge: Amber Tesfaye MD Primary Care Provider: Rajni Knapp MD Diagnoses at Discharge Discharge Diagnosis (1) Thrombocytopenia: Status: Acute (2) Kidney mass: Status: Acute (3) Abnormal finding on urinalysis: Status: Acute Reason for Visit Reason for Visit: SWELLING TO TRUNK Hospital Course Hospital Course Pleasant 81-year-old woman with dementia, detention resident, with CAD, HTN, HLD, BPH, recently status postplacement of suprapubic catheter was brought in for evaluation initially due to swelling around spinal stimulator device which was assessed in ER, and additionally imaged with CT abdomen pelvis which showed device grossly unchanged, incidentally noted for some mass lesion in the lower pole of the right kidney which was discussed with his daughter, and due to limited goals of care additional evaluation would not be pursued, however, incidentally he was also noted to have thrombocytopenia 16 thousand Hospital course When I evaluated the patient he was able to tell me his name, date of , however very agitated, short attention span, I did speak with his son and daughter to update them regarding today's lab and overnight events. Patient is trying to pull on his IVs. Suprapubic catheter was replaced by the nurse this morning. He has been afebrile. Hypertensive. I have given him metoprolol and amlodipine. Today platelet counts are 213,000. I do believe his first CBC showed erroneous reading for his thrombocytopenia which would have been repeated (pseudothrombocytopenia with platelet clumping) suspicion for ITP is low because improvement in platelet count is inappropriate due to use of steroids. No active signs of bleeding. Spine stimulator is at its original location. No dislodgment. For renal mass family does not want to pursue any further investigation or treatment. Family is leaning towards comfort care. He will be discharged back to his facility today. , son, daughter updated Patient is DNR/DNI For his suprapubic catheter abnormal UA I will give him 7-day regimen of levofloxacin His leukocytosis could be related to the steroids that were given in the ER I will repeat his CBC in 3 days Physical Exam Narrative: Short attention span Nonfocal neuro exam Suprapubic catheter in place Abdomen soft He was able to tell me his name, date of Verbally redirectable S1, S2 Hypertensive Saturating well on room air Discharge Data Studies Completed and Pending Completed Studies During Hospitalization Category Date Time Status CT abdomen pelvis w con* [id number] Urgent Cat Scan 01/05/22 14:[address] head wo con* [id number] Urgent Cat Scan 01/05/22 16:53 Completed Pending at discharge Category Date Time Status ABO/Rh Type Stat Lab 01/05/22 17:52 Results Basic Metabolic Panel AM LABS Lab 01/07/22 04:00 Ordered Basic Metabolic Panel AM LABS Lab 01/08/22 04:00 Ordered Complete Blood Count w/Auto AM LABS Lab 01/07/22 04:00 Ordered Complete Blood Count w/Auto AM LABS Lab 01/08/22 04:00 Ordered Complete Crossmatch Stat Lab 01/05/22 17:52 Results Free T4 Free Thyroxine Routine Lab 01/06/22 11:07 Ordered Platelets Leuko-Reduced Stat Lab 01/05/22 17:52 Results Type and Screen Stat Lab 01/05/22 17:52 Results Urine Culture Stat Lab 01/05/22 17:54 Received Radiology Impressions Abdomen/Pelvis CT 01/05/22 14:09 IMPRESSION: 1. Worrisome for mass lesion lower pole of right kidney. Further evaluation such as with non urgent MRI without with contrast suggested 2. Markedly enlarged prostate 3. Degenerative changes throughout the lumbar spine stable compared with 03/23/2021. 4. Neurostimulator device noted grossly unchanged. COMMENTS: Consistent with the [employer]'s Incidental Findings Committee white paper (J Am Heather Radiol 2018): Any incidental renal lesion less than 1 cm or classified as too small to characterize, or any incidental cystic renal lesion characterized as simple-appearing, is likely benign. No follow-up imaging is recommended for these lesions per consensus recommendations based on imaging criteria. ADDENDUM: 01/05/22 1824 Addendum: THIS REPORT CONTAINS FINDINGS THAT MAY BE CRITICAL TO PATIENT CARE. The findings were verbally communicated via telephone conference with RAFA AVALOS at 6:22 PM CDT on 01/05/2022. The findings were acknowledged and understood. Head CT 01/05/22 16:53 IMPRESSION: No acute intracranial abnormality. Laboratory Results WBC 11.5 10^3/uL (4.0-10.0) H 01/06/22 06:01 RBC 5.59 10^6/uL (4.1-5.3) H 01/06/22 06:01 Hgb 16.2 g/dL (11.7-16.6) 01/06/22 06:01 Hct 48.8 % (42.0-52.0) 01/06/22 06:01 MCV 87.3 fl (80-94) D 01/06/22 06:01 MCH 29.0 pg (28.0-34.0) 01/06/22 06:01 MCHC 33.2 g/dL (30.0-36.0) D 01/06/22 06:01 RDW 14.0 % (12.1-15.1) 01/06/22 06:01 Plt Count 213 10^3/cmm (130-400) D 01/06/22 06:01 MPV 10.2 fL (7.4-10.4) 01/06/22 06:01 Neut % (Auto) 86.0 % 01/06/22 06:01 Lymph % (Auto) 11.0 % 01/06/22 06:01 [place] % (Auto) 1.6 % 01/06/22 06:01 Eos % (Auto) 0.7 % 01/06/22 06:01 Baso % (Auto) 0.3 % 01/06/22 06:01 Reticulocyte % (Auto) 1.4 % (0.5-2.0) 01/05/22 21:04 Neut # (Auto) 9.85 10^3/uL (1.8-7.7) H 01/06/22 06:01 Lymph # (Auto) 1.3 10^3/uL (0.8-4.8) 01/06/22 06:01 [place] # (Auto) 0.2 10^3/uL (0.2-0.9) 01/06/22 06:01 Eos # (Auto) 0.1 10^3/uL (0.0-0.8) 01/06/22 06:01 Baso # (Auto) 0.0 10^3/uL (0.0-0.1) 01/06/22 06:01 Nucleated RBC % (auto) 0 % 01/06/22 06:01 Nucleated RBCs # 0.0 /100WBC 01/06/22 06:01 Retic Production Index 1.53 01/05/22 21:04 Haptoglobin 113.0 mg/L (30-200) 01/05/22 14:47 PT 14.00 SECONDS (12.1-14.9) 01/05/22 21:04 INR 1.05 (0.8-1.2) 01/05/22 21:04 Sodium 142 mmol/L (136-145) 01/06/22 06:01 Potassium 3.8 mmol/L (3.5-5.1) 01/06/22 06:01 Chloride 103 mmol/L (98-107) 01/06/22 06:01 Carbon Dioxide 27 mmol/L (22-29) 01/06/22 06:01 Anion Gap 15.8 (5-19) 01/06/22 06:01 BUN 29 mg/dL (8-23) H 01/06/22 06:01 Creatinine 1.4 mg/dL (0.7-1.2) H 01/06/22 06:01 GFR Calculation Not Reportable 01/06/22 06:01 Glucose 130 mg/dL (65-115) H 01/06/22 06:01 Calculated Osmolality 302 mOsm/kg (285-295) H 01/06/22 06:01 Calcium 9.5 mg/dL (8.5-10.5) 01/06/22 06:01 Total Bilirubin 0.2 mg/dL (0.15-1.2) 01/05/22 14:47 AST 13 U/L (0-40) 01/05/22 14:47 ALT 9 U/L (0-41) 01/05/22 14:47 Alkaline Phosphatase 96 IU/L (40-130) 01/05/22 14:47 Lactate Dehydrogenase 212 U/L (135-225) 01/05/22 14:47 Total Protein 5.3 g/dL (6.6-8.7) L 01/05/22 14:47 Albumin 3.2 g/dL (3.5-5.2) L 01/05/22 14:47 Globulin 2.1 g/dL (1.3-4.6) 01/05/22 14:47 Lipase 35 U/L (13-60) 01/05/22 14:47 Vitamin B12 457 pg/mL (232-1245) 01/05/22 14:47 Folate 7.6 ng/mL (4.5-32.2) 01/05/22 21:04 TSH 7.25 uIU/mL (0.27-4.20) H 01/05/22 21:04 Urine Color Colorless (Yellow) 01/05/22 17:54 Urine Appearance Hazy (CLEAR) A 01/05/22 17:54 Urine pH 7 (5-7) 01/05/22 17:54 Ur Specific [place] 1.010 (1.005-1.030) 01/05/22 17:54 Urine Protein 1+ (Negative) H 01/05/22 17:54 Urine Glucose (UA) Norm (Normal) 01/05/22 17:54 Urine Ketones Negative (Negative) 01/05/22 17:54 Urine Blood 2+ (Negative) H 01/05/22 17:54 Urine Nitrate Negative (Negative) 01/05/22 17:54 Urine Bilirubin Neg (Negative) 01/05/22 17:54 Urine Urobilinogen Norm mg/dL (Negative) 01/05/22 17:54 Ur Leukocyte Esterase 2+ (Negative) H 01/05/22 17:54 Urine RBC 5-10 /hpf (0-2) H 01/05/22 17:54 Urine WBC 40-55 /hpf (0-5) H 01/05/22 17:54 Ur Squamous Epith Cells 0-4 /hpf (0-5) H 01/05/22 17:54 Amorphous Sediment 1+ /hpf 01/05/22 17:54 Urine Bacteria 4+ /hpf (NONE) H 01/05/22 17:54 Blood Type A Positive 01/05/22 17:52 Rho(D) Type Positive 01/05/22 17:52 Antibody Screen Negative 01/05/22 17:52 Vitals Last Vital Signs Temp 97.7 F 01/06/22 08:00 Pulse 84 01/06/22 08:00 Resp 16 01/06/22 08:00 BP 186/99 01/06/22 08:00 Pulse Ox 91 01/06/22 08:00 Discharge Plan Discharge Patient Disposition: Xfer SNF Condition: Fair Prescriptions: New dexamethasone [Decadron] 6 mg tablet 30 mg PO DAILY 2 Days Qty: 10 0RF amlodipine 10 mg tablet 10 mg PO DAILY Qty: 60 1RF levofloxacin 750 mg tablet 750 mg PO DAILY 7 Days Qty: 7 0RF Continued fluticasone propion-salmeterol [Advair Diskus] 250-50 mcg/dose blister with device 1 inh inhalation BID 0RF hydrocodone-acetaminophen 5-325 mg tablet 1 tab PO Q4H PRN (Reason: Pain) 0RF acetaminophen 325 mg capsule 650 mg PO QID PRN (Reason: Pain) 0RF bisacodyl 10 mg suppository 10 mg [place] DAILY PRN (Reason: Constipation) 0RF buspirone 5 mg tablet 5 mg PO TID 0RF [place] Bisacodyl 10 mg/30 mL enema 10 mg [place] DAILY PRN (Reason: Constipation) 0RF mirtazapine 30 mg tablet 30 mg PO DAILY 0RF polyethylene glycol 3350 17 gram powder in packet 17 g PO DAILY PRN (Reason: Constipation) 0RF quetiapine 50 mg tablet 50 mg PO BEDTIME 0RF carboxymethylcellulose sodium [Refresh Tears] 0.5 % drops 1 drp ophthalmic (eye) BID 0RF sennosides-docusate sodium [Senna-S] 8.6-50 mg Tablet 1 - 2 tab PO BID PRN (Reason: Constipation) 0RF albuterol sulfate [Proventil HFA] 90 mcg/actuation HFA aerosol inhaler 1 inh inhalation Q6H PRN (Reason: shortness of breath or wheezing) Qty: 6.7 0RF quetiapine 25 mg tablet 25 mg PO DAILY 0RF Calcitab 600 600 mg calcium (1,500 mg) Tablet 600 mg PO DAILY 0RF Changed metoprolol tartrate 75 mg Tablet 100 mg PO BID Qty: 60 0RF Discontinued aspirin 81 mg Tablet,Delayed Release (Dr/Ec) 81 mg PO DAILY@08 0RF Hold Instructions: Resume on 12/13/19. atorvastatin 10 mg tablet 10 mg PO BEDTIME 0RF Discharge Orders: Discharge Order (Routine); Ordered 01/06/22 Ordered By: Amber Tesfaye Other Ambulatory Orders: Complete Blood Count w/Auto (Routine) Timeframe: 3 Days Location: Determined by Patient Ordered By: Amber Tesfaye Referrals: Rajni Knapp MD [Primary Care Provider] - Discharge Diet: Regular Discharge Attestations Time Spent in Discharge Care*: less than 30 min Status at Discharge: Cognitive status at discharge: cognitively intact, Behavioral status at discharge: cooperative, Quality Metrics Clinical Quality Measures [ No reported AMI, CVA or VTE this stay] Coding Level of Care Code Acute Chg FW DC note Diagnoses Thrombocytopenia D69.6 Kidney mass N28.89 Abnormal finding on urinalysis R82.90
[2022-01-06] MEDS: amlodipine 10 mg Tablet PO (11:45)
[2022-01-06] MEDS: metoprolol tartrate 50 mg Tablet 100 MG PO (11:46)
[2022-01-06 11:57] LABS: Free T4 Free Thyroxine 0.98 ng/dL (0.82-1.77)
[2022-01-06 12:00] VITALS: BP 187/103; PULSE 87; RESP 13; O2SAT 94
--- NOTE | 2022-01-06 13:11 | PC.CHAP ---
Pastoral Care Encounter/Spiritual Assessment Type of Contact [] Declined brick and block mason visit [] Patient/Family/Request visit [] Outpatient visit [] Follow-up visit [] Physician referral [] Code/Alert [x] Routine visit [] Staff referral [] Actively dying [] Patient sleeping [] Family support [] [] Out of room [] Palliative care [] [] Receiving care in room [] Pre-surgical visit [] Trauma [] Long length of stay [] ICU visit [] Other: Relational/Emotional Strength [] Patient feels connected with others/family/visitors/staff [] Distress [] Loneliness/isolation [] Abandonment Spirituality of Patient [] Person of Janet [] Attends Mu-Ism of their Janet [x] Believes in Prayer [] Reads Bible or Taoism materials [] There are Spiritual issues to be addressed Accounting System Expert Interventions [x] Prayer [] Active listening [] Non-anxious presence [] Spiritual/emotional support [] Crisis/trauma care [] Spiritual counseling [] Bereavement support [] Provided bereavement packet [] Provided Bible/devotional materials [] Provided toy/stuffed animal, coloring book to patient or family member [] Provided Communion [] Anointing/[place] [] Salvation [x] Completed spiritual assessment [] Other: Impact on Illness or Injury [] Angry [] Fearful [] Anxious [] Often cries [] Exhaustion [] Unable to work [] Unable to attend church [] Unable to walk/stand [] Unable to read [] Unable to drive [] Unable to eat/drink [] Unable to sleep [] Unable to be with family [] Patient intubated [] Other: Summary Time spent with patient 5 min
[2022-01-06 13:25] LABS: LAB Peripheral Smear Sent for Review
[2022-01-06 13:38] LABS: SARS Covid-2 Antigen Negative (Negative)
[2022-01-06 14:00] VITALS: BP 150/80; PULSE 75; TEMP 36.4; O2SAT 94
--- NOTE | 2022-01-06 18:49 | PC.NURSE ---
pt left his hearing aids,and batteries, red flip phone and electromatic typist. notified dgtr and informed her she can picked it up. his belongings are at the nurses station. notified staff.
--- NOTE | 2022-01-06 18:56 | PC.NURSE ---
security notified of the pt's belongings that were left. they are ok to leave it at the nurses' station.
== END 2022-01-06 14:30 | disposition skilled nursing facility (03) ==
LOC: ER 18:34 → MEDSURG 21:23
PROVIDERS: Admitting Provider Internal Medicine; Emergency Provider Emergency Medicine; PCP Family Medicine; Visit Provider Internal Medicine
DX: D69.6 Thrombocytopenia, unspecified (principal); N28.89 Other specified disorders of kidney and ureter; R82.90 Unspecified abnormal findings in urine; I25.10 Atherosclerotic heart disease of native coronary artery without angina pectoris; E78.5 Hyperlipidemia, unspecified; F03.90 Unspecified dementia, unspecified severity, without behavioral disturbance, psychotic disturbance, mood disturbance, and anxiety; N40.1 Benign prostatic hyperplasia with lower urinary tract symptoms; N13.8 Other obstructive and reflux uropathy; G47.30 Sleep apnea, unspecified; G47.33 Obstructive sleep apnea (adult) (pediatric); I12.9 Hypertensive chronic kidney disease with stage 1 through stage 4 chronic kidney disease, or unspecified chronic kidney disease; N18.9 Chronic kidney disease, unspecified
CPT/HCPCS: 36415; 70450; 74177; 80048; 80053; 80503; 81001; 82607; 82746; 83010; 83615; 83690; 84439; 84443; 85014; 85025; 85045; 85610; 86850; 86900; 87077; 87086; 87186; 87426; 96365; 96375; 99285; C9113; G0378; J8540; Q9967

== ENCOUNTER 2022-01-27 09:15 | Emergency (ER) | payer MEDICARE, OTHER, SELFPAY ==
[2022-01-27] VITALS (10 sets, daily range): BP systolic 100–126; BP diastolic 54–80; PULSE 68–87; RESP 20–27; TEMP 36.5–38.7; O2SAT 92–94; BMI 35.5
--- NOTE | 2022-01-27 09:30 | CT_ITS ---
WS: [id number] CT ABDOMEN AND PELVIS NONCONTRAST HISTORY: Abdominal pain and unresponsiveness. TECHNIQUE: Imaging performed through the abdomen and pelvis. Coronal and sagittal reformats are submi tted. All CT scans at [facility] use at least one of these dose optimization techniques: auto mated exposure control; mA and/or kV adjustment per patient size (includes targeted exams where dose is matched to clinical indication); or iterative reconstruction. DLP: 1053.03 mGy.cm COMPARISON: Study limited by significant motion artifact. Lower thorax: Dependent changes at the lung bases. Moderately enlarged heart. Extensive coronary zeferino ry calcifications. Stable 6 mm nodule in the RIGHT middle lobe since 03/23/2021. Liver: Normal size liver. No mass or bile duct dilatation. Gallbladder: Prior cholecystectomy. Pancreas: Atrophied pancreas. Spleen: Normal. Adrenal glands: Normal. No mass. Right kidney: Mild atrophy. Known cyst measures 3.4 x 3.3 cm. Solid mass in the lower pole measures 2 .4 x 2.6 cm. This was better described on the prior study which had contrast. Left kidney: Normal size kidney with a large cystic mass measuring 9.1 x 10.0 cm. No obstruction. Aorta: Moderate to severe atherosclerosis abdominal aorta. No aneurysm. Atherosclerosis continues int o the common iliac arteries. No free fluid, intraperitoneal air or significant lymphadenopathy. GI tract: Nondistended stomach. No small bowel or colon obstruction. No acute inflammation. Appendix is not definitely identified. Abdominal wall: Negative. No hernia. Pelvis: No free fluid or adenopathy. Extensive vascular calcifications in the iliac arteries. Suprapu bic catheter. Osseous structures: Advanced degenerative changes in the visualized thoracic and lumbar spines. Compl ete loss of the disc at L3-4. Dorsal column stimulator generator over the upper lumbar spine. Mild so ft tissue edema and anasarca surrounding the stimulator. CT/CT abdomen pelvis wo con [id number] IMPRESSION: 1. No acute abdominal or pelvic abnormalities are identified. Similar to the p rior study of 01/05/2022. 2. Bilateral renal cysts and a solid mass RIGHT kidney has been previously cody cribed. 3. Moderate atherosclerosis aorta. 4. No GI tract obstruction. 5. Bilateral lower lobe dependent atelectasis. 6. Suprapubic catheter.
--- NOTE | 2022-01-27 09:32 | W.ED.ABDPA2 ---
HPI - Abdominal Pain General: Chief Complaint: Abdominal Pain Stated Complaint: ABD PAIN, DISTENSION Time Seen by Provider: 01/27/22 09:17 Source: EMS Mode of arrival: EMS Limitations: altered mental status History of Present Illness: 81-year-old male who is here from long term for constipation has not had a bowel movement in 3 to 4 days and states that he has been acting like he is tender in his right lower quadrant. Patient has a history of severe dementia he is bedbound and nonverbal and that is his baseline no history available from the patient. Review of Systems General: Reports: ROS unobtainable due to mental status PFS ED PFSH: Medical History BPH loc w urin obs/LUTS CAD (coronary artery disease) Depression Dyslipidemia Enlarged prostate Fall History of frequent falls, NPH suspect Gallstones Generalized weakness Heart attack Hypertension Intervertebral disc disorder with radiculopathy of lumbosacral region Jock itch Lewy body dementia Lower urinary tract symptoms (LUTS) Lumbar stenosis with neurogenic claudication Prostate enlargement Skin cancer Sleep apnea Spondylolisthesis of lumbar region Urinary retention Surgical History History of hernia repair History of suprapubic catheter Hx of appendectomy Hx of cholecystectomy Hx of heart artery stent Hx of tonsillectomy S/P insertion of spinal cord stimulator Family History Mother , AT AGE 99 Diabetes Hypertension CAD (coronary artery disease) Father , AT AGE 86 Hypertension CAD (coronary artery disease) Other Cholelithiasis Social History Smoking and tobacco status: never smoked Second hand smoke exposure: No Alcohol intake: never Household members: spouse Marital status: Current occupational status: retired History of recent travel: No Physical Exam Const: COMMON NORMALS: negative for patient oriented x3 EXAM LIMITATIONS: altered mental status HENMT: COMMON NORMALS: normocephalic and atraumatic HEAD & SCALP: normocephalic and atraumatic Eye: COMMON NORMALS: Equal, round and reactive pupils present and EOMs intact bilaterally PUPIL: Yes Equal, round and reactive pupils present Neck/C-Spine: COMMON NORMALS: full ROM and supple Chest: COMMONS NORMALS: normal inspection of the chest and normal palpation of entire chest wall Resp: COMMON NORMALS: normal respiratory effort, No retractions, No use of accessory muscles and clear to auscultation bilaterally AUSCULTATION: clear to auscultation bilaterally Cardio: COMMON NORMALS: regular rate, regular rhythm and No murmurs present (Cardio) RATE: regular rate RHYTHM: regular rhythm GI: COMMON NORMALS: Normal to inspection, nondistended, normoactive bowel sounds present, Soft to palpation, non-tender and no masses PALPATION: Yes Soft to palpation Extremity: COMMON NORMALS: normal to inspection and full ROM Neuro: COMMON NORMALS: negative for patient oriented x3, negative for moves all extremities and negative for no focal motor deficits Psych: COMMON NORMALS: negative for mental status grossly normal and negative for Normal thought process present THOUGHT PROCESS: abnormal Skin: COMMON NORMALS: no rashes or lesions noted and no wounds GENERAL SKIN EXAM: no rashes or lesions noted Course Vital Signs: Vital signs: Vital Signs Temperature 101.6 F H 01/27/22 09:43 Pulse Rate 71 01/27/22 10:45 Respiratory Rate 24 H 01/27/22 10:45 Blood Pressure 121/63 01/27/22 10:45 Pulse Oximetry 93 01/27/22 10:45 Oxygen Delivery Me thod 01/27/22 10:45 Oxygen Flow Rate 6 01/27/22 10:45 MDM - Abdominal Pain Medical Decision Making Patient is present here with fever he also has shortness of breath requiring oxygen here CT and x-ray looks like a likely pneumonia. I did discuss with his daughter at length she states that he does have severe dementia he is bedbound they have been discussing palliative care. She states she would like him discharged back to the long term at this time on palliative care. Did speak to long term and will discharge at this time. Lab Data : 01/27/22 09:30 01/27/22 09:30 Labs/Radiology: Radiology Impressions Abdomen/Pelvis CT 01/27/22 09:30 IMPRESSION: 1. No acute abdominal or pelvic abnormalities are identified. Similar to the prior study of 01/05/2022. 2. Bilateral renal cysts and a solid mass RIGHT kidney has been previously described. 3. Moderate atherosclerosis aorta. 4. No GI tract obstruction. 5. Bilateral lower lobe dependent atelectasis. 6. Suprapubic catheter. Chest X-Ray 01/27/22 10:06 IMPRESSION: The changes in the left lower lung are likely parenchymal scarring residual (at least in part) from the previous pneumonitis however it is more extensive than would be expected and the possibility of a superimposed acute pneumonitis would need consideration. Laboratory Results WBC 10.7 10^3/uL (4.0-10.0) H 01/27/22 09:30 RBC 4.16 10^6/uL (4.1-5.3) 01/27/22 09:30 Hgb 12.5 g/dL (11.7-16.6) 01/27/22 09:30 Hct 38.6 % (42.0-52.0) L 01/27/22 09:30 MCV 92.8 fl (80-94) 01/27/22 09:30 MCH 30.0 pg (28.0-34.0) 01/27/22 09:30 MCHC 32.4 g/dL (30.0-36.0) 01/27/22 09:30 RDW 14.9 % (12.1-15.1) 01/27/22 09:30 Plt Count 129 10^3/cmm (130-400) L 01/27/22 09:30 MPV 10.6 fL (7.4-10.4) H 01/27/22 09:30 Neut % (Auto) 77.3 % 01/27/22 09:30 Lymph % (Auto) 9.3 % 01/27/22 09:30 [place] % (Auto) 12.5 % 01/27/22 09:30 Eos % (Auto) 0.1 % 01/27/22 09:30 Baso % (Auto) 0.3 % 01/27/22 09:30 Neut # (Auto) 8.27 10^3/uL (1.8-7.7) H 01/27/22 09:30 Lymph # (Auto) 1.0 10^3/uL (0.8-4.8) 01/27/22 09:30 [place] # (Auto) 1.3 10^3/uL (0.2-0.9) H 01/27/22 09:30 Eos # (Auto) 0.0 10^3/uL (0.0-0.8) 01/27/22 09:30 Baso # (Auto) 0.0 10^3/uL (0.0-0.1) 01/27/22 09:30 Nucleated RBC % (auto) 0 % 01/27/22 09:30 Nucleated RBCs # 0.0 /100WBC 01/27/22 09:30 Sodium 139 mmol/L (136-145) 01/27/22 09:30 Potassium 4.2 mmol/L (3.5-5.1) 01/27/22 09:30 Chloride 106 mmol/L (98-107) 01/27/22 09:30 Carbon Dioxide 22 mmol/L (22-29) 01/27/22 09:30 Anion Gap 15.2 (5-19) 01/27/22 09:30 BUN 37 mg/dL (8-23) H 01/27/22 09:30 Creatinine 2.1 mg/dL (0.7-1.2) H 01/27/22 09:30 GFR Calculation Not Reportable 01/27/22 09:30 Glucose 104 mg/dL (65-115) 01/27/22 09:30 Calculated Osmolality 297 mOsm/kg (285-295) H 01/27/22 09:30 Lactic Acid 1.8 mmol/L (0.5-2.2) 01/27/22 09:30 Calcium 8.4 mg/dL (8.5-10.5) L 01/27/22 09:30 Total Bilirubin 1.2 mg/dL (0.15-1.2) 01/27/22 09:30 AST 16 U/L (0-40) 01/27/22 09:30 ALT 16 U/L (0-41) 01/27/22 09:30 Alkaline Phosphatase 100 IU/L (40-130) 01/27/22 09:30 Total Protein 5.8 g/dL (6.6-8.7) L 01/27/22 09:30 Albumin 3.1 g/dL (3.5-5.2) L 01/27/22 09:30 Globulin 2.7 g/dL (1.3-4.6) 01/27/22 09:30 Lipase 14 U/L (13-60) 01/27/22 09:30 Urine Color Yellow (Yellow) 01/27/22 09:34 Urine Appearance Cloudy (CLEAR) 01/27/22 09:34 Urine pH 5 (5-7) 01/27/22 09:34 Ur Specific [place] 1.015 (1.005-1.030) 01/27/22 09:34 Urine Protein 3+ (Negative) H 01/27/22 09:34 Urine Glucose (UA) Norm (Normal) 01/27/22 09:34 Urine Ketones 1+ (Negative) H 01/27/22 09:34 Urine Blood 3+ (Negative) H 01/27/22 09:34 Urine Nitrate Negative (Negative) 01/27/22 09:34 Urine Bilirubin 1+ (Negative) H 01/27/22 09:34 Urine Urobilinogen 1 mg/dL (Negative) H 01/27/22 09:34 Ur Leukocyte Esterase 2+ (Negative) H 01/27/22 09:34 Urine RBC 5-10 /hpf (0-2) H 01/27/22 09:34 Urine WBC Too numerous to cnt /hpf (0-5) H 01/27/22 09:34 Ur Squamous Epith Cells 0-4 /hpf (0-5) H 01/27/22 09:34 Amorphous Sediment Not Reportable 01/27/22 09:34 Urine Bacteria 2+ /hpf (NONE) H 01/27/22 09:34 SARS-CoV-2 Ag (Rapid) Negative (Negative) 01/27/22 10:22 EKG Data EKG 1: I personally reviewed and interpreted this EKG as follows: EKG interpretation date: 01/27/22 EKG interpretation time: 02:29 Interpretation: nsr hr [address] or t wave abnormalities qrs 83 qtc 458 Discharge Plan Discharge Patient Disposition: Home Clinical Impression: Pneumonia Qualifiers: Pneumonia type: due to unspecified organism Laterality: bilateral Lung location: lower lobe of lung Qualified Code(s): J18.9 - Pneumonia, unspecified organism Condition: Stable Prescriptions: New doxycycline hyclate 100 mg capsule 100 mg PO BID 7 Days Qty: 14 0RF No Action fluticasone propion-salmeterol [Advair Diskus] 250-50 mcg/dose blister with device 1 inh inhalation BID hydrocodone-acetaminophen 5-325 mg tablet 1 tab PO Q4H PRN (Reason: Pain) acetaminophen 325 mg capsule 650 mg PO QID PRN (Reason: Pain) bisacodyl 10 mg suppository 10 mg [place] DAILY PRN (Reason: Constipation) buspirone 5 mg tablet 5 mg PO TID Fleet Bisacodyl 10 mg/30 mL enema 10 mg OH DAILY PRN (Reason: Constipation) mirtazapine 30 mg tablet 30 mg PO DAILY polyethylene glycol 3350 17 gram powder in packet 17 g PO DAILY PRN (Reason: Constipation) quetiapine 50 mg tablet 50 mg PO BEDTIME carboxymethylcellulose sodium [Refresh Tears] 0.5 % drops 1 drp ophthalmic (eye) BID sennosides-docusate sodium [Senna-S] 8.6-50 mg Tablet 1 - 2 tab PO BID PRN (Reason: Constipation) albuterol sulfate [Proventil HFA] 90 mcg/actuation HFA aerosol inhaler 1 inh inhalation Q6H PRN (Reason: shortness of breath or wheezing) Qty: 6.7 0RF quetiapine 25 mg tablet 25 mg PO DAILY calcium carbonate 600 mg calcium (1,500 mg) Tablet 600 mg PO DAILY amlodipine 10 mg tablet 10 mg PO DAILY Qty: 60 1RF metoprolol tartrate 75 mg Tablet 100 mg PO BID Qty: 60 0RF Discharge Orders: Discharge ED (Routine); Ordered 01/27/22 Ordered By: Luis F Parmar Referrals: Rajni Knapp MD [Primary Care Provider] - Discharge Diet: Advance as tolerated Discharge Activity: Resume usual activity Patient Instructions: Pneumonia (ED) Coding Level of Care Code ED Forder Operator for Chg Fwd Exam Comprehensive
[2022-01-27 09:40] LABS: Basophils % 0.3 %; Eosinophils % 0.1 %; Hematocrit 38.6 % (42.0-52.0); Hemoglobin 12.5 g/dL (11.7-16.6); Lymphocytes % 9.3 %; Mean Corpuscular HGB Conc 32.4 g/dL (30.0-36.0); Mean Corpuscular Volume 92.8 fl (80-94); Mean Platelet Volume 10.6 fL (7.4-10.4); Monocytes # 1.3 10^3/uL (0.2-0.9); Monocytes % 12.5 %; Neutrophils # 8.27 10^3/uL (1.8-7.7); Neutrophils % 77.3 %; Nucleated Red Blood Cells % 0 %; Platelet Count 129 10^3/cmm (130-400); Red Blood Count 4.16 10^6/uL (4.1-5.3); Red Cell Distribution Width 14.9 % (12.1-15.1); White Blood Count 10.7 10^3/uL (4.0-10.0)
[2022-01-27 09:57] LABS: Add Urine Microscopic? YES; Bilirubin Urine 1+ (Negative); Blood Urine 3+ (Negative); Glucose Urine UA Norm (Normal); Ketones Urine 1+ (Negative); Leukocyte Esterase Urine 2+ (Negative); Nitrate Urine Negative (Negative); Protein Urine 3+ (Negative); Specific Gravity, Urine 1.015 (1.005-1.030); Urine Appearance Cloudy (CLEAR); Urine Color Yellow (Yellow); Urobilinogen Urine 1 mg/dL (Negative); pH Urine 5 (5-7)
[2022-01-27 10:03] LABS: Alanine Aminotransferase 16 U/L (0-41); Albumin Level 3.1 g/dL (3.5-5.2); Alkaline Phosphatase 100 IU/L (40-130); Anion Gap 15.2 (5-19); Aspartate Amino Transferase 16 U/L (0-40); Blood Urea Nitrogen 37 mg/dL (8-23); Calcium 8.4 mg/dL (8.5-10.5); Carbon Dioxide 22 mmol/L (22-29); Chloride 106 mmol/L (98-107); Globulin 2.7 g/dL (1.3-4.6); Glucose 104 mg/dL (65-115); Lipase 14 U/L (13-60); Osmolality Calculated 297 mOsm/kg (285-295); Potassium 4.2 mmol/L (3.5-5.1); Sodium 139 mmol/L (136-145); Total Bilirubin 1.2 mg/dL (0.15-1.2); Total Protein 5.8 g/dL (6.6-8.7)
[2022-01-27 10:04] LABS: Add Urine Culture? Yes; Bacteria Urine 2+ /hpf; Squamous Epithelial Cell Urine 0-4 /hpf (0-5); WBC Urine TOO NUMEROUS TO CNT /hpf (0-5)
--- NOTE | 2022-01-27 10:06 | XR_ITS ---
WS: [id number] XR chest 1V portable [id number] REASON FOR EXAM: fever FINDINGS: Mild tortuosity of the thoracic aorta heart size at the upper limits of normal. Chest x-rays in February 2021 were compatible with a Covid typed pneumonitis. At this time there are irregular reticular interstitial lung opacities in the left lower lung. The right lung is clear. XR/XR chest 1V portable [id number] IMPRESSION: The changes in the left lower lung are likely parenchymal scarring residual (at least in part) from the previous pneumonitis however it is more extensive than would be expected and the possibility of a superimposed acute pneumonitis woul d need consideration.
[2022-01-27] MEDS: acetaminophen 650 mg Supp PR (10:19)
--- NOTE | 2022-01-27 10:43 | PC.NURSE ---
Report called to KYRIE Nicholas at long term.
[2022-01-27 10:53] LABS: SARS Covid-2 Antigen Negative (Negative)
[2022-01-27 10:53] LABS: Lactic Sepsis W/Reflex 1.8 mmol/L (0.5-2.2)
--- NOTE | 2022-01-27 10:56 | PC.NURSE ---
Report to KYRIE Smith
--- NOTE | 2022-01-27 11:42 | PC.NURSE ---
PC TO [facility] SPOKE WITH CELESTE ABOUT TRANSFER TO [facility] HE VERBALIZED UNDERSTANDING AND STATED THAT THEY WOULD SEND SOMEONE BRITTANY.
--- NOTE | 2022-01-27 13:37 | ECG_ITS ---
[facility] Test Date: 2022-01-27 Pat Name: Peter Reno Department: Room: Gender: Male Pricer: : [id number] Requested By: Luis F Parmar Order Number: [id number] Vaishali MD: Marialuisa Lopez M.D. Measurements Intervals [place] Rate: 71 P: 59 TX: 250 QRS: -2 QRSD: 83 T: 52 QT: 435 QTc: 474 Interpretive Statements SINUS RHYTHM WITH FIRST DEGREE AV BLOCK WITH OCCASIONAL VENTRICULAR PREMATURE COMPLEXES Compared to ECG 11/30/2021 06:42:15 Myocardial infarct finding no longer present Electronically Signed On 01-27-2022 18:33:15 CDT by Marialuisa Lopez M.D. [email or web address]
== END 2022-01-27 12:22 | disposition home or self-care (01) ==
PROVIDERS: Emergency Provider Emergency Medicine; PCP Family Medicine
DX: J18.9 Pneumonia, unspecified organism (principal); I25.10 Atherosclerotic heart disease of native coronary artery without angina pectoris; E78.5 Hyperlipidemia, unspecified; I10 Essential (primary) hypertension; G31.83 Neurocognitive disorder with Lewy bodies; F02.80 Dementia in other diseases classified elsewhere, unspecified severity, without behavioral disturbance, psychotic disturbance, mood disturbance, and anxiety; Z20.822 Contact with and (suspected) exposure to COVID-19
CPT/HCPCS: 71045; 74176; 80053; 81001; 83605; 83690; 85025; 87077; 87086; 87186; 87426; 93005; 99285

== ENCOUNTER 2022-02-16 23:06 | Emergency (ER) | payer MEDICARE, OTHER, SELFPAY ==
[2022-02-16 23:07] VITALS: BP 124/76; PULSE 72; RESP 16; TEMP 37.1; O2SAT 94; BMI 28.2
--- NOTE | 2022-02-16 23:12 | W.ED.MALEGU ---
HPI - Male Genitourinary General: Chief complaint: Urogenital-Male Stated complaint: CATH ISSUES Time Seen by Provider: 02/16/22 23:07 Source: patient and EMS Mode of arrival: EMS Limitations: no limitations History of Present Illness: 81-year-old male is here from [facility] due to dysfunction of his catheter he has a suprapubic Hassan catheter they states not been working since this morning. They believe that it is clogged and not able to get anything out of it patient has had no fever he does have a history of dementia no change in his mental status. Associated symptoms: Deny dysuria, nausea or vomiting Review of Systems Const: Denies: fever(s), chills, body aches or change in appetite Eyes: Denies: blurry vision or eye discomfort ENMT: Denies: throat pain or dental pain Card: Denies: chest pain Resp: Denies: dyspnea GI: Denies: abdominal pain, nausea, vomiting or diarrhea : Reports: difficulty urinating; Denies: dysuria Musc: Denies: neck pain or back pain Skin/Breast: Denies: rash Neuro: Denies: headache(s) Psych: Denies: depression James/Lymph: Denies: easy bruising All/Imm: Denies: urticaria PFSH ED PFSH: Medical History BPH loc w urin obs/LUTS CAD (coronary artery disease) Depression Dyslipidemia Enlarged prostate Fall History of frequent falls, NPH suspect Gallstones Generalized weakness Heart attack Hypertension Intervertebral disc disorder with radiculopathy of lumbosacral region Jock itch Lewy body dementia Lower urinary tract symptoms (LUTS) Lumbar stenosis with neurogenic claudication Prostate enlargement Skin cancer Sleep apnea Spondylolisthesis of lumbar region Urinary retention Surgical History History of hernia repair History of suprapubic catheter Hx of appendectomy Hx of cholecystectomy Hx of heart artery stent Hx of tonsillectomy S/P insertion of spinal cord stimulator Family History Mother , AT AGE 99 Diabetes Hypertension CAD (coronary artery disease) Father , AT AGE 86 Hypertension CAD (coronary artery disease) Other Cholelithiasis Social History Smoking and tobacco status: never smoked Second hand smoke exposure: No Alcohol intake: never Household members: spouse Marital status: Current occupational status: retired History of recent travel: No Physical Exam Const: COMMON NORMALS: no acute distress, patient oriented x3 and healthy appearing HENMT: COMMON NORMALS: normocephalic and atraumatic HEAD & SCALP: normocephalic and atraumatic Eye: COMMON NORMALS: Equal, round and reactive pupils present and EOMs intact bilaterally PUPIL: Yes Equal, round and reactive pupils present Neck/C-Spine: COMMON NORMALS: full ROM and supple Chest: COMMONS NORMALS: normal inspection of the chest and normal palpation of entire chest wall Resp: COMMON NORMALS: normal respiratory effort, No retractions, No use of accessory muscles and clear to auscultation bilaterally AUSCULTATION: clear to auscultation bilaterally Cardio: COMMON NORMALS: regular rate, regular rhythm and No murmurs present (Cardio) RATE: regular rate RHYTHM: regular rhythm GI: COMMON NORMALS: Normal to inspection, nondistended, normoactive bowel sounds present, Soft to palpation, non-tender and no masses PALPATION: Yes Soft to palpation : OTHER: Suprapubic Hassan in place does not appear to be functioning Extremity: COMMON NORMALS: normal to inspection and full ROM Neuro: COMMON NORMALS: patient oriented x3, moves all extremities and no focal motor deficits Psych: COMMON NORMALS: mental status grossly normal, Normal thought process present and cooperative THOUGHT PROCESS: Normal thought process present Skin: COMMON NORMALS: no rashes or lesions noted and no wounds GENERAL SKIN EXAM: no rashes or lesions noted Course Vital Signs: Vital signs: Vital Signs Temperature 98.7 F 02/16/22 23:07 Pulse Rate 72 02/16/22 23:07 Respiratory Rate 16 02/16/22 23:07 Blood Pressure 124/76 02/16/22 23:07 Pulse Oximetry 94 02/16/22 23:07 Oxygen Delivery Me thod 02/16/22 23:07 Oxygen Flow Rate 2 02/16/22 23:07 MDM - Male Medical Decision Making Patient presents with clogged suprapubic Hassan did replace his Hassan has no signs of kidney injury he is well-appearing here he stable for discharge he is to follow-up with Dr. Shaw return if worsening. Lab Data : 02/16/22 23:33 02/16/22 23:33 Laboratory Results WBC 11.0 10^3/uL (4.0-10.0) H 02/16/22 23:33 RBC 4.58 10^6/uL (4.1-5.3) 02/16/22 23:33 Hgb 13.5 g/dL (11.7-16.6) 02/16/22 23:33 Hct 40.9 % (42.0-52.0) L 02/16/22 23: MCV 89.3 fl (80-94) 02/16/22 23: MCH 29.5 pg (28.0-34.0) 02/16/22 23: MCHC 33.0 g/dL (30.0-36.0) 02/16/22 23: RDW 13.0 % (12.1-15.1) 02/16/22 23:33 Plt Count 170 10^3/cmm (130-400) 02/16/22 23: MPV 10.6 fL (7.4-10.4) H 02/16/22 23:33 Neut % (Auto) 76.7 % 02/16/22 23:33 Lymph % (Auto) 13.7 % 02/16/22 23:33 [place] % (Auto) 7.2 % 02/16/22 23:33 Eos % (Auto) 1.2 % 02/16/22 23: Baso % (Auto) 0.5 % 02/16/22 23:33 Neut # (Auto) 8.45 10^3/uL (1.8-7.7) H 02/16/22 23:33 Lymph # (Auto) 1.5 10^3/uL (0.8-4.8) 02/16/22 23:33 [place] # (Auto) 0.8 10^3/uL (0.2-0.9) 02/16/22 23:33 Eos # (Auto) 0.1 10^3/uL (0.0-0.8) 02/16/22 23:33 Baso # (Auto) 0.1 10^3/uL (0.0-0.1) 02/16/22 23:33 Nucleated RBC % (auto) 0 % 02/16/22 23:33 Nucleated RBCs # 0.0 /100WBC 02/16/22 23:33 Sodium 138 mmol/L (136-145) 02/16/22 23:33 Potassium 4.3 mmol/L (3.5-5.1) 02/16/22 23:33 Chloride 104 mmol/L (98-107) 02/16/22 23:33 Carbon Dioxide 23 mmol/L (22-29) 02/16/22 23:33 Anion Gap 15.3 (5-19) 02/16/22 23:33 BUN 25 mg/dL (8-23) H 02/16/22 23:33 Creatinine 1.5 mg/dL (0.7-1.2) H 02/16/22 23:33 GFR Calculation Not Reportable 02/16/22 23:33 Glucose 105 mg/dL (65-115) 02/16/22 23:33 Calculated Osmolality 291 mOsm/kg (285-295) 02/16/22 23:33 Calcium 9.2 mg/dL (8.5-10.5) 02/16/22 23:33 Total Bilirubin 0.5 mg/dL (0.15-1.2) 02/16/22 23:33 AST 16 U/L (0-40) 02/16/22 23:33 ALT 15 U/L (0-41) 02/16/22 23:33 Alkaline Phosphatase 113 U/L (40-130) 02/16/22 23:33 Total Protein 6.3 g/dL (6.6-8.7) L 02/16/22 23:33 Albumin 3.2 g/dL (3.5-5.2) L 02/16/22 23:33 Globulin 3.1 g/dL (1.3-4.6) 02/16/22 23:33 Discharge Plan Discharge Patient Disposition: Home Clinical Impression: Obstructed Hassan catheter Condition: Stable Prescriptions: No Action fluticasone propion-salmeterol [Advair Diskus] 250-50 mcg/dose blister with device 1 inh inhalation BID hydrocodone-acetaminophen 5-325 mg tablet 1 tab PO Q4H PRN (Reason: Pain) acetaminophen 325 mg capsule 650 mg PO QID PRN (Reason: Pain) bisacodyl 10 mg suppository 10 mg [place] DAILY PRN (Reason: Constipation) buspirone 5 mg tablet 5 mg PO TID Fleet Bisacodyl 10 mg/30 mL enema 10 mg [place] DAILY PRN (Reason: Constipation) mirtazapine 30 mg tablet 30 mg PO DAILY polyethylene glycol 3350 17 gram powder in packet 17 g PO DAILY PRN (Reason: Constipation) quetiapine 50 mg tablet 50 mg PO BEDTIME carboxymethylcellulose sodium [Refresh Tears] 0.5 % drops 1 drp ophthalmic (eye) BID sennosides-docusate sodium [Senna-S] 8.6-50 mg Tablet 1 - 2 tab PO BID PRN (Reason: Constipation) albuterol sulfate [Proventil HFA] 90 mcg/actuation HFA aerosol inhaler 1 inh inhalation Q6H PRN (Reason: shortness of breath or wheezing) Qty: 6.7 0RF quetiapine 25 mg tablet 25 mg PO DAILY calcium carbonate 600 mg calcium (1,500 mg) Tablet 600 mg PO DAILY amlodipine 10 mg tablet 10 mg PO DAILY Qty: 60 1RF metoprolol tartrate 75 mg Tablet 100 mg PO BID Qty: 60 0RF Discharge Orders: Discharge ED (Routine); Ordered 02/17/22 Ordered By: Luis F Parmar Referrals: Rajni Knapp MD [Primary Care Provider] - Nicolas Shaw MD [Physician] - 1-3 days Discharge Diet: Advance as tolerated Discharge Activity: Resume usual activity Patient Instructions: How to Care for Your Suprapubic Catheter (DC) Coding Level of Care Code ED Weigher And Crusher for Chg Fwd Exam Comprehensive
[2022-02-16 23:25] VITALS: BP 136/69
[2022-02-16] MEDS: sodium chloride 0.9% 500 ML IV (23:35)
[2022-02-16 23:43] LABS: Basophils # 0.1 10^3/uL (0.0-0.1); Basophils % 0.5 %; Eosinophils # 0.1 10^3/uL (0.0-0.8); Eosinophils % 1.2 %; Hematocrit 40.9 % (42.0-52.0); Hemoglobin 13.5 g/dL (11.7-16.6); Lymphocytes # 1.5 10^3/uL (0.8-4.8); Lymphocytes % 13.7 %; Mean Corpuscular Hemoglobin 29.5 pg (28.0-34.0); Mean Corpuscular Volume 89.3 fl (80-94); Mean Platelet Volume 10.6 fL (7.4-10.4); Monocytes # 0.8 10^3/uL (0.2-0.9); Monocytes % 7.2 %; Neutrophils # 8.45 10^3/uL (1.8-7.7); Neutrophils % 76.7 %; Nucleated Red Blood Cells % 0 %; Platelet Count 170 10^3/cmm (130-400); Red Blood Count 4.58 10^6/uL (4.1-5.3)
[2022-02-17 00:04] LABS: Alanine Aminotransferase 15 U/L (0-41); Albumin Level 3.2 g/dL (3.5-5.2); Alkaline Phosphatase 113 U/L (40-130); Anion Gap 15.3 (5-19); Aspartate Amino Transferase 16 U/L (0-40); Blood Urea Nitrogen 25 mg/dL (8-23); Calcium 9.2 mg/dL (8.5-10.5); Carbon Dioxide 23 mmol/L (22-29); Chloride 104 mmol/L (98-107); Globulin 3.1 g/dL (1.3-4.6); Glucose 105 mg/dL (65-115); Osmolality Calculated 291 mOsm/kg (285-295); Potassium 4.3 mmol/L (3.5-5.1); Sodium 138 mmol/L (136-145); Total Bilirubin 0.5 mg/dL (0.15-1.2); Total Protein 6.3 g/dL (6.6-8.7)
[2022-02-17 00:43] VITALS: BP 125/65; PULSE 63; O2SAT 95
[2022-02-17 01:00] VITALS: BP 127/68; PULSE 64; RESP 18; O2SAT 94
[2022-02-17 01:16] VITALS: BP 127/68; PULSE 64; RESP 18; O2SAT 94
== END 2022-02-17 01:07 | disposition home or self-care (01) ==
PROVIDERS: Emergency Provider Emergency Medicine; PCP Family Medicine
DX: T83.098A Other mechanical complication of other urinary catheter, initial encounter (principal); I25.10 Atherosclerotic heart disease of native coronary artery without angina pectoris; E78.5 Hyperlipidemia, unspecified; I10 Essential (primary) hypertension
CPT/HCPCS: 80053; 85025; 99283; J7040

== ENCOUNTER 2022-02-17 04:03 | Emergency (ER) | payer MEDICARE, OTHER, SELFPAY ==
[2022-02-17 04:04] VITALS: BP 161/78; PULSE 88; RESP 18; TEMP 36.9; O2SAT 90; BMI 28.2
--- NOTE | 2022-02-17 04:05 | CTR_ITS ---
PROCEDURE INFORMATION: Exam: CT Abdomen And Pelvis Without Contrast Exam date and time: 02/17/2022 4:15 AM Age: 81 years old Clinical indication: Other: Urinary retention; Prior surgery; Surgery type: Gb. Appy. Hernia repair. Spinal stimulator. Suprapubic catheter. Patient HX: Brought from [facility] for no urine production from catheter. ; Additional info: Urinary retention, abd pain TECHNIQUE: Imaging protocol: Computed tomography of the abdomen and pelvis without contrast. Radiation optimization: All CT scans at this facility use at least one of these dose optimization techniques: automated exposure control; mA and/or kV adjustment per patient size (includes targeted exams where dose is matched to clinical indication); or iterative reconstruction. COMPARISON: CT abdomen pelvis wo con [id number] 01/27/2022 9:42 AM RADIATION DOSE METRICS: Total DLP (mGy-cm): 1515.39 FINDINGS: Tubes, catheters and devices: A suprapubic Hassan catheter is present. The balloon extends into the bulbous portion of the penile urethra. Spinal stimulator is present, the electrodes entering the spinal canal at T8. Lungs: There are in strandy and patchy opacities present in the lower hemithoraces bilaterally compatible with atelectasis although bilateral basilar infiltrates and pneumonia cannot be excluded. Heart: Prominent calcifications are seen in the coronary arteries. Liver: Normal. No mass. Gallbladder and bile ducts: Status post cholecystectomy. Pancreas: Normal. No ductal dilation. Spleen: Normal. No splenomegaly. Adrenal glands: Normal. No mass. Kidneys and ureters: A stable 9 cm benign cyst is seen in the upper pole of the left kidney and a stable 3.7 cm cyst is seen on the posterior aspect of the right kidney. A stable 4.4 mm calculus seen in the lower pole of the left kidney. Stomach and bowel: Unremarkable. No obstruction. No mucosal thickening. Appendix: Status post appendectomy. Intraperitoneal space: Unremarkable. No free air. No significant fluid collection. Vasculature: Calcifications present within the thoracic and abdominal aorta, iliac arteries and femoral arteries bilaterally and branches of the celiac and superior mesenteric arteries. Lymph nodes: Unremarkable. No enlarged lymph nodes. Urinary bladder: The bladder is partially distended with urine. Reproductive: Prostate gland is prominent measuring 6.2 cm AP dimension by 5.8 cm transverse dimension and 7.0 cm craniocaudal dimension. Bones/joints: Unremarkable. No acute fracture. Soft tissues: Unremarkable. CT/CT abdomen pelvis wo con [id number] IMPRESSION: 1. There is a suprapubic Hassan catheter present. Catheter tubing extends through the urinary bladder and prostate gland with the balloon present in the bulbous portion of the penile urethra. There is urine present within the partially distended bladder. 2. Prominent prostate gland 3. Stable bilateral renal cysts, the largest is seen in the left kidney measuring 9 cm. No further workup needed. 4. Stable nonobstructing 4 4 mm calculus in the lower pole of the left kidney. 5. Strandy and patchy opacities in the lower hemithoraces bilaterally likely represents atelectasis although bilateral basilar infiltrates and pneumonia cannot be entirely excluded.
--- NOTE | 2022-02-17 04:28 | ED_ITS ---
HPI - Male Genitourinary General: Chief complaint: Urogenital-Male Stated complaint: CATH PROBLEMS Time Seen by Provider: 02/17/22 04:05 Source: patient and EMS Mode of arrival: EMS Limitations: no limitations History of Present Illness: 81-year-old male seen here earlier tonight for suprapubic catheter being clogged. Placed a new catheter had a little urine output on his initial visit did a bedside ultrasound saw balloon in the bladder with no urine in the bladder per EMS half-way did not believe that the Hassan was in there for enough and had placed it further and noticed blood at the head of his meatus and has had no more urine output he is in pain here currently Associated symptoms: Deny dysuria, nausea or vomiting Review of Systems Const: Denies: fever(s), chills, body aches or change in appetite Eyes: Denies: blurry vision or eye discomfort ENMT: Denies: throat pain or dental pain Card: Denies: chest pain Resp: Denies: dyspnea GI: Reports: abdominal pain; Denies: nausea, vomiting or diarrhea : Reports: difficulty urinating; Denies: dysuria Musc: Denies: neck pain or back pain Skin/Breast: Denies: rash Neuro: Denies: headache(s) Psych: Denies: depression James/Lymph: Denies: easy bruising All/Imm: Denies: urticaria PFSH ED PFSH: Medical History Acute UTI BPH loc w urin obs/LUTS CAD (coronary artery disease) Depression Dyslipidemia Enlarged prostate Fall History of frequent falls, NPH suspect Gallstones Generalized weakness Heart attack Hypertension Intervertebral disc disorder with radiculopathy of lumbosacral region Jock itch Lewy body dementia Lower urinary tract symptoms (LUTS) Lumbar stenosis with neurogenic claudication Prostate enlargement Skin cancer Sleep apnea Spondylolisthesis of lumbar region Urinary retention Surgical History History of hernia repair History of suprapubic catheter Hx of appendectomy Hx of cholecystectomy Hx of heart artery stent Hx of tonsillectomy S/P insertion of spinal cord stimulator Family History Mother , AT AGE 99 Diabetes Hypertension CAD (coronary artery disease) Father , AT AGE 86 Hypertension CAD (coronary artery disease) Other Cholelithiasis Social History Smoking and tobacco status: never smoked Second hand smoke exposure: No Alcohol intake: never Household members: spouse Marital status: Current occupational status: retired History of recent travel: No Physical Exam Const: COMMON NORMALS: no acute distress, patient oriented x3 and healthy appearing HENMT: COMMON NORMALS: normocephalic and atraumatic HEAD & SCALP: normocephalic and atraumatic Eye: COMMON NORMALS: Equal, round and reactive pupils present and EOMs intact bilaterally PUPIL: Yes Equal, round and reactive pupils present Neck/C-Spine: COMMON NORMALS: full ROM and supple Chest: COMMONS NORMALS: normal inspection of the chest and normal palpation of entire chest wall Resp: COMMON NORMALS: normal respiratory effort, No retractions, No use of accessory muscles and clear to auscultation bilaterally AUSCULTATION: clear to auscultation bilaterally Cardio: COMMON NORMALS: regular rate, regular rhythm and No murmurs present (Cardio) RATE: regular rate RHYTHM: regular rhythm GI: COMMON NORMALS: Normal to inspection, nondistended, normoactive bowel sounds present, Soft to palpation, non-tender and no masses PALPATION: Yes Soft to palpation : OTHER: Slight amount of blood at meatus no urine coming from suprapubic catheter Extremity: COMMON NORMALS: normal to inspection and full ROM Neuro: COMMON NORMALS: patient oriented x3, moves all extremities and no focal motor deficits Psych: COMMON NORMALS: mental status grossly normal, Normal thought process present and cooperative THOUGHT PROCESS: Normal thought process present Skin: COMMON NORMALS: no rashes or lesions noted and no wounds GENERAL SKIN EXAM: no rashes or lesions noted Course Vital Signs: Vital signs: Vital Signs Temperature 98.4 F 02/17/22 04:04 Pulse Rate 75 02/17/22 04:51 Respiratory Rate 18 02/17/22 04:04 Blood Pressure 146/76 02/17/22 04:51 Pulse Oximetry 89 L 02/17/22 04:51 Oxygen Delivery Me thod 02/17/22 04:51 Oxygen Flow Rate 2 02/17/22 04:51 MDM - Male Medical Decision Making Patient presented here no urine output from his suprapubic catheter it was in his urethra. Both wound was deflated catheter pulled back had good urine return inflated the balloon CT shows no other findings he is stable for discharge is to follow-up with his urology and return if worsening. Lab Data Radiology Impressions Abdomen/Pelvis CT 02/17/22 04:05 IMPRESSION: 1. There is a suprapubic Hassan catheter present. Catheter tubing extends through the urinary bladder and prostate gland with the balloon present in the bulbous portion of the penile urethra. There is urine present within the partially distended bladder. 2. Prominent prostate gland 3. Stable bilateral renal cysts, the largest is seen in the left kidney measuring 9 cm. No further workup needed. 4. Stable nonobstructing 4 4 mm calculus in the lower pole of the left kidney. 5. Strandy and patchy opacities in the lower hemithoraces bilaterally likely represents atelectasis although bilateral basilar infiltrates and pneumonia cannot be entirely excluded. Discharge Plan Discharge Patient Disposition: Home Clinical Impression: Complication, suprapubic catheter obstruction Condition: Stable Prescriptions: No Action fluticasone propion-salmeterol [Advair Diskus] 250-50 mcg/dose blister with device 1 inh inhalation BID hydrocodone-acetaminophen 5-325 mg tablet 1 tab PO Q4H PRN (Reason: Pain) acetaminophen 325 mg capsule 650 mg PO QID PRN (Reason: Pain) bisacodyl 10 mg suppository 10 mg MN DAILY PRN (Reason: Constipation) buspirone 5 mg tablet 5 mg PO TID Fleet Bisacodyl 10 mg/30 mL enema 10 mg MN DAILY PRN (Reason: Constipation) mirtazapine 30 mg tablet 30 mg PO DAILY polyethylene glycol 3350 17 gram powder in packet 17 g PO DAILY PRN (Reason: Constipation) quetiapine 50 mg tablet 50 mg PO BEDTIME carboxymethylcellulose sodium [Refresh Tears] 0.5 % drops 1 drp ophthalmic (eye) BID sennosides-docusate sodium [Senna-S] 8.6-50 mg Tablet 1 - 2 tab PO BID PRN (Reason: Constipation) albuterol sulfate [Proventil HFA] 90 mcg/actuation HFA aerosol inhaler 1 inh inhalation Q6H PRN (Reason: shortness of breath or wheezing) Qty: 6.7 0RF quetiapine 25 mg tablet 25 mg PO DAILY calcium carbonate 600 mg calcium (1,500 mg) Tablet 600 mg PO DAILY amlodipine 10 mg tablet 10 mg PO DAILY Qty: 60 1RF metoprolol tartrate 75 mg Tablet 100 mg PO BID Qty: 60 0RF Discharge Orders: Discharge ED (Routine); Ordered 02/17/22 Ordered By: Luis F Parmar Referrals: Rajni Knapp MD [Primary Care Provider] - Discharge Diet: Advance as tolerated Discharge Activity: Resume usual activity Patient Instructions: How to Care for Your Suprapubic Catheter (DC) Coding Level of Care Code ED Dining Services Manager for Chg Fwd Exam Comprehensive
[2022-02-17] MEDS: ondansetron 2 mg/ML SDV 2 mL 4 MG IVP (04:40)
[2022-02-17] MEDS: morphine 4 mg/mL SDV 1 mL IM (04:40)
[2022-02-17 04:51] VITALS: BP 146/76; PULSE 75; O2SAT 89
== END 2022-02-17 05:40 | disposition home or self-care (01) ==
PROVIDERS: Emergency Provider Emergency Medicine; PCP Family Medicine
DX: T83.098A Other mechanical complication of other urinary catheter, initial encounter (principal); I25.10 Atherosclerotic heart disease of native coronary artery without angina pectoris; E78.5 Hyperlipidemia, unspecified; Z85.828 Personal history of other malignant neoplasm of skin; I10 Essential (primary) hypertension
CPT/HCPCS: 74176; 96372; 96374; 99285; J2270; J2405